=== PATIENT | male | born 1970 | race Caucasian/White ===

== ENCOUNTER 2017-02-07 17:33 | Emergency (ER) | payer SELFPAY ==
[~2017-02-07] VITALS: Ht 170.2 cm; Wt 101.6 kg
[2017-02-07] MEDS ORDERED: IV NORMAL SALINE 1000ML BAG 1,000 ML IV ONE ×2 (18:30→22:00)
[2017-02-07] MEDS ORDERED: METOCLOPRAMIDE HCL 10 MG/2 ML VIAL. IV ONE (18:45)
[2017-02-07] MEDS ORDERED: diphenhydrAMINE 50 MG/ML VIAL IVP ONE (18:45)
[2017-02-07 18:56] LABS: BASO % 0 % (0-3); EOS % 0 % (0-3); HEMATOCRIT 45.6 % (39.0-53.0); HEMOGLOBIN 15.4 g/dL (13.0-17.5); LYMPH # 1.7 x10^3/uL (1.0-4.8); LYMPH % 17 % (24-48); MEAN CORPUSCULAR HEMOGLOBIN 29 pg (25-35); MEAN CORPUSCULAR HGB CONC 34 g/dL (31-37); MEAN CORPUSCULAR VOLUME 85 fL (79-100); MONO % 4 % (0-9); NEUT % 79 % (31-73); PLATELET COUNT 249 x10^3/uL (140-400); RED BLOOD COUNT 5.37 x10^6/uL (4.30-5.70); RED CELL DISTRIBUTION WIDTH 14.1 % (11.5-14.5); WHITE BLOOD COUNT 10.1 x10^3/uL (4.0-11.0)
[2017-02-07 19:06] LABS: CALCIUM 9.7 mg/dL (8.5-10.1); GFR 80.4; POTASSIUM 4.4 mmol/L (3.5-5.1)
[2017-02-07 19:13] LABS: ALBUMIN/GLOBULIN RATIO 0.9 (1.0-1.7); TOTAL BILIRUBIN 0.9 mg/dL (0.2-1.0); TOTAL PROTEIN 8.7 g/dL (6.4-8.2)
--- NOTE | 2017-02-07 19:24 | RAD ---
EXAM: Head CT without contrast. HISTORY: Vomiting. TECHNIQUE: Computed tomographic images of the head were obtained without contrast. *One or more of the following individualized dose reduction techniques were utilized for this examination: 1. Automated exposure control. 2. Adjustment of the mA and/or kV according to patient size. 3. Use of iterative reconstruction technique. COMPARISON: None. FINDINGS: There is no acute or subacute extra-axial or intraparenchymal hemorrhage. There is no mass effect or midline shift. There is no hydrocephalus. The pérez-white matter differentiation pattern is intact. The visualized portions of the orbits, paranasal sinuses and mastoid air cells are unremarkable. No suspicious calvarial lesion is seen. IMPRESSION: No acute intracranial findings. Electronically signed by: Ericka Rodriguez MD (02/07/2017 7:21 PM) [facility]
[2017-02-07] MEDS ORDERED: KETOROLAC 15 MG/ML VIAL. IV ONE (19:45)
[2017-02-07] MEDS ORDERED: LIDOCAINE 1% PF 2 ML VIAL. NEB ONE (20:00)
[2017-02-07] MEDS ORDERED: METOPROLOL TART IMMED RELEASE 25 MG TABLET. PO ONE (20:45)
[2017-02-07 20:47] LABS: BILIRUBIN,URINE NEGATIVE (NEG); GLUCOSE,URINE >=1000 mg/dL (NEG); NITRITE,URINE NEGATIVE (NEG); PH,URINE 5.5; PROTEIN,URINE 100 mg/dL (NEG-TRACE); UROBILINOGEN,URINE 0.2 mg/dL (0.2 mg/dL)
[2017-02-07 20:57] LABS: BARBITURATES NEG (NEG); BENZODIAZEPINES NEG (NEG); CANNABINOIDS NEG (NEG); COCAINE NEG (NEG); METHADONE NEG (NEG); OPIATES NEG (NEG); PHENCYCLIDINE NEG (NEG)
[2017-02-07 21:02] LABS: BACTERIA,URINE 0 /HPF (0-FEW); RBC,URINE OCC /HPF (0-2); SQUAMOUS EPITHELIAL CELL,UR FEW /LPF
[2017-02-07 21:50] VITALS: BP 152/96
[2017-02-07] MEDS ORDERED: ONDA4TAB7 PO (22:11)
--- NOTE | 2017-02-07 23:45 | ED.ADGEN ---
Past Medical History Past Medical History: Diabetes-Type II, High Cholesterol, Hypertension, Migraines Additional Past Medical Histor: PERIPHERAL NEUROPATHY, RETINOPATHY, renal insufficiency Past Surgical History: No Surgical History Alcohol Use: Occasionally Drug Use: None Adult General Chief Complaint Chief Complaint: HEADACHE HPI HPI Patient is a 46 year old man, history of migraines, cluster headaches, hypertension, type 2 diabetes mellitus, hyperlipidemia, obesity, who presents to the emergency department with a complaint of headache, nausea and vomiting, and generalized malaise. Patient states the headache began several weeks ago, states he was seen at the [facility] by his primary care provider, who would like him to receive a sleep study, he states he was instructed use Tylenol for his headaches, and to return for additional evaluation. He states that the headaches became worse today, located in the front of his head, and wrapping around to the back of his head as well, associated with nausea and vomiting. States he has had some rhinorrhea but no ear pain, no vision changes, no weakness, numbness or tingling. He states that he's had dry heaves, and nausea, some mild photophobia, denies any injuries, any fevers or chills, any urinary complaints. He states that he has had headaches similar to this previously, but it is been worse today. He states that he was diagnosed with cluster headaches when he was a teenager, has not had evaluation for headache since that time, that time he had an MRI performed that was unremarkable. No swelling extremities, no chest pain or shortness breath, recent travel or surgery, no injuries. Review of Systems Review of Systems Constitutional: Denies fever or chills. [] Eyes: Denies change in visual acuity. [] HENT: Denies nasal congestion or sore throat. [] Respiratory: Denies cough or shortness of breath. [] Cardiovascular: Denies chest pain or edema. [] GI: Denies abdominal pain, nausea, vomiting, bloody stools or diarrhea. : Denies dysuria. [] Musculoskeletal: Denies back pain or joint pain. [] Integument: Denies rash. [] Neurologic: Denies focal weakness or sensory changes. [] Headache, frontal region, wrapping around to the back of his head. Endocrine: Denies polyuria or polydipsia. [] Lymphatic: Denies swollen glands. [] Psychiatric: Denies depression or anxiety. [] Current Medications Current Medications Current Medications Medications (Trade) Dose Ordered Sig/Felisha Start Time Stop Time Status Last Admin Dose Admin Diphenhydramine HCl (Benadryl) 25 mg 1X ONCE 02/07/17 18:45 02/07/17 18:46 DC 02/07/17 18:45 25 MG Ketorolac Tromethamine (Toradol) 10 mg 1X ONCE 02/07/17 19:45 02/07/17 19:46 DC 02/07/17 19:35 10 MG Lidocaine HCl (Xylocaine-Mpf 1% Vial) 5 ml 1X ONCE 02/07/17 20:00 02/07/17 20:01 DC Metoclopramide HCl (Reglan Vial) 10 mg 1X ONCE 02/07/17 18:45 02/07/17 18:46 DC 02/07/17 18:45 10 MG Metoprolol Tartrate (Lopressor) 25 mg 1X ONCE 02/07/17 20:45 02/07/17 20:46 DC 02/07/17 21:03 25 MG Sodium Chloride 1,000 ml @ 1,000 mls/hr 1X ONCE 02/07/17 22:00 02/07/17 22:48 DC Allergies Allergies Allergies Coded Allergies Type Severity Reaction Last Updated Verified acetaminophen Allergy Intermediate 02/07/17 Yes amlodipine Allergy Intermediate 02/07/17 Yes lisinopril Allergy Intermediate 02/07/17 Yes Physical Exam Physical Exam Constitutional: Well developed, well nourished, no acute distress, non-toxic appearance. [] HENT: Normocephalic, atraumatic, bilateral external ears normal, oropharynx moist, no oral exudates, nose normal. [] Eyes: PERRLA, EOMI, conjunctiva normal, no discharge. [] Neck: Normal range of motion, no tenderness, supple, no stridor. [] Negative jolt accentuation test. Cardiovascular:Heart rate regular rhythm, no murmur, S1, S2, tachycardic, no rubs or gallops. [] Lungs & Thorax: Bilateral breath sounds clear to auscultation, no wheezing, rhonchi, rales. No chest wall crepitus or tenderness. [] Abdomen: Bowel sounds normal, soft, no tenderness, no rebound, rigidity, no guarding, no masses, no pulsatile masses. [] Skin: Warm, dry, no erythema, no rash. [] Back: No tenderness, no CVA tenderness. [] Extremities: No tenderness, no cyanosis, no clubbing, ROM intact, no edema. Negative Homans sign.[] Neurologic: Alert and oriented X 3, normal motor function, normal sensory function, no focal deficits noted. [] Psychologic: Affect normal, judgement normal, mood normal. [] Current Patient Data Vital Signs Vital Signs Date Time Temp Pulse Resp B/P (MAP) Pulse Ox O2 Delivery O2 Flow Rate FiO2 02/07/17 21:50 108 100 02/07/17 21:03 155/84 02/07/17 20:04 Nasal Cannula 3.0 02/07/17 17:55 97.9 20 97.9 Lab Values Laboratory Tests Test 02/07/17 17:53 02/07/17 20:39 02/07/17 21:10 White Blood Count 10.1 x10^3/uL (4.0-11.0) Red Blood Count 5.37 x10^6/uL (4.30-5.70) Hemoglobin 15.4 g/dL (13.0-17.5) Hematocrit 45.6 % (39.0-53.0) Mean Corpuscular Volume 85 fL (79-100) Mean Corpuscular Hemoglobin 29 pg (25-35) Mean Corpuscular Hemoglobin Concent 34 g/dL (31-37) Red Cell Distribution Width 14.1 % (11.5-14.5) Platelet Count 249 x10^3/uL (140-400) Neutrophils (%) (Auto) 79 % (31-73) H Lymphocytes (%) (Auto) 17 % (24-48) L Monocytes (%) (Auto) 4 % (0-9) Eosinophils (%) (Auto) 0 % (0-3) Basophils (%) (Auto) 0 % (0-3) Neutrophils # (Auto) 8.0 x10^3uL (1.8-7.7) H Lymphocytes # (Auto) 1.7 x10^3/uL (1.0-4.8) Monocytes # (Auto) 0.4 x10^3/uL (0.0-1.1) Eosinophils # (Auto) 0.0 x10^3/uL (0.0-0.7) Basophils # (Auto) 0.0 x10^3/uL (0.0-0.2) Sodium Level 135 mmol/L (136-145) L Potassium Level 4.4 mmol/L (3.5-5.1) Chloride Level 97 mmol/L (98-107) L Carbon Dioxide Level 31 mmol/L (21-32) Anion Gap 7 (6-14) Blood Urea Nitrogen 20 mg/dL (8-26) Creatinine 1.0 mg/dL (0.7-1.3) Estimated GFR (Cockcroft-Gault) 80.4 BUN/Creatinine Ratio 20 (6-20) Glucose Level 297 mg/dL (70-99) H Calcium Level 9.7 mg/dL (8.5-10.1) Total Bilirubin 0.9 mg/dL (0.2-1.0) Aspartate Amino Transferase (AST) 45 U/L (15-37) H Alanine Aminotransferase (ALT) 73 U/L (16-63) H Alkaline Phosphatase 71 U/L (46-116) Troponin I Quantitative < 0.017 ng/mL (0.000-0.055) Total Protein 8.7 g/dL (6.4-8.2) H Albumin 4.0 g/dL (3.4-5.0) Albumin/Globulin Ratio 0.9 (1.0-1.7) L Urine Collection Type Unknown Urine Color Yellow Urine Clarity Clear Urine pH 5.5 Urine Specific [place] >=1.030 Urine Protein 100 mg/dL (NEG-TRACE) Urine Glucose (UA) >=1000 mg/dL (NEG) Urine Ketones (Stick) 40 mg/dL (NEG) Urine Blood Trace (NEG) Urine Nitrite Negative (NEG) Urine Bilirubin Negative (NEG) Urine Urobilinogen Dipstick 0.2 mg/dL (0.2 mg/dL) Urine Leukocyte Esterase Negative (NEG) Urine RBC Occ /HPF (0-2) Urine WBC 5-10 /HPF (0-4) Urine Squamous Epithelial Cells Few /LPF Urine Bacteria 0 /HPF (0-FEW) Urine Opiates Screen Neg (NEG) Urine Methadone Screen Neg (NEG) Urine Barbiturates Neg (NEG) Urine Phencyclidine Screen Neg (NEG) Urine Amphetamine/Methamphetamine Neg (NEG) Urine Benzodiazepines Screen Neg (NEG) Urine Cocaine Screen Neg (NEG) Urine Cannabinoids Screen Neg (NEG) Urine Ethyl Alcohol Neg (NEG) Lactic Acid Level 1.4 mmol/L (0.4-2.0) Laboratory Tests 02/07/17 17:53 Laboratory Tests 02/07/17 17:53 EKG EKG EC: Sinus tachycardia, heart rate 108 bpm, QTC of 435, CT 168, QRS of 90 , patient with left axis deviation, no ST elevations or depressions, abnormal ECG, does not meet STEMI criteria. As interpreted by me.[] Radiology/Procedures Radiology/Procedures [][facility] [address] [place] [address] IMAGING REPORT Signed PATIENT: LETHA ARZATE ACCOUNT: [id number] : 1970 LOCATION: ER AGE: 46 SEX: M EXAM STATUS: REG ER ORD. PHYSICIAN: MICHAEL MAYER DO REASON: MALIK/HTN PROCEDURE: CT HEAD WO CONTRAST EXAM: Head CT without contrast. HISTORY: Vomiting. TECHNIQUE: Computed tomographic images of the head were obtained without contrast. *One or more of the following individualized dose reduction techniques were utilized for this examination: 1. Automated exposure control. 2. Adjustment of the mA and/or kV according to patient size. 3. Use of iterative reconstruction technique. COMPARISON: None. FINDINGS: There is no acute or subacute extra-axial or intraparenchymal hemorrhage. There is no mass effect or midline shift. There is no hydrocephalus. The pérez-white matter differentiation pattern is intact. The visualized portions of the orbits, paranasal sinuses and mastoid air cells are unremarkable. No suspicious calvarial lesion is seen. IMPRESSION: No acute intracranial findings. Electronically signed by: Ericka Suresh MD (02/07/2017 7:21 PM) [facility] DICTATED and SIGNED BY: ERICKA SURESH MD DATE: 02/07/171920 CC: MICHAEL MAYER DO; UNKNOWN PCP NAME ~ Chest x-ray: One view: Normal cardiopulmonary silhouette, no infiltrates, no effusions, no pneumothorax, no soft tissue or bony abnormalities identified. As interpreted by me. Course & Med Decision Making Course & Med Decision Making Pertinent Labs and Imaging studies reviewed. (See chart for details) Patient tachycardic, complaints multiple episodes of nausea and vomiting, states symptoms have been persistent over the past several weeks, worse today. Due to patient's complaints, CT of the head obtained as patient has not received any imaging for many years, does not reveal any evidence acutely concerning findings. Tachycardic as stated, initially in the 1 teens to 120s, and received IV fluids, with concern for dehydration, due to multiple doses of vomiting, noted be hyperglycemic with a glucose of 297, noted, patient was noted however to have 40 ketones in the urine, with glucose. Patient received a liter of fluid, the second liter infusing in the ED, I did discuss the results with patient. He is also received a lidocaine neb, along with Reglan and Benadryl. He states that his headache is slightly improved at this time, I did discuss admission to the hospital for treatment of dehydration with hyperglycemia, and further evaluation of his persistent symptoms. Patient however states that he "cannot be admitted to the hospital as he can't afford it , and has things to do". He states that he is feeling better at this time, we does remain mild tachycardia with heart rate in the low 100s, states that his nausea is improved he has not had any further vomiting in the ED, he has tolerated some oral fluids, and states that he will go home, take his insulin other medications, and will advance clear liquids. He states he'll return to the emergency department if that is not working or he feels worse. I discussed with patient my concerns for worsening morbidity or mortality, based on his laboratory studies and persistent symptoms, with persistent tachycardia with heart rate remaining in the 1 teens, evidence of dehydration,patient voiced understanding, was calm and cooperative, and appropriate in his responses. After discussion patient did opt to sign out AGAINST MEDICAL ADVICE, paperwork completed with nurse Savana, patient did ambulate without difficulty upon exiting the emergency department with family. Nithin Disclaimer Nithin Disclaimer This electronic medical record was generated, in whole or in part, using a voice recognition dictation system. Departure Impression: Primary Impression: Hyperglycemia Additional Impressions: Dehydration Headache Ketonuria Left against medical advice Disposition: 07 AGAINST MEDICAL ADVICE Condition: STABLE Scripts Ondansetron Hcl (ZOFRAN) 4 Mg Tablet 1 TAB PO PRN Q8HRS Y for NAUSEA, #12 TAB Prov: MORENO,MICHAEL M DO 02/07/17 Problem Qualifiers MICHAEL MAYER DO Feb 07, 2017 23:45
--- NOTE | 2017-02-08 08:54 | RAD ---
Single view chest History:Tachycardia, nausea and vomiting v An AP view of the chest is submitted. Comparison: 08/10/2015. Findings: There is no significant infiltrate, pleural effusion, or pneumothorax. The pericardial cardiac silhouette is within normal limits in size. Impression: There is no evidence of acute cardiopulmonary disease.
--- NOTE | 2017-02-08 11:18 | EKG ---
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
== END 2017-02-07 22:15 | disposition left against medical advice (07) ==
LOC: ER 17:33
DX: R51 Headache (principal); E86.0 Dehydration; E11.65 Type 2 diabetes mellitus with hyperglycemia; R82.4 Acetonuria; N18.9 Chronic kidney disease, unspecified; E11.22 Type 2 diabetes mellitus with diabetic chronic kidney disease; I12.9 Hypertensive chronic kidney disease with stage 1 through stage 4 chronic kidney disease, or unspecified chronic kidney disease; E11.40 Type 2 diabetes mellitus with diabetic neuropathy, unspecified; E78.00 Pure hypercholesterolemia, unspecified; G43.909 Migraine, unspecified, not intractable, without status migrainosus; Z88.6 Allergy status to analgesic agent; Z88.8 Allergy status to other drugs, medicaments and biological substances
CPT/HCPCS: 36415; 70450; 71010; 80053; 80307; 81001; 83605; 84484; 85025; 87086; 93005; 94640; 96361; 96374; 96375; 99285; J1200; J1885; J2765; J7030; G0479

== ENCOUNTER 2017-12-29 18:28 | Inpatient (IN) | payer SELFPAY ==
[~2017-12-29] VITALS: Ht 167.6 cm; Wt 97.1 kg
[~2017-12-29 18:28] MED LIST: ONDA4TAB7 PO
[2017-12-29 18:54] LABS: BILIRUBIN,URINE NEGATIVE (NEG); CLARITY,URINE CLEAR; COLOR,URINE YELLOW; NITRITE,URINE NEGATIVE (NEG); PROTEIN,URINE NEGATIVE (NEG-TRACE); UROBILINOGEN,URINE 0.2 mg/dL (0.2 mg/dL)
[2017-12-29 19:04] LABS: BACTERIA,URINE FEW /HPF (0-FEW); SQUAMOUS EPITHELIAL CELL,UR FEW /LPF
[2017-12-29] MEDS ORDERED: ONDANSETRON PF 4 MG/2 ML VIAL. IV ONE (19:15)
[2017-12-29] MEDS ORDERED: fentaNYL PF VIAL 100 MCG/2 ML VIAL IV ONE (19:15)
[2017-12-29] MEDS ORDERED: FAMOTIDINE 20 MG/2 ML VIAL IVP ONE (19:15)
[2017-12-29] MEDS ORDERED: IV NORMAL SALINE 1000ML BAG 1,000 ML IV ONE ×2 (19:15)
--- NOTE | 2017-12-29 19:48 | PHYS DOC ---
Past Medical History Past Medical History: Diabetes-Type II, High Cholesterol, Hypertension, Migraines Additional Past Medical Histor: PERIPHERAL NEUROPATHY, RETINOPATHY, renal insufficiency Past Surgical History: No Surgical History Alcohol Use: Occasionally Drug Use: None Adult General Chief Complaint Chief Complaint: FLANK PAIN HPI HPI Patient is a 47 year old male with history of insulin-dependent diabetes noncompliance who presents with bilateral flank pain,, multiple episodes of emesis after being off insulin for the past 2 days. Patient also reports epigastric pain, burning worse with vomiting. Patient states his symptoms began over the weekend and he been treating them with left over nausea medication from prior hospital admission. He has not checked his blood sugars in the past 2 days. Does report dizziness lightheadedness and dry mouth. No fever chills, emesis, coffee-ground emesis. No constipation or diarrhea. No chest pain or shortness of breath. No other acute symptoms or complaints.[] Review of Systems Review of Systems ROS as per HPI All other systems were reviewed and found to be within normal limits, except as documented in this note. Current Medications Current Medications Current Medications Medications (Trade) Dose Ordered Sig/Felisha Start Time Stop Time Status Last Admin Dose Admin Ceftriaxone Sodium 50 ml @ 100 mls/hr 1X ONCE 12/29/17 19:15 12/29/17 19:44 Famotidine (Pepcid Vial) 20 mg 1X ONCE 12/29/17 19:15 12/29/17 19:17 DC Fentanyl Citrate (Fentanyl 2ml Vial) 50 mcg 1X ONCE 12/29/17 19:15 12/29/17 19:17 DC Ondansetron HCl (Zofran) 4 mg 1X ONCE 12/29/17 19:15 12/29/17 19:17 DC Sodium Chloride 1,000 ml @ 1,000 mls/hr 1X ONCE 12/29/17 19:15 12/29/17 20:14 Allergies Allergies Allergies Coded Allergies Type Severity Reaction Last Updated Verified acetaminophen Allergy Intermediate 02/07/17 Yes amlodipine Allergy Intermediate 02/07/17 Yes lisinopril Allergy Intermediate 02/07/17 Yes Physical Exam Physical Exam Constitutional: Well developed, well nourished, no acute distress, non-toxic appearance. [] HENT: Normocephalic, atraumatic, bilateral external ears normal, oropharynx moist, no oral exudates, nose normal. [] Eyes: PERRLA, EOMI, conjunctiva normal, no discharge. [] Neck: Normal range of motion, no tenderness, supple, no stridor. [] Cardiovascular:Heart rate regular rhythm, no murmur [] Lungs & Thorax: Bilateral breath sounds clear to auscultation [] Abdomen: Bowel sounds normal, soft, mild epigastric pain, tenderness. [] Skin: Warm, dry, no erythema. [] Back: No tenderness. [] Extremities: No tenderness. [] Neurologic: Alert and oriented X 3, normal motor function, normal sensory function, no focal deficits noted. [] Psychologic: Affect normal, judgement normal, mood normal. [] Current Patient Data Vital Signs Vital Signs Date Time Temp Pulse Resp B/P (MAP) Pulse Ox O2 Delivery O2 Flow Rate FiO2 12/29/17 18:57 98.5 127 18 134/79 (97) 96 Room Air 98.5 Lab Values Laboratory Tests Test 12/29/17 18:42 Urine Collection Type Unknown Urine Color Yellow Urine Clarity Clear Urine pH 5.0 Urine Specific [place] 1.025 Urine Protein Negative mg/dL (NEG-TRACE) Urine Glucose (UA) >=1000 mg/dL (NEG) Urine Ketones (Stick) 15 mg/dL (NEG) Urine Blood Moderate (NEG) Urine Nitrite Negative (NEG) Urine Bilirubin Negative (NEG) Urine Urobilinogen Dipstick 0.2 mg/dL (0.2 mg/dL) Urine Leukocyte Esterase Trace (NEG) Urine RBC 1-2 /HPF (0-2) Urine WBC 11-20 /HPF (0-4) Urine Squamous Epithelial Cells Few /LPF Urine Bacteria Few /HPF (0-FEW) Urine Mucus Slight /LPF EKG EKG [EKG: Reviewed] Radiology/Procedures Radiology/Procedures [CT abdomen pelvis without contrast:] Course & Med Decision Making Course & Med Decision Making Pertinent Labs and Imaging studies reviewed. (See chart for details) [Bilateral hematuria with complications related to diabetes and hyperglycemia, IV fluids, antiemetics and pain medications given. Will obtain CT abdomen pelvis to rule out acute pathology presence of kidney stone with anticipated hospital admission] Dragon Disclaimer Dragon Disclaimer This electronic medical record was generated, in whole or in part, using a voice recognition dictation system. Departure Departure Referrals: KASSY HUNT DO (PCP) XU BRIGHT DO Dec 29, 2017 19:48
[2017-12-29 19:51] LABS: BASO # 0.1 x10^3/uL (0.0-0.2); BASO % 0 % (0-3); EOS % 0 % (0-3); HEMATOCRIT 35.9 % (39.0-53.0); HEMOGLOBIN 11.9 g/dL (13.0-17.5); LYMPH # 0.9 x10^3/uL (1.0-4.8); LYMPH % 3 % (24-48); MEAN CORPUSCULAR HEMOGLOBIN 29 pg (25-35); MEAN CORPUSCULAR HGB CONC 33 g/dL (31-37); MEAN CORPUSCULAR VOLUME 87 fL (79-100); MONO # 1.8 x10^3/uL (0.0-1.1); MONO % 6 % (0-9); NEUT # 25.7 x10^3uL (1.8-7.7); NEUT % 90 % (31-73); PLATELET COUNT 277 x10^3/uL (140-400); RED BLOOD COUNT 4.12 x10^6/uL (4.30-5.70); RED CELL DISTRIBUTION WIDTH 14.1 % (11.5-14.5); WHITE BLOOD COUNT 28.5 x10^3/uL (4.0-11.0)
--- NOTE | 2017-12-29 19:52 | RAD ---
CT abdomen pelvis without intravenous contrast History: Right flank pain. Comparison: None. Technique: CT of the abdomen and pelvis was performed without intravenous or oral contrast. Exposure: One or more of the following individualized dose reduction techniques were utilized for this examination: 1. Automated exposure control 2. Adjustment of the mA and/or kV according to patient size 3. Use of iterative reconstruction technique Findings: Evaluation of solid organs is limited by lack of intravenous contrast. Evaluation of enteric structures may be limited by lack of oral contrast. Fatty liver disease is seen. Mild splenomegaly is present with spleen measuring 13.5 cm in maximum dimension. Pancreas, gallbladder, and bilateral adrenal glands unremarkable. Bilateral kidneys and ureters are free stone or obstruction. Urinary bladder is unremarkable. No bowel obstruction or inflammation is identified. Appendix is without inflammation. No free air or free fluid is seen in the abdomen or pelvis. In the left upper hemipelvis, there is a heterogeneously attenuating lesion (probably partially calcified) measuring 1.5 x 1.0 cm. This is nonspecific, could represent small lymph node or possibly partially calcified cyst. Impression: 1. No acute abnormality identified in the abdomen or pelvis. 2. Mild splenomegaly. 3. Small partially calcified left mesenteric lesion left hemipelvis. Electronically signed by: Wallace Smith MD (12/29/2017 7:49 PM) [facility]
[2017-12-29 20:01] LABS: ACETONE MOD POS (NEG)
[2017-12-29 20:07] LABS: ANION GAP 29 (6-14); BLOOD UREA NITROGEN 57 mg/dL (8-26); BUN/CREATININE RATIO 24 (6-20); CALCIUM 9.9 mg/dL (8.5-10.1); CARBON DIOXIDE 13 mmol/L (21-32); CHLORIDE 82 mmol/L (98-107); CREATININE 2.4 mg/dL (0.7-1.3); GFR 29.2; POTASSIUM 5.6 mmol/L (3.5-5.1); SODIUM 124 mmol/L (136-145)
[2017-12-29 20:09] LABS: ALBUMIN 2.9 g/dL (3.4-5.0); ALBUMIN/GLOBULIN RATIO 0.6 (1.0-1.7); ALK PHOS 108 U/L (46-116); ALT (SGPT) 21 U/L (16-63); AST (SGOT) 14 U/L (15-37); TOTAL BILIRUBIN 1.1 mg/dL (0.2-1.0); TOTAL PROTEIN 7.5 g/dL (6.4-8.2)
[2017-12-29 20:27] LABS: GLUCOSE 809 mg/dL (70-99)
[2017-12-29 20:40] LABS: % BANDS 11 % (0-9); % LYMPHS 1 % (24-48); % MONOS 6 % (0-10); % SEGS 82 % (35-66); PLT ESTIMATE ADEQUATE (ADEQUATE)
[2017-12-29 20:43] LABS: POIKILOCYTOSIS SLIGHT
[2017-12-29] MEDS ORDERED: INSULIN REGULAR 100 UNIT/ML 3ML VIAL. SQ ONE (20:45)
[2017-12-29] MEDS ORDERED: ONDANSETRON PF 4 MG/2 ML VIAL. IV PRN (20:45)
[2017-12-29] MEDS ORDERED: INSULIN REGULAR VIAL 150 UNIT in 0.9 % SODIUM CHLORIDE 150ML 150 ML IV PRN (20:45)
[2017-12-29] MEDS: IV NORMAL SALINE 1000ML BAG 1,000 ML IV SCH (21:00)
[2017-12-29 21:54] LABS: BASE EXCESS ABG -12 mmol/L (-3-3); HCO3 ABG 13 mmol/L (21-28); PCO2 ABG 26 mmHg (35-46); PO2 ABG 90 mmHg (75-108); SAT O2 ABG 96 % (92-99)
[2017-12-29 22:00] VITALS: BP 135/64
[2017-12-29 22:15] VITALS: BP 103/59
[2017-12-29 22:30] VITALS: BP 124/63
[2017-12-29 22:39] LABS: FIO2 ABG 21
[2017-12-29 22:45] VITALS: BP 146/74
[2017-12-29 22:57] LABS: CALCIUM 9.5 mg/dL (8.5-10.1); CREATININE 2.3 mg/dL (0.7-1.3); GFR 30.6; PHOSPHORUS 4.4 mg/dL (2.6-4.7); POTASSIUM 4.8 mmol/L (3.5-5.1)
[2017-12-29 23:00] VITALS: BP 133/76
[2017-12-29 23:30] VITALS: BP 132/58
[2017-12-30] VITALS (15 sets, daily range): BP systolic 92–178; BP diastolic 53–91
[2017-12-30] MEDS: IV NORMAL SALINE 1000ML BAG 1,000 ML IV SCH (01:00)
--- NOTE | 2017-12-30 01:21 | EKG ---
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
[2017-12-30] MEDS ORDERED: AMLO10TA6 PO (02:01)
[2017-12-30] MEDS ORDERED: PREG75CA PO (02:01)
[2017-12-30] MEDS ORDERED: ATOR20TA58 PO (02:01)
[2017-12-30] MEDS ORDERED: INSU100V13 SQ (02:01)
[2017-12-30] MEDS ORDERED: METF10007 PO (02:01)
[2017-12-30] MEDS ORDERED: DULA1.5P SQ (02:01)
[2017-12-30 03:02] LABS: CREATININE 2.3 mg/dL (0.7-1.3); GFR 30.6; MAGNESIUM 1.8 mg/dL (1.8-2.4); PHOSPHORUS 2.3 mg/dL (2.6-4.7); POTASSIUM 4.3 mmol/L (3.5-5.1)
[2017-12-30] MEDS ORDERED: SODIUM PHOSPHATE 20 MMOL in IV DEXTROSE 5% 250 ML IV PRN (03:15)
[2017-12-30] MEDS ORDERED: IV NORMAL SALINE 1000ML BAG 1,000 ML IV SCH (03:30)
[2017-12-30 03:39] LABS: BASO % 0 % (0-3); EOS % 0 % (0-3); HEMOGLOBIN 10.4 g/dL (13.0-17.5); LYMPH # 1.1 x10^3/uL (1.0-4.8); LYMPH % 5 % (24-48); MEAN CORPUSCULAR HEMOGLOBIN 28 pg (25-35); MEAN CORPUSCULAR HGB CONC 34 g/dL (31-37); MEAN CORPUSCULAR VOLUME 84 fL (79-100); MONO # 1.3 x10^3/uL (0.0-1.1); MONO % 7 % (0-9); NEUT # 17.2 x10^3uL (1.8-7.7); NEUT % 88 % (31-73); PLATELET COUNT 225 x10^3/uL (140-400); RED BLOOD COUNT 3.67 x10^6/uL (4.30-5.70); RED CELL DISTRIBUTION WIDTH 14.1 % (11.5-14.5); WHITE BLOOD COUNT 19.7 x10^3/uL (4.0-11.0)
[2017-12-30] MEDS ORDERED: INSULIN GLARGINE 300 UNITS/3 ML INSULN.PEN. SQ SCH (07:00)
[2017-12-30 07:28] LABS: CALCIUM 8.5 mg/dL (8.5-10.1); MAGNESIUM 1.7 mg/dL (1.8-2.4); PHOSPHORUS 2.3 mg/dL (2.6-4.7)
[2017-12-30] MEDS ORDERED: INSULIN LISPRO 300 UNITS/3 ML INSULN.PEN. SQ SCH ×3 (08:00→12:00)
--- NOTE | 2017-12-30 08:06 | PDOC1 ---
History and Physical Date of Admission Date of Admission DATE: 12/30/17 TIME: 08:04 Identification/Chief Complaint Chief Complaint DKA YOEL Source Source: Chart review, Patient History of Present Illness History of Present Illness Patient is a 47 year old male with history of insulin-dependent diabetes noncompliance who presents with bilateral flank pain, multiple episodes of emesis after being off insulin for the past 3 days. Patient also reports epigastric pain, burning worse with vomiting. Patient states his symptoms began over the weekend and he been treating them with left over nausea medication from prior hospital admission. He has not checked his blood sugars in the past 2 days. Does report dizziness lightheadedness and dry mouth. No fever chills, emesis, coffee-ground emesis. No constipation or diarrhea. No chest pain or shortness of breath. No other acute symptoms or complaints. Admitted with DKA on insulin GTT with electrolyte imbalance. He was noted with macerated feet bilaterally, seen by nephrology and infectious disease consults. He was noted with Cr of 2, low phos and mag and WBC of 28.5 increased respiratory rated, treated for sepsis aggressively, zosyn for likely cellulitic foot as source. His gap closed overnight, was able to eat this morning, restarted lantus. Past Medical History Cardiovascular: HTN Pulmonary: No pertinent hx GI: No pertinent hx Heme/Onc: No pertinent hx Hepatobiliary: No pertinent hx Psych: No pertinent hx Musculoskeletal: low back pain Infectious disease: No pertinent hx Renal/: No pertinent hx Endocrine: Diabetes Dermatology: No pertinent hx Past Surgical History Past Surgical History: No pertinent history Family History Family History: Diabetes Family History: Parent Social History Smoke: <1 pack per day ALCOHOL: none Drugs: None Current Medications Current Medications Current Medications Famotidine (Pepcid Vial) 20 mg 1X ONCE IVP Last administered on 12/29/17at 20: 02; Start 12/29/17 at 19:15; Stop 12/29/17 at 19:17; Status DC Sodium Chloride 1,000 ml @ 1,000 mls/hr 1X ONCE IV Last administered on 12/29at 19:58; Start 12/29/17 at 19:15; Stop 12/29/17 at 20:14; Status DC Ceftriaxone Sodium 50 ml @ 100 mls/hr 1X ONCE IV Last administered on at 20:05; Start 12/29/17 at 19:15; Stop 12/29/17 at 19:44; Status DC Fentanyl Citrate (Fentanyl 2ml Vial) 50 mcg 1X ONCE IV Last administered on at 20:04; Start 12/29/17 at 19:15; Stop 12/29/17 at 19:17; Status DC Ondansetron HCl (Zofran) 4 mg 1X ONCE IV Last administered on 12/29/17at 20:00 ; Start 12/29/17 at 19:15; Stop 12/29/17 at 19:17; Status DC Sodium Chloride 1,000 ml @ 1,000 mls/hr 1X ONCE IV Last administered on 12/29at 21:03; Start 12/29/17 at 19:15; Stop 12/29/17 at 20:14; Status DC Insulin Human Regular (HumuLIN R VIAL) 14 unit 1X ONCE SQ Last administered on 12/29/17at 21:06; Start 12/29/17 at 20:45; Stop 12/29/17 at 20:46; Status DC Ondansetron HCl (Zofran) 4 mg PRN Q8HRS PRN IV NAUSEA/VOMITING 1ST CHOICE Last administered on 12/30/17at 00:21; Start 12/29/17 at 20:45; Stop 12/30/17 at 20 :44 Sodium Chloride 1,000 ml @ 250 mls/hr Q4H IV ; Start 12/29/17 at 21:00; Stop 12/30/17 at 03:31; Status DC Insulin Human Regular 150 unit/ Sodium Chloride 151.5 ml @ 0 mls/hr CONT PRN PRN IV PER PROTOCOL Last administered on 12/29/17at 23:10; Start 12/29/17 at 20 :45 Magnesium Sulfate/ Dextrose 100 ml @ 25 mls/hr DAILY IV ; Start 12/30/17 at 09 :00; Stop 01/02/18 at 08:59 Ceftriaxone Sodium 50 ml @ 100 mls/hr 1X ONCE IV ; Start 12/29/17 at 20:45; Stop 12/29/17 at 21:14; Status UNV Sodium Chloride 1,000 ml @ 250 mls/hr Q4H IV ; Start 12/30/17 at 03:30; Stop 12/30/17 at 03:30; Status DC Potassium Chloride/Sodium Chloride 1,000 ml @ 250 mls/hr Q4H IV Last administered on 12/29/17at 23:27; Start 12/29/17 at 23:30; Stop 12/30/17 at 03 :29; Status DC Ceftriaxone Sodium 50 ml @ 100 mls/hr DAILY IV ; Start 12/30/17 at 09:00; Status UNV Ceftriaxone Sodium (Rocephin) 1 gm Q24H IVP ; Start 12/30/17 at 20:00 Potassium Chloride/Sodium Chloride 1,000 ml @ 250 mls/hr 1X ONCE IV Last administered on 12/30/17at 03:43; Start 12/30/17 at 04:00; Stop 12/30/17 at 07 :59; Status DC Sodium Phosphate 20 mmol/Dextrose 256.6667 ml @ 62.5 mls/hr 1X PRN PRN IV SEE COMMENTS Last administered on 12/30/17at 04:38; Start 12/30/17 at 03:15 Insulin Glargine (Lantus) 40 units BID SQ Last administered on 12/30/17at 06:13 ; Start 12/30/17 at 07:00 Insulin Human Lispro (HumaLOG) 20 units TIDWMEALS SQ ; Start 12/30/17 at 08:00 Insulin Human Lispro (HumaLOG) 0-9 UNITS TIDWMEALS SQ ; Start 12/30/17 at 08:00 Lactobacillus Rhamnosus (Culturelle) 1 cap BID PO ; Start 12/30/17 at 09:00 Active Scripts Active Zofran (Ondansetron Hcl) 4 Mg Tablet 1 Tab PO PRN Q8HRS PRN Reported Levemir (Insulin Detemir) 100 Unit/1 Ml Vial 34 Unit SQ BID Lyrica (Pregabalin) 75 Mg Capsule 75 Mg PO TID Atorvastatin Calcium 20 Mg Tablet 20 Mg PO HS Amlodipine Besylate 10 Mg Tablet 20 Mg PO BID Trulicity (Dulaglutide) 1.5 Mg/0.5 Ml Pen.injctr 1.5 Mg SQ WEEKLY Metformin Hcl 1,000 Mg Tablet 1,000 Mg PO BIDWMEALS Allergies Allergies: Coded Allergies: acetaminophen (Verified Adverse Reaction, Intermediate, UPSET STOMACH, DOESN'T WANT TO TAKE, 12/30/17) lisinopril (Verified Adverse Reaction, Intermediate, CHEST PAIN, ACID REFLUX, 12/30/17) ROS General: YES: Chills, Fatigue, Malaise PSYCHOLOGICAL ROS: No: Anxiety, Behavioral Disorder, Concentration difficultie , Decreased libido, Depression, Disorientation, Hallucinations, Hostility, Irritablity, Memory difficulties, Mood Swings, Obsessive thoughts, Physical abuse, Sexual abuse, Sleep disturbances, Suicidal ideation, Other Eyes: No Blurry vision, No Decreased vision, No Double vision, No Dry eyes, No Excessive tearing, No Eye Pain, No Itchy Eyes, No Loss of vision, No Photophobia , No Scotomata, No Uses contacts, No Uses glasses, No Other HEENT: No: Heacaches, Visual Changes, Hearing change, Nasal congestion, Nasal discharge, Oral lesions, Sinus pain, Sore Throat, Epistaxis, Sneezing, Snoring, Tinnitus, Vertigo, Vocal changes, Other ALLERGY AND IMMUNOLOGY: No: Hives, Insect Bite Sensitivity, Itchy/Watery Eyes, Nasal Congestion, Post Nasal Drip, Seasonal Allergies, Other Hematological and Lymphatic: No: Bleeding Problems, Blood Clots, Blood Transfusions, Brusing, Night Sweats, Pallor, Swollen Lymph Nodes, Other ENDOCRINE: YES: Polydipsia/polyuria; No: Breast Changes, Galactorrhea, Hair Pattern Changes, Hot Flashes, Malaise/ lethargy, Mood Swings, Palpitations, Skin Changes, Temperature Intolerance, Unexpected Weight Changes, Other Respiratory: No: Cough, Hemoptysis, Orthopnea, Pleuritic Pain, Shortness of breath, SOB with excertion, Sputum Changes, Stridor, Tachypnea, Wheezing, Other Cardiovascular: No Chest Pain, No Palpitations, No Orthopnea, No Paroxysmal Noc. Dyspnea, No Edema, No Lt Headedness, No Other Gastrointestinal: Yes Nausea, Yes Vomiting, Yes Abdominal Pain Genitourinary: YES Dysuria, YES Frequency Musculoskeletal: Yes Gait Disturbance, Yes Muscular Weakness Neurological: No Behavorial Changes, No Bowel/Bladder ControlChng, No Confusion , No Dizziness, No Gait Disturbance, No Headaches, No Impaired Coord/balance, No Memory Loss, No Numbness/Tingling, No Seizures, No Speech Problems, No Tremors, No Visual Changes, No Weakness, No Other Skin: Yes Other (Feet) Physical Exam General: Alert, Oriented X3, Cooperative, No acute distress HEENT: Atraumatic, PERRLA, EOMI, Mucous membr. moist/pink Lungs: Clear to auscultation, Normal air movement Heart: S1S2, RRR, no murmurs Abdomen: Normal bowel sounds, Soft, No hepatosplenomegaly, No masses, Other ( Epigastric tenderness) Rectal Exam: not examined Extremities: No clubbing, No cyanosis, No edema, Normal pulses, No tenderness/ swelling Skin: No rashes, Other (Bilaterally macerated feet, red) Neuro: Normal gait, Normal speech, Strength at 5/5 X4 ext, Normal tone, Sensation intact, Cranial nerves 3-12 NL, Reflexes 2+ Psych/Mental Status: Mental status NL, Mood NL Vitals Vitals Vital Signs Date Time Temp Pulse Resp B/P (MAP) Pulse Ox O2 Delivery O2 Flow Rate FiO2 12/30/17 06:00 133 21 150/74 (99) 92 Room Air 12/30/17 04:00 98.8 98.8 Labs Labs Laboratory Tests Test 12/29/17 18:42 12/29/17 19:14 12/29/17 19:15 12/29/17 22:30 Urine Collection Type Unknown Urine Color Yellow Urine Clarity Clear Urine pH 5.0 Urine Specific [place] 1.025 Urine Protein Negative mg/dL (NEG-TRACE) Urine Glucose (UA) >=1000 mg/dL (NEG) Urine Ketones (Stick) 15 mg/dL (NEG) Urine Blood Moderate (NEG) Urine Nitrite Negative (NEG) Urine Bilirubin Negative (NEG) Urine Urobilinogen Dipstick 0.2 mg/dL (0.2 mg/dL) Urine Leukocyte Esterase Trace (NEG) Urine RBC 1-2 /HPF (0-2) Urine WBC 11-20 /HPF (0-4) Urine Squamous Epithelial Cells Few /LPF Urine Bacteria Few /HPF (0-FEW) Urine Mucus Slight /LPF O2 Saturation 96 % (92-99) Arterial Blood pH 7.31 (7.35-7.45) Arterial Blood pCO2 at Patient Temp 26 mmHg (35-46) Arterial Blood pO2 at Patient Temp 90 mmHg (75-108) Arterial Blood HCO3 13 mmol/L (21-28) Arterial Blood Base Excess -12 mmol/L (-3-3) FiO2 21 White Blood Count 28.5 x10^3/uL (4.0-11.0) Red Blood Count 4.12 x10^6/uL (4.30-5.70) Hemoglobin 11.9 g/dL (13.0-17.5) Hematocrit 35.9 % (39.0-53.0) Mean Corpuscular Volume 87 fL (79-100) Mean Corpuscular Hemoglobin 29 pg (25-35) Mean Corpuscular Hemoglobin Concent 33 g/dL (31-37) Red Cell Distribution Width 14.1 % (11.5-14.5) Platelet Count 277 x10^3/uL (140-400) Neutrophils (%) (Auto) 90 % (31-73) Lymphocytes (%) (Auto) 3 % (24-48) Monocytes (%) (Auto) 6 % (0-9) Eosinophils (%) (Auto) 0 % (0-3) Basophils (%) (Auto) 0 % (0-3) Neutrophils # (Auto) 25.7 x10^3uL (1.8-7.7) Lymphocytes # (Auto) 0.9 x10^3/uL (1.0-4.8) Monocytes # (Auto) 1.8 x10^3/uL (0.0-1.1) Eosinophils # (Auto) 0.0 x10^3/uL (0.0-0.7) Basophils # (Auto) 0.1 x10^3/uL (0.0-0.2) Segmented Neutrophils % 82 % (35-66) Band Neutrophils % 11 % (0-9) Lymphocytes % 1 % (24-48) Monocytes % 6 % (0-10) Platelet Estimate Adequate (ADEQUATE) Poikilocytosis Slight [place] Cells Sodium Level 124 mmol/L (136-145) 127 mmol/L (136-145) Potassium Level 5.6 mmol/L (3.5-5.1) 4.8 mmol/L (3.5-5.1) Chloride Level 82 mmol/L (98-107) 88 mmol/L (98-107) Carbon Dioxide Level 13 mmol/L (21-32) 19 mmol/L (21-32) Anion Gap 29 (6-14) 20 (6-14) Blood Urea Nitrogen 57 mg/dL (8-26) 59 mg/dL (8-26) Creatinine 2.4 mg/dL (0.7-1.3) 2.3 mg/dL (0.7-1.3) Estimated GFR (Cockcroft-Gault) 29.2 30.6 BUN/Creatinine Ratio 24 (6-20) Glucose Level 809 mg/dL (70-99) 745 mg/dL (70-99) Calcium Level 9.9 mg/dL (8.5-10.1) 9.5 mg/dL (8.5-10.1) Magnesium Level 2.0 mg/dL (1.8-2.4) 2.0 mg/dL (1.8-2.4) Total Bilirubin 1.1 mg/dL (0.2-1.0) Aspartate Amino Transf (AST/SGOT) 14 U/L (15-37) Alanine Aminotransferase (ALT/SGPT) 21 U/L (16-63) Alkaline Phosphatase 108 U/L (46-116) Troponin I Quantitative < 0.017 ng/mL (0.000-0.055) Total Protein 7.5 g/dL (6.4-8.2) Albumin 2.9 g/dL (3.4-5.0) Albumin/Globulin Ratio 0.6 (1.0-1.7) Acetone Level Mod pos (NEG) Lactic Acid Level 2.6 mmol/L (0.4-2.0) Phosphorus Level 4.4 mg/dL (2.6-4.7) Test 12/30/17 00:20 12/30/17 01:40 12/30/17 02:40 12/30/17 03:16 Glucose Level 629 mg/dL (70-99) 520 mg/dL (70-99) 477 mg/dL (70-99) White Blood Count 19.7 x10^3/uL (4.0-11.0) Red Blood Count 3.67 x10^6/uL (4.30-5.70) Hemoglobin 10.4 g/dL (13.0-17.5) Hematocrit 31.0 % (39.0-53.0) Mean Corpuscular Volume 84 fL (79-100) Mean Corpuscular Hemoglobin 28 pg (25-35) Mean Corpuscular Hemoglobin Concent 34 g/dL (31-37) Red Cell Distribution Width 14.1 % (11.5-14.5) Platelet Count 225 x10^3/uL (140-400) Neutrophils (%) (Auto) 88 % (31-73) Lymphocytes (%) (Auto) 5 % (24-48) Monocytes (%) (Auto) 7 % (0-9) Eosinophils (%) (Auto) 0 % (0-3) Basophils (%) (Auto) 0 % (0-3) Neutrophils # (Auto) 17.2 x10^3uL (1.8-7.7) Lymphocytes # (Auto) 1.1 x10^3/uL (1.0-4.8) Monocytes # (Auto) 1.3 x10^3/uL (0.0-1.1) Eosinophils # (Auto) 0.0 x10^3/uL (0.0-0.7) Basophils # (Auto) 0.0 x10^3/uL (0.0-0.2) Sodium Level 128 mmol/L (136-145) Potassium Level 4.3 mmol/L (3.5-5.1) Chloride Level 93 mmol/L (98-107) Carbon Dioxide Level 24 mmol/L (21-32) Anion Gap 11 (6-14) Blood Urea Nitrogen 60 mg/dL (8-26) Creatinine 2.3 mg/dL (0.7-1.3) Estimated GFR (Cockcroft-Gault) 30.6 Lactic Acid Level 1.8 mmol/L (0.4-2.0) Calcium Level 9.0 mg/dL (8.5-10.1) Phosphorus Level 2.3 mg/dL (2.6-4.7) Magnesium Level 1.8 mg/dL (1.8-2.4) Glucose (Fingerstick) 475 mg/dL (70-99) Test 12/30/17 04:18 12/30/17 05:20 12/30/17 06:50 Glucose (Fingerstick) 408 mg/dL (70-99) 372 mg/dL (70-99) Sodium Level 133 mmol/L (136-145) Potassium Level 4.0 mmol/L (3.5-5.1) Chloride Level 97 mmol/L (98-107) Carbon Dioxide Level 24 mmol/L (21-32) Anion Gap 12 (6-14) Blood Urea Nitrogen 55 mg/dL (8-26) Creatinine 2.0 mg/dL (0.7-1.3) Estimated GFR (Cockcroft-Gault) 36.0 Glucose Level 293 mg/dL (70-99) Calcium Level 8.5 mg/dL (8.5-10.1) Phosphorus Level 2.3 mg/dL (2.6-4.7) Magnesium Level 1.7 mg/dL (1.8-2.4) Laboratory Tests Test 12/29/17 18:42 12/29/17 19:14 12/29/17 19:15 12/29/17 22:30 Urine Collection Type Unknown Urine Color Yellow Urine Clarity Clear Urine pH 5.0 Urine Specific [place] 1.025 Urine Protein Negative mg/dL (NEG-TRACE) Urine Glucose (UA) >=1000 mg/dL (NEG) Urine Ketones (Stick) 15 mg/dL (NEG) Urine Blood Moderate (NEG) Urine Nitrite Negative (NEG) Urine Bilirubin Negative (NEG) Urine Urobilinogen Dipstick 0.2 mg/dL (0.2 mg/dL) Urine Leukocyte Esterase Trace (NEG) Urine RBC 1-2 /HPF (0-2) Urine WBC 11-20 /HPF (0-4) Urine Squamous Epithelial Cells Few /LPF Urine Bacteria Few /HPF (0-FEW) Urine Mucus Slight /LPF O2 Saturation 96 % (92-99) Arterial Blood pH 7.31 (7.35-7.45) Arterial Blood pCO2 at Patient Temp 26 mmHg (35-46) Arterial Blood pO2 at Patient Temp 90 mmHg (75-108) Arterial Blood HCO3 13 mmol/L (21-28) Arterial Blood Base Excess -12 mmol/L (-3-3) FiO2 21 White Blood Count 28.5 x10^3/uL (4.0-11.0) Red Blood Count 4.12 x10^6/uL (4.30-5.70) Hemoglobin 11.9 g/dL (13.0-17.5) Hematocrit 35.9 % (39.0-53.0) Mean Corpuscular Volume 87 fL (79-100) Mean Corpuscular Hemoglobin 29 pg (25-35) Mean Corpuscular Hemoglobin Concent 33 g/dL (31-37) Red Cell Distribution Width 14.1 % (11.5-14.5) Platelet Count 277 x10^3/uL (140-400) Neutrophils (%) (Auto) 90 % (31-73) Lymphocytes (%) (Auto) 3 % (24-48) Monocytes (%) (Auto) 6 % (0-9) Eosinophils (%) (Auto) 0 % (0-3) Basophils (%) (Auto) 0 % (0-3) Neutrophils # (Auto) 25.7 x10^3uL (1.8-7.7) Lymphocytes # (Auto) 0.9 x10^3/uL (1.0-4.8) Monocytes # (Auto) 1.8 x10^3/uL (0.0-1.1) Eosinophils # (Auto) 0.0 x10^3/uL (0.0-0.7) Basophils # (Auto) 0.1 x10^3/uL (0.0-0.2) Segmented Neutrophils % 82 % (35-66) Band Neutrophils % 11 % (0-9) Lymphocytes % 1 % (24-48) Monocytes % 6 % (0-10) Platelet Estimate Adequate (ADEQUATE) Poikilocytosis Slight [place] Cells Sodium Level 124 mmol/L (136-145) 127 mmol/L (136-145) Potassium Level 5.6 mmol/L (3.5-5.1) 4.8 mmol/L (3.5-5.1) Chloride Level 82 mmol/L (98-107) 88 mmol/L (98-107) Carbon Dioxide Level 13 mmol/L (21-32) 19 mmol/L (21-32) Anion Gap 29 (6-14) 20 (6-14) Blood Urea Nitrogen 57 mg/dL (8-26) 59 mg/dL (8-26) Creatinine 2.4 mg/dL (0.7-1.3) 2.3 mg/dL (0.7-1.3) Estimated GFR (Cockcroft-Gault) 29.2 30.6 BUN/Creatinine Ratio 24 (6-20) Glucose Level 809 mg/dL (70-99) 745 mg/dL (70-99) Calcium Level 9.9 mg/dL (8.5-10.1) 9.5 mg/dL (8.5-10.1) Magnesium Level 2.0 mg/dL (1.8-2.4) 2.0 mg/dL (1.8-2.4) Total Bilirubin 1.1 mg/dL (0.2-1.0) Aspartate Amino Transf (AST/SGOT) 14 U/L (15-37) Alanine Aminotransferase (ALT/SGPT) 21 U/L (16-63) Alkaline Phosphatase 108 U/L (46-116) Troponin I Quantitative < 0.017 ng/mL (0.000-0.055) Total Protein 7.5 g/dL (6.4-8.2) Albumin 2.9 g/dL (3.4-5.0) Albumin/Globulin Ratio 0.6 (1.0-1.7) Acetone Level Mod pos (NEG) Lactic Acid Level 2.6 mmol/L (0.4-2.0) Phosphorus Level 4.4 mg/dL (2.6-4.7) Test 12/30/17 00:20 12/30/17 01:40 12/30/17 02:40 12/30/17 03:16 Glucose Level 629 mg/dL (70-99) 520 mg/dL (70-99) 477 mg/dL (70-99) White Blood Count 19.7 x10^3/uL (4.0-11.0) Red Blood Count 3.67 x10^6/uL (4.30-5.70) Hemoglobin 10.4 g/dL (13.0-17.5) Hematocrit 31.0 % (39.0-53.0) Mean Corpuscular Volume 84 fL (79-100) Mean Corpuscular Hemoglobin 28 pg (25-35) Mean Corpuscular Hemoglobin Concent 34 g/dL (31-37) Red Cell Distribution Width 14.1 % (11.5-14.5) Platelet Count 225 x10^3/uL (140-400) Neutrophils (%) (Auto) 88 % (31-73) Lymphocytes (%) (Auto) 5 % (24-48) Monocytes (%) (Auto) 7 % (0-9) Eosinophils (%) (Auto) 0 % (0-3) Basophils (%) (Auto) 0 % (0-3) Neutrophils # (Auto) 17.2 x10^3uL (1.8-7.7) Lymphocytes # (Auto) 1.1 x10^3/uL (1.0-4.8) Monocytes # (Auto) 1.3 x10^3/uL (0.0-1.1) Eosinophils # (Auto) 0.0 x10^3/uL (0.0-0.7) Basophils # (Auto) 0.0 x10^3/uL (0.0-0.2) Sodium Level 128 mmol/L (136-145) Potassium Level 4.3 mmol/L (3.5-5.1) Chloride Level 93 mmol/L (98-107) Carbon Dioxide Level 24 mmol/L (21-32) Anion Gap 11 (6-14) Blood Urea Nitrogen 60 mg/dL (8-26) Creatinine 2.3 mg/dL (0.7-1.3) Estimated GFR (Cockcroft-Gault) 30.6 Lactic Acid Level 1.8 mmol/L (0.4-2.0) Calcium Level 9.0 mg/dL (8.5-10.1) Phosphorus Level 2.3 mg/dL (2.6-4.7) Magnesium Level 1.8 mg/dL (1.8-2.4) Glucose (Fingerstick) 475 mg/dL (70-99) Test 12/30/17 04:18 12/30/17 05:20 12/30/17 06:50 Glucose (Fingerstick) 408 mg/dL (70-99) 372 mg/dL (70-99) Sodium Level 133 mmol/L (136-145) Potassium Level 4.0 mmol/L (3.5-5.1) Chloride Level 97 mmol/L (98-107) Carbon Dioxide Level 24 mmol/L (21-32) Anion Gap 12 (6-14) Blood Urea Nitrogen 55 mg/dL (8-26) Creatinine 2.0 mg/dL (0.7-1.3) Estimated GFR (Cockcroft-Gault) 36.0 Glucose Level 293 mg/dL (70-99) Calcium Level 8.5 mg/dL (8.5-10.1) Phosphorus Level 2.3 mg/dL (2.6-4.7) Magnesium Level 1.7 mg/dL (1.8-2.4) VTE Prophylaxis Ordered VTE Prophylaxis Devices: Yes VTE Pharmacological Prophylaxi: Yes Assessment/Plan Assessment/Plan A/P: DKA - with type 2 diabetes, has acetone positive, gap closed overnight, ready to eat, needs phos and mag replaced. Lantus will increase to 50 units BID and 25 units lispro with meals. Ok for transfer to floor Sepsis - likely from bilateral foot infections, ID consulted. Received fluids and empiric antibiotics, will change to zosyn per ID recs. Monitor Acute renal failure - likely 2/2 DKA, sepsis, dehydration. Nephro consulted, aggressive fluids and electrolyte replacement Foot wound - ID consulted, wound care consulted, continue antibiotics. Blood culture taken Electrolyte derangement - 2/2 DKA, sodium likely 2/2 elevated glucose, replace K , mag, phos Carb diet PPX - heparin, SCDs Full code ICU --> floor today KENJI NOWAK MD Dec 30, 2017 08:06
[2017-12-30] MEDS ORDERED: LACTULOSE 20 GM/30 ML SOLUTION. PO PRN (08:15)
[2017-12-30] MEDS ORDERED: 0.9 % SODIUM CHLORIDE 10 ML DISP.SYRIN. IV PRN (08:15)
[2017-12-30] MEDS ORDERED: HYDROcodone/APAP 5/325MG 1 TAB TABLET PO PRN (08:15)
[2017-12-30] MEDS ORDERED: MAGNESIUM SULFATE 4GM 100 ML IV SCH (09:00)
[2017-12-30] MEDS: ONDANSETRON PF 4 MG/2 ML VIAL. IV PRN ×2 (09:09→19:00)
[2017-12-30] MEDS: LACTOBACILLUS RHAMNOSUS GG 1 CAPSULE. PO SCH ×2 (09:13→21:34)
[2017-12-30] MEDS: SENNOSIDES/DOCUSATE 8.6/50MG TABLET. PO SCH ×2 (09:13→21:34)
--- NOTE | 2017-12-30 09:40 | PDOC2 ---
CONSULT Date of Consult Date of Consult DATE: 12/30/17 TIME: 09:17 Reason for Consult Reason for Consult: Elevated Creatinine Source Source: Chart review, Patient History of Present Illness Reason for Visit: Patient is a 47 year old CM with history of DM Type 2 as per Pt, Insulin dependent , noncompliance who presents with c/o N/V and bilateral flank pain,, He reports multiple episodes of emesis after being off insulin for the past 3 days- started on Friday , worse since friday- constant along with acid and dry heaves Patient also reports epigastric pain, burning worse with vomiting.He been treating them with left over nausea medication from prior hospital admission.Denies Diarrhea. He takes Ibuprofen prn but since friday has been taking 4 tabs/day Denies dizziness lightheadedness . No fever chills, No chest pain or shortness of breath. No Urinary complaints. Denies any Kidney problems in past Admitted with DKA Current Medications Current Medications Current Medications Famotidine (Pepcid Vial) 20 mg 1X ONCE IVP Last administered on 12/29/17at 20: 02; Start 12/29/17 at 19:15; Stop 12/29/17 at 19:17; Status DC Sodium Chloride 1,000 ml @ 1,000 mls/hr 1X ONCE IV Last administered on 12/29at 19:58; Start 12/29/17 at 19:15; Stop 12/29/17 at 20:14; Status DC Ceftriaxone Sodium 50 ml @ 100 mls/hr 1X ONCE IV Last administered on at 20:05; Start 12/29/17 at 19:15; Stop 12/29/17 at 19:44; Status DC Fentanyl Citrate (Fentanyl 2ml Vial) 50 mcg 1X ONCE IV Last administered on at 20:04; Start 12/29/17 at 19:15; Stop 12/29/17 at 19:17; Status DC Ondansetron HCl (Zofran) 4 mg 1X ONCE IV Last administered on 12/29/17at 20:00 ; Start 12/29/17 at 19:15; Stop 12/29/17 at 19:17; Status DC Sodium Chloride 1,000 ml @ 1,000 mls/hr 1X ONCE IV Last administered on 12/29at 21:03; Start 12/29/17 at 19:15; Stop 12/29/17 at 20:14; Status DC Insulin Human Regular (HumuLIN R VIAL) 14 unit 1X ONCE SQ Last administered on 12/29/17at 21:06; Start 12/29/17 at 20:45; Stop 12/29/17 at 20:46; Status DC Ondansetron HCl (Zofran) 4 mg PRN Q8HRS PRN IV NAUSEA/VOMITING 1ST CHOICE Last administered on 12/30/17at 00:21; Start 12/29/17 at 20:45; Stop 12/30/17 at 08 :31; Status DC Sodium Chloride 1,000 ml @ 250 mls/hr Q4H IV ; Start 12/29/17 at 21:00; Stop 12/30/17 at 03:31; Status DC Insulin Human Regular 150 unit/ Sodium Chloride 151.5 ml @ 0 mls/hr CONT PRN PRN IV PER PROTOCOL Last administered on 12/29/17at 23:10; Start 12/29/17 at 20 :45 Magnesium Sulfate/ Dextrose 100 ml @ 25 mls/hr DAILY IV ; Start 12/30/17 at 09 :00; Stop 01/02/18 at 08:59 Ceftriaxone Sodium 50 ml @ 100 mls/hr 1X ONCE IV ; Start 12/29/17 at 20:45; Stop 12/29/17 at 21:14; Status UNV Sodium Chloride 1,000 ml @ 250 mls/hr Q4H IV ; Start 12/30/17 at 03:30; Stop 12/30/17 at 03:30; Status DC Potassium Chloride/Sodium Chloride 1,000 ml @ 250 mls/hr Q4H IV Last administered on 12/29/17at 23:27; Start 12/29/17 at 23:30; Stop 12/30/17 at 03 :29; Status DC Ceftriaxone Sodium 50 ml @ 100 mls/hr DAILY IV ; Start 12/30/17 at 09:00; Status UNV Ceftriaxone Sodium (Rocephin) 1 gm Q24H IVP ; Start 12/30/17 at 20:00 Potassium Chloride/Sodium Chloride 1,000 ml @ 250 mls/hr 1X ONCE IV Last administered on 12/30/17at 03:43; Start 12/30/17 at 04:00; Stop 12/30/17 at 07 :59; Status DC Sodium Phosphate 20 mmol/Dextrose 256.6667 ml @ 62.5 mls/hr 1X PRN PRN IV SEE COMMENTS Last administered on 12/30/17at 04:38; Start 12/30/17 at 03:15 Insulin Glargine (Lantus) 40 units BID SQ Last administered on 12/30/17at 06:13 ; Start 12/30/17 at 07:00 Insulin Human Lispro (HumaLOG) 20 units TIDWMEALS SQ Last administered on 12/30at 09:12; Start 12/30/17 at 08:00 Insulin Human Lispro (HumaLOG) 0-9 UNITS TIDWMEALS SQ Last administered on at 09:12; Start 12/30/17 at 08:00 Lactobacillus Rhamnosus (Culturelle) 1 cap BID PO Last administered on at 09:13; Start 12/30/17 at 09:00 Ondansetron HCl (Zofran) 4 mg PRN Q6HRS PRN IV NAUSEA/VOMITING Last administered on 12/30/17at 09:09; Start 12/30/17 at 08:15 Heparin Sodium (Porcine) (Heparin Sodium) 5,000 unit Q8HRS SQ ; Start 12/30/17 at 14:00 Sodium Chloride (Normal Saline Flush) 3 ml QSHIFT PRN IV AFTER MEDS AND BLOOD DRAWS; Start 12/30/17 at 08:15 Acetaminophen/ Hydrocodone Bitart (Lortab 5/325) 1 tab PRN Q4HRS PRN PO MILD PAIN Last administered on 12/30/17at 09:12; Start 12/30/17 at 08:15 Senna/Docusate Sodium (Senna Plus) 1 tab BID PO Last administered on at 09:13; Start 12/30/17 at 09:00 Lactulose (Lactulose) 20 gm PRN Q12HR PRN PO CONSTIPATION; Start 12/30/17 at 08:15 Active Scripts Active Zofran (Ondansetron Hcl) 4 Mg Tablet 1 Tab PO PRN Q8HRS PRN Reported Levemir (Insulin Detemir) 100 Unit/1 Ml Vial 34 Unit SQ BID Lyrica (Pregabalin) 75 Mg Capsule 75 Mg PO TID Atorvastatin Calcium 20 Mg Tablet 20 Mg PO HS Amlodipine Besylate 10 Mg Tablet 20 Mg PO BID Trulicity (Dulaglutide) 1.5 Mg/0.5 Ml Pen.injctr 1.5 Mg SQ WEEKLY Metformin Hcl 1,000 Mg Tablet 1,000 Mg PO BIDWMEALS Allergies Allergies: Coded Allergies: acetaminophen (Verified Adverse Reaction, Intermediate, UPSET STOMACH, DOESN'T WANT TO TAKE, 12/30/17) lisinopril (Verified Adverse Reaction, Intermediate, CHEST PAIN, ACID REFLUX, 12/30/17) ROS Review of System As per HPI Physical Exam Physical Exam GEN: NAD , sitting in chair HEEN: OM dryish NECK: No JVD CVS: S1S2, N RESP: CTA, No accessory Muscle use GI: BS + ve, NO Bruit, Non Tender, Non Distended : [NoCVA tenderness, No Suprapubic Tenderness, No Amaro Neuro- Grossly Normal Ext No LE edema Skin No Rash Vital Signs Vital Signs Date Time Temp Pulse Resp B/P (MAP) Pulse Ox O2 Delivery O2 Flow Rate FiO2 12/30/17 06:00 133 21 150/74 (99) 92 Room Air 12/30/17 04:00 98.8 98.8 Assessment & Plan YOEL- Pre-renal , sec to DKA , NSAID use , Vomiting Renal function improving E-Lytes and acid base stable , good UOP, Monitor CT Reviewed- Unremarkable Kidneys and Bladder UA- No protein, No RBC's, WBC+, No Nitrites Hyponatremia- Corrected for Glucose Normal DM/DKA - As per Primary HTN - On Amlodipine at Home Discussed A/P with Pt and RN Labs Labs Laboratory Tests Test 12/29/17 18:42 12/29/17 19:14 12/29/17 19:15 12/29/17 22:30 Urine Collection Type Unknown Urine Color Yellow Urine Clarity Clear Urine pH 5.0 Urine Specific [place] 1.025 Urine Protein Negative mg/dL (NEG-TRACE) Urine Glucose (UA) >=1000 mg/dL (NEG) Urine Ketones (Stick) 15 mg/dL (NEG) Urine Blood Moderate (NEG) Urine Nitrite Negative (NEG) Urine Bilirubin Negative (NEG) Urine Urobilinogen Dipstick 0.2 mg/dL (0.2 mg/dL) Urine Leukocyte Esterase Trace (NEG) Urine RBC 1-2 /HPF (0-2) Urine WBC 11-20 /HPF (0-4) Urine Squamous Epithelial Cells Few /LPF Urine Bacteria Few /HPF (0-FEW) Urine Mucus Slight /LPF O2 Saturation 96 % (92-99) Arterial Blood pH 7.31 (7.35-7.45) Arterial Blood pCO2 at Patient Temp 26 mmHg (35-46) Arterial Blood pO2 at Patient Temp 90 mmHg (75-108) Arterial Blood HCO3 13 mmol/L (21-28) Arterial Blood Base Excess -12 mmol/L (-3-3) FiO2 21 White Blood Count 28.5 x10^3/uL (4.0-11.0) Red Blood Count 4.12 x10^6/uL (4.30-5.70) Hemoglobin 11.9 g/dL (13.0-17.5) Hematocrit 35.9 % (39.0-53.0) Mean Corpuscular Volume 87 fL (79-100) Mean Corpuscular Hemoglobin 29 pg (25-35) Mean Corpuscular Hemoglobin Concent 33 g/dL (31-37) Red Cell Distribution Width 14.1 % (11.5-14.5) Platelet Count 277 x10^3/uL (140-400) Neutrophils (%) (Auto) 90 % (31-73) Lymphocytes (%) (Auto) 3 % (24-48) Monocytes (%) (Auto) 6 % (0-9) Eosinophils (%) (Auto) 0 % (0-3) Basophils (%) (Auto) 0 % (0-3) Neutrophils # (Auto) 25.7 x10^3uL (1.8-7.7) Lymphocytes # (Auto) 0.9 x10^3/uL (1.0-4.8) Monocytes # (Auto) 1.8 x10^3/uL (0.0-1.1) Eosinophils # (Auto) 0.0 x10^3/uL (0.0-0.7) Basophils # (Auto) 0.1 x10^3/uL (0.0-0.2) Segmented Neutrophils % 82 % (35-66) Band Neutrophils % 11 % (0-9) Lymphocytes % 1 % (24-48) Monocytes % 6 % (0-10) Platelet Estimate Adequate (ADEQUATE) Poikilocytosis Slight [place] Cells Sodium Level 124 mmol/L (136-145) 127 mmol/L (136-145) Potassium Level 5.6 mmol/L (3.5-5.1) 4.8 mmol/L (3.5-5.1) Chloride Level 82 mmol/L (98-107) 88 mmol/L (98-107) Carbon Dioxide Level 13 mmol/L (21-32) 19 mmol/L (21-32) Anion Gap 29 (6-14) 20 (6-14) Blood Urea Nitrogen 57 mg/dL (8-26) 59 mg/dL (8-26) Creatinine 2.4 mg/dL (0.7-1.3) 2.3 mg/dL (0.7-1.3) Estimated GFR (Cockcroft-Gault) 29.2 30.6 BUN/Creatinine Ratio 24 (6-20) Glucose Level 809 mg/dL (70-99) 745 mg/dL (70-99) Calcium Level 9.9 mg/dL (8.5-10.1) 9.5 mg/dL (8.5-10.1) Magnesium Level 2.0 mg/dL (1.8-2.4) 2.0 mg/dL (1.8-2.4) Total Bilirubin 1.1 mg/dL (0.2-1.0) Aspartate Amino Transf (AST/SGOT) 14 U/L (15-37) Alanine Aminotransferase (ALT/SGPT) 21 U/L (16-63) Alkaline Phosphatase 108 U/L (46-116) Troponin I Quantitative < 0.017 ng/mL (0.000-0.055) Total Protein 7.5 g/dL (6.4-8.2) Albumin 2.9 g/dL (3.4-5.0) Albumin/Globulin Ratio 0.6 (1.0-1.7) Acetone Level Mod pos (NEG) Lactic Acid Level 2.6 mmol/L (0.4-2.0) Phosphorus Level 4.4 mg/dL (2.6-4.7) Test 12/30/17 00:20 12/30/17 01:40 12/30/17 02:40 12/30/17 03:16 Glucose Level 629 mg/dL (70-99) 520 mg/dL (70-99) 477 mg/dL (70-99) White Blood Count 19.7 x10^3/uL (4.0-11.0) Red Blood Count 3.67 x10^6/uL (4.30-5.70) Hemoglobin 10.4 g/dL (13.0-17.5) Hematocrit 31.0 % (39.0-53.0) Mean Corpuscular Volume 84 fL (79-100) Mean Corpuscular Hemoglobin 28 pg (25-35) Mean Corpuscular Hemoglobin Concent 34 g/dL (31-37) Red Cell Distribution Width 14.1 % (11.5-14.5) Platelet Count 225 x10^3/uL (140-400) Neutrophils (%) (Auto) 88 % (31-73) Lymphocytes (%) (Auto) 5 % (24-48) Monocytes (%) (Auto) 7 % (0-9) Eosinophils (%) (Auto) 0 % (0-3) Basophils (%) (Auto) 0 % (0-3) Neutrophils # (Auto) 17.2 x10^3uL (1.8-7.7) Lymphocytes # (Auto) 1.1 x10^3/uL (1.0-4.8) Monocytes # (Auto) 1.3 x10^3/uL (0.0-1.1) Eosinophils # (Auto) 0.0 x10^3/uL (0.0-0.7) Basophils # (Auto) 0.0 x10^3/uL (0.0-0.2) Sodium Level 128 mmol/L (136-145) Potassium Level 4.3 mmol/L (3.5-5.1) Chloride Level 93 mmol/L (98-107) Carbon Dioxide Level 24 mmol/L (21-32) Anion Gap 11 (6-14) Blood Urea Nitrogen 60 mg/dL (8-26) Creatinine 2.3 mg/dL (0.7-1.3) Estimated GFR (Cockcroft-Gault) 30.6 Lactic Acid Level 1.8 mmol/L (0.4-2.0) Calcium Level 9.0 mg/dL (8.5-10.1) Phosphorus Level 2.3 mg/dL (2.6-4.7) Magnesium Level 1.8 mg/dL (1.8-2.4) Glucose (Fingerstick) 475 mg/dL (70-99) Test 12/30/17 04:18 12/30/17 05:20 12/30/17 06:28 12/30/17 06:50 Glucose (Fingerstick) 408 mg/dL (70-99) 372 mg/dL (70-99) 278 mg/dL (70-99) Sodium Level 133 mmol/L (136-145) Potassium Level 4.0 mmol/L (3.5-5.1) Chloride Level 97 mmol/L (98-107) Carbon Dioxide Level 24 mmol/L (21-32) Anion Gap 12 (6-14) Blood Urea Nitrogen 55 mg/dL (8-26) Creatinine 2.0 mg/dL (0.7-1.3) Estimated GFR (Cockcroft-Gault) 36.0 Glucose Level 293 mg/dL (70-99) Calcium Level 8.5 mg/dL (8.5-10.1) Phosphorus Level 2.3 mg/dL (2.6-4.7) Magnesium Level 1.7 mg/dL (1.8-2.4) Test 12/30/17 08:52 Glucose (Fingerstick) 321 mg/dL (70-99) Laboratory Tests Test 12/29/17 18:42 12/29/17 19:14 12/29/17 19:15 12/29/17 22:30 Urine Collection Type Unknown Urine Color Yellow Urine Clarity Clear Urine pH 5.0 Urine Specific [place] 1.025 Urine Protein Negative mg/dL (NEG-TRACE) Urine Glucose (UA) >=1000 mg/dL (NEG) Urine Ketones (Stick) 15 mg/dL (NEG) Urine Blood Moderate (NEG) Urine Nitrite Negative (NEG) Urine Bilirubin Negative (NEG) Urine Urobilinogen Dipstick 0.2 mg/dL (0.2 mg/dL) Urine Leukocyte Esterase Trace (NEG) Urine RBC 1-2 /HPF (0-2) Urine WBC 11-20 /HPF (0-4) Urine Squamous Epithelial Cells Few /LPF Urine Bacteria Few /HPF (0-FEW) Urine Mucus Slight /LPF O2 Saturation 96 % (92-99) Arterial Blood pH 7.31 (7.35-7.45) Arterial Blood pCO2 at Patient Temp 26 mmHg (35-46) Arterial Blood pO2 at Patient Temp 90 mmHg (75-108) Arterial Blood HCO3 13 mmol/L (21-28) Arterial Blood Base Excess -12 mmol/L (-3-3) FiO2 21 White Blood Count 28.5 x10^3/uL (4.0-11.0) Red Blood Count 4.12 x10^6/uL (4.30-5.70) Hemoglobin 11.9 g/dL (13.0-17.5) Hematocrit 35.9 % (39.0-53.0) Mean Corpuscular Volume 87 fL (79-100) Mean Corpuscular Hemoglobin 29 pg (25-35) Mean Corpuscular Hemoglobin Concent 33 g/dL (31-37) Red Cell Distribution Width 14.1 % (11.5-14.5) Platelet Count 277 x10^3/uL (140-400) Neutrophils (%) (Auto) 90 % (31-73) Lymphocytes (%) (Auto) 3 % (24-48) Monocytes (%) (Auto) 6 % (0-9) Eosinophils (%) (Auto) 0 % (0-3) Basophils (%) (Auto) 0 % (0-3) Neutrophils # (Auto) 25.7 x10^3uL (1.8-7.7) Lymphocytes # (Auto) 0.9 x10^3/uL (1.0-4.8) Monocytes # (Auto) 1.8 x10^3/uL (0.0-1.1) Eosinophils # (Auto) 0.0 x10^3/uL (0.0-0.7) Basophils # (Auto) 0.1 x10^3/uL (0.0-0.2) Segmented Neutrophils % 82 % (35-66) Band Neutrophils % 11 % (0-9) Lymphocytes % 1 % (24-48) Monocytes % 6 % (0-10) Platelet Estimate Adequate (ADEQUATE) Poikilocytosis Slight [place] Cells Sodium Level 124 mmol/L (136-145) 127 mmol/L (136-145) Potassium Level 5.6 mmol/L (3.5-5.1) 4.8 mmol/L (3.5-5.1) Chloride Level 82 mmol/L (98-107) 88 mmol/L (98-107) Carbon Dioxide Level 13 mmol/L (21-32) 19 mmol/L (21-32) Anion Gap 29 (6-14) 20 (6-14) Blood Urea Nitrogen 57 mg/dL (8-26) 59 mg/dL (8-26) Creatinine 2.4 mg/dL (0.7-1.3) 2.3 mg/dL (0.7-1.3) Estimated GFR (Cockcroft-Gault) 29.2 30.6 BUN/Creatinine Ratio 24 (6-20) Glucose Level 809 mg/dL (70-99) 745 mg/dL (70-99) Calcium Level 9.9 mg/dL (8.5-10.1) 9.5 mg/dL (8.5-10.1) Magnesium Level 2.0 mg/dL (1.8-2.4) 2.0 mg/dL (1.8-2.4) Total Bilirubin 1.1 mg/dL (0.2-1.0) Aspartate Amino Transf (AST/SGOT) 14 U/L (15-37) Alanine Aminotransferase (ALT/SGPT) 21 U/L (16-63) Alkaline Phosphatase 108 U/L (46-116) Troponin I Quantitative < 0.017 ng/mL (0.000-0.055) Total Protein 7.5 g/dL (6.4-8.2) Albumin 2.9 g/dL (3.4-5.0) Albumin/Globulin Ratio 0.6 (1.0-1.7) Acetone Level Mod pos (NEG) Lactic Acid Level 2.6 mmol/L (0.4-2.0) Phosphorus Level 4.4 mg/dL (2.6-4.7) Test 12/30/17 00:20 12/30/17 01:40 12/30/17 02:40 12/30/17 03:16 Glucose Level 629 mg/dL (70-99) 520 mg/dL (70-99) 477 mg/dL (70-99) White Blood Count 19.7 x10^3/uL (4.0-11.0) Red Blood Count 3.67 x10^6/uL (4.30-5.70) Hemoglobin 10.4 g/dL (13.0-17.5) Hematocrit 31.0 % (39.0-53.0) Mean Corpuscular Volume 84 fL (79-100) Mean Corpuscular Hemoglobin 28 pg (25-35) Mean Corpuscular Hemoglobin Concent 34 g/dL (31-37) Red Cell Distribution Width 14.1 % (11.5-14.5) Platelet Count 225 x10^3/uL (140-400) Neutrophils (%) (Auto) 88 % (31-73) Lymphocytes (%) (Auto) 5 % (24-48) Monocytes (%) (Auto) 7 % (0-9) Eosinophils (%) (Auto) 0 % (0-3) Basophils (%) (Auto) 0 % (0-3) Neutrophils # (Auto) 17.2 x10^3uL (1.8-7.7) Lymphocytes # (Auto) 1.1 x10^3/uL (1.0-4.8) Monocytes # (Auto) 1.3 x10^3/uL (0.0-1.1) Eosinophils # (Auto) 0.0 x10^3/uL (0.0-0.7) Basophils # (Auto) 0.0 x10^3/uL (0.0-0.2) Sodium Level 128 mmol/L (136-145) Potassium Level 4.3 mmol/L (3.5-5.1) Chloride Level 93 mmol/L (98-107) Carbon Dioxide Level 24 mmol/L (21-32) Anion Gap 11 (6-14) Blood Urea Nitrogen 60 mg/dL (8-26) Creatinine 2.3 mg/dL (0.7-1.3) Estimated GFR (Cockcroft-Gault) 30.6 Lactic Acid Level 1.8 mmol/L (0.4-2.0) Calcium Level 9.0 mg/dL (8.5-10.1) Phosphorus Level 2.3 mg/dL (2.6-4.7) Magnesium Level 1.8 mg/dL (1.8-2.4) Glucose (Fingerstick) 475 mg/dL (70-99) Test 12/30/17 04:18 12/30/17 05:20 12/30/17 06:28 12/30/17 06:50 Glucose (Fingerstick) 408 mg/dL (70-99) 372 mg/dL (70-99) 278 mg/dL (70-99) Sodium Level 133 mmol/L (136-145) Potassium Level 4.0 mmol/L (3.5-5.1) Chloride Level 97 mmol/L (98-107) Carbon Dioxide Level 24 mmol/L (21-32) Anion Gap 12 (6-14) Blood Urea Nitrogen 55 mg/dL (8-26) Creatinine 2.0 mg/dL (0.7-1.3) Estimated GFR (Cockcroft-Gault) 36.0 Glucose Level 293 mg/dL (70-99) Calcium Level 8.5 mg/dL (8.5-10.1) Phosphorus Level 2.3 mg/dL (2.6-4.7) Magnesium Level 1.7 mg/dL (1.8-2.4) Test 12/30/17 08:52 Glucose (Fingerstick) 321 mg/dL (70-99) Review All relevant outside records, renal labs, imaging studies, telemetry/EKG's were reviewed. Images Images CT scan abdomen-- Evaluation of solid organs is limited by lack of intravenous contrast. Evaluation of enteric structures may be limited by lack of oral contrast. Fatty liver disease is seen. Mild splenomegaly is present with spleen measuring 13.5 cm in maximum dimension. Pancreas, gallbladder, and bilateral adrenal glands unremarkable. Bilateral kidneys and ureters are free stone or obstruction. Urinary bladder is unremarkable. No bowel obstruction or inflammation is identified. Appendix is without inflammation. No free air or free fluid is seen in the abdomen or pelvis. In the left upper hemipelvis, there is a heterogeneously attenuating lesion (probably partially calcified) measuring 1.5 x 1.0 cm. This is nonspecific, could represent small lymph node or possibly partially calcified cyst. Impression: 1. No acute abnormality identified in the abdomen or pelvis. 2. Mild splenomegaly. 3. Small partially calcified left mesenteric lesion left hemipelvis. JERRY WEN MD Dec 30, 2017 09:40
--- NOTE | 2017-12-30 10:22 | PDOC2 ---
CONSULT Date of Consult Date of Consult DATE: 12/30/17 TIME: 10:05 Reason for Consult Reason for Consult: Diabetic ulcers bilateral lower extremities Referring Physician Referring Physician: Dr. Torres Identification/Chief Complaint Chief Complaint This is a 47-year-old patient with poor compliance with diabetic regimen resulting in ketoacidosis and YOEL. In the course of the admission process bilateral plantar forefoot diabetic ulcerations became evident as well. We are asked to evaluate the diabetic ulcers. Source Source: Chart review, Patient History of Present Illness Reason for Visit: Patient reports a long history of bilateral diabetic ulcers perhaps tracing back 2 years. He describes insufficient offloading but eventual healing perhaps 6 months ago. He describes prolong antibiotic therapy. 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 He is not aware of increased redness, drainage, swelling or odor. He is aware of decreased sensation to the plantar surface of the feet. It does not appear he is been evaluated for or bony involvement. Past Medical History Cardiovascular: HTN Renal/: Acute renal failure Endocrine: Diabetes Family History Family History: Diabetes Social History No ALCOHOL: rare Drugs: None Current Problem List Problem List Diabetic ketoacidosis YOEL HTN Diabetic ulcers Current Medications Current Medications Current Medications Famotidine (Pepcid Vial) 20 mg 1X ONCE IVP Last administered on 12/29/17at 20: 02; Start 12/29/17 at 19:15; Stop 12/29/17 at 19:17; Status DC Sodium Chloride 1,000 ml @ 1,000 mls/hr 1X ONCE IV Last administered on 12/29at 19:58; Start 12/29/17 at 19:15; Stop 12/29/17 at 20:14; Status DC Ceftriaxone Sodium 50 ml @ 100 mls/hr 1X ONCE IV Last administered on at 20:05; Start 12/29/17 at 19:15; Stop 12/29/17 at 19:44; Status DC Fentanyl Citrate (Fentanyl 2ml Vial) 50 mcg 1X ONCE IV Last administered on at 20:04; Start 12/29/17 at 19:15; Stop 12/29/17 at 19:17; Status DC Ondansetron HCl (Zofran) 4 mg 1X ONCE IV Last administered on 12/29/17at 20:00 ; Start 10/15/18 at 19:15; Stop 12/29/17 at 19:17; Status DC Sodium Chloride 1,000 ml @ 1,000 mls/hr 1X ONCE IV Last administered on 12/29at 21:03; Start 12/29/17 at 19:15; Stop 12/29/17 at 20:14; Status DC Insulin Human Regular (HumuLIN R VIAL) 14 unit 1X ONCE SQ Last administered on 12/29/17at 21:06; Start 12/29/17 at 20:45; Stop 12/29/17 at 20:46; Status DC Ondansetron HCl (Zofran) 4 mg PRN Q8HRS PRN IV NAUSEA/VOMITING 1ST CHOICE Last administered on 12/30/17at 00:21; Start 12/29/17 at 20:45; Stop 12/30/17 at 08 :31; Status DC Sodium Chloride 1,000 ml @ 250 mls/hr Q4H IV ; Start 12/29/17 at 21:00; Stop 12/30/17 at 03:31; Status DC Insulin Human Regular 150 unit/ Sodium Chloride 151.5 ml @ 0 mls/hr CONT PRN PRN IV PER PROTOCOL Last administered on 12/29/17at 23:10; Start 12/29/17 at 20 :45 Magnesium Sulfate/ Dextrose 100 ml @ 25 mls/hr DAILY IV Last administered on 12/30/17at 09:54; Start 12/30/17 at 09:00; Stop 01/02/18 at 08:59 Ceftriaxone Sodium 50 ml @ 100 mls/hr 1X ONCE IV ; Start 12/29/17 at 20:45; Stop 12/29/17 at 21:14; Status UNV Sodium Chloride 1,000 ml @ 250 mls/hr Q4H IV ; Start 12/30/17 at 03:30; Stop 12/30/17 at 03:30; Status DC Potassium Chloride/Sodium Chloride 1,000 ml @ 250 mls/hr Q4H IV Last administered on 12/29/17at 23:27; Start 12/29/17 at 23:30; Stop 12/30/17 at 03 :29; Status DC Ceftriaxone Sodium 50 ml @ 100 mls/hr DAILY IV ; Start 12/30/17 at 09:00; Status UNV Ceftriaxone Sodium (Rocephin) 1 gm Q24H IVP ; Start 12/30/17 at 20:00 Potassium Chloride/Sodium Chloride 1,000 ml @ 250 mls/hr 1X ONCE IV Last administered on 12/30/17at 03:43; Start 12/30/17 at 04:00; Stop 12/30/17 at 07 :59; Status DC Sodium Phosphate 20 mmol/Dextrose 256.6667 ml @ 62.5 mls/hr 1X PRN PRN IV SEE COMMENTS Last administered on 12/30/17at 04:38; Start 12/30/17 at 03:15 Insulin Glargine (Lantus) 40 units BID SQ Last administered on 12/30/17at 06:13 ; Start 12/30/17 at 07:00 Insulin Human Lispro (HumaLOG) 20 units TIDWMEALS SQ Last administered on 12/30at 09:12; Start 12/30/17 at 08:00 Insulin Human Lispro (HumaLOG) 0-9 UNITS TIDWMEALS SQ Last administered on at 09:12; Start 12/30/17 at 08:00 Lactobacillus Rhamnosus (Culturelle) 1 cap BID PO Last administered on at 09:13; Start 12/30/17 at 09:00 Ondansetron HCl (Zofran) 4 mg PRN Q6HRS PRN IV NAUSEA/VOMITING Last administered on 12/30/17at 09:09; Start 12/30/17 at 08:15 Heparin Sodium (Porcine) (Heparin Sodium) 5,000 unit Q8HRS SQ ; Start 12/30/17 at 14:00 Sodium Chloride (Normal Saline Flush) 3 ml QSHIFT PRN IV AFTER MEDS AND BLOOD DRAWS; Start 12/30/17 at 08:15 Acetaminophen/ Hydrocodone Bitart (Lortab 5/325) 1 tab PRN Q4HRS PRN PO MILD PAIN Last administered on 12/30/17at 09:12; Start 12/30/17 at 08:15 Senna/Docusate Sodium (Senna Plus) 1 tab BID PO Last administered on at 09:13; Start 12/30/17 at 09:00 Lactulose (Lactulose) 20 gm PRN Q12HR PRN PO CONSTIPATION; Start 12/30/17 at 08:15 Active Scripts Active Zofran (Ondansetron Hcl) 4 Mg Tablet 1 Tab PO PRN Q8HRS PRN Reported Levemir (Insulin Detemir) 100 Unit/1 Ml Vial 34 Unit SQ BID Lyrica (Pregabalin) 75 Mg Capsule 75 Mg PO TID Atorvastatin Calcium 20 Mg Tablet 20 Mg PO HS Amlodipine Besylate 10 Mg Tablet 20 Mg PO BID Trulicity (Dulaglutide) 1.5 Mg/0.5 Ml Pen.injctr 1.5 Mg SQ WEEKLY Metformin Hcl 1,000 Mg Tablet 1,000 Mg PO BIDWMEALS Allergies Allergies: Coded Allergies: acetaminophen (Verified Adverse Reaction, Intermediate, UPSET STOMACH, DOESN'T WANT TO TAKE, 12/30/17) lisinopril (Verified Adverse Reaction, Intermediate, CHEST PAIN, ACID REFLUX, 12/30/17) ROS Review of System Negative except as reported below General: YES: Fatigue, Malaise Gastrointestinal: Yes Nausea, Yes Vomiting Musculoskeletal: Yes Pain In: (lower back) Neurological: Yes Numbness/Tingling (bilateral plantar surfaces) Skin: Yes Other (chronic bilateral plantar surface ulcers) Physical Exam Physical Exam Patient is examined at the bedside in the ICU setting. General: Alert, Oriented X3, Cooperative, No acute distress HEENT: Atraumatic, PERRLA, EOMI Lungs: Clear to auscultation, Normal air movement Heart: Other (patient demonstrates mild tachycardia) Abdomen: Soft Extremities: No clubbing, No cyanosis, No edema, Other (Quant of flow is 0.84 on the left and point to 9 on the right) Skin: Other (2 cm diameter ulcerations identified to the plantar forefoot with a depth of 1.5 cm. Evidence of muscle necrosis is noted. This does not probe to bone. On the left is a small area of scab overlying callus less than 1 cm in diameter.) Neuro: Normal speech, Cranial nerves 3-12 NL, Other (blunted plantar surface sensation noted) Psych/Mental Status: Mental status NL MUSCULOSKELETAL: Not examined Vitals VITALS Vital Signs Date Time Temp Pulse Resp B/P (MAP) Pulse Ox O2 Delivery O2 Flow Rate FiO2 12/30/17 06:00 133 21 150/74 (99) 92 Room Air 12/30/17 04:00 98.8 98.8 Labs Labs Laboratory Tests Test 12/29/17 18:42 12/29/17 19:14 12/29/17 19:15 12/29/17 22:30 Urine Collection Type Unknown Urine Color Yellow Urine Clarity Clear Urine pH 5.0 Urine Specific [place] 1.025 Urine Protein Negative mg/dL (NEG-TRACE) Urine Glucose (UA) >=1000 mg/dL (NEG) Urine Ketones (Stick) 15 mg/dL (NEG) Urine Blood Moderate (NEG) Urine Nitrite Negative (NEG) Urine Bilirubin Negative (NEG) Urine Urobilinogen Dipstick 0.2 mg/dL (0.2 mg/dL) Urine Leukocyte Esterase Trace (NEG) Urine RBC 1-2 /HPF (0-2) Urine WBC 11-20 /HPF (0-4) Urine Squamous Epithelial Cells Few /LPF Urine Bacteria Few /HPF (0-FEW) Urine Mucus Slight /LPF O2 Saturation 96 % (92-99) Arterial Blood pH 7.31 (7.35-7.45) Arterial Blood pCO2 at Patient Temp 26 mmHg (35-46) Arterial Blood pO2 at Patient Temp 90 mmHg (75-108) Arterial Blood HCO3 13 mmol/L (21-28) Arterial Blood Base Excess -12 mmol/L (-3-3) FiO2 21 White Blood Count 28.5 x10^3/uL (4.0-11.0) Red Blood Count 4.12 x10^6/uL (4.30-5.70) Hemoglobin 11.9 g/dL (13.0-17.5) Hematocrit 35.9 % (39.0-53.0) Mean Corpuscular Volume 87 fL (79-100) Mean Corpuscular Hemoglobin 29 pg (25-35) Mean Corpuscular Hemoglobin Concent 33 g/dL (31-37) Red Cell Distribution Width 14.1 % (11.5-14.5) Platelet Count 277 x10^3/uL (140-400) Neutrophils (%) (Auto) 90 % (31-73) Lymphocytes (%) (Auto) 3 % (24-48) Monocytes (%) (Auto) 6 % (0-9) Eosinophils (%) (Auto) 0 % (0-3) Basophils (%) (Auto) 0 % (0-3) Neutrophils # (Auto) 25.7 x10^3uL (1.8-7.7) Lymphocytes # (Auto) 0.9 x10^3/uL (1.0-4.8) Monocytes # (Auto) 1.8 x10^3/uL (0.0-1.1) Eosinophils # (Auto) 0.0 x10^3/uL (0.0-0.7) Basophils # (Auto) 0.1 x10^3/uL (0.0-0.2) Segmented Neutrophils % 82 % (35-66) Band Neutrophils % 11 % (0-9) Lymphocytes % 1 % (24-48) Monocytes % 6 % (0-10) Platelet Estimate Adequate (ADEQUATE) Poikilocytosis Slight [place] Cells Sodium Level 124 mmol/L (136-145) 127 mmol/L (136-145) Potassium Level 5.6 mmol/L (3.5-5.1) 4.8 mmol/L (3.5-5.1) Chloride Level 82 mmol/L (98-107) 88 mmol/L (98-107) Carbon Dioxide Level 13 mmol/L (21-32) 19 mmol/L (21-32) Anion Gap 29 (6-14) 20 (6-14) Blood Urea Nitrogen 57 mg/dL (8-26) 59 mg/dL (8-26) Creatinine 2.4 mg/dL (0.7-1.3) 2.3 mg/dL (0.7-1.3) Estimated GFR (Cockcroft-Gault) 29.2 30.6 BUN/Creatinine Ratio 24 (6-20) Glucose Level 809 mg/dL (70-99) 745 mg/dL (70-99) Calcium Level 9.9 mg/dL (8.5-10.1) 9.5 mg/dL (8.5-10.1) Magnesium Level 2.0 mg/dL (1.8-2.4) 2.0 mg/dL (1.8-2.4) Total Bilirubin 1.1 mg/dL (0.2-1.0) Aspartate Amino Transf (AST/SGOT) 14 U/L (15-37) Alanine Aminotransferase (ALT/SGPT) 21 U/L (16-63) Alkaline Phosphatase 108 U/L (46-116) Troponin I Quantitative < 0.017 ng/mL (0.000-0.055) Total Protein 7.5 g/dL (6.4-8.2) Albumin 2.9 g/dL (3.4-5.0) Albumin/Globulin Ratio 0.6 (1.0-1.7) Acetone Level Mod pos (NEG) Lactic Acid Level 2.6 mmol/L (0.4-2.0) Phosphorus Level 4.4 mg/dL (2.6-4.7) Test 12/30/17 00:20 12/30/17 01:40 12/30/17 02:40 12/30/17 03:16 Glucose Level 629 mg/dL (70-99) 520 mg/dL (70-99) 477 mg/dL (70-99) White Blood Count 19.7 x10^3/uL (4.0-11.0) Red Blood Count 3.67 x10^6/uL (4.30-5.70) Hemoglobin 10.4 g/dL (13.0-17.5) Hematocrit 31.0 % (39.0-53.0) Mean Corpuscular Volume 84 fL (79-100) Mean Corpuscular Hemoglobin 28 pg (25-35) Mean Corpuscular Hemoglobin Concent 34 g/dL (31-37) Red Cell Distribution Width 14.1 % (11.5-14.5) Platelet Count 225 x10^3/uL (140-400) Neutrophils (%) (Auto) 88 % (31-73) Lymphocytes (%) (Auto) 5 % (24-48) Monocytes (%) (Auto) 7 % (0-9) Eosinophils (%) (Auto) 0 % (0-3) Basophils (%) (Auto) 0 % (0-3) Neutrophils # (Auto) 17.2 x10^3uL (1.8-7.7) Lymphocytes # (Auto) 1.1 x10^3/uL (1.0-4.8) Monocytes # (Auto) 1.3 x10^3/uL (0.0-1.1) Eosinophils # (Auto) 0.0 x10^3/uL (0.0-0.7) Basophils # (Auto) 0.0 x10^3/uL (0.0-0.2) Sodium Level 128 mmol/L (136-145) Potassium Level 4.3 mmol/L (3.5-5.1) Chloride Level 93 mmol/L (98-107) Carbon Dioxide Level 24 mmol/L (21-32) Anion Gap 11 (6-14) Blood Urea Nitrogen 60 mg/dL (8-26) Creatinine 2.3 mg/dL (0.7-1.3) Estimated GFR (Cockcroft-Gault) 30.6 Lactic Acid Level 1.8 mmol/L (0.4-2.0) Calcium Level 9.0 mg/dL (8.5-10.1) Phosphorus Level 2.3 mg/dL (2.6-4.7) Magnesium Level 1.8 mg/dL (1.8-2.4) Glucose (Fingerstick) 475 mg/dL (70-99) Test 12/30/17 04:18 12/30/17 05:20 12/30/17 06:28 12/30/17 06:50 Glucose (Fingerstick) 408 mg/dL (70-99) 372 mg/dL (70-99) 278 mg/dL (70-99) Sodium Level 133 mmol/L (136-145) Potassium Level 4.0 mmol/L (3.5-5.1) Chloride Level 97 mmol/L (98-107) Carbon Dioxide Level 24 mmol/L (21-32) Anion Gap 12 (6-14) Blood Urea Nitrogen 55 mg/dL (8-26) Creatinine 2.0 mg/dL (0.7-1.3) Estimated GFR (Cockcroft-Gault) 36.0 Glucose Level 293 mg/dL (70-99) Calcium Level 8.5 mg/dL (8.5-10.1) Phosphorus Level 2.3 mg/dL (2.6-4.7) Magnesium Level 1.7 mg/dL (1.8-2.4) Test 12/30/17 08:52 Glucose (Fingerstick) 321 mg/dL (70-99) Laboratory Tests Test 12/29/17 18:42 12/29/17 19:14 12/29/17 19:15 12/29/17 22:30 Urine Collection Type Unknown Urine Color Yellow Urine Clarity Clear Urine pH 5.0 Urine Specific [place] 1.025 Urine Protein Negative mg/dL (NEG-TRACE) Urine Glucose (UA) >=1000 mg/dL (NEG) Urine Ketones (Stick) 15 mg/dL (NEG) Urine Blood Moderate (NEG) Urine Nitrite Negative (NEG) Urine Bilirubin Negative (NEG) Urine Urobilinogen Dipstick 0.2 mg/dL (0.2 mg/dL) Urine Leukocyte Esterase Trace (NEG) Urine RBC 1-2 /HPF (0-2) Urine WBC 11-20 /HPF (0-4) Urine Squamous Epithelial Cells Few /LPF Urine Bacteria Few /HPF (0-FEW) Urine Mucus Slight /LPF O2 Saturation 96 % (92-99) Arterial Blood pH 7.31 (7.35-7.45) Arterial Blood pCO2 at Patient Temp 26 mmHg (35-46) Arterial Blood pO2 at Patient Temp 90 mmHg (75-108) Arterial Blood HCO3 13 mmol/L (21-28) Arterial Blood Base Excess -12 mmol/L (-3-3) FiO2 21 White Blood Count 28.5 x10^3/uL (4.0-11.0) Red Blood Count 4.12 x10^6/uL (4.30-5.70) Hemoglobin 11.9 g/dL (13.0-17.5) Hematocrit 35.9 % (39.0-53.0) Mean Corpuscular Volume 87 fL (79-100) Mean Corpuscular Hemoglobin 29 pg (25-35) Mean Corpuscular Hemoglobin Concent 33 g/dL (31-37) Red Cell Distribution Width 14.1 % (11.5-14.5) Platelet Count 277 x10^3/uL (140-400) Neutrophils (%) (Auto) 90 % (31-73) Lymphocytes (%) (Auto) 3 % (24-48) Monocytes (%) (Auto) 6 % (0-9) Eosinophils (%) (Auto) 0 % (0-3) Basophils (%) (Auto) 0 % (0-3) Neutrophils # (Auto) 25.7 x10^3uL (1.8-7.7) Lymphocytes # (Auto) 0.9 x10^3/uL (1.0-4.8) Monocytes # (Auto) 1.8 x10^3/uL (0.0-1.1) Eosinophils # (Auto) 0.0 x10^3/uL (0.0-0.7) Basophils # (Auto) 0.1 x10^3/uL (0.0-0.2) Segmented Neutrophils % 82 % (35-66) Band Neutrophils % 11 % (0-9) Lymphocytes % 1 % (24-48) Monocytes % 6 % (0-10) Platelet Estimate Adequate (ADEQUATE) Poikilocytosis Slight [place] Cells Sodium Level 124 mmol/L (136-145) 127 mmol/L (136-145) Potassium Level 5.6 mmol/L (3.5-5.1) 4.8 mmol/L (3.5-5.1) Chloride Level 82 mmol/L (98-107) 88 mmol/L (98-107) Carbon Dioxide Level 13 mmol/L (21-32) 19 mmol/L (21-32) Anion Gap 29 (6-14) 20 (6-14) Blood Urea Nitrogen 57 mg/dL (8-26) 59 mg/dL (8-26) Creatinine 2.4 mg/dL (0.7-1.3) 2.3 mg/dL (0.7-1.3) Estimated GFR (Cockcroft-Gault) 29.2 30.6 BUN/Creatinine Ratio 24 (6-20) Glucose Level 809 mg/dL (70-99) 745 mg/dL (70-99) Calcium Level 9.9 mg/dL (8.5-10.1) 9.5 mg/dL (8.5-10.1) Magnesium Level 2.0 mg/dL (1.8-2.4) 2.0 mg/dL (1.8-2.4) Total Bilirubin 1.1 mg/dL (0.2-1.0) Aspartate Amino Transf (AST/SGOT) 14 U/L (15-37) Alanine Aminotransferase (ALT/SGPT) 21 U/L (16-63) Alkaline Phosphatase 108 U/L (46-116) Troponin I Quantitative < 0.017 ng/mL (0.000-0.055) Total Protein 7.5 g/dL (6.4-8.2) Albumin 2.9 g/dL (3.4-5.0) Albumin/Globulin Ratio 0.6 (1.0-1.7) Acetone Level Mod pos (NEG) Lactic Acid Level 2.6 mmol/L (0.4-2.0) Phosphorus Level 4.4 mg/dL (2.6-4.7) Test 12/30/17 00:20 12/30/17 01:40 12/30/17 02:40 12/30/17 03:16 Glucose Level 629 mg/dL (70-99) 520 mg/dL (70-99) 477 mg/dL (70-99) White Blood Count 19.7 x10^3/uL (4.0-11.0) Red Blood Count 3.67 x10^6/uL (4.30-5.70) Hemoglobin 10.4 g/dL (13.0-17.5) Hematocrit 31.0 % (39.0-53.0) Mean Corpuscular Volume 84 fL (79-100) Mean Corpuscular Hemoglobin 28 pg (25-35) Mean Corpuscular Hemoglobin Concent 34 g/dL (31-37) Red Cell Distribution Width 14.1 % (11.5-14.5) Platelet Count 225 x10^3/uL (140-400) Neutrophils (%) (Auto) 88 % (31-73) Lymphocytes (%) (Auto) 5 % (24-48) Monocytes (%) (Auto) 7 % (0-9) Eosinophils (%) (Auto) 0 % (0-3) Basophils (%) (Auto) 0 % (0-3) Neutrophils # (Auto) 17.2 x10^3uL (1.8-7.7) Lymphocytes # (Auto) 1.1 x10^3/uL (1.0-4.8) Monocytes # (Auto) 1.3 x10^3/uL (0.0-1.1) Eosinophils # (Auto) 0.0 x10^3/uL (0.0-0.7) Basophils # (Auto) 0.0 x10^3/uL (0.0-0.2) Sodium Level 128 mmol/L (136-145) Potassium Level 4.3 mmol/L (3.5-5.1) Chloride Level 93 mmol/L (98-107) Carbon Dioxide Level 24 mmol/L (21-32) Anion Gap 11 (6-14) Blood Urea Nitrogen 60 mg/dL (8-26) Creatinine 2.3 mg/dL (0.7-1.3) Estimated GFR (Cockcroft-Gault) 30.6 Lactic Acid Level 1.8 mmol/L (0.4-2.0) Calcium Level 9.0 mg/dL (8.5-10.1) Phosphorus Level 2.3 mg/dL (2.6-4.7) Magnesium Level 1.8 mg/dL (1.8-2.4) Glucose (Fingerstick) 475 mg/dL (70-99) Test 12/30/17 04:18 12/30/17 05:20 12/30/17 06:28 12/30/17 06:50 Glucose (Fingerstick) 408 mg/dL (70-99) 372 mg/dL (70-99) 278 mg/dL (70-99) Sodium Level 133 mmol/L (136-145) Potassium Level 4.0 mmol/L (3.5-5.1) Chloride Level 97 mmol/L (98-107) Carbon Dioxide Level 24 mmol/L (21-32) Anion Gap 12 (6-14) Blood Urea Nitrogen 55 mg/dL (8-26) Creatinine 2.0 mg/dL (0.7-1.3) Estimated GFR (Cockcroft-Gault) 36.0 Glucose Level 293 mg/dL (70-99) Calcium Level 8.5 mg/dL (8.5-10.1) Phosphorus Level 2.3 mg/dL (2.6-4.7) Magnesium Level 1.7 mg/dL (1.8-2.4) Test 12/30/17 08:52 Glucose (Fingerstick) 321 mg/dL (70-99) Assessment/Plan Assessment/Plan Diabetic Husain II ulceration of the right forefoot with evidence of muscle necrosis Diabetic ulcer of the left forefoot of unspecified severity Worrisome initial vascular assessment will require need for arterial Doppler on the right. No evidence of active infection or critical colonization present. We will follow along as offloading will be critical as we near discharge. It does not appear the patient has undergone any imaging at this point. At the very least we will initiate plain film x-ray of the right foot Dressing orders provided Thank you for allowing us participate patient's care. WILBER HERNÁNDEZ DO Dec 30, 2017 10:22
[2017-12-30] MEDS ORDERED: DEXTROSE 50% 25 GM / 50ML DISP.SYRIN. IV PRN (10:30)
[2017-12-30] MEDS: INSULIN LISPRO 300 UNITS/3 ML INSULN.PEN. SQ SCH ×3 (11:01→17:21)
[2017-12-30] MEDS ORDERED: PIPERACILLIN/TAZOBACTAM 2.25 GM in IV NORMAL SALINE 50ML 50 ML IV SCH (13:15)
[2017-12-30] MEDS ORDERED: INSULIN LISPRO 300 UNITS/3 ML INSULN.PEN. SQ ONE ×3 (13:15→16:30)
--- NOTE | 2017-12-30 13:18 | PDOC ---
Infectious Disease Note Vital Sign Vital Signs Vital Signs Date Time Temp Pulse Resp B/P (MAP) Pulse Ox O2 Delivery O2 Flow Rate FiO2 12/30/17 11:00 97.8 112 20 98/69 (79) 92 Room Air 97.8 Labs Lab Laboratory Tests Test 12/29/17 18:42 12/29/17 19:14 12/29/17 19:15 12/29/17 22:30 Urine Collection Type Unknown Urine Color Yellow Urine Clarity Clear Urine pH 5.0 Urine Specific [place] 1.025 Urine Protein Negative mg/dL (NEG-TRACE) Urine Glucose (UA) >=1000 mg/dL (NEG) Urine Ketones (Stick) 15 mg/dL (NEG) Urine Blood Moderate (NEG) Urine Nitrite Negative (NEG) Urine Bilirubin Negative (NEG) Urine Urobilinogen Dipstick 0.2 mg/dL (0.2 mg/dL) Urine Leukocyte Esterase Trace (NEG) Urine RBC 1-2 /HPF (0-2) Urine WBC 11-20 /HPF (0-4) Urine Squamous Epithelial Cells Few /LPF Urine Bacteria Few /HPF (0-FEW) Urine Mucus Slight /LPF O2 Saturation 96 % (92-99) Arterial Blood pH 7.31 (7.35-7.45) Arterial Blood pCO2 at Patient Temp 26 mmHg (35-46) Arterial Blood pO2 at Patient Temp 90 mmHg (75-108) Arterial Blood HCO3 13 mmol/L (21-28) Arterial Blood Base Excess -12 mmol/L (-3-3) FiO2 21 White Blood Count 28.5 x10^3/uL (4.0-11.0) Red Blood Count 4.12 x10^6/uL (4.30-5.70) Hemoglobin 11.9 g/dL (13.0-17.5) Hematocrit 35.9 % (39.0-53.0) Mean Corpuscular Volume 87 fL (79-100) Mean Corpuscular Hemoglobin 29 pg (25-35) Mean Corpuscular Hemoglobin Concent 33 g/dL (31-37) Red Cell Distribution Width 14.1 % (11.5-14.5) Platelet Count 277 x10^3/uL (140-400) Neutrophils (%) (Auto) 90 % (31-73) Lymphocytes (%) (Auto) 3 % (24-48) Monocytes (%) (Auto) 6 % (0-9) Eosinophils (%) (Auto) 0 % (0-3) Basophils (%) (Auto) 0 % (0-3) Neutrophils # (Auto) 25.7 x10^3uL (1.8-7.7) Lymphocytes # (Auto) 0.9 x10^3/uL (1.0-4.8) Monocytes # (Auto) 1.8 x10^3/uL (0.0-1.1) Eosinophils # (Auto) 0.0 x10^3/uL (0.0-0.7) Basophils # (Auto) 0.1 x10^3/uL (0.0-0.2) Segmented Neutrophils % 82 % (35-66) Band Neutrophils % 11 % (0-9) Lymphocytes % 1 % (24-48) Monocytes % 6 % (0-10) Platelet Estimate Adequate (ADEQUATE) Poikilocytosis Slight [place] Cells Sodium Level 124 mmol/L (136-145) 127 mmol/L (136-145) Potassium Level 5.6 mmol/L (3.5-5.1) 4.8 mmol/L (3.5-5.1) Chloride Level 82 mmol/L (98-107) 88 mmol/L (98-107) Carbon Dioxide Level 13 mmol/L (21-32) 19 mmol/L (21-32) Anion Gap 29 (6-14) 20 (6-14) Blood Urea Nitrogen 57 mg/dL (8-26) 59 mg/dL (8-26) Creatinine 2.4 mg/dL (0.7-1.3) 2.3 mg/dL (0.7-1.3) Estimated GFR (Cockcroft-Gault) 29.2 30.6 BUN/Creatinine Ratio 24 (6-20) Glucose Level 809 mg/dL (70-99) 745 mg/dL (70-99) Calcium Level 9.9 mg/dL (8.5-10.1) 9.5 mg/dL (8.5-10.1) Magnesium Level 2.0 mg/dL (1.8-2.4) 2.0 mg/dL (1.8-2.4) Total Bilirubin 1.1 mg/dL (0.2-1.0) Aspartate Amino Transf (AST/SGOT) 14 U/L (15-37) Alanine Aminotransferase (ALT/SGPT) 21 U/L (16-63) Alkaline Phosphatase 108 U/L (46-116) Troponin I Quantitative < 0.017 ng/mL (0.000-0.055) Total Protein 7.5 g/dL (6.4-8.2) Albumin 2.9 g/dL (3.4-5.0) Albumin/Globulin Ratio 0.6 (1.0-1.7) Acetone Level Mod pos (NEG) Lactic Acid Level 2.6 mmol/L (0.4-2.0) Phosphorus Level 4.4 mg/dL (2.6-4.7) Test 12/30/17 00:20 12/30/17 01:40 12/30/17 02:40 12/30/17 03:16 Glucose Level 629 mg/dL (70-99) 520 mg/dL (70-99) 477 mg/dL (70-99) White Blood Count 19.7 x10^3/uL (4.0-11.0) Red Blood Count 3.67 x10^6/uL (4.30-5.70) Hemoglobin 10.4 g/dL (13.0-17.5) Hematocrit 31.0 % (39.0-53.0) Mean Corpuscular Volume 84 fL (79-100) Mean Corpuscular Hemoglobin 28 pg (25-35) Mean Corpuscular Hemoglobin Concent 34 g/dL (31-37) Red Cell Distribution Width 14.1 % (11.5-14.5) Platelet Count 225 x10^3/uL (140-400) Neutrophils (%) (Auto) 88 % (31-73) Lymphocytes (%) (Auto) 5 % (24-48) Monocytes (%) (Auto) 7 % (0-9) Eosinophils (%) (Auto) 0 % (0-3) Basophils (%) (Auto) 0 % (0-3) Neutrophils # (Auto) 17.2 x10^3uL (1.8-7.7) Lymphocytes # (Auto) 1.1 x10^3/uL (1.0-4.8) Monocytes # (Auto) 1.3 x10^3/uL (0.0-1.1) Eosinophils # (Auto) 0.0 x10^3/uL (0.0-0.7) Basophils # (Auto) 0.0 x10^3/uL (0.0-0.2) Sodium Level 128 mmol/L (136-145) Potassium Level 4.3 mmol/L (3.5-5.1) Chloride Level 93 mmol/L (98-107) Carbon Dioxide Level 24 mmol/L (21-32) Anion Gap 11 (6-14) Blood Urea Nitrogen 60 mg/dL (8-26) Creatinine 2.3 mg/dL (0.7-1.3) Estimated GFR (Cockcroft-Gault) 30.6 Lactic Acid Level 1.8 mmol/L (0.4-2.0) Calcium Level 9.0 mg/dL (8.5-10.1) Phosphorus Level 2.3 mg/dL (2.6-4.7) Magnesium Level 1.8 mg/dL (1.8-2.4) Glucose (Fingerstick) 475 mg/dL (70-99) Test 12/30/17 04:18 12/30/17 05:20 12/30/17 06:28 12/30/17 06:50 Glucose (Fingerstick) 408 mg/dL (70-99) 372 mg/dL (70-99) 278 mg/dL (70-99) Sodium Level 133 mmol/L (136-145) Potassium Level 4.0 mmol/L (3.5-5.1) Chloride Level 97 mmol/L (98-107) Carbon Dioxide Level 24 mmol/L (21-32) Anion Gap 12 (6-14) Blood Urea Nitrogen 55 mg/dL (8-26) Creatinine 2.0 mg/dL (0.7-1.3) Estimated GFR (Cockcroft-Gault) 36.0 Glucose Level 293 mg/dL (70-99) Calcium Level 8.5 mg/dL (8.5-10.1) Phosphorus Level 2.3 mg/dL (2.6-4.7) Magnesium Level 1.7 mg/dL (1.8-2.4) Test 12/30/17 08:52 12/30/17 10:54 Glucose (Fingerstick) 321 mg/dL (70-99) 387 mg/dL (70-99) Micro Microbiology 12/29/17 Blood Culture - Final, Complete Objective Assessment GNR sepsis - POA 12/29 - ? Urine vs wound Leukocytosis YOEL ? UTI Right Foot wound DM with DKA Plan Plan of Care Change to Zosyn given DM foot and some water exposure F/u labs and cults Await foot debridement Thank you D/w family # [id number] TIP ZAPATA MD Dec 30, 2017 13:18
[2017-12-30] MEDS: PIPERACILLIN/TAZOBACTAM 3.375 GM in IV NORMAL SALINE 50ML 50 ML IV SCH ×2 (14:39→18:56)
[2017-12-30] MEDS: HEPARIN for SUB-Q USE 5,000 UNIT/ML VIAL. SQ SCH ×2 (14:46→21:45)
--- NOTE | 2017-12-30 16:21 | RAD ---
3 view study of the right foot Clinical indications: Ulcers on the bottom of the right foot. FINDINGS: No acute fracture or dislocation or osteolytic process is seen. 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 Diffuse soft tissue swelling is evident. Small plantar spur of calcaneus is evident. IMPRESSION: No acute osseous abnormality. Electronically signed by: Abdelrahman Wilson MD (12/30/2017 4:18 PM) [facility]
[2017-12-30] MEDS: traMADol 50 MG TABLET PO PRN (16:34)
[2017-12-30 16:46] LABS: CALCIUM 8.7 mg/dL (8.5-10.1); CREATININE 2.1 mg/dL (0.7-1.3); MAGNESIUM 2.8 mg/dL (1.8-2.4); POTASSIUM 3.7 mmol/L (3.5-5.1)
--- NOTE | 2017-12-30 17:05 | RAD ---
DUPLEX SONOGRAPHY OF THE PERIPHERAL ARTERIAL SYSTEM OF THE RIGHT LOWER EXTREMITY Clinical indications: Diabetic foot ulcer of the bottom of the right foot. Findings: Duplex sonography of the peripheral arterial system of the right lower extremity including pérez scale and color flow and spectral waveform analysis was performed.Triphasic waveforms are seen. No occlusive disease is seen. No significant plaque formation or stenosis is identified. The measurements were performed using the NASCET criteria. Peak systolic flow velocities are as follows: Right leg: common femoral artery- 123 cm/sec, profunda femoral artery -100 cm/sec, proximal superficial femoral artery -123 cm/sec, mid superficial femoral artery -106 cm/sec, distal superficial femoral artery- 127 cm/sec, popliteal artery -119 cm/sec, proximal posterior tibial artery- 88 cm/sec, distal posterior tibial artery- 118 cm/sec, peroneal artery- 78 cm/sec, anterior tibial artery- 100 cm/sec, dorsalis pedis artery -93 cm/sec. Impression: No significant peripheral arterial vascular disease is seen by duplex sonographic evaluation. Electronically signed by: Abdelrahman Wilson MD (12/30/2017 5:01 PM) [facility]
[2017-12-30] MEDS ORDERED: cefTRIAXone IV Push 1 GM VIAL. IVP SCH (20:00)
[2017-12-30] MEDS: INSULIN GLARGINE 300 UNITS/3 ML INSULN.PEN. SQ SCH (21:43)
--- NOTE | 2017-12-30 22:08 | CONS ---
DATE OF CONSULTATION: 12/30/2017 ROOM: 574. REQUESTING PHYSICIAN: ____. REASON FOR CONSULTATION: Positive blood cultures. HISTORY OF PRESENT ILLNESS: The patient is a 47-year-old gentleman with longstanding history of diabetes who is followed by his primary care physician. He states he developed a wound on his foot over a year ago and had received some antibiotics, Bactrim, which he last took about 6-8 months ago. He states the wound had healed up, but then kind of reoccurred, but he has not followed up to get any additional treatment. He states last Friday he was at work and began to feel ill and began to have some "kidney pain." Denies any trauma. He states by Friday he felt like he had been beaten up. Her friend suggested he go to the Emergency Room, but he resisted, then developed nausea, vomiting and dehydration. Additionally, he had some fevers as well as chills and sweats. He presented to [facility] on the , had a white count of 28.5, glucose was 809 with a bicarbonate of 13, creatinine was 2.4. Cultures were obtained. Urinalysis was questionable for UTI, he was placed on Rocephin. He underwent a CT scan of abdomen and pelvis, showed no acute abnormality, had mild splenomegaly. He has been evaluated by wound care and had a right foot ulcer that needed some debridement. There was no bony involvement. Currently, the patient is sitting in a chair. He feels somewhat better. Nausea is improved. ____ dry in his mouth. No dysuria, frequency or urgency. No cramps or diarrhea. Blood cultures returned positive for Gram-negative rods, hence I have been consulted. PAST MEDICAL HISTORY: Positive for diabetes, history of lower extremity wounds, history of hypercholesterolemia, hypertension, migraines, peripheral neuropathy, retinopathy, history of renal insufficiency. REVIEW OF SYSTEMS: Otherwise negative except for as mentioned above. ALLERGIES: LISTED LISINOPRIL AND TYLENOL. SOCIAL HISTORY: Negative for tobacco. He quit drinking. 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 He has no pets, but has been exposed to some water recently. FAMILY HISTORY: Positive for diabetes. CURRENT MEDICATIONS: Include Rocephin, potassium, insulin, lactulose. Home meds are available and reviewed in the chart. PHYSICAL EXAMINATION: VITAL SIGNS: T-max 99.4, currently 97.8; pulse 112; respirations 20; blood pressure 98/69; satting 92% on room air. CONSTITUTIONAL: He is sitting in a chair. He is cooperative, in no acute distress. He wears glasses. HEENT: Pupils equal, reactive. He has normal conjunctivae. Oral cavity, pharynx is clear. NECK: Supple. Good range of motion. LUNGS: Clear to auscultation bilaterally. HEART: S1, S2. ABDOMEN: Obese, soft, nontender, nondistended. No guarding or rebound. He has no CVA tenderness. There is no inflammation of his back. EXTREMITIES: Without clubbing, cyanosis or gross edema. SKIN: Warm to touch without signs of rash. On his right plantar foot and the first metatarsal head, he has ulceration with minimal surrounding erythema. There is no bone exposed. NEUROLOGIC: He is nonfocal. Affect is appropriate. LABORATORY DATA: White count 9.7, hemoglobin 10.4, platelets are 225, segs are 88. Creatinine is down to 2. Most recent glucose 401. Urinalysis questionable for UTI. CT scan reviewed in history of present illness. IMPRESSION: 1. Gram-negative sepsis, present on admission on the with questionable urine versus wound possible sources. 2. Leukocytosis. 3. Acute kidney injury. 4. Questionable urinary tract infection. 5. Right foot wound. 6. Diabetes with diabetic ketoacidosis. RECOMMENDATIONS: For now, we will change to Zosyn given the fact that it is a diabetic foot wound; other bacteria could be present, they have not been cultured and additionally also has had some water exposure putting him at risk for Pseudomonas. We will follow up labs and cultures. Await foot debridement. Thank you for allowing me to participate in the patient's care. Should you have any questions, please do not hesitate to contact me. This was discussed with his stepfather. TIP ZAPATA MD DR: JESSICA/allen JOB#: [id number] / [id number]
[2017-12-31] MEDS: PIPERACILLIN/TAZOBACTAM 3.375 GM in IV NORMAL SALINE 50ML 50 ML IV SCH ×5 (00:30→23:56)
[2017-12-31 03:00] VITALS: BP 181/80
[2017-12-31] MEDS: ONDANSETRON PF 4 MG/2 ML VIAL. IV PRN ×2 (06:05→17:25)
[2017-12-31] MEDS: HEPARIN for SUB-Q USE 5,000 UNIT/ML VIAL. SQ SCH ×3 (06:11→21:47)
--- NOTE | 2017-12-31 06:45 | PDOC ---
Infectious Disease Note Subjective Subjective Feels better. No N/V/D/Rash. Wants food. Still has some hiccups Foot ok. No S but some chills. No SOA ROS ROS o/w neg Vital Sign Vital Signs Vital Signs Date Time Temp Pulse Resp B/P (MAP) Pulse Ox O2 Delivery O2 Flow Rate FiO2 12/31/17 03:00 99.5 119 18 181/80 (113) 91 Room Air 99.5 Physical Exam PHYSICAL EXAM CONSTITUTIONAL: He is sitting in a chair. He is cooperative, in no acute distress. He wears glasses. HEENT: Pupils equal, reactive. He has normal conjunctivae. Oral cavity, pharynx is clear. NECK: Supple. Good range of motion. LUNGS: Clear to auscultation bilaterally. HEART: S1, S2. ABDOMEN: Obese, soft, nontender, nondistended. No guarding or rebound. He has no CVA tenderness. There is no inflammation of his back. EXTREMITIES: Without clubbing, cyanosis or gross edema. SKIN: Warm to touch without signs of rash. On his right plantar foot and the first metatarsal head, he has ulceration with minimal surrounding erythema. There is no bone exposed.Hydorphera blue NEUROLOGIC: He is nonfocal. Affect is appropriate. Labs Lab Laboratory Tests Test 12/30/17 06:50 12/30/17 08:52 12/30/17 10:54 12/30/17 13:05 Sodium Level 133 mmol/L (136-145) Potassium Level 4.0 mmol/L (3.5-5.1) Chloride Level 97 mmol/L (98-107) Carbon Dioxide Level 24 mmol/L (21-32) Anion Gap 12 (6-14) Blood Urea Nitrogen 55 mg/dL (8-26) Creatinine 2.0 mg/dL (0.7-1.3) Estimated GFR (Cockcroft-Gault) 36.0 Glucose Level 293 mg/dL (70-99) Calcium Level 8.5 mg/dL (8.5-10.1) Phosphorus Level 2.3 mg/dL (2.6-4.7) Magnesium Level 1.7 mg/dL (1.8-2.4) Glucose (Fingerstick) 321 mg/dL (70-99) 387 mg/dL (70-99) 401 mg/dL (70-99) Test 12/30/17 14:28 12/30/17 16:08 12/30/17 16:15 12/30/17 17:12 Glucose (Fingerstick) 374 mg/dL (70-99) 322 mg/dL (70-99) 301 mg/dL (70-99) Sodium Level 130 mmol/L (136-145) Potassium Level 3.7 mmol/L (3.5-5.1) Chloride Level 94 mmol/L (98-107) Carbon Dioxide Level 25 mmol/L (21-32) Anion Gap 11 (6-14) Blood Urea Nitrogen 52 mg/dL (8-26) Creatinine 2.1 mg/dL (0.7-1.3) Estimated GFR (Cockcroft-Gault) 34.0 Glucose Level 314 mg/dL (70-99) Calcium Level 8.7 mg/dL (8.5-10.1) Magnesium Level 2.8 mg/dL (1.8-2.4) Test 12/30/17 21:23 Glucose (Fingerstick) 258 mg/dL (70-99) Micro Microbiology 12/29/17 Blood Culture - Final, Complete Objective Assessment GNR sepsis - POA 12/29 - ? Urine vs wound Leukocytosis YOEL - renal following ? UTI Right Foot wound - arterial doppler - neg DM with DKA Plan Plan of Care Changed to Zosyn 12/30 given DM foot and some water exposure F/u labs and cults Await foot debridement TIP ZAPATA MD Dec 31, 2017 06:45
[2017-12-31 07:00] VITALS: BP 160/92
[2017-12-31] MEDS: LACTOBACILLUS RHAMNOSUS GG 1 CAPSULE. PO SCH ×2 (08:21→21:39)
[2017-12-31] MEDS: SENNOSIDES/DOCUSATE 8.6/50MG TABLET. PO SCH ×2 (08:21→21:00)
[2017-12-31] MEDS: traMADol 50 MG TABLET PO PRN (08:21)
[2017-12-31] MEDS: INSULIN GLARGINE 300 UNITS/3 ML INSULN.PEN. SQ SCH ×2 (08:30→21:48)
[2017-12-31] MEDS ORDERED: MORPHINE SULFATE 2 MG/ML VIAL. IV PRN ×2 (08:30→10:45)
[2017-12-31] MEDS: INSULIN LISPRO 300 UNITS/3 ML INSULN.PEN. SQ SCH ×6 (08:31→18:04)
[2017-12-31] MEDS ORDERED: IBUPROFEN 400 MG TABLET. PO ONE (08:45)
[2017-12-31] MEDS ORDERED: MAGNESIUM SULFATE 4GM 100 ML IV PRN (09:00)
[2017-12-31] MEDS ORDERED: DOCUSATE SODIUM 100 MG CAPSULE. PO PRN (10:45)
[2017-12-31] MEDS ORDERED: ONDANSETRON PF 4 MG/2 ML VIAL. IV PRN (10:45)
[2017-12-31] MEDS ORDERED: traMADol 50 MG TABLET PO PRN (10:45)
[2017-12-31 11:00] VITALS: BP 143/85
[2017-12-31] MEDS: amLODIPine BESYLATE 10 MG TABLET PO SCH (12:07)
--- NOTE | 2017-12-31 12:28 | PDOC ---
PROGRESS NOTES Chief Complaint Chief Complaint DKA - with type 2 diabetes Sepsis - likely from bilateral foot infections, Acute renal failure - likely 2/2 DKA, sepsis, dehydration. Foot wound , bl , worse Rt side black ulcer Electrolyte derangement HTN neuropathy + bcx plan: fu with id, wound care, may need i and d fu with renal increase insulin to lantus 60u bid, novolog 30u tid, ssi. check hba1c on zosyn, fu bcx ibuprofen x1 for fever, should try tylenol if need often for fever, which makes him stamache dvt ppx resume some home meds , amlodipine 10mg daily labs daily History of Present Illness History of Present Illness ROS: no chills, sob or chest pain still hyperglycemia + bcx cr slightly better fever T 101.7 BL leg US neg for PAD Vitals Vitals Vital Signs Date Time Temp Pulse Resp B/P (MAP) Pulse Ox O2 Delivery O2 Flow Rate FiO2 12/31/17 12:07 99 143/85 12/31/17 11:10 Room Air 12/31/17 11:00 97.9 20 95 97.9 Physical Exam Physical Exam CONSTITUTIONAL: He is sitting in a chair. He is cooperative, in no acute distress. He wears glasses. HEENT: Pupils equal, reactive. He has normal conjunctivae. Oral cavity, pharynx is clear. NECK: Supple. Good range of motion. LUNGS: Clear to auscultation bilaterally. HEART: S1, S2. ABDOMEN: Obese, soft, nontender, nondistended. No guarding or rebound. He has no CVA tenderness. There is no inflammation of his back. EXTREMITIES: Without clubbing, cyanosis or gross edema. SKIN: Warm to touch without signs of rash. On his right plantar foot and the first metatarsal head, he has ulceration with minimal surrounding erythema. There is no bone exposed. NEUROLOGIC: He is nonfocal. Affect is appropriate. General: Alert, Oriented X3, Cooperative, No acute distress Heart: Other (patient demonstrates mild tachycardia) Abdomen: Normal bowel sounds, Soft, No hepatosplenomegaly, No masses, Other ( Epigastric tenderness) Extremities: No clubbing, No cyanosis, No edema, Normal pulses, No tenderness/ swelling Skin: No rashes, Other (Bilaterally macerated feet, red) Labs LABS Laboratory Tests Test 12/30/17 13:05 12/30/17 14:28 12/30/17 16:08 12/30/17 16:15 Glucose (Fingerstick) 401 mg/dL (70-99) 374 mg/dL (70-99) 322 mg/dL (70-99) Sodium Level 130 mmol/L (136-145) Potassium Level 3.7 mmol/L (3.5-5.1) Chloride Level 94 mmol/L (98-107) Carbon Dioxide Level 25 mmol/L (21-32) Anion Gap 11 (6-14) Blood Urea Nitrogen 52 mg/dL (8-26) Creatinine 2.1 mg/dL (0.7-1.3) Estimated GFR (Cockcroft-Gault) 34.0 Glucose Level 314 mg/dL (70-99) Calcium Level 8.7 mg/dL (8.5-10.1) Magnesium Level 2.8 mg/dL (1.8-2.4) Test 12/30/17 17:12 12/30/17 21:23 12/31/17 07:17 12/31/17 10:51 Glucose (Fingerstick) 301 mg/dL (70-99) 258 mg/dL (70-99) 326 mg/dL (70-99) 310 mg/dL (70-99) Comment Review of Relevant I have reviewed the following items odell (where applicable) has been applied. Labs Laboratory Tests Test 12/29/17 18:42 12/29/17 19:14 12/29/17 19:15 12/29/17 22:00 Urine Collection Type Unknown Urine Color Yellow Urine Clarity Clear Urine pH 5.0 Urine Specific [place] 1.025 Urine Protein Negative mg/dL (NEG-TRACE) Urine Glucose (UA) >=1000 mg/dL (NEG) Urine Ketones (Stick) 15 mg/dL (NEG) Urine Blood Moderate (NEG) Urine Nitrite Negative (NEG) Urine Bilirubin Negative (NEG) Urine Urobilinogen Dipstick 0.2 mg/dL (0.2 mg/dL) Urine Leukocyte Esterase Trace (NEG) Urine RBC 1-2 /HPF (0-2) Urine WBC 11-20 /HPF (0-4) Urine Squamous Epithelial Cells Few /LPF Urine Bacteria Few /HPF (0-FEW) Urine Mucus Slight /LPF O2 Saturation 96 % (92-99) Arterial Blood pH 7.31 (7.35-7.45) Arterial Blood pCO2 at Patient Temp 26 mmHg (35-46) Arterial Blood pO2 at Patient Temp 90 mmHg (75-108) Arterial Blood HCO3 13 mmol/L (21-28) Arterial Blood Base Excess -12 mmol/L (-3-3) FiO2 21 White Blood Count 28.5 x10^3/uL (4.0-11.0) Red Blood Count 4.12 x10^6/uL (4.30-5.70) Hemoglobin 11.9 g/dL (13.0-17.5) Hematocrit 35.9 % (39.0-53.0) Mean Corpuscular Volume 87 fL (79-100) Mean Corpuscular Hemoglobin 29 pg (25-35) Mean Corpuscular Hemoglobin Concent 33 g/dL (31-37) Red Cell Distribution Width 14.1 % (11.5-14.5) Platelet Count 277 x10^3/uL (140-400) Neutrophils (%) (Auto) 90 % (31-73) Lymphocytes (%) (Auto) 3 % (24-48) Monocytes (%) (Auto) 6 % (0-9) Eosinophils (%) (Auto) 0 % (0-3) Basophils (%) (Auto) 0 % (0-3) Neutrophils # (Auto) 25.7 x10^3uL (1.8-7.7) Lymphocytes # (Auto) 0.9 x10^3/uL (1.0-4.8) Monocytes # (Auto) 1.8 x10^3/uL (0.0-1.1) Eosinophils # (Auto) 0.0 x10^3/uL (0.0-0.7) Basophils # (Auto) 0.1 x10^3/uL (0.0-0.2) Segmented Neutrophils % 82 % (35-66) Band Neutrophils % 11 % (0-9) Lymphocytes % 1 % (24-48) Monocytes % 6 % (0-10) Platelet Estimate Adequate (ADEQUATE) Poikilocytosis Slight Cara Cells Sodium Level 124 mmol/L (136-145) Potassium Level 5.6 mmol/L (3.5-5.1) Chloride Level 82 mmol/L (98-107) Carbon Dioxide Level 13 mmol/L (21-32) Anion Gap 29 (6-14) Blood Urea Nitrogen 57 mg/dL (8-26) Creatinine 2.4 mg/dL (0.7-1.3) Estimated GFR (Cockcroft-Gault) 29.2 BUN/Creatinine Ratio 24 (6-20) Glucose Level 809 mg/dL (70-99) Calcium Level 9.9 mg/dL (8.5-10.1) Magnesium Level 2.0 mg/dL (1.8-2.4) Total Bilirubin 1.1 mg/dL (0.2-1.0) Aspartate Amino Transf (AST/SGOT) 14 U/L (15-37) Alanine Aminotransferase (ALT/SGPT) 21 U/L (16-63) Alkaline Phosphatase 108 U/L (46-116) Troponin I Quantitative < 0.017 ng/mL (0.000-0.055) Total Protein 7.5 g/dL (6.4-8.2) Albumin 2.9 g/dL (3.4-5.0) Albumin/Globulin Ratio 0.6 (1.0-1.7) Acetone Level Mod pos (NEG) Nasal Screen MRSA (PCR) Negative (Negative) Test 12/29/17 22:30 12/30/17 00:20 12/30/17 01:40 12/30/17 02:40 Sodium Level 127 mmol/L (136-145) 128 mmol/L (136-145) Potassium Level 4.8 mmol/L (3.5-5.1) 4.3 mmol/L (3.5-5.1) Chloride Level 88 mmol/L (98-107) 93 mmol/L (98-107) Carbon Dioxide Level 19 mmol/L (21-32) 24 mmol/L (21-32) Anion Gap 20 (6-14) 11 (6-14) Blood Urea Nitrogen 59 mg/dL (8-26) 60 mg/dL (8-26) Creatinine 2.3 mg/dL (0.7-1.3) 2.3 mg/dL (0.7-1.3) Estimated GFR (Cockcroft-Gault) 30.6 30.6 Glucose Level 745 mg/dL (70-99) 629 mg/dL (70-99) 520 mg/dL (70-99) 477 mg/dL (70-99) Lactic Acid Level 2.6 mmol/L (0.4-2.0) 1.8 mmol/L (0.4-2.0) Calcium Level 9.5 mg/dL (8.5-10.1) 9.0 mg/dL (8.5-10.1) Phosphorus Level 4.4 mg/dL (2.6-4.7) 2.3 mg/dL (2.6-4.7) Magnesium Level 2.0 mg/dL (1.8-2.4) 1.8 mg/dL (1.8-2.4) White Blood Count 19.7 x10^3/uL (4.0-11.0) Red Blood Count 3.67 x10^6/uL (4.30-5.70) Hemoglobin 10.4 g/dL (13.0-17.5) Hematocrit 31.0 % (39.0-53.0) Mean Corpuscular Volume 84 fL (79-100) Mean Corpuscular Hemoglobin 28 pg (25-35) Mean Corpuscular Hemoglobin Concent 34 g/dL (31-37) Red Cell Distribution Width 14.1 % (11.5-14.5) Platelet Count 225 x10^3/uL (140-400) Neutrophils (%) (Auto) 88 % (31-73) Lymphocytes (%) (Auto) 5 % (24-48) Monocytes (%) (Auto) 7 % (0-9) Eosinophils (%) (Auto) 0 % (0-3) Basophils (%) (Auto) 0 % (0-3) Neutrophils # (Auto) 17.2 x10^3uL (1.8-7.7) Lymphocytes # (Auto) 1.1 x10^3/uL (1.0-4.8) Monocytes # (Auto) 1.3 x10^3/uL (0.0-1.1) Eosinophils # (Auto) 0.0 x10^3/uL (0.0-0.7) Basophils # (Auto) 0.0 x10^3/uL (0.0-0.2) Test 12/30/17 03:16 12/30/17 04:18 12/30/17 05:20 12/30/17 06:28 Glucose (Fingerstick) 475 mg/dL (70-99) 408 mg/dL (70-99) 372 mg/dL (70-99) 278 mg/dL (70-99) Test 12/30/17 06:50 12/30/17 08:52 12/30/17 10:54 12/30/17 13:05 Sodium Level 133 mmol/L (136-145) Potassium Level 4.0 mmol/L (3.5-5.1) Chloride Level 97 mmol/L (98-107) Carbon Dioxide Level 24 mmol/L (21-32) Anion Gap 12 (6-14) Blood Urea Nitrogen 55 mg/dL (8-26) Creatinine 2.0 mg/dL (0.7-1.3) Estimated GFR (Cockcroft-Gault) 36.0 Glucose Level 293 mg/dL (70-99) Calcium Level 8.5 mg/dL (8.5-10.1) Phosphorus Level 2.3 mg/dL (2.6-4.7) Magnesium Level 1.7 mg/dL (1.8-2.4) Glucose (Fingerstick) 321 mg/dL (70-99) 387 mg/dL (70-99) 401 mg/dL (70-99) Test 12/30/17 14:28 12/30/17 16:08 12/30/17 16:15 12/30/17 17:12 Glucose (Fingerstick) 374 mg/dL (70-99) 322 mg/dL (70-99) 301 mg/dL (70-99) Sodium Level 130 mmol/L (136-145) Potassium Level 3.7 mmol/L (3.5-5.1) Chloride Level 94 mmol/L (98-107) Carbon Dioxide Level 25 mmol/L (21-32) Anion Gap 11 (6-14) Blood Urea Nitrogen 52 mg/dL (8-26) Creatinine 2.1 mg/dL (0.7-1.3) Estimated GFR (Cockcroft-Gault) 34.0 Glucose Level 314 mg/dL (70-99) Calcium Level 8.7 mg/dL (8.5-10.1) Magnesium Level 2.8 mg/dL (1.8-2.4) Test 12/30/17 21:23 12/31/17 07:17 12/31/17 10:51 Glucose (Fingerstick) 258 mg/dL (70-99) 326 mg/dL (70-99) 310 mg/dL (70-99) Laboratory Tests Test 12/30/17 13:05 12/30/17 14:28 12/30/17 16:08 12/30/17 16:15 Glucose (Fingerstick) 401 mg/dL (70-99) 374 mg/dL (70-99) 322 mg/dL (70-99) Sodium Level 130 mmol/L (136-145) Potassium Level 3.7 mmol/L (3.5-5.1) Chloride Level 94 mmol/L (98-107) Carbon Dioxide Level 25 mmol/L (21-32) Anion Gap 11 (6-14) Blood Urea Nitrogen 52 mg/dL (8-26) Creatinine 2.1 mg/dL (0.7-1.3) Estimated GFR (Cockcroft-Gault) 34.0 Glucose Level 314 mg/dL (70-99) Calcium Level 8.7 mg/dL (8.5-10.1) Magnesium Level 2.8 mg/dL (1.8-2.4) Test 12/30/17 17:12 12/30/17 21:23 12/31/17 07:17 12/31/17 10:51 Glucose (Fingerstick) 301 mg/dL (70-99) 258 mg/dL (70-99) 326 mg/dL (70-99) 310 mg/dL (70-99) Microbiology 12/29/17 Blood Culture - Final, Complete Medications Current Medications Famotidine (Pepcid Vial) 20 mg 1X ONCE IVP Last administered on 12/29/17at 20: 02; Start 12/29/17 at 19:15; Stop 12/29/17 at 19:17; Status DC Sodium Chloride 1,000 ml @ 1,000 mls/hr 1X ONCE IV Last administered on 12/29at 19:58; Start 12/29/17 at 19:15; Stop 12/29/17 at 20:14; Status DC Ceftriaxone Sodium 50 ml @ 100 mls/hr 1X ONCE IV Last administered on at 20:05; Start 12/29/17 at 19:15; Stop 12/29/17 at 19:44; Status DC Fentanyl Citrate (Fentanyl 2ml Vial) 50 mcg 1X ONCE IV Last administered on at 20:04; Start 12/29/17 at 19:15; Stop 12/29/17 at 19:17; Status DC Ondansetron HCl (Zofran) 4 mg 1X ONCE IV Last administered on 12/29/17at 20:00 ; Start 12/29/17 at 19:15; Stop 12/29/17 at 19:17; Status DC Sodium Chloride 1,000 ml @ 1,000 mls/hr 1X ONCE IV Last administered on 12/29at 21:03; Start 12/29/17 at 19:15; Stop 12/29/17 at 20:14; Status DC Insulin Human Regular (HumuLIN R VIAL) 14 unit 1X ONCE SQ Last administered on 12/29/17at 21:06; Start 12/29/17 at 20:45; Stop 12/29/17 at 20:46; Status DC Ondansetron HCl (Zofran) 4 mg PRN Q8HRS PRN IV NAUSEA/VOMITING 1ST CHOICE Last administered on 12/30/17at 00:21; Start 12/29/17 at 20:45; Stop 12/30/17 at 08 :31; Status DC Sodium Chloride 1,000 ml @ 250 mls/hr Q4H IV ; Start 12/29/17 at 21:00; Stop 12/30/17 at 03:31; Status DC Insulin Human Regular 150 unit/ Sodium Chloride 151.5 ml @ 0 mls/hr CONT PRN PRN IV PER PROTOCOL Last administered on 12/29/17at 23:10; Start 12/29/17 at 20 :45; Stop 12/30/17 at 15:26; Status DC Magnesium Sulfate/ Dextrose 100 ml @ 25 mls/hr DAILY IV Last administered on 12/30/17at 09:54; Start 12/30/17 at 09:00; Stop 12/30/17 at 13:22; Status DC Ceftriaxone Sodium 50 ml @ 100 mls/hr 1X ONCE IV ; Start 12/29/17 at 20:45; Stop 12/29/17 at 21:14; Status UNV Sodium Chloride 1,000 ml @ 250 mls/hr Q4H IV ; Start 12/30/17 at 03:30; Stop 12/30/17 at 03:30; Status DC Potassium Chloride/Sodium Chloride 1,000 ml @ 250 mls/hr Q4H IV Last administered on 12/29/17at 23:27; Start 12/29/17 at 23:30; Stop 12/30/17 at 03 :29; Status DC Ceftriaxone Sodium 50 ml @ 100 mls/hr DAILY IV ; Start 12/30/17 at 09:00; Status UNV Ceftriaxone Sodium (Rocephin) 1 gm Q24H IVP ; Start 12/30/17 at 20:00; Stop at 20:00; Status DC Potassium Chloride/Sodium Chloride 1,000 ml @ 250 mls/hr 1X ONCE IV Last administered on 12/30/17at 03:43; Start 12/30/17 at 04:00; Stop 12/30/17 at 07 :59; Status DC Sodium Phosphate 20 mmol/Dextrose 256.6667 ml @ 62.5 mls/hr 1X PRN PRN IV SEE COMMENTS Last administered on 12/30/17at 04:38; Start 12/30/17 at 03:15 Insulin Glargine (Lantus) 40 units BID SQ Last administered on 12/30/17at 06:13 ; Start 12/30/17 at 07:00; Stop 12/30/17 at 15:26; Status DC Insulin Human Lispro (HumaLOG) 20 units TIDWMEALS SQ Last administered on 12/30at 09:12; Start 12/30/17 at 08:00; Stop 12/30/17 at 10:26; Status DC Insulin Human Lispro (HumaLOG) 0-9 UNITS TIDWMEALS SQ Last administered on at 09:12; Start 12/30/17 at 08:00; Stop 12/30/17 at 10:26; Status DC Lactobacillus Rhamnosus (Culturelle) 1 cap BID PO Last administered on at 08:21; Start 12/30/17 at 09:00 Ondansetron HCl (Zofran) 4 mg PRN Q6HRS PRN IV NAUSEA/VOMITING Last administered on 12/31/17at 06:05; Start 12/30/17 at 08:15 Heparin Sodium (Porcine) (Heparin Sodium) 5,000 unit Q8HRS SQ Last administered on 12/31/17at 06:11; Start 12/30/17 at 14:00 Sodium Chloride (Normal Saline Flush) 3 ml QSHIFT PRN IV AFTER MEDS AND BLOOD DRAWS; Start 12/30/17 at 08:15 Acetaminophen/ Hydrocodone Bitart (Lortab 5/325) 1 tab PRN Q4HRS PRN PO MILD PAIN Last administered on 12/30/17at 09:12; Start 12/30/17 at 08:15; Stop at 15:26; Status DC Senna/Docusate Sodium (Senna Plus) 1 tab BID PO Last administered on at 08:21; Start 12/30/17 at 09:00 Lactulose (Lactulose) 20 gm PRN Q12HR PRN PO CONSTIPATION; Start 12/30/17 at 08:15 Insulin Human Lispro (HumaLOG) 18 units TIDWMEALS SQ Last administered on 12/30at 10:59; Start 12/30/17 at 12:00; Stop 12/30/17 at 15:26; Status DC Insulin Human Lispro (HumaLOG) 0-7 UNITS TIDWMEALS SQ Last administered on at 12:17; Start 12/30/17 at 12:00 Dextrose (Dextrose 50%-Water Syringe) 12.5 gm PRN Q15MIN PRN IV SEE COMMENTS; Start 12/30/17 at 10:30 Piperacillin Sod/ Tazobactam Sod 2.25 gm/Sodium Chloride 50 ml @ 100 mls/hr Q6HRS IV ; Start 12/30/17 at 13:15; Status UNV Piperacillin Sod/ Tazobactam Sod 3.375 gm/Sodium Chloride 50 ml @ 100 mls/hr Q6HRS IV Last administered on 12/31/17at 12:07; Start 12/30/17 at 13:30 Insulin Human Lispro (HumaLOG) 18 units 1X ONCE SQ Last administered on at 13:27; Start 12/30/17 at 13:15; Stop 12/30/17 at 13:16; Status DC Magnesium Sulfate/ Dextrose 100 ml @ 25 mls/hr PRN DAILY PRN IV MAG < 1.8 PER DKA PROTOCOL; Start 12/31/17 at 09:00 Insulin Human Lispro (HumaLOG) 15 units 1X ONCE SQ Last administered on at 14:45; Start 12/30/17 at 14:45; Stop 12/30/17 at 14:46; Status DC Insulin Glargine (Lantus) 50 units BID SQ Last administered on 12/31/17at 08:30 ; Start 12/30/17 at 21:00 Insulin Human Lispro (HumaLOG) 25 units TIDWMEALS SQ Last administered on 12/31at 12:17; Start 12/30/17 at 17:00 Tramadol HCl (Ultram) 50 mg PRN Q6HRS PRN PO PAIN Last administered on at 08:21; Start 12/30/17 at 15:30 Insulin Human Lispro (HumaLOG) 12 units 1X ONCE SQ Last administered on at 16:32; Start 12/30/17 at 16:30; Stop 12/30/17 at 16:31; Status DC Ibuprofen (Motrin) 400 mg 1X ONCE PO Last administered on 12/31/17at 08:37; Start 12/31/17 at 08:45; Stop 12/31/17 at 08:46; Status DC Morphine Sulfate (Morphine Sulfate) 2 mg PRN Q2HR PRN IV PAIN; Start 12/31/17 at 08:30 Ondansetron HCl (Zofran) 4 mg PRN Q6HRS PRN IV NAUSEA/VOMITING; Start at 10:45 Morphine Sulfate (Morphine Sulfate) 2 mg PRN Q2HR PRN IV MODERATE TO SEVERE PAIN; Start 12/31/17 at 10:45 Tramadol HCl (Ultram) 50 mg PRN Q6HRS PRN PO MILD TO MODERATE PAIN; Start at 10:45 Docusate Sodium (Colace) 100 mg PRN DAILY PRN PO HARD STOOLS; Start 12/31/17 at 10:45 Atorvastatin Calcium (Lipitor) 20 mg HS PO ; Start 12/31/17 at 21:00 Pregabalin (Lyrica) 75 mg TID PO ; Start 12/31/17 at 14:00 Amlodipine Besylate (Norvasc) 10 mg DAILY PO Last administered on 12/31/17at 12 :07; Start 12/31/17 at 11:00 Active Scripts Active Zofran (Ondansetron Hcl) 4 Mg Tablet 1 Tab PO PRN Q8HRS PRN Reported Levemir (Insulin Detemir) 100 Unit/1 Ml Vial 34 Unit SQ BID Lyrica (Pregabalin) 75 Mg Capsule 75 Mg PO TID Atorvastatin Calcium 20 Mg Tablet 20 Mg PO HS Amlodipine Besylate 10 Mg Tablet 20 Mg PO BID Trulicity (Dulaglutide) 1.5 Mg/0.5 Ml Pen.injctr 1.5 Mg SQ WEEKLY Metformin Hcl 1,000 Mg Tablet 1,000 Mg PO BIDWMEALS Vitals/I & O Vital Sign - Last 24 Hours 12/30/17 12/30/17 12/30/17 12/30/17 15:00 16:34 17:34 19:19 Temp 97.7 98.6 97.7 98.6 Pulse 114 125 Resp 20 18 18 18 B/P (MAP) 102/64 (77) 178/75 (109) Pulse Ox 94 91 O2 Delivery Room Air Room Air Room Air 12/30/17 12/30/17 12/31/17 12/31/17 20:00 23:22 03:00 07:00 Temp 97.9 99.5 101.1 97.9 99.5 101.1 Pulse 113 119 116 Resp 18 18 20 B/P (MAP) 117/75 (89) 181/80 (113) 160/92 (114) Pulse Ox 93 91 90 O2 Delivery Room Air Room Air Room Air Room Air 12/31/17 12/31/17 12/31/17 12/31/17 07:51 08:21 11:00 11:10 Temp 97.9 97.9 Pulse 99 Resp 20 B/P (MAP) 143/85 (104) Pulse Ox 95 O2 Delivery Room Air Room Air Room Air Room Air 12/31/17 12:07 Pulse 99 B/P (MAP) 143/85 Intake and Output 12/30/17 12/30/17 12/31/17 15:00 23:00 07:00 Intake Total 980 ml 1150 ml 250 ml Output Total 175 ml 200 ml Balance 805 ml 950 ml 250 ml DENISA KRUEGER MD Dec 31, 2017 12:27
[2017-12-31] MEDS ORDERED: oxyCODONE IR 5 MG TABLET PO PRN (12:30)
--- NOTE | 2017-12-31 14:22 | PDOC ---
SUBJECTIVE ROS States doing better , No new concerns /complaints OBJECTIVE Vital Signs Vital Signs Date Time Temp Pulse Resp B/P (MAP) Pulse Ox O2 Delivery O2 Flow Rate FiO2 12/31/17 12:07 99 143/85 12/31/17 11:10 Room Air 12/31/17 11:00 97.9 20 95 97.9 I & 0 Intake and Output 12/31/17 07:00 Intake Total 2380 ml Output Total 375 ml Balance 2005 ml Intake Oral 2280 ml IV Total 100 ml Output Urine Total 375 ml # Voids 2 PHYSICAL EXAM Physical Exam GEN: NAD , sitting in chair HEEN: OM dryish NECK: No JVD CVS: S1S2, N RESP: CTA, No accessory Muscle use GI: BS + ve, NO Bruit, Non Tender, Non Distended : [NoCVA tenderness, No Suprapubic Tenderness, No Amaro Neuro- Grossly Normal Ext No LE edema Skin No Rash DIAGNOSIS/ASSESSMENT Assessment & Plan YOEL- Pre-renal , sec to DKA , NSAID use , Vomiting Renal function was improving, No labs today, fu in am good UOP CT Reviewed- Unremarkable Kidneys and Bladder UA- No protein, No RBC's, WBC+, No Nitrites Sepsis - GNR sepsis ? UTI, Right Foot wound - arterial doppler - neg Await foot debridement- ? Urine vs wound DM with DKA - As per Primary HTN - On Amlodipine at Home Discussed A/P with Pt COMMENT/RELEVANT DATA Meds Current Medications Medications (Trade) Dose Ordered Sig/Felisha Start Time Stop Time Status Last Admin Dose Admin Acetaminophen/ Hydrocodone Bitart (Lortab 5/325) 1 tab PRN Q4HRS PRN 12/30/17 08:15 12/30/17 15:26 DC 12/30/17 09:12 1 TAB Amlodipine Besylate (Norvasc) 10 mg DAILY 12/31/17 11:00 12/31/17 12:07 10 MG Atorvastatin Calcium (Lipitor) 20 mg HS 12/31/17 21:00 Ceftriaxone Sodium (Rocephin) 1 gm Q24H 12/30/17 20:00 12/30/17 20:00 DC Dextrose (Dextrose 50%-Water Syringe) 12.5 gm PRN Q15MIN PRN 12/30/17 10:30 Docusate Sodium (Colace) 100 mg PRN DAILY PRN 12/31/17 10:45 Famotidine (Pepcid Vial) 20 mg 1X ONCE 12/29/17 19:15 12/29/17 19:17 DC 12/29/17 20:02 20 MG Fentanyl Citrate (Fentanyl 2ml Vial) 50 mcg 1X ONCE 12/29/17 19:15 12/29/17 19:17 DC 12/29/17 20:04 50 MCG Heparin Sodium (Porcine) (Heparin Sodium) 5,000 unit Q8HRS 12/30/17 14:00 12/31/17 06:11 5,000 UNIT Ibuprofen (Motrin) 400 mg 1X ONCE 12/31/17 08:45 12/31/17 08:46 DC 12/31/17 08:37 400 MG Insulin Glargine (Lantus) 60 units BID 12/31/17 21:00 Insulin Human Lispro (HumaLOG) 30 units TIDWMEALS 12/31/17 17:00 Insulin Human Regular (HumuLIN R VIAL) 14 unit 1X ONCE 12/29/17 20:45 12/29/17 20:46 DC 12/29/17 21:06 14 UNIT Insulin Human Regular 150 unit/ Sodium Chloride 151.5 ml @ 0 mls/hr CONT PRN PRN 12/29/17 20:45 12/30/17 15:26 DC 12/29/17 23:10 13.7 MLS/HR Lactobacillus Rhamnosus (Culturelle) 1 cap BID 12/30/17 09:00 12/31/17 08:21 1 CAP Lactulose (Lactulose) 20 gm PRN Q12HR PRN 12/30/17 08:15 Magnesium Sulfate/ Dextrose 100 ml @ 25 mls/hr PRN DAILY PRN 12/31/17 09:00 Morphine Sulfate (Morphine Sulfate) 2 mg PRN Q2HR PRN 12/31/17 10:45 12/31/17 12:24 DC Ondansetron HCl (Zofran) 4 mg PRN Q6HRS PRN 12/31/17 10:45 Oxycodone HCl (Roxicodone) 5 mg PRN Q6HRS PRN 12/31/17 12:30 Piperacillin Sod/ Tazobactam Sod 2.25 gm/Sodium Chloride 50 ml @ 100 mls/hr Q6HRS 12/30/17 13:15 UNV Piperacillin Sod/ Tazobactam Sod 3.375 gm/Sodium Chloride 50 ml @ 100 mls/hr Q6HRS 12/30/17 13:30 12/31/17 12:07 100 MLS/HR Potassium Chloride/Sodium Chloride 1,000 ml @ 250 mls/hr 1X ONCE 12/30/17 04:00 12/30/17 07:59 DC 12/30/17 03:43 250 MLS/HR Pregabalin (Lyrica) 75 mg TID 12/31/17 14:00 Senna/Docusate Sodium (Senna Plus) 1 tab BID 12/30/17 09:00 12/31/17 08:21 1 TAB Sodium Chloride (Normal Saline Flush) 3 ml QSHIFT PRN 12/30/17 08:15 Sodium Phosphate 20 mmol/Dextrose 256.6667 ml @ 62.5 mls/hr 1X PRN PRN 12/30/17 03:15 12/30/17 04:38 62.5 MLS/HR Tramadol HCl (Ultram) 50 mg PRN Q6HRS PRN 12/31/17 10:45 Lab Laboratory Tests Test 12/30/17 14:28 12/30/17 16:08 12/30/17 16:15 12/30/17 17:12 Glucose (Fingerstick) 374 mg/dL (70-99) 322 mg/dL (70-99) 301 mg/dL (70-99) Sodium Level 130 mmol/L (136-145) Potassium Level 3.7 mmol/L (3.5-5.1) Chloride Level 94 mmol/L (98-107) Carbon Dioxide Level 25 mmol/L (21-32) Anion Gap 11 (6-14) Blood Urea Nitrogen 52 mg/dL (8-26) Creatinine 2.1 mg/dL (0.7-1.3) Estimated GFR (Cockcroft-Gault) 34.0 Glucose Level 314 mg/dL (70-99) Calcium Level 8.7 mg/dL (8.5-10.1) Magnesium Level 2.8 mg/dL (1.8-2.4) Test 12/30/17 21:23 12/31/17 07:17 12/31/17 10:51 Glucose (Fingerstick) 258 mg/dL (70-99) 326 mg/dL (70-99) 310 mg/dL (70-99) Results All relevant outside records, renal labs, imaging studies, telemetry/EKG's were reviewed. JERRY WEN MD Dec 31, 2017 14:22
[2017-12-31] MEDS: PREGABALIN 75 MG CAPSULE PO SCH ×2 (14:48→21:39)
[2017-12-31 15:00] VITALS: BP 137/100
[2017-12-31 19:22] VITALS: BP 144/94
[2017-12-31] MEDS: ATORVASTATIN CALCIUM 20 MG TABLET PO SCH (21:39)
[2017-12-31 22:49] VITALS: BP 111/71
[2018-01-01 03:56] VITALS: BP 152/78
[2018-01-01] MEDS: PIPERACILLIN/TAZOBACTAM 3.375 GM in IV NORMAL SALINE 50ML 50 ML IV SCH ×4 (05:46→23:43)
[2018-01-01 05:47] LABS: BASO % 0 % (0-3); EOS % 0 % (0-3); HEMATOCRIT 30.3 % (39.0-53.0); HEMOGLOBIN 10.4 g/dL (13.0-17.5); LYMPH # 1.4 x10^3/uL (1.0-4.8); LYMPH % 11 % (24-48); MEAN CORPUSCULAR HEMOGLOBIN 29 pg (25-35); MEAN CORPUSCULAR HGB CONC 34 g/dL (31-37); MEAN CORPUSCULAR VOLUME 84 fL (79-100); MONO # 1.3 x10^3/uL (0.0-1.1); MONO % 10 % (0-9); NEUT # 10.6 x10^3uL (1.8-7.7); NEUT % 79 % (31-73); PLATELET COUNT 225 x10^3/uL (140-400); RED BLOOD COUNT 3.62 x10^6/uL (4.30-5.70); RED CELL DISTRIBUTION WIDTH 14.1 % (11.5-14.5); WHITE BLOOD COUNT 13.3 x10^3/uL (4.0-11.0)
[2018-01-01] MEDS: HEPARIN for SUB-Q USE 5,000 UNIT/ML VIAL. SQ SCH ×3 (05:49→21:57)
[2018-01-01 06:01] LABS: CALCIUM 8.6 mg/dL (8.5-10.1); POTASSIUM 3.6 mmol/L (3.5-5.1)
[2018-01-01 07:00] VITALS: BP 157/86
[2018-01-01] MEDS: SENNOSIDES/DOCUSATE 8.6/50MG TABLET. PO SCH ×2 (08:13→21:00)
[2018-01-01] MEDS: amLODIPine BESYLATE 10 MG TABLET PO SCH (08:14)
[2018-01-01] MEDS: PREGABALIN 75 MG CAPSULE PO SCH ×3 (08:15→21:50)
[2018-01-01] MEDS: LACTOBACILLUS RHAMNOSUS GG 1 CAPSULE. PO SCH ×2 (08:15→21:50)
[2018-01-01] MEDS: ONDANSETRON PF 4 MG/2 ML VIAL. IV PRN (08:17)
[2018-01-01] MEDS: INSULIN LISPRO 300 UNITS/3 ML INSULN.PEN. SQ SCH ×6 (08:23→17:00)
[2018-01-01] MEDS: INSULIN GLARGINE 300 UNITS/3 ML INSULN.PEN. SQ SCH ×2 (08:24→21:58)
--- NOTE | 2018-01-01 10:09 | PDOC ---
Infectious Disease Note Subjective Subjective Feels better. Has issues with Oxycodone in the past as it has caused Sweat. No N/V/D/Rash. Tolerating food. Still has some hiccups but better Foot ok. No S but some chills. No SOA ROS ROS o/w neg Vital Sign Vital Signs Vital Signs Date Time Temp Pulse Resp B/P (MAP) Pulse Ox O2 Delivery O2 Flow Rate FiO2 01/01/18 08:14 104 152/78 01/01/18 08:00 Room Air 01/01/18 07:00 97.6 20 96 97.6 Physical Exam PHYSICAL EXAM CONSTITUTIONAL: He is sitting in a chair. He is cooperative, in no acute distress. He wears glasses. Looks well HEENT: Pupils equal, reactive. He has normal conjunctivae. Oral cavity, pharynx is clear. NECK: Supple. Good range of motion. LUNGS: Clear to auscultation bilaterally. HEART: S1, S2. ABDOMEN: Obese, soft, nontender, nondistended. No guarding or rebound. He has no CVA tenderness. There is no inflammation of his back. EXTREMITIES: Without clubbing, cyanosis or gross edema. SKIN: Warm to touch without signs of rash. On his right plantar foot and the first metatarsal head, he has ulceration with minimal surrounding erythema. There is no bone exposed. NEUROLOGIC: He is nonfocal. Affect is appropriate. Labs Lab Laboratory Tests Test 12/31/17 10:51 12/31/17 16:38 12/31/17 21:38 01/01/18 04:50 Glucose (Fingerstick) 310 mg/dL (70-99) 268 mg/dL (70-99) 215 mg/dL (70-99) White Blood Count 13.3 x10^3/uL (4.0-11.0) Red Blood Count 3.62 x10^6/uL (4.30-5.70) Hemoglobin 10.4 g/dL (13.0-17.5) Hematocrit 30.3 % (39.0-53.0) Mean Corpuscular Volume 84 fL (79-100) Mean Corpuscular Hemoglobin 29 pg (25-35) Mean Corpuscular Hemoglobin Concent 34 g/dL (31-37) Red Cell Distribution Width 14.1 % (11.5-14.5) Platelet Count 225 x10^3/uL (140-400) Neutrophils (%) (Auto) 79 % (31-73) Lymphocytes (%) (Auto) 11 % (24-48) Monocytes (%) (Auto) 10 % (0-9) Eosinophils (%) (Auto) 0 % (0-3) Basophils (%) (Auto) 0 % (0-3) Neutrophils # (Auto) 10.6 x10^3uL (1.8-7.7) Lymphocytes # (Auto) 1.4 x10^3/uL (1.0-4.8) Monocytes # (Auto) 1.3 x10^3/uL (0.0-1.1) Eosinophils # (Auto) 0.0 x10^3/uL (0.0-0.7) Basophils # (Auto) 0.0 x10^3/uL (0.0-0.2) Sodium Level 132 mmol/L (136-145) Potassium Level 3.6 mmol/L (3.5-5.1) Chloride Level 95 mmol/L (98-107) Carbon Dioxide Level 26 mmol/L (21-32) Anion Gap 11 (6-14) Blood Urea Nitrogen 46 mg/dL (8-26) Creatinine 2.0 mg/dL (0.7-1.3) Estimated GFR (Cockcroft-Gault) 36.0 Glucose Level 216 mg/dL (70-99) Calcium Level 8.6 mg/dL (8.5-10.1) Test 01/01/18 08:06 Glucose (Fingerstick) 233 mg/dL (70-99) Micro Microbiology 12/29/17 Blood Culture - Final, Complete Objective Assessment Fever - ? med related as clinically he is better. Has had issues with Oxycodone in the past GNR sepsis - POA 12/29 - ? Urine vs wound Leukocytosis YOEL - stable renal following Ecoli UTI - POA Right Foot wound - arterial doppler - neg DM with DKA Plan Plan of Care Changed to Zosyn 12/30 given DM foot and some water exposure F/u labs and cults Await foot debridement F/u TIP Kaye MD Jan 01, 2018 10:09
[2018-01-01 11:00] VITALS: BP 146/83
--- NOTE | 2018-01-01 11:24 | PDOC ---
SUBJECTIVE ROS Stable OBJECTIVE Vital Signs Vital Signs Date Time Temp Pulse Resp B/P (MAP) Pulse Ox O2 Delivery O2 Flow Rate FiO2 01/01/18 08:14 104 152/78 01/01/18 08:00 Room Air 01/01/18 07:00 97.6 20 96 97.6 I & 0 Intake and Output 01/01/18 07:00 Intake Total 1900 ml Balance 1900 ml Intake Oral 1900 ml PHYSICAL EXAM Physical Exam GEN: NAD , sitting in chair HEEN: OM moist NECK: No JVD CVS: S1S2, N RESP: CTA, No accessory Muscle use GI: BS + ve, NO Bruit, Non Tender, Non Distended : [NoCVA tenderness, No Suprapubic Tenderness, No Amaro Neuro- Grossly Normal Ext No LE edema Skin No Rash DIAGNOSIS/ASSESSMENT Assessment & Plan YOEL- Pre-renal , sec to DKA , NSAID use , Vomiting Renal function stable, good UOP CT Reviewed- Unremarkable Kidneys and Bladder UA- No protein, No RBC's, WBC+, No Nitrites Sepsis - GNR sepsis ? UTI, Right Foot wound - arterial doppler - neg Await foot debridement- ? Urine vs wound DM with DKA - As per Primary HTN - On Amlodipine at Home Discussed A/P with Pt COMMENT/RELEVANT DATA Meds Current Medications Medications (Trade) Dose Ordered Sig/Felisha Start Time Stop Time Status Last Admin Dose Admin Acetaminophen/ Hydrocodone Bitart (Lortab 5/325) 1 tab PRN Q4HRS PRN 12/30/17 08:15 12/30/17 15:26 DC 12/30/17 09:12 1 TAB Amlodipine Besylate (Norvasc) 10 mg DAILY 12/31/17 11:00 01/01/18 08:14 10 MG Atorvastatin Calcium (Lipitor) 20 mg HS 12/31/17 21:00 12/31/17 21:39 20 MG Ceftriaxone Sodium (Rocephin) 1 gm Q24H 12/30/17 20:00 12/30/17 20:00 DC Dextrose (Dextrose 50%-Water Syringe) 12.5 gm PRN Q15MIN PRN 12/30/17 10:30 Docusate Sodium (Colace) 100 mg PRN DAILY PRN 12/31/17 10:45 Famotidine (Pepcid Vial) 20 mg 1X ONCE 12/29/17 19:15 12/29/17 19:17 DC 12/29/17 20:02 20 MG Fentanyl Citrate (Fentanyl 2ml Vial) 50 mcg 1X ONCE 12/29/17 19:15 12/29/17 19:17 DC 12/29/17 20:04 50 MCG Heparin Sodium (Porcine) (Heparin Sodium) 5,000 unit Q8HRS 12/30/17 14:00 01/01/18 05:49 5,000 UNIT Ibuprofen (Motrin) 400 mg 1X ONCE 12/31/17 08:45 12/31/17 08:46 DC 12/31/17 08:37 400 MG Insulin Glargine (Lantus) 60 units BID 12/31/17 21:00 01/01/18 08:24 60 UNITS Insulin Human Lispro (HumaLOG) 30 units TIDWMEALS 12/31/17 17:00 01/01/18 08:23 30 UNITS Insulin Human Regular (HumuLIN R VIAL) 14 unit 1X ONCE 12/29/17 20:45 12/29/17 20:46 DC 12/29/17 21:06 14 UNIT Insulin Human Regular 150 unit/ Sodium Chloride 151.5 ml @ 0 mls/hr CONT PRN PRN 12/29/17 20:45 12/30/17 15:26 DC 12/29/17 23:10 13.7 MLS/HR Lactobacillus Rhamnosus (Culturelle) 1 cap BID 12/30/17 09:00 01/01/18 08:15 1 CAP Lactulose (Lactulose) 20 gm PRN Q12HR PRN 12/30/17 08:15 Magnesium Sulfate/ Dextrose 100 ml @ 25 mls/hr PRN DAILY PRN 12/31/17 09:00 Morphine Sulfate (Morphine Sulfate) 2 mg PRN Q2HR PRN 12/31/17 10:45 12/31/17 12:24 DC Ondansetron HCl (Zofran) 4 mg PRN Q6HRS PRN 12/31/17 10:45 Cancel Oxycodone HCl (Roxicodone) 5 mg PRN Q6HRS PRN 12/31/17 12:30 12/31/17 17:26 2.5 MG Piperacillin Sod/ Tazobactam Sod 2.25 gm/Sodium Chloride 50 ml @ 100 mls/hr Q6HRS 12/30/17 13:15 UNV Piperacillin Sod/ Tazobactam Sod 3.375 gm/Sodium Chloride 50 ml @ 100 mls/hr Q6HRS 12/30/17 13:30 01/01/18 05:46 100 MLS/HR Potassium Chloride/Sodium Chloride 1,000 ml @ 250 mls/hr 1X ONCE 12/30/17 04:00 12/30/17 07:59 DC 12/30/17 03:43 250 MLS/HR Pregabalin (Lyrica) 75 mg TID 12/31/17 14:00 01/01/18 08:15 75 MG Senna/Docusate Sodium (Senna Plus) 1 tab BID 12/30/17 09:00 01/01/18 08:13 1 TAB Sodium Chloride (Normal Saline Flush) 3 ml QSHIFT PRN 12/30/17 08:15 Sodium Phosphate 20 mmol/Dextrose 256.6667 ml @ 62.5 mls/hr 1X PRN PRN 12/30/17 03:15 12/30/17 04:38 62.5 MLS/HR Tramadol HCl (Ultram) 50 mg PRN Q6HRS PRN 12/31/17 10:45 Cancel Lab Laboratory Tests Test 12/31/17 16:38 12/31/17 21:38 01/01/18 04:50 01/01/18 08:06 Glucose (Fingerstick) 268 mg/dL (70-99) 215 mg/dL (70-99) 233 mg/dL (70-99) White Blood Count 13.3 x10^3/uL (4.0-11.0) Red Blood Count 3.62 x10^6/uL (4.30-5.70) Hemoglobin 10.4 g/dL (13.0-17.5) Hematocrit 30.3 % (39.0-53.0) Mean Corpuscular Volume 84 fL (79-100) Mean Corpuscular Hemoglobin 29 pg (25-35) Mean Corpuscular Hemoglobin Concent 34 g/dL (31-37) Red Cell Distribution Width 14.1 % (11.5-14.5) Platelet Count 225 x10^3/uL (140-400) Neutrophils (%) (Auto) 79 % (31-73) Lymphocytes (%) (Auto) 11 % (24-48) Monocytes (%) (Auto) 10 % (0-9) Eosinophils (%) (Auto) 0 % (0-3) Basophils (%) (Auto) 0 % (0-3) Neutrophils # (Auto) 10.6 x10^3uL (1.8-7.7) Lymphocytes # (Auto) 1.4 x10^3/uL (1.0-4.8) Monocytes # (Auto) 1.3 x10^3/uL (0.0-1.1) Eosinophils # (Auto) 0.0 x10^3/uL (0.0-0.7) Basophils # (Auto) 0.0 x10^3/uL (0.0-0.2) Sodium Level 132 mmol/L (136-145) Potassium Level 3.6 mmol/L (3.5-5.1) Chloride Level 95 mmol/L (98-107) Carbon Dioxide Level 26 mmol/L (21-32) Anion Gap 11 (6-14) Blood Urea Nitrogen 46 mg/dL (8-26) Creatinine 2.0 mg/dL (0.7-1.3) Estimated GFR (Cockcroft-Gault) 36.0 Glucose Level 216 mg/dL (70-99) Calcium Level 8.6 mg/dL (8.5-10.1) Results All relevant outside records, renal labs, imaging studies, telemetry/EKG's were reviewed. JERRY WEN MD Jan 01, 2018 11:24
--- NOTE | 2018-01-01 14:03 | PDOC ---
PROGRESS NOTES Chief Complaint Chief Complaint DKA - with type 2 diabetes Sepsis - likely from bilateral foot infections, Acute renal failure - likely 2/2 DKA, sepsis, dehydration. Foot wound , bl , worse Rt side black ulcer s/p bedside i and d 01/01 Electrolyte derangement HTN neuropathy + bcx plan: fu with id, wound care, may need i and d fu with renal increase insulin to lantus 65u bid, novolog 35u tid, ssi. check hba1c on zosyn, fu bcx ibuprofen x1 for fever, should try tylenol if need often for fever, which makes him stamache dvt ppx resume some home meds , amlodipine 10mg daily labs daily add NS 75cc/h for now bedside i and d bl feet wound 01/01 ,clean History of Present Illness History of Present Illness ROS: no chills, sob or chest pain still hyperglycemia + bcx cr slightly better to 2 fever T 101.7 better to 100.0 overnight BL leg US neg for PAD bedside i and d , wound care not think rt sole ulcer is infected Vitals Vitals Vital Signs Date Time Temp Pulse Resp B/P (MAP) Pulse Ox O2 Delivery O2 Flow Rate FiO2 01/01/18 08:14 104 152/78 01/01/18 08:00 Room Air 01/01/18 07:00 97.6 20 96 97.6 Physical Exam Physical Exam CONSTITUTIONAL: He is sitting in a chair. He is cooperative, in no acute distress. He wears glasses. Looks well HEENT: Pupils equal, reactive. He has normal conjunctivae. Oral cavity, pharynx is clear. NECK: Supple. Good range of motion. LUNGS: Clear to auscultation bilaterally. HEART: S1, S2. ABDOMEN: Obese, soft, nontender, nondistended. No guarding or rebound. He has no CVA tenderness. There is no inflammation of his back. EXTREMITIES: Without clubbing, cyanosis or gross edema. SKIN: Warm to touch without signs of rash. On his right plantar foot and the first metatarsal head, he has ulceration with minimal surrounding erythema. There is no bone exposed. NEUROLOGIC: He is nonfocal. Affect is appropriate. General: Alert, Oriented X3, Cooperative, No acute distress Heart: Other (patient demonstrates mild tachycardia) Abdomen: Normal bowel sounds, Soft, No hepatosplenomegaly, No masses, Other ( Epigastric tenderness) Extremities: No clubbing, No cyanosis, No edema, Normal pulses, No tenderness/ swelling Skin: No rashes, Other (Bilaterally macerated feet, red) Labs LABS Laboratory Tests Test 12/31/17 16:38 12/31/17 21:38 01/01/18 04:50 01/01/18 08:06 Glucose (Fingerstick) 268 mg/dL (70-99) 215 mg/dL (70-99) 233 mg/dL (70-99) White Blood Count 13.3 x10^3/uL (4.0-11.0) Red Blood Count 3.62 x10^6/uL (4.30-5.70) Hemoglobin 10.4 g/dL (13.0-17.5) Hematocrit 30.3 % (39.0-53.0) Mean Corpuscular Volume 84 fL (79-100) Mean Corpuscular Hemoglobin 29 pg (25-35) Mean Corpuscular Hemoglobin Concent 34 g/dL (31-37) Red Cell Distribution Width 14.1 % (11.5-14.5) Platelet Count 225 x10^3/uL (140-400) Neutrophils (%) (Auto) 79 % (31-73) Lymphocytes (%) (Auto) 11 % (24-48) Monocytes (%) (Auto) 10 % (0-9) Eosinophils (%) (Auto) 0 % (0-3) Basophils (%) (Auto) 0 % (0-3) Neutrophils # (Auto) 10.6 x10^3uL (1.8-7.7) Lymphocytes # (Auto) 1.4 x10^3/uL (1.0-4.8) Monocytes # (Auto) 1.3 x10^3/uL (0.0-1.1) Eosinophils # (Auto) 0.0 x10^3/uL (0.0-0.7) Basophils # (Auto) 0.0 x10^3/uL (0.0-0.2) Sodium Level 132 mmol/L (136-145) Potassium Level 3.6 mmol/L (3.5-5.1) Chloride Level 95 mmol/L (98-107) Carbon Dioxide Level 26 mmol/L (21-32) Anion Gap 11 (6-14) Blood Urea Nitrogen 46 mg/dL (8-26) Creatinine 2.0 mg/dL (0.7-1.3) Estimated GFR (Cockcroft-Gault) 36.0 Glucose Level 216 mg/dL (70-99) Calcium Level 8.6 mg/dL (8.5-10.1) Test 01/01/18 12:29 Glucose (Fingerstick) 213 mg/dL (70-99) Comment Review of Relevant I have reviewed the following items odell (where applicable) has been applied. Labs Laboratory Tests Test 12/30/17 14:28 12/30/17 16:08 12/30/17 16:15 12/30/17 17:12 Glucose (Fingerstick) 374 mg/dL (70-99) 322 mg/dL (70-99) 301 mg/dL (70-99) Sodium Level 130 mmol/L (136-145) Potassium Level 3.7 mmol/L (3.5-5.1) Chloride Level 94 mmol/L (98-107) Carbon Dioxide Level 25 mmol/L (21-32) Anion Gap 11 (6-14) Blood Urea Nitrogen 52 mg/dL (8-26) Creatinine 2.1 mg/dL (0.7-1.3) Estimated GFR (Cockcroft-Gault) 34.0 Glucose Level 314 mg/dL (70-99) Calcium Level 8.7 mg/dL (8.5-10.1) Magnesium Level 2.8 mg/dL (1.8-2.4) Test 12/30/17 21:23 12/31/17 07:17 12/31/17 10:51 12/31/17 16:38 Glucose (Fingerstick) 258 mg/dL (70-99) 326 mg/dL (70-99) 310 mg/dL (70-99) 268 mg/dL (70-99) Test 12/31/17 21:38 01/01/18 04:50 01/01/18 08:06 01/01/18 12:29 Glucose (Fingerstick) 215 mg/dL (70-99) 233 mg/dL (70-99) 213 mg/dL (70-99) White Blood Count 13.3 x10^3/uL (4.0-11.0) Red Blood Count 3.62 x10^6/uL (4.30-5.70) Hemoglobin 10.4 g/dL (13.0-17.5) Hematocrit 30.3 % (39.0-53.0) Mean Corpuscular Volume 84 fL (79-100) Mean Corpuscular Hemoglobin 29 pg (25-35) Mean Corpuscular Hemoglobin Concent 34 g/dL (31-37) Red Cell Distribution Width 14.1 % (11.5-14.5) Platelet Count 225 x10^3/uL (140-400) Neutrophils (%) (Auto) 79 % (31-73) Lymphocytes (%) (Auto) 11 % (24-48) Monocytes (%) (Auto) 10 % (0-9) Eosinophils (%) (Auto) 0 % (0-3) Basophils (%) (Auto) 0 % (0-3) Neutrophils # (Auto) 10.6 x10^3uL (1.8-7.7) Lymphocytes # (Auto) 1.4 x10^3/uL (1.0-4.8) Monocytes # (Auto) 1.3 x10^3/uL (0.0-1.1) Eosinophils # (Auto) 0.0 x10^3/uL (0.0-0.7) Basophils # (Auto) 0.0 x10^3/uL (0.0-0.2) Sodium Level 132 mmol/L (136-145) Potassium Level 3.6 mmol/L (3.5-5.1) Chloride Level 95 mmol/L (98-107) Carbon Dioxide Level 26 mmol/L (21-32) Anion Gap 11 (6-14) Blood Urea Nitrogen 46 mg/dL (8-26) Creatinine 2.0 mg/dL (0.7-1.3) Estimated GFR (Cockcroft-Gault) 36.0 Glucose Level 216 mg/dL (70-99) Calcium Level 8.6 mg/dL (8.5-10.1) Laboratory Tests Test 12/31/17 16:38 12/31/17 21:38 01/01/18 04:50 01/01/18 08:06 Glucose (Fingerstick) 268 mg/dL (70-99) 215 mg/dL (70-99) 233 mg/dL (70-99) White Blood Count 13.3 x10^3/uL (4.0-11.0) Red Blood Count 3.62 x10^6/uL (4.30-5.70) Hemoglobin 10.4 g/dL (13.0-17.5) Hematocrit 30.3 % (39.0-53.0) Mean Corpuscular Volume 84 fL (79-100) Mean Corpuscular Hemoglobin 29 pg (25-35) Mean Corpuscular Hemoglobin Concent 34 g/dL (31-37) Red Cell Distribution Width 14.1 % (11.5-14.5) Platelet Count 225 x10^3/uL (140-400) Neutrophils (%) (Auto) 79 % (31-73) Lymphocytes (%) (Auto) 11 % (24-48) Monocytes (%) (Auto) 10 % (0-9) Eosinophils (%) (Auto) 0 % (0-3) Basophils (%) (Auto) 0 % (0-3) Neutrophils # (Auto) 10.6 x10^3uL (1.8-7.7) Lymphocytes # (Auto) 1.4 x10^3/uL (1.0-4.8) Monocytes # (Auto) 1.3 x10^3/uL (0.0-1.1) Eosinophils # (Auto) 0.0 x10^3/uL (0.0-0.7) Basophils # (Auto) 0.0 x10^3/uL (0.0-0.2) Sodium Level 132 mmol/L (136-145) Potassium Level 3.6 mmol/L (3.5-5.1) Chloride Level 95 mmol/L (98-107) Carbon Dioxide Level 26 mmol/L (21-32) Anion Gap 11 (6-14) Blood Urea Nitrogen 46 mg/dL (8-26) Creatinine 2.0 mg/dL (0.7-1.3) Estimated GFR (Cockcroft-Gault) 36.0 Glucose Level 216 mg/dL (70-99) Calcium Level 8.6 mg/dL (8.5-10.1) Test 01/01/18 12:29 Glucose (Fingerstick) 213 mg/dL (70-99) Microbiology 12/29/17 Blood Culture - Final, Complete 12/29/17 Urine Culture - Preliminary, Resulted 12/29/17 Urine Culture Result 1 (HAZEL) - Preliminary, Resulted Medications Current Medications Famotidine (Pepcid Vial) 20 mg 1X ONCE IVP Last administered on 12/29/17at 20: 02; Start 12/29/17 at 19:15; Stop 12/29/17 at 19:17; Status DC Sodium Chloride 1,000 ml @ 1,000 mls/hr 1X ONCE IV Last administered on 12/29at 19:58; Start 12/29/17 at 19:15; Stop 12/29/17 at 20:14; Status DC Ceftriaxone Sodium 50 ml @ 100 mls/hr 1X ONCE IV Last administered on at 20:05; Start 12/29/17 at 19:15; Stop 12/29/17 at 19:44; Status DC Fentanyl Citrate (Fentanyl 2ml Vial) 50 mcg 1X ONCE IV Last administered on at 20:04; Start 12/29/17 at 19:15; Stop 12/29/17 at 19:17; Status DC Ondansetron HCl (Zofran) 4 mg 1X ONCE IV Last administered on 12/29/17at 20:00 ; Start 12/29/17 at 19:15; Stop 12/29/17 at 19:17; Status DC Sodium Chloride 1,000 ml @ 1,000 mls/hr 1X ONCE IV Last administered on 12/29at 21:03; Start 12/29/17 at 19:15; Stop 12/29/17 at 20:14; Status DC Insulin Human Regular (HumuLIN R VIAL) 14 unit 1X ONCE SQ Last administered on 12/29/17at 21:06; Start 12/29/17 at 20:45; Stop 12/29/17 at 20:46; Status DC Ondansetron HCl (Zofran) 4 mg PRN Q8HRS PRN IV NAUSEA/VOMITING 1ST CHOICE Last administered on 12/30/17at 00:21; Start 12/29/17 at 20:45; Stop 12/30/17 at 08 :31; Status DC Sodium Chloride 1,000 ml @ 250 mls/hr Q4H IV ; Start 12/29/17 at 21:00; Stop 12/30/17 at 03:31; Status DC Insulin Human Regular 150 unit/ Sodium Chloride 151.5 ml @ 0 mls/hr CONT PRN PRN IV PER PROTOCOL Last administered on 12/29/17at 23:10; Start 12/29/17 at 20 :45; Stop 12/30/17 at 15:26; Status DC Magnesium Sulfate/ Dextrose 100 ml @ 25 mls/hr DAILY IV Last administered on 12/30/17at 09:54; Start 12/30/17 at 09:00; Stop 12/30/17 at 13:22; Status DC Ceftriaxone Sodium 50 ml @ 100 mls/hr 1X ONCE IV ; Start 12/29/17 at 20:45; Stop 12/29/17 at 21:14; Status UNV Sodium Chloride 1,000 ml @ 250 mls/hr Q4H IV ; Start 12/30/17 at 03:30; Stop 12/30/17 at 03:30; Status DC Potassium Chloride/Sodium Chloride 1,000 ml @ 250 mls/hr Q4H IV Last administered on 12/29/17at 23:27; Start 12/29/17 at 23:30; Stop 12/30/17 at 03 :29; Status DC Ceftriaxone Sodium 50 ml @ 100 mls/hr DAILY IV ; Start 12/30/17 at 09:00; Status UNV Ceftriaxone Sodium (Rocephin) 1 gm Q24H IVP ; Start 12/30/17 at 20:00; Stop at 20:00; Status DC Potassium Chloride/Sodium Chloride 1,000 ml @ 250 mls/hr 1X ONCE IV Last administered on 12/30/17at 03:43; Start 12/30/17 at 04:00; Stop 12/30/17 at 07 :59; Status DC Sodium Phosphate 20 mmol/Dextrose 256.6667 ml @ 62.5 mls/hr 1X PRN PRN IV SEE COMMENTS Last administered on 12/30/17at 04:38; Start 12/30/17 at 03:15 Insulin Glargine (Lantus) 40 units BID SQ Last administered on 12/30/17at 06:13 ; Start 12/30/17 at 07:00; Stop 12/30/17 at 15:26; Status DC Insulin Human Lispro (HumaLOG) 20 units TIDWMEALS SQ Last administered on 12/30at 09:12; Start 12/30/17 at 08:00; Stop 12/30/17 at 10:26; Status DC Insulin Human Lispro (HumaLOG) 0-9 UNITS TIDWMEALS SQ Last administered on at 09:12; Start 12/30/17 at 08:00; Stop 12/30/17 at 10:26; Status DC Lactobacillus Rhamnosus (Culturelle) 1 cap BID PO Last administered on at 08:15; Start 12/30/17 at 09:00 Ondansetron HCl (Zofran) 4 mg PRN Q6HRS PRN IV NAUSEA/VOMITING Last administered on 01/01/18at 08:17; Start 12/30/17 at 08:15 Heparin Sodium (Porcine) (Heparin Sodium) 5,000 unit Q8HRS SQ Last administered on 01/01/18at 05:49; Start 12/30/17 at 14:00 Sodium Chloride (Normal Saline Flush) 3 ml QSHIFT PRN IV AFTER MEDS AND BLOOD DRAWS; Start 12/30/17 at 08:15 Acetaminophen/ Hydrocodone Bitart (Lortab 5/325) 1 tab PRN Q4HRS PRN PO MILD PAIN Last administered on 12/30/17at 09:12; Start 12/30/17 at 08:15; Stop at 15:26; Status DC Senna/Docusate Sodium (Senna Plus) 1 tab BID PO Last administered on at 08:13; Start 12/30/17 at 09:00 Lactulose (Lactulose) 20 gm PRN Q12HR PRN PO CONSTIPATION; Start 12/30/17 at 08:15 Insulin Human Lispro (HumaLOG) 18 units TIDWMEALS SQ Last administered on 12/30at 10:59; Start 12/30/17 at 12:00; Stop 12/30/17 at 15:26; Status DC Insulin Human Lispro (HumaLOG) 0-7 UNITS TIDWMEALS SQ Last administered on at 12:43; Start 12/30/17 at 12:00 Dextrose (Dextrose 50%-Water Syringe) 12.5 gm PRN Q15MIN PRN IV SEE COMMENTS; Start 12/30/17 at 10:30 Piperacillin Sod/ Tazobactam Sod 2.25 gm/Sodium Chloride 50 ml @ 100 mls/hr Q6HRS IV ; Start 12/30/17 at 13:15; Status UNV Piperacillin Sod/ Tazobactam Sod 3.375 gm/Sodium Chloride 50 ml @ 100 mls/hr Q6HRS IV Last administered on 01/01/18at 12:33; Start 12/30/17 at 13:30 Insulin Human Lispro (HumaLOG) 18 units 1X ONCE SQ Last administered on at 13:27; Start 12/30/17 at 13:15; Stop 12/30/17 at 13:16; Status DC Magnesium Sulfate/ Dextrose 100 ml @ 25 mls/hr PRN DAILY PRN IV MAG < 1.8 PER DKA PROTOCOL; Start 12/31/17 at 09:00 Insulin Human Lispro (HumaLOG) 15 units 1X ONCE SQ Last administered on at 14:45; Start 12/30/17 at 14:45; Stop 12/30/17 at 14:46; Status DC Insulin Glargine (Lantus) 50 units BID SQ Last administered on 12/31/17at 08:30 ; Start 12/30/17 at 21:00; Stop 12/31/17 at 12:24; Status DC Insulin Human Lispro (HumaLOG) 25 units TIDWMEALS SQ Last administered on 12/31at 12:17; Start 12/30/17 at 17:00; Stop 12/31/17 at 12:24; Status DC Tramadol HCl (Ultram) 50 mg PRN Q6HRS PRN PO MILD T MODERATE PAIN Last administered on 12/31/17at 08:21; Start 12/30/17 at 15:30 Insulin Human Lispro (HumaLOG) 12 units 1X ONCE SQ Last administered on at 16:32; Start 12/30/17 at 16:30; Stop 12/30/17 at 16:31; Status DC Ibuprofen (Motrin) 400 mg 1X ONCE PO Last administered on 12/31/17at 08:37; Start 12/31/17 at 08:45; Stop 12/31/17 at 08:46; Status DC Morphine Sulfate (Morphine Sulfate) 2 mg PRN Q2HR PRN IV SEVERE PAIN; Start at 08:30 Ondansetron HCl (Zofran) 4 mg PRN Q6HRS PRN IV NAUSEA/VOMITING; Start at 10:45; Status Cancel Morphine Sulfate (Morphine Sulfate) 2 mg PRN Q2HR PRN IV MODERATE TO SEVERE PAIN; Start 12/31/17 at 10:45; Stop 12/31/17 at 12:24; Status DC Tramadol HCl (Ultram) 50 mg PRN Q6HRS PRN PO MILD TO MODERATE PAIN; Start at 10:45; Status Cancel Docusate Sodium (Colace) 100 mg PRN DAILY PRN PO HARD STOOLS; Start 12/31/17 at 10:45 Atorvastatin Calcium (Lipitor) 20 mg HS PO Last administered on 12/31/17at 21: 39; Start 12/31/17 at 21:00 Pregabalin (Lyrica) 75 mg TID PO Last administered on 01/01/18at 08:15; Start 12/31/17 at 14:00 Amlodipine Besylate (Norvasc) 10 mg DAILY PO Last administered on 01/01/18at 08 :14; Start 12/31/17 at 11:00 Insulin Glargine (Lantus) 60 units BID SQ Last administered on 01/01/18at 08:24 ; Start 12/31/17 at 21:00; Stop 01/01/18 at 11:50; Status DC Insulin Human Lispro (HumaLOG) 30 units TIDWMEALS SQ Last administered on 01/01at 08:23; Start 12/31/17 at 17:00; Stop 01/01/18 at 11:50; Status DC Oxycodone HCl (Roxicodone) 5 mg PRN Q6HRS PRN PO MODERATE PAIN Last administered on 12/31/17at 17:26; Start 12/31/17 at 12:30 Insulin Glargine (Lantus) 65 units BID SQ ; Start 01/01/18 at 21:00 Insulin Human Lispro (HumaLOG) 35 units TIDWMEALS SQ Last administered on 01/01at 12:43; Start 01/01/18 at 12:00 Active Scripts Active Zofran (Ondansetron Hcl) 4 Mg Tablet 1 Tab PO PRN Q8HRS PRN Reported Levemir (Insulin Detemir) 100 Unit/1 Ml Vial 34 Unit SQ BID Lyrica (Pregabalin) 75 Mg Capsule 75 Mg PO TID Atorvastatin Calcium 20 Mg Tablet 20 Mg PO HS Amlodipine Besylate 10 Mg Tablet 20 Mg PO BID Trulicity (Dulaglutide) 1.5 Mg/0.5 Ml Pen.injctr 1.5 Mg SQ WEEKLY Metformin Hcl 1,000 Mg Tablet 1,000 Mg PO BIDWMEALS Vitals/I & O Vital Sign - Last 24 Hours 12/31/17 12/31/17 12/31/17 12/31/17 15:00 17:26 19:22 20:00 Temp 97.7 100.0 97.7 100.0 Pulse 94 124 Resp 20 18 B/P (MAP) 137/100 (112) 144/94 (111) Pulse Ox 97 97 92 O2 Delivery Room Air Room Air Room Air Room Air 12/31/17 01/01/18 01/01/18 01/01/18 22:49 03:56 07:00 08:00 Temp 100.0 99.6 97.6 100.0 99.6 97.6 Pulse 119 104 99 Resp 18 18 20 B/P (MAP) 111/71 (84) 152/78 (102) 157/86 (109) Pulse Ox 91 93 96 O2 Delivery Room Air Room Air Room Air Room Air 01/01/18 08:14 Pulse 104 B/P (MAP) 152/78 Intake and Output 12/31/17 12/31/17 01/01/18 15:00 23:00 07:00 Intake Total 300 ml 1300 ml 300 ml Balance 300 ml 1300 ml 300 ml DENISA KRUEGER MD Jan 01, 2018 14:03
[2018-01-01] MEDS: IV NORMAL SALINE 1000ML BAG 1,000 ML IV SCH (14:21)
--- NOTE | 2018-01-01 14:44 | PDOC ---
Progress Note-Wound Care SUBJECTIVE Pt awake and pleasant in conversation. Denies pain in his bilat feet. Pt states he is feeling better overall and is gradually regaining his strength. Pt denies n/v/d. Denies chills and fevers. Pt states understanding of need for wound debridement. States debridement has helped wound healing in the past. Pt denies questions regarding the procedure, understands the benefits and risks. OBJECTIVE Vital Signs Vital Signs Date Time Temp Pulse Resp B/P (MAP) Pulse Ox O2 Delivery O2 Flow Rate FiO2 12/31/17 07:00 101.1 116 20 160/92 (114) 90 Room Air 101.1 Vital Signs Date Time Temp Pulse Resp B/P (MAP) Pulse Ox O2 Delivery O2 Flow Rate FiO2 01/01/18 08:14 104 152/78 01/01/18 08:00 Room Air 01/01/18 07:00 97.6 20 96 97.6 Physical Exam: Pt awake and pleasant in conversation. Oriented to PPT. VSS. Afebrile. Resp even and unlabored. Pt on RA, not requiring supplemental O2. Pt mobile and transferring self without c/o increased pain. Right plantar foot with 1.9x2.3x0.5cm open ulceration to the ball of his foot. Wound bed pink and moist. Minimal serous drainage. No odor. Surrounding tissue with thick callus. No edema or erythema. Left lateral foot with open ulceration measuring 0.5x0.2x0.1cm. Wound bed pink and moist. Minimal serous drainage. No odor. Surrounding tissue with thick callus. No edema or erythema. Remainder of bilat feet with good color and cap refill. Pedal pulses equal bilat. PLAN 1) Right foot DFU/Husain 1 - Central tunnel with max depth of 0.5cm, unable to palpate bone. - Following written consent, bedside debrided with scalpel and curette. Nonviable tissue, minimal viable tissue at wound base and surrounding callus removed. Pt tolerated without c/o pain. Minimal bleeding controlled with application of pressure. - Discussed need for offloading with pt. Pt unable to wear diabetic shoes while at work. Ordered half shoe to be worn when safe for pt. May consider felting for pt to wear with work shoe wear if wounds remain stagnant or worsen. - Discussed importance of tight diabetic control. - Pt needs f/u with Wound Care following dc. 2) Left foot DFU/Husain 1 - Following written consent, bedside debrided with scalpel and curette. Surrounding callus removed. Pt tolerated without c/o pain. No bleeding present. - Discussed need for offloading with pt. Pt unable to wear diabetic shoes while at work. May consider felting for pt to wear with work shoe wear if wounds remain stagnant or worsen. - Discussed importance of tight diabetic control. - Pt needs f/u with Wound Care following dc. NORBERTO CHATTERJEE ENVIRONMENTAL COMPLIANCE SPECIALIST Jan 01, 2018 14:44
[2018-01-01 15:00] VITALS: BP 135/86
[2018-01-01 19:20] VITALS: BP 158/86
[2018-01-01 20:15] LABS: HEMOGLOBIN A1C 10.6 % (4.8-5.6)
[2018-01-01] MEDS: ATORVASTATIN CALCIUM 20 MG TABLET PO SCH (21:50)
[2018-01-01 23:09] VITALS: BP 146/88
[2018-01-02] VITALS (7 sets, daily range): BP systolic 115–194; BP diastolic 55–111
[2018-01-02] MEDS: IV NORMAL SALINE 1000ML BAG 1,000 ML IV SCH ×2 (03:18→17:10)
[2018-01-02 04:44] LABS: BASO % 0 % (0-3); EOS # 0.1 x10^3/uL (0.0-0.7); EOS % 1 % (0-3); HEMATOCRIT 30.2 % (39.0-53.0); HEMOGLOBIN 10.4 g/dL (13.0-17.5); LYMPH # 1.6 x10^3/uL (1.0-4.8); LYMPH % 15 % (24-48); MEAN CORPUSCULAR HEMOGLOBIN 29 pg (25-35); MEAN CORPUSCULAR HGB CONC 34 g/dL (31-37); MEAN CORPUSCULAR VOLUME 84 fL (79-100); MONO # 1.4 x10^3/uL (0.0-1.1); MONO % 13 % (0-9); NEUT # 7.8 x10^3uL (1.8-7.7); NEUT % 72 % (31-73); PLATELET COUNT 232 x10^3/uL (140-400); RED CELL DISTRIBUTION WIDTH 13.7 % (11.5-14.5)
[2018-01-02 04:48] LABS: CALCIUM 8.4 mg/dL (8.5-10.1); CREATININE 1.8 mg/dL (0.7-1.3); GFR 40.6; POTASSIUM 3.4 mmol/L (3.5-5.1)
[2018-01-02] MEDS: PIPERACILLIN/TAZOBACTAM 3.375 GM in IV NORMAL SALINE 50ML 50 ML IV SCH ×4 (05:39→23:30)
[2018-01-02] MEDS: HEPARIN for SUB-Q USE 5,000 UNIT/ML VIAL. SQ SCH ×3 (05:41→21:02)
[2018-01-02] MEDS: INSULIN LISPRO 300 UNITS/3 ML INSULN.PEN. SQ SCH ×6 (08:00→17:00)
[2018-01-02] MEDS: SENNOSIDES/DOCUSATE 8.6/50MG TABLET. PO SCH ×2 (09:00→20:58)
[2018-01-02] MEDS: LACTOBACILLUS RHAMNOSUS GG 1 CAPSULE. PO SCH ×2 (09:38→20:58)
[2018-01-02] MEDS: PREGABALIN 75 MG CAPSULE PO SCH ×3 (09:39→20:59)
[2018-01-02] MEDS: amLODIPine BESYLATE 10 MG TABLET PO SCH (09:42)
[2018-01-02] MEDS: INSULIN GLARGINE 300 UNITS/3 ML INSULN.PEN. SQ SCH ×2 (09:48→21:02)
[2018-01-02] MEDS ORDERED: POTASSIUM CHLORIDE 20 MEQ TABLET.ER. PO ONE (11:00)
--- NOTE | 2018-01-02 11:37 | PDOC ---
PROGRESS NOTES Chief Complaint Chief Complaint DKA - with type 2 diabetes Sepsis - likely from bilateral foot infections, Acute renal failure - likely 2/2 DKA, sepsis, dehydration. Foot wound , bl , worse Rt side black ulcer s/p bedside i and d 01/01 Electrolyte derangement HTN neuropathy + bcx plan: fu with id, wound care, may need i and d fu with renal increase insulin to lantus 65u bid, novolog 30u tid, ssi. check hba1c 10.6 on zosyn, fu bcx ibuprofen x1 for fever, should try tylenol if need often for fever, which makes him stamache dvt ppx resume some home meds , amlodipine 10mg daily, add coreg 6.25mg bid labs daily add NS 75cc/h for now bedside i and d bl feet wound 01/01 ,clean History of Present Illness History of Present Illness ROS: no chills, sob or chest pain still hyperglycemia + bcx cr slightly better to 1.8 fever T 101.7 better to 100.5 overnight BL leg US neg for PAD bedside i and d , wound care not think rt sole ulcer is infected BP high Vitals Vitals Vital Signs Date Time Temp Pulse Resp B/P (MAP) Pulse Ox O2 Delivery O2 Flow Rate FiO2 01/02/18 09:42 108 138/104 01/02/18 08:33 96 Room Air 01/02/18 07:00 99.8 20 99.8 Physical Exam Physical Exam CONSTITUTIONAL: He is sitting in a chair. He is cooperative, in no acute distress. He wears glasses. Looks well HEENT: Pupils equal, reactive. He has normal conjunctivae. Oral cavity, pharynx is clear. NECK: Supple. Good range of motion. LUNGS: Clear to auscultation bilaterally. HEART: S1, S2. ABDOMEN: Obese, soft, nontender, nondistended. No guarding or rebound. He has no CVA tenderness. There is no inflammation of his back. EXTREMITIES: Without clubbing, cyanosis or gross edema. SKIN: Warm to touch without signs of rash. On his right plantar foot and the first metatarsal head, he has ulceration with minimal surrounding erythema. There is no bone exposed. NEUROLOGIC: He is nonfocal. Affect is appropriate. General: Alert, Oriented X3, Cooperative, No acute distress Heart: Other (patient demonstrates mild tachycardia) Abdomen: Normal bowel sounds, Soft, No hepatosplenomegaly, No masses, Other ( Epigastric tenderness) Extremities: No clubbing, No cyanosis, No edema, Normal pulses, No tenderness/ swelling Skin: No rashes, Other (Bilaterally macerated feet, red) Labs LABS Laboratory Tests Test 01/01/18 12:29 01/01/18 17:09 01/01/18 21:31 01/02/18 04:00 Glucose (Fingerstick) 213 mg/dL (70-99) 76 mg/dL (70-99) 190 mg/dL (70-99) White Blood Count 11.0 x10^3/uL (4.0-11.0) Red Blood Count 3.60 x10^6/uL (4.30-5.70) Hemoglobin 10.4 g/dL (13.0-17.5) Hematocrit 30.2 % (39.0-53.0) Mean Corpuscular Volume 84 fL (79-100) Mean Corpuscular Hemoglobin 29 pg (25-35) Mean Corpuscular Hemoglobin Concent 34 g/dL (31-37) Red Cell Distribution Width 13.7 % (11.5-14.5) Platelet Count 232 x10^3/uL (140-400) Neutrophils (%) (Auto) 72 % (31-73) Lymphocytes (%) (Auto) 15 % (24-48) Monocytes (%) (Auto) 13 % (0-9) Eosinophils (%) (Auto) 1 % (0-3) Basophils (%) (Auto) 0 % (0-3) Neutrophils # (Auto) 7.8 x10^3uL (1.8-7.7) Lymphocytes # (Auto) 1.6 x10^3/uL (1.0-4.8) Monocytes # (Auto) 1.4 x10^3/uL (0.0-1.1) Eosinophils # (Auto) 0.1 x10^3/uL (0.0-0.7) Basophils # (Auto) 0.0 x10^3/uL (0.0-0.2) Sodium Level 134 mmol/L (136-145) Potassium Level 3.4 mmol/L (3.5-5.1) Chloride Level 97 mmol/L (98-107) Carbon Dioxide Level 28 mmol/L (21-32) Anion Gap 9 (6-14) Blood Urea Nitrogen 37 mg/dL (8-26) Creatinine 1.8 mg/dL (0.7-1.3) Estimated GFR (Cockcroft-Gault) 40.6 Glucose Level 161 mg/dL (70-99) Calcium Level 8.4 mg/dL (8.5-10.1) Test 01/02/18 07:31 Glucose (Fingerstick) 139 mg/dL (70-99) Comment Review of Relevant I have reviewed the following items odell (where applicable) has been applied. Labs Laboratory Tests Test 12/31/17 16:38 12/31/17 21:38 01/01/18 04:50 01/01/18 08:06 Glucose (Fingerstick) 268 mg/dL (70-99) 215 mg/dL (70-99) 233 mg/dL (70-99) White Blood Count 13.3 x10^3/uL (4.0-11.0) Red Blood Count 3.62 x10^6/uL (4.30-5.70) Hemoglobin 10.4 g/dL (13.0-17.5) Hematocrit 30.3 % (39.0-53.0) Mean Corpuscular Volume 84 fL (79-100) Mean Corpuscular Hemoglobin 29 pg (25-35) Mean Corpuscular Hemoglobin Concent 34 g/dL (31-37) Red Cell Distribution Width 14.1 % (11.5-14.5) Platelet Count 225 x10^3/uL (140-400) Neutrophils (%) (Auto) 79 % (31-73) Lymphocytes (%) (Auto) 11 % (24-48) Monocytes (%) (Auto) 10 % (0-9) Eosinophils (%) (Auto) 0 % (0-3) Basophils (%) (Auto) 0 % (0-3) Neutrophils # (Auto) 10.6 x10^3uL (1.8-7.7) Lymphocytes # (Auto) 1.4 x10^3/uL (1.0-4.8) Monocytes # (Auto) 1.3 x10^3/uL (0.0-1.1) Eosinophils # (Auto) 0.0 x10^3/uL (0.0-0.7) Basophils # (Auto) 0.0 x10^3/uL (0.0-0.2) Sodium Level 132 mmol/L (136-145) Potassium Level 3.6 mmol/L (3.5-5.1) Chloride Level 95 mmol/L (98-107) Carbon Dioxide Level 26 mmol/L (21-32) Anion Gap 11 (6-14) Blood Urea Nitrogen 46 mg/dL (8-26) Creatinine 2.0 mg/dL (0.7-1.3) Estimated GFR (Cockcroft-Gault) 36.0 Glucose Level 216 mg/dL (70-99) Hemoglobin A1c 10.6 % (4.8-5.6) Calcium Level 8.6 mg/dL (8.5-10.1) Test 01/01/18 12:29 01/01/18 17:09 01/01/18 21:31 01/02/18 04:00 Glucose (Fingerstick) 213 mg/dL (70-99) 76 mg/dL (70-99) 190 mg/dL (70-99) White Blood Count 11.0 x10^3/uL (4.0-11.0) Red Blood Count 3.60 x10^6/uL (4.30-5.70) Hemoglobin 10.4 g/dL (13.0-17.5) Hematocrit 30.2 % (39.0-53.0) Mean Corpuscular Volume 84 fL (79-100) Mean Corpuscular Hemoglobin 29 pg (25-35) Mean Corpuscular Hemoglobin Concent 34 g/dL (31-37) Red Cell Distribution Width 13.7 % (11.5-14.5) Platelet Count 232 x10^3/uL (140-400) Neutrophils (%) (Auto) 72 % (31-73) Lymphocytes (%) (Auto) 15 % (24-48) Monocytes (%) (Auto) 13 % (0-9) Eosinophils (%) (Auto) 1 % (0-3) Basophils (%) (Auto) 0 % (0-3) Neutrophils # (Auto) 7.8 x10^3uL (1.8-7.7) Lymphocytes # (Auto) 1.6 x10^3/uL (1.0-4.8) Monocytes # (Auto) 1.4 x10^3/uL (0.0-1.1) Eosinophils # (Auto) 0.1 x10^3/uL (0.0-0.7) Basophils # (Auto) 0.0 x10^3/uL (0.0-0.2) Sodium Level 134 mmol/L (136-145) Potassium Level 3.4 mmol/L (3.5-5.1) Chloride Level 97 mmol/L (98-107) Carbon Dioxide Level 28 mmol/L (21-32) Anion Gap 9 (6-14) Blood Urea Nitrogen 37 mg/dL (8-26) Creatinine 1.8 mg/dL (0.7-1.3) Estimated GFR (Cockcroft-Gault) 40.6 Glucose Level 161 mg/dL (70-99) Calcium Level 8.4 mg/dL (8.5-10.1) Test 01/02/18 07:31 Glucose (Fingerstick) 139 mg/dL (70-99) Laboratory Tests Test 01/01/18 12:29 01/01/18 17:09 01/01/18 21:31 01/02/18 04:00 Glucose (Fingerstick) 213 mg/dL (70-99) 76 mg/dL (70-99) 190 mg/dL (70-99) White Blood Count 11.0 x10^3/uL (4.0-11.0) Red Blood Count 3.60 x10^6/uL (4.30-5.70) Hemoglobin 10.4 g/dL (13.0-17.5) Hematocrit 30.2 % (39.0-53.0) Mean Corpuscular Volume 84 fL (79-100) Mean Corpuscular Hemoglobin 29 pg (25-35) Mean Corpuscular Hemoglobin Concent 34 g/dL (31-37) Red Cell Distribution Width 13.7 % (11.5-14.5) Platelet Count 232 x10^3/uL (140-400) Neutrophils (%) (Auto) 72 % (31-73) Lymphocytes (%) (Auto) 15 % (24-48) Monocytes (%) (Auto) 13 % (0-9) Eosinophils (%) (Auto) 1 % (0-3) Basophils (%) (Auto) 0 % (0-3) Neutrophils # (Auto) 7.8 x10^3uL (1.8-7.7) Lymphocytes # (Auto) 1.6 x10^3/uL (1.0-4.8) Monocytes # (Auto) 1.4 x10^3/uL (0.0-1.1) Eosinophils # (Auto) 0.1 x10^3/uL (0.0-0.7) Basophils # (Auto) 0.0 x10^3/uL (0.0-0.2) Sodium Level 134 mmol/L (136-145) Potassium Level 3.4 mmol/L (3.5-5.1) Chloride Level 97 mmol/L (98-107) Carbon Dioxide Level 28 mmol/L (21-32) Anion Gap 9 (6-14) Blood Urea Nitrogen 37 mg/dL (8-26) Creatinine 1.8 mg/dL (0.7-1.3) Estimated GFR (Cockcroft-Gault) 40.6 Glucose Level 161 mg/dL (70-99) Calcium Level 8.4 mg/dL (8.5-10.1) Test 01/02/18 07:31 Glucose (Fingerstick) 139 mg/dL (70-99) Microbiology 12/29/17 Blood Culture - Final, Complete 12/29/17 Urine Culture - Preliminary, Resulted 12/29/17 Urine Culture Result 1 (HAZEL) - Preliminary, Resulted Medications Current Medications Famotidine (Pepcid Vial) 20 mg 1X ONCE IVP Last administered on 12/29/17at 20: 02; Start 12/29/17 at 19:15; Stop 12/29/17 at 19:17; Status DC Sodium Chloride 1,000 ml @ 1,000 mls/hr 1X ONCE IV Last administered on 12/29at 19:58; Start 12/29/17 at 19:15; Stop 12/29/17 at 20:14; Status DC Ceftriaxone Sodium 50 ml @ 100 mls/hr 1X ONCE IV Last administered on at 20:05; Start 12/29/17 at 19:15; Stop 12/29/17 at 19:44; Status DC Fentanyl Citrate (Fentanyl 2ml Vial) 50 mcg 1X ONCE IV Last administered on at 20:04; Start 12/29/17 at 19:15; Stop 12/29/17 at 19:17; Status DC Ondansetron HCl (Zofran) 4 mg 1X ONCE IV Last administered on 12/29/17at 20:00 ; Start 12/29/17 at 19:15; Stop 12/29/17 at 19:17; Status DC Sodium Chloride 1,000 ml @ 1,000 mls/hr 1X ONCE IV Last administered on 12/29at 21:03; Start 12/29/17 at 19:15; Stop 12/29/17 at 20:14; Status DC Insulin Human Regular (HumuLIN R VIAL) 14 unit 1X ONCE SQ Last administered on 12/29/17at 21:06; Start 12/29/17 at 20:45; Stop 12/29/17 at 20:46; Status DC Ondansetron HCl (Zofran) 4 mg PRN Q8HRS PRN IV NAUSEA/VOMITING 1ST CHOICE Last administered on 12/30/17at 00:21; Start 12/29/17 at 20:45; Stop 12/30/17 at 08 :31; Status DC Sodium Chloride 1,000 ml @ 250 mls/hr Q4H IV ; Start 12/29/17 at 21:00; Stop 12/30/17 at 03:31; Status DC Insulin Human Regular 150 unit/ Sodium Chloride 151.5 ml @ 0 mls/hr CONT PRN PRN IV PER PROTOCOL Last administered on 12/29/17at 23:10; Start 12/29/17 at 20 :45; Stop 12/30/17 at 15:26; Status DC Magnesium Sulfate/ Dextrose 100 ml @ 25 mls/hr DAILY IV Last administered on 12/30/17at 09:54; Start 12/30/17 at 09:00; Stop 12/30/17 at 13:22; Status DC Ceftriaxone Sodium 50 ml @ 100 mls/hr 1X ONCE IV ; Start 12/29/17 at 20:45; Stop 12/29/17 at 21:14; Status UNV Sodium Chloride 1,000 ml @ 250 mls/hr Q4H IV ; Start 12/30/17 at 03:30; Stop 12/30/17 at 03:30; Status DC Potassium Chloride/Sodium Chloride 1,000 ml @ 250 mls/hr Q4H IV Last administered on 12/29/17at 23:27; Start 12/29/17 at 23:30; Stop 12/30/17 at 03 :29; Status DC Ceftriaxone Sodium 50 ml @ 100 mls/hr DAILY IV ; Start 12/30/17 at 09:00; Status UNV Ceftriaxone Sodium (Rocephin) 1 gm Q24H IVP ; Start 12/30/17 at 20:00; Stop at 20:00; Status DC Potassium Chloride/Sodium Chloride 1,000 ml @ 250 mls/hr 1X ONCE IV Last administered on 12/30/17at 03:43; Start 12/30/17 at 04:00; Stop 12/30/17 at 07 :59; Status DC Sodium Phosphate 20 mmol/Dextrose 256.6667 ml @ 62.5 mls/hr 1X PRN PRN IV SEE COMMENTS Last administered on 12/30/17at 04:38; Start 12/30/17 at 03:15 Insulin Glargine (Lantus) 40 units BID SQ Last administered on 12/30/17at 06:13 ; Start 12/30/17 at 07:00; Stop 12/30/17 at 15:26; Status DC Insulin Human Lispro (HumaLOG) 20 units TIDWMEALS SQ Last administered on 12/30at 09:12; Start 12/30/17 at 08:00; Stop 12/30/17 at 10:26; Status DC Insulin Human Lispro (HumaLOG) 0-9 UNITS TIDWMEALS SQ Last administered on at 09:12; Start 12/30/17 at 08:00; Stop 12/30/17 at 10:26; Status DC Lactobacillus Rhamnosus (Culturelle) 1 cap BID PO Last administered on at 09:38; Start 12/30/17 at 09:00 Ondansetron HCl (Zofran) 4 mg PRN Q6HRS PRN IV NAUSEA/VOMITING Last administered on 01/01/18at 08:17; Start 12/30/17 at 08:15 Heparin Sodium (Porcine) (Heparin Sodium) 5,000 unit Q8HRS SQ Last administered on 01/02/18at 05:41; Start 12/30/17 at 14:00 Sodium Chloride (Normal Saline Flush) 3 ml QSHIFT PRN IV AFTER MEDS AND BLOOD DRAWS; Start 12/30/17 at 08:15 Acetaminophen/ Hydrocodone Bitart (Lortab 5/325) 1 tab PRN Q4HRS PRN PO MILD PAIN Last administered on 12/30/17at 09:12; Start 12/30/17 at 08:15; Stop at 15:26; Status DC Senna/Docusate Sodium (Senna Plus) 1 tab BID PO Last administered on at 08:13; Start 12/30/17 at 09:00 Lactulose (Lactulose) 20 gm PRN Q12HR PRN PO CONSTIPATION; Start 12/30/17 at 08:15 Insulin Human Lispro (HumaLOG) 18 units TIDWMEALS SQ Last administered on 12/30at 10:59; Start 12/30/17 at 12:00; Stop 12/30/17 at 15:26; Status DC Insulin Human Lispro (HumaLOG) 0-7 UNITS TIDWMEALS SQ Last administered on at 12:43; Start 12/30/17 at 12:00 Dextrose (Dextrose 50%-Water Syringe) 12.5 gm PRN Q15MIN PRN IV SEE COMMENTS; Start 12/30/17 at 10:30 Piperacillin Sod/ Tazobactam Sod 2.25 gm/Sodium Chloride 50 ml @ 100 mls/hr Q6HRS IV ; Start 12/30/17 at 13:15; Status UNV Piperacillin Sod/ Tazobactam Sod 3.375 gm/Sodium Chloride 50 ml @ 100 mls/hr Q6HRS IV Last administered on 01/02/18at 05:39; Start 12/30/17 at 13:30 Insulin Human Lispro (HumaLOG) 18 units 1X ONCE SQ Last administered on at 13:27; Start 12/30/17 at 13:15; Stop 12/30/17 at 13:16; Status DC Magnesium Sulfate/ Dextrose 100 ml @ 25 mls/hr PRN DAILY PRN IV MAG < 1.8 PER DKA PROTOCOL; Start 12/31/17 at 09:00 Insulin Human Lispro (HumaLOG) 15 units 1X ONCE SQ Last administered on at 14:45; Start 12/30/17 at 14:45; Stop 12/30/17 at 14:46; Status DC Insulin Glargine (Lantus) 50 units BID SQ Last administered on 12/31/17at 08:30 ; Start 12/30/17 at 21:00; Stop 12/31/17 at 12:24; Status DC Insulin Human Lispro (HumaLOG) 25 units TIDWMEALS SQ Last administered on 12/31at 12:17; Start 12/30/17 at 17:00; Stop 12/31/17 at 12:24; Status DC Tramadol HCl (Ultram) 50 mg PRN Q6HRS PRN PO MILD TO MODERATE PAIN Last administered on 12/31/17at 08:21; Start 12/30/17 at 15:30 Insulin Human Lispro (HumaLOG) 12 units 1X ONCE SQ Last administered on at 16:32; Start 12/30/17 at 16:30; Stop 12/30/17 at 16:31; Status DC Ibuprofen (Motrin) 400 mg 1X ONCE PO Last administered on 12/31/17at 08:37; Start 12/31/17 at 08:45; Stop 12/31/17 at 08:46; Status DC Morphine Sulfate (Morphine Sulfate) 2 mg PRN Q2HR PRN IV SEVERE PAIN; Start at 08:30 Ondansetron HCl (Zofran) 4 mg PRN Q6HRS PRN IV NAUSEA/VOMITING; Start at 10:45; Status Cancel Morphine Sulfate (Morphine Sulfate) 2 mg PRN Q2HR PRN IV MODERATE TO SEVERE PAIN; Start 12/31/17 at 10:45; Stop 12/31/17 at 12:24; Status DC Tramadol HCl (Ultram) 50 mg PRN Q6HRS PRN PO MILD TO MODERATE PAIN; Start at 10:45; Status Cancel Docusate Sodium (Colace) 100 mg PRN DAILY PRN PO HARD STOOLS; Start 12/31/17 at 10:45 Atorvastatin Calcium (Lipitor) 20 mg HS PO Last administered on 01/01/18at 21: 50; Start 12/31/17 at 21:00 Pregabalin (Lyrica) 75 mg TID PO Last administered on 01/02/18at 09:39; Start 12/31/17 at 14:00 Amlodipine Besylate (Norvasc) 10 mg DAILY PO Last administered on 01/02/18at 09 :42; Start 12/31/17 at 11:00 Insulin Glargine (Lantus) 60 units BID SQ Last administered on 01/01/18at 08:24 ; Start 12/31/17 at 21:00; Stop 01/01/18 at 11:50; Status DC Insulin Human Lispro (HumaLOG) 30 units TIDWMEALS SQ Last administered on 01/01at 08:23; Start 12/31/17 at 17:00; Stop 01/01/18 at 11:50; Status DC Oxycodone HCl (Roxicodone) 5 mg PRN Q6HRS PRN PO MODERATE PAIN Last administered on 12/31/17at 17:26; Start 12/31/17 at 12:30 Insulin Glargine (Lantus) 65 units BID SQ Last administered on 01/02/18at 09:48 ; Start 01/01/18 at 21:00 Insulin Human Lispro (HumaLOG) 35 units TIDWMEALS SQ Last administered on 01/01at 12:43; Start 01/01/18 at 12:00 Sodium Chloride 1,000 ml @ 75 mls/hr [id number] IV Last administered on at 14:21; Start 01/01/18 at 14:30 Potassium Chloride (Klor-Con) 40 meq 1X ONCE PO ; Start 01/02/18 at 11:00; Stop 01/02/18 at 11:01; Status DC Carvedilol (Coreg) 6.25 mg BIDWMEALS PO ; Start 01/02/18 at 11:00 Active Scripts Active Zofran (Ondansetron Hcl) 4 Mg Tablet 1 Tab PO PRN Q8HRS PRN Reported Levemir (Insulin Detemir) 100 Unit/1 Ml Vial 34 Unit SQ BID Lyrica (Pregabalin) 75 Mg Capsule 75 Mg PO TID Atorvastatin Calcium 20 Mg Tablet 20 Mg PO HS Amlodipine Besylate 10 Mg Tablet 20 Mg PO BID Trulicity (Dulaglutide) 1.5 Mg/0.5 Ml Pen.injctr 1.5 Mg SQ WEEKLY Metformin Hcl 1,000 Mg Tablet 1,000 Mg PO BIDWMEALS Vitals/I & O Vital Sign - Last 24 Hours 01/01/18 01/01/18 01/01/18 01/01/18 15:00 19:20 20:00 23:09 Temp 99.2 99.4 100.5 99.2 99.4 100.5 Pulse 102 107 103 Resp 20 18 16 B/P (MAP) 135/86 (102) 158/86 (110) 146/88 (107) Pulse Ox 93 95 94 O2 Delivery Room Air Room Air Room Air Room Air 01/02/18 01/02/18 01/02/18 01/02/18 03:50 07:00 08:33 09:42 Temp 99.5 99.8 99.5 99.8 Pulse 98 98 108 108 Resp 16 20 B/P (MAP) 115/55 (75) 194/111 (138) 138/104 (115) 138/104 Pulse Ox 94 94 96 O2 Delivery Room Air Room Air Room Air Intake and Output 01/01/18 01/01/18 01/02/18 15:00 23:00 07:00 Intake Total 300 ml 450 ml Balance 300 ml 450 ml DENISA KRUEGER MD Jan 02, 2018 11:37
[2018-01-02] MEDS: CARVEDILOL 6.25 MG TABLET. PO SCH ×2 (12:36→17:31)
--- NOTE | 2018-01-02 14:36 | PDOC ---
Infectious Disease Note Subjective Subjective feeling much better ROS ROS no n/v/d/sob Vital Sign Vital Signs Vital Signs Date Time Temp Pulse Resp B/P (MAP) Pulse Ox O2 Delivery O2 Flow Rate FiO2 01/02/18 12:36 100 160/68 01/02/18 11:00 99.6 16 92 Room Air 99.6 Physical Exam PHYSICAL EXAM CONSTITUTIONAL: He is sitting in a chair. He is cooperative, in no acute distress. He wears glasses. Looks well HEENT: Pupils equal, reactive. He has normal conjunctivae. Oral cavity, pharynx is clear. NECK: Supple. Good range of motion. LUNGS: Clear to auscultation bilaterally. HEART: S1, S2. ABDOMEN: Obese, soft, nontender, nondistended. No guarding or rebound. He has no CVA tenderness. There is no inflammation of his back. EXTREMITIES: Without clubbing, cyanosis or gross edema. SKIN: Warm to touch without signs of rash. On his right plantar foot and the first metatarsal head, he has ulceration with minimal surrounding erythema. There is no bone exposed. NEUROLOGIC: He is nonfocal. Affect is appropriate. Labs Lab Laboratory Tests Test 01/01/18 17:09 01/01/18 21:31 01/02/18 04:00 01/02/18 07:31 Glucose (Fingerstick) 76 mg/dL (70-99) 190 mg/dL (70-99) 139 mg/dL (70-99) White Blood Count 11.0 x10^3/uL (4.0-11.0) Red Blood Count 3.60 x10^6/uL (4.30-5.70) Hemoglobin 10.4 g/dL (13.0-17.5) Hematocrit 30.2 % (39.0-53.0) Mean Corpuscular Volume 84 fL (79-100) Mean Corpuscular Hemoglobin 29 pg (25-35) Mean Corpuscular Hemoglobin Concent 34 g/dL (31-37) Red Cell Distribution Width 13.7 % (11.5-14.5) Platelet Count 232 x10^3/uL (140-400) Neutrophils (%) (Auto) 72 % (31-73) Lymphocytes (%) (Auto) 15 % (24-48) Monocytes (%) (Auto) 13 % (0-9) Eosinophils (%) (Auto) 1 % (0-3) Basophils (%) (Auto) 0 % (0-3) Neutrophils # (Auto) 7.8 x10^3uL (1.8-7.7) Lymphocytes # (Auto) 1.6 x10^3/uL (1.0-4.8) Monocytes # (Auto) 1.4 x10^3/uL (0.0-1.1) Eosinophils # (Auto) 0.1 x10^3/uL (0.0-0.7) Basophils # (Auto) 0.0 x10^3/uL (0.0-0.2) Sodium Level 134 mmol/L (136-145) Potassium Level 3.4 mmol/L (3.5-5.1) Chloride Level 97 mmol/L (98-107) Carbon Dioxide Level 28 mmol/L (21-32) Anion Gap 9 (6-14) Blood Urea Nitrogen 37 mg/dL (8-26) Creatinine 1.8 mg/dL (0.7-1.3) Estimated GFR (Cockcroft-Gault) 40.6 Glucose Level 161 mg/dL (70-99) Calcium Level 8.4 mg/dL (8.5-10.1) Test 01/02/18 11:12 Glucose (Fingerstick) 237 mg/dL (70-99) Micro BC g neg rudi id pending urine e coli Objective Assessment Fever - ? med related as clinically he is better. Has had issues with Oxycodone in the past GNR sepsis - POA 12/29 - ? Urine vs wound Leukocytosis YOEL - stable renal following Ecoli UTI - POA Right Foot wound - arterial doppler - neg DM with DKA foot debridement done Plan Plan of Care Zosyn 12/30 given DM foot and some water exposure F/u labs and cults F/u AYSE Boyer MD Jan 02, 2018 14:36
--- NOTE | 2018-01-02 16:11 | PDOC ---
SUBJECTIVE ROS Stable OBJECTIVE Vital Signs Vital Signs Date Time Temp Pulse Resp B/P (MAP) Pulse Ox O2 Delivery O2 Flow Rate FiO2 01/02/18 12:36 100 160/68 01/02/18 11:00 99.6 16 92 Room Air 99.6 I & 0 Intake and Output 01/02/18 07:00 Intake Total 750 ml Balance 750 ml Intake Oral 750 ml # Voids 4 # Bowel Movements 3 PHYSICAL EXAM Physical Exam GEN: NAD , sitting in chair HEEN: OM moist NECK: No JVD CVS: S1S2, N RESP: CTA, No accessory Muscle use GI: BS + ve, NO Bruit, Non Tender, Non Distended : [NoCVA tenderness, No Suprapubic Tenderness, No Amaro Neuro- Grossly Normal Ext No LE edema Skin No Rash DIAGNOSIS/ASSESSMENT Assessment & Plan YOEL- Pre-renal , sec to DKA , NSAID use , Vomiting Renal function improving, good UOP CT - Unremarkable Kidneys and Bladder UA- No protein, No RBC's, WBC+, No Nitrites Sepsis - GNR sepsis UTI, Right Foot wound - arterial doppler - neg Await foot debridement- ? Urine vs wound DM with DKA - As per Primary HTN - On Amlodipine at Home Discussed A/P with Pt COMMENT/RELEVANT DATA Meds Current Medications Medications (Trade) Dose Ordered Sig/Felisha Start Time Stop Time Status Last Admin Dose Admin Acetaminophen/ Hydrocodone Bitart (Lortab 5/325) 1 tab PRN Q4HRS PRN 12/30/17 08:15 12/30/17 15:26 DC 12/30/17 09:12 1 TAB Amlodipine Besylate (Norvasc) 10 mg DAILY 12/31/17 11:00 01/02/18 09:42 10 MG Atorvastatin Calcium (Lipitor) 20 mg HS 12/31/17 21:00 01/01/18 21:50 20 MG Carvedilol (Coreg) 6.25 mg BIDWMEALS 01/02/18 11:00 01/02/18 12:36 6.25 MG Ceftriaxone Sodium (Rocephin) 1 gm Q24H 12/30/17 20:00 12/30/17 20:00 DC Dextrose (Dextrose 50%-Water Syringe) 12.5 gm PRN Q15MIN PRN 12/30/17 10:30 Docusate Sodium (Colace) 100 mg PRN DAILY PRN 12/31/17 10:45 Famotidine (Pepcid Vial) 20 mg 1X ONCE 12/29/17 19:15 12/29/17 19:17 DC 12/29/17 20:02 20 MG Fentanyl Citrate (Fentanyl 2ml Vial) 50 mcg 1X ONCE 12/29/17 19:15 12/29/17 19:17 DC 12/29/17 20:04 50 MCG Heparin Sodium (Porcine) (Heparin Sodium) 5,000 unit Q8HRS 12/30/17 14:00 01/02/18 15:01 5,000 UNIT Ibuprofen (Motrin) 400 mg 1X ONCE 12/31/17 08:45 12/31/17 08:46 DC 12/31/17 08:37 400 MG Insulin Glargine (Lantus) 65 units BID 01/01/18 21:00 01/02/18 09:48 65 UNITS Insulin Human Lispro (HumaLOG) 30 units TIDWMEALS 01/02/18 12:00 01/02/18 12:47 30 UNITS Insulin Human Regular (HumuLIN R VIAL) 14 unit 1X ONCE 12/29/17 20:45 12/29/17 20:46 DC 12/29/17 21:06 14 UNIT Insulin Human Regular 150 unit/ Sodium Chloride 151.5 ml @ 0 mls/hr CONT PRN PRN 12/29/17 20:45 12/30/17 15:26 DC 12/29/17 23:10 13.7 MLS/HR Lactobacillus Rhamnosus (Culturelle) 1 cap BID 12/30/17 09:00 01/02/18 09:38 1 CAP Lactulose (Lactulose) 20 gm PRN Q12HR PRN 12/30/17 08:15 Magnesium Sulfate/ Dextrose 100 ml @ 25 mls/hr PRN DAILY PRN 12/31/17 09:00 Morphine Sulfate (Morphine Sulfate) 2 mg PRN Q2HR PRN 12/31/17 10:45 12/31/17 12:24 DC Ondansetron HCl (Zofran) 4 mg PRN Q6HRS PRN 12/31/17 10:45 Cancel Oxycodone HCl (Roxicodone) 5 mg PRN Q6HRS PRN 12/31/17 12:30 12/31/17 17:26 2.5 MG Piperacillin Sod/ Tazobactam Sod 2.25 gm/Sodium Chloride 50 ml @ 100 mls/hr Q6HRS 12/30/17 13:15 UNV Piperacillin Sod/ Tazobactam Sod 3.375 gm/Sodium Chloride 50 ml @ 100 mls/hr Q6HRS 12/30/17 13:30 01/02/18 12:39 100 MLS/HR Potassium Chloride/Sodium Chloride 1,000 ml @ 250 mls/hr 1X ONCE 12/30/17 04:00 12/30/17 07:59 DC 12/30/17 03:43 250 MLS/HR Potassium Chloride (Klor-Con) 40 meq 1X ONCE 01/02/18 11:00 01/02/18 11:01 DC 01/02/18 12:35 40 MEQ Pregabalin (Lyrica) 75 mg TID 12/31/17 14:00 01/02/18 14:00 75 MG Senna/Docusate Sodium (Senna Plus) 1 tab BID 12/30/17 09:00 01/01/18 08:13 1 TAB Sodium Chloride 1,000 ml @ 75 mls/hr [id number] 01/01/18 14:30 01/01/18 14:21 75 MLS/HR Sodium Chloride (Normal Saline Flush) 3 ml QSHIFT PRN 12/30/17 08:15 Sodium Phosphate 20 mmol/Dextrose 256.6667 ml @ 62.5 mls/hr 1X PRN PRN 12/30/17 03:15 12/30/17 04:38 62.5 MLS/HR Tramadol HCl (Ultram) 50 mg PRN Q6HRS PRN 12/31/17 10:45 Cancel Lab Laboratory Tests Test 01/01/18 17:09 01/01/18 21:31 01/02/18 04:00 01/02/18 07:31 Glucose (Fingerstick) 76 mg/dL (70-99) 190 mg/dL (70-99) 139 mg/dL (70-99) White Blood Count 11.0 x10^3/uL (4.0-11.0) Red Blood Count 3.60 x10^6/uL (4.30-5.70) Hemoglobin 10.4 g/dL (13.0-17.5) Hematocrit 30.2 % (39.0-53.0) Mean Corpuscular Volume 84 fL (79-100) Mean Corpuscular Hemoglobin 29 pg (25-35) Mean Corpuscular Hemoglobin Concent 34 g/dL (31-37) Red Cell Distribution Width 13.7 % (11.5-14.5) Platelet Count 232 x10^3/uL (140-400) Neutrophils (%) (Auto) 72 % (31-73) Lymphocytes (%) (Auto) 15 % (24-48) Monocytes (%) (Auto) 13 % (0-9) Eosinophils (%) (Auto) 1 % (0-3) Basophils (%) (Auto) 0 % (0-3) Neutrophils # (Auto) 7.8 x10^3uL (1.8-7.7) Lymphocytes # (Auto) 1.6 x10^3/uL (1.0-4.8) Monocytes # (Auto) 1.4 x10^3/uL (0.0-1.1) Eosinophils # (Auto) 0.1 x10^3/uL (0.0-0.7) Basophils # (Auto) 0.0 x10^3/uL (0.0-0.2) Sodium Level 134 mmol/L (136-145) Potassium Level 3.4 mmol/L (3.5-5.1) Chloride Level 97 mmol/L (98-107) Carbon Dioxide Level 28 mmol/L (21-32) Anion Gap 9 (6-14) Blood Urea Nitrogen 37 mg/dL (8-26) Creatinine 1.8 mg/dL (0.7-1.3) Estimated GFR (Cockcroft-Gault) 40.6 Glucose Level 161 mg/dL (70-99) Calcium Level 8.4 mg/dL (8.5-10.1) Test 01/02/18 11:12 Glucose (Fingerstick) 237 mg/dL (70-99) Results All relevant outside records, renal labs, imaging studies, telemetry/EKG's were reviewed. JERRY WEN MD Jan 02, 2018 16:11
[2018-01-02] MEDS: ATORVASTATIN CALCIUM 20 MG TABLET PO SCH (20:58)
[2018-01-03 03:15] VITALS: BP 196/93
[2018-01-03 04:52] LABS: BASO % 0 % (0-3); EOS % 0 % (0-3); HEMATOCRIT 29.3 % (39.0-53.0); HEMOGLOBIN 9.9 g/dL (13.0-17.5); LYMPH # 1.1 x10^3/uL (1.0-4.8); LYMPH % 11 % (24-48); MEAN CORPUSCULAR HEMOGLOBIN 28 pg (25-35); MEAN CORPUSCULAR HGB CONC 34 g/dL (31-37); MEAN CORPUSCULAR VOLUME 83 fL (79-100); MONO # 1.2 x10^3/uL (0.0-1.1); MONO % 11 % (0-9); NEUT # 8.5 x10^3uL (1.8-7.7); NEUT % 78 % (31-73); PLATELET COUNT 237 x10^3/uL (140-400); RED BLOOD COUNT 3.52 x10^6/uL (4.30-5.70); RED CELL DISTRIBUTION WIDTH 13.7 % (11.5-14.5); WHITE BLOOD COUNT 10.9 x10^3/uL (4.0-11.0)
[2018-01-03 05:11] LABS: CALCIUM 8.6 mg/dL (8.5-10.1); CREATININE 1.6 mg/dL (0.7-1.3); GFR 46.6; POTASSIUM 3.5 mmol/L (3.5-5.1)
[2018-01-03] MEDS: PIPERACILLIN/TAZOBACTAM 3.375 GM in IV NORMAL SALINE 50ML 50 ML IV SCH ×3 (06:11→18:00)
[2018-01-03] MEDS: HEPARIN for SUB-Q USE 5,000 UNIT/ML VIAL. SQ SCH ×3 (06:17→21:18)
[2018-01-03] MEDS: IV NORMAL SALINE 1000ML BAG 1,000 ML IV SCH ×2 (06:30→21:00)
[2018-01-03 07:00] VITALS: BP 146/79
[2018-01-03] MEDS: INSULIN LISPRO 300 UNITS/3 ML INSULN.PEN. SQ SCH ×5 (08:00→16:57)
[2018-01-03] MEDS: SENNOSIDES/DOCUSATE 8.6/50MG TABLET. PO SCH ×2 (09:00→21:05)
[2018-01-03] MEDS: INSULIN GLARGINE 300 UNITS/3 ML INSULN.PEN. SQ SCH (09:00)
[2018-01-03] MEDS: LACTOBACILLUS RHAMNOSUS GG 1 CAPSULE. PO SCH ×2 (09:19→21:04)
[2018-01-03] MEDS: amLODIPine BESYLATE 10 MG TABLET PO SCH (09:19)
[2018-01-03] MEDS: PREGABALIN 75 MG CAPSULE PO SCH ×3 (09:20→21:05)
[2018-01-03] MEDS: CARVEDILOL 6.25 MG TABLET. PO SCH ×2 (09:20→16:47)
[2018-01-03 11:00] VITALS: BP 136/85
--- NOTE | 2018-01-03 11:57 | PDOC ---
Infectious Disease Note Subjective Subjective + fevers Developed abd bloating, cramps and diarrhea this morning ROS ROS per HPI Vital Sign Vital Signs Vital Signs Date Time Temp Pulse Resp B/P (MAP) Pulse Ox O2 Delivery O2 Flow Rate FiO2 01/03/18 11:00 98.1 86 20 136/85 (102) 95 Room Air 98.1 Physical Exam PHYSICAL EXAM GENERAL: Sitting in the chair, alert, NAD HEENT: Oral cavity, pharynx is clear. LUNGS: Clear to auscultation bilaterally. HEART: S1, S2. ABDOMEN: Obese, soft, nontender, nondistended. No guarding or rebound. He has no CVA tenderness. EXTREMITIES: + 2+ edema BLE. No cyanosis SKIN: Warm to touch without signs of rash. bilat foot wounds NEUROLOGIC: He is nonfocal. Affect is appropriate. Labs Lab Laboratory Tests Test 01/02/18 16:49 01/02/18 20:49 01/02/18 23:15 01/03/18 00:21 Glucose (Fingerstick) 96 mg/dL (70-99) 71 mg/dL (70-99) 65 mg/dL (70-99) 81 mg/dL (70-99) Test 01/03/18 04:15 01/03/18 08:04 White Blood Count 10.9 x10^3/uL (4.0-11.0) Red Blood Count 3.52 x10^6/uL (4.30-5.70) Hemoglobin 9.9 g/dL (13.0-17.5) Hematocrit 29.3 % (39.0-53.0) Mean Corpuscular Volume 83 fL (79-100) Mean Corpuscular Hemoglobin 28 pg (25-35) Mean Corpuscular Hemoglobin Concent 34 g/dL (31-37) Red Cell Distribution Width 13.7 % (11.5-14.5) Platelet Count 237 x10^3/uL (140-400) Neutrophils (%) (Auto) 78 % (31-73) Lymphocytes (%) (Auto) 11 % (24-48) Monocytes (%) (Auto) 11 % (0-9) Eosinophils (%) (Auto) 0 % (0-3) Basophils (%) (Auto) 0 % (0-3) Neutrophils # (Auto) 8.5 x10^3uL (1.8-7.7) Lymphocytes # (Auto) 1.1 x10^3/uL (1.0-4.8) Monocytes # (Auto) 1.2 x10^3/uL (0.0-1.1) Eosinophils # (Auto) 0.0 x10^3/uL (0.0-0.7) Basophils # (Auto) 0.0 x10^3/uL (0.0-0.2) Sodium Level 134 mmol/L (136-145) Potassium Level 3.5 mmol/L (3.5-5.1) Chloride Level 99 mmol/L (98-107) Carbon Dioxide Level 27 mmol/L (21-32) Anion Gap 8 (6-14) Blood Urea Nitrogen 25 mg/dL (8-26) Creatinine 1.6 mg/dL (0.7-1.3) Estimated GFR (Cockcroft-Gault) 46.6 Glucose Level 67 mg/dL (70-99) Calcium Level 8.6 mg/dL (8.5-10.1) Glucose (Fingerstick) 86 mg/dL (70-99) Micro BLD CULT RESULT 1 Preliminary Gram negative rods URINE CULTURE RES 1 Final Escherichia coli Greater than 100,000 colony forming units per mL Multi-Drug Resistant Organism CEFEPIME 8.0 SENSITIVE PIPERACILLIN/TAZOBACTAM <=4.0 SENSITIVE NITROFURANTOIN <=16 SENSITIVE ANTIMICROBIAL SUSCEPTIBILITY Final Comment S = Susceptible; I = Intermediate; R = Resistant P = Positive; N = Negative MICS are expressed in micrograms per mL Antibiotic RSLT#1 RSLT#2 RSLT#3 RSLT#4 Amikacin S =4 Ampicillin/Sulbactam R>=32 Cefotaxime R>=64 Ceftazidime R =16 Meropenem S<=0.25 Tigecycline S<=0.5 Objective Assessment Fever GNR sepsis - POA 12/29 - ? Urine vs wound Ecoli UTI - POA Bilat DM foot ulcers s/p bedside debridement on 01/01. - Right Foot wound - arterial doppler - neg Leukocytosis - improved YOEL - stable renal following DM with DKA Plan Plan of Care Zosyn 12/30 given DM foot and some water exposure Awaiting GNR ID in blood F/u temps f/u c. diff Supportive care Patient seen, examined, I agree with above. Assessment and plan was formulated with ASSISTANT FACILITY MANAGER. JELLY MCDONALD APRN Jan 03, 2018 11:57 JERAMIE MCGINNIS MD Jan 03, 2018 15:49
[2018-01-03] MEDS ORDERED: INSULIN LISPRO 300 UNITS/3 ML INSULN.PEN. SQ SCH ×2 (12:00)
--- NOTE | 2018-01-03 14:13 | PDOC ---
PROGRESS NOTES Chief Complaint Chief Complaint DKA - with type 2 diabetes Sepsis - likely from bilateral foot infections, Acute renal failure - likely 2/2 DKA, sepsis, dehydration. Foot wound , bl , worse Rt side black ulcer s/p bedside i and d 01/01 Electrolyte derangement HTN neuropathy + bcx plan: fu with id, wound care, may need i and d fu with renal decrease lantus to 15u qhs, aspart 5u tid, ssi. check hba1c 10.6 on zosyn, fu bcx ibuprofen x1 for fever, should try tylenol if need often for fever, which makes him stamache dvt ppx resume some home meds , amlodipine 10mg daily, add coreg 6.25mg bid labs daily add NS 75cc/h for now, dc tmr bedside i and d bl feet wound 01/01 ,clean waiting for bcx result and dc History of Present Illness History of Present Illness ROS: no chills, sob or chest pain hypoglycemia + bcx cr slightly better to 1.8 fever fluctuate, 101.6 overnight BL leg US neg for PAD bedside i and d , wound care not think rt sole ulcer is infected BP high better with meds Vitals Vitals Vital Signs Date Time Temp Pulse Resp B/P (MAP) Pulse Ox O2 Delivery O2 Flow Rate FiO2 01/03/18 11:00 98.1 86 20 136/85 (102) 95 Room Air 98.1 Physical Exam Physical Exam GENERAL: Sitting in the chair, alert, NAD HEENT: Oral cavity, pharynx is clear. LUNGS: Clear to auscultation bilaterally. HEART: S1, S2. ABDOMEN: Obese, soft, nontender, nondistended. No guarding or rebound. He has no CVA tenderness. EXTREMITIES: + 2+ edema BLE. No cyanosis SKIN: Warm to touch without signs of rash. bilat foot wounds NEUROLOGIC: He is nonfocal. Affect is appropriate. General: Alert, Oriented X3, Cooperative, No acute distress Heart: Other (patient demonstrates mild tachycardia) Abdomen: Normal bowel sounds, Soft, No hepatosplenomegaly, No masses, Other ( Epigastric tenderness) Extremities: No clubbing, No cyanosis, No edema, Normal pulses, No tenderness/ swelling Skin: No rashes, Other (Bilaterally macerated feet, red) Labs LABS Laboratory Tests Test 01/02/18 16:49 01/02/18 20:49 01/02/18 23:15 01/03/18 00:21 Glucose (Fingerstick) 96 mg/dL (70-99) 71 mg/dL (70-99) 65 mg/dL (70-99) 81 mg/dL (70-99) Test 01/03/18 04:15 01/03/18 08:04 01/03/18 11:22 White Blood Count 10.9 x10^3/uL (4.0-11.0) Red Blood Count 3.52 x10^6/uL (4.30-5.70) Hemoglobin 9.9 g/dL (13.0-17.5) Hematocrit 29.3 % (39.0-53.0) Mean Corpuscular Volume 83 fL (79-100) Mean Corpuscular Hemoglobin 28 pg (25-35) Mean Corpuscular Hemoglobin Concent 34 g/dL (31-37) Red Cell Distribution Width 13.7 % (11.5-14.5) Platelet Count 237 x10^3/uL (140-400) Neutrophils (%) (Auto) 78 % (31-73) Lymphocytes (%) (Auto) 11 % (24-48) Monocytes (%) (Auto) 11 % (0-9) Eosinophils (%) (Auto) 0 % (0-3) Basophils (%) (Auto) 0 % (0-3) Neutrophils # (Auto) 8.5 x10^3uL (1.8-7.7) Lymphocytes # (Auto) 1.1 x10^3/uL (1.0-4.8) Monocytes # (Auto) 1.2 x10^3/uL (0.0-1.1) Eosinophils # (Auto) 0.0 x10^3/uL (0.0-0.7) Basophils # (Auto) 0.0 x10^3/uL (0.0-0.2) Sodium Level 134 mmol/L (136-145) Potassium Level 3.5 mmol/L (3.5-5.1) Chloride Level 99 mmol/L (98-107) Carbon Dioxide Level 27 mmol/L (21-32) Anion Gap 8 (6-14) Blood Urea Nitrogen 25 mg/dL (8-26) Creatinine 1.6 mg/dL (0.7-1.3) Estimated GFR (Cockcroft-Gault) 46.6 Glucose Level 67 mg/dL (70-99) Calcium Level 8.6 mg/dL (8.5-10.1) Glucose (Fingerstick) 86 mg/dL (70-99) 132 mg/dL (70-99) Comment Review of Relevant I have reviewed the following items odell (where applicable) has been applied. Labs Laboratory Tests Test 01/01/18 17:09 01/01/18 21:31 01/02/18 04:00 01/02/18 07:31 Glucose (Fingerstick) 76 mg/dL (70-99) 190 mg/dL (70-99) 139 mg/dL (70-99) White Blood Count 11.0 x10^3/uL (4.0-11.0) Red Blood Count 3.60 x10^6/uL (4.30-5.70) Hemoglobin 10.4 g/dL (13.0-17.5) Hematocrit 30.2 % (39.0-53.0) Mean Corpuscular Volume 84 fL (79-100) Mean Corpuscular Hemoglobin 29 pg (25-35) Mean Corpuscular Hemoglobin Concent 34 g/dL (31-37) Red Cell Distribution Width 13.7 % (11.5-14.5) Platelet Count 232 x10^3/uL (140-400) Neutrophils (%) (Auto) 72 % (31-73) Lymphocytes (%) (Auto) 15 % (24-48) Monocytes (%) (Auto) 13 % (0-9) Eosinophils (%) (Auto) 1 % (0-3) Basophils (%) (Auto) 0 % (0-3) Neutrophils # (Auto) 7.8 x10^3uL (1.8-7.7) Lymphocytes # (Auto) 1.6 x10^3/uL (1.0-4.8) Monocytes # (Auto) 1.4 x10^3/uL (0.0-1.1) Eosinophils # (Auto) 0.1 x10^3/uL (0.0-0.7) Basophils # (Auto) 0.0 x10^3/uL (0.0-0.2) Sodium Level 134 mmol/L (136-145) Potassium Level 3.4 mmol/L (3.5-5.1) Chloride Level 97 mmol/L (98-107) Carbon Dioxide Level 28 mmol/L (21-32) Anion Gap 9 (6-14) Blood Urea Nitrogen 37 mg/dL (8-26) Creatinine 1.8 mg/dL (0.7-1.3) Estimated GFR (Cockcroft-Gault) 40.6 Glucose Level 161 mg/dL (70-99) Calcium Level 8.4 mg/dL (8.5-10.1) Test 01/02/18 11:12 01/02/18 16:49 01/02/18 20:49 01/02/18 23:15 Glucose (Fingerstick) 237 mg/dL (70-99) 96 mg/dL (70-99) 71 mg/dL (70-99) 65 mg/dL (70-99) Test 01/03/18 00:21 01/03/18 04:15 01/03/18 08:04 01/03/18 11:22 Glucose (Fingerstick) 81 mg/dL (70-99) 86 mg/dL (70-99) 132 mg/dL (70-99) White Blood Count 10.9 x10^3/uL (4.0-11.0) Red Blood Count 3.52 x10^6/uL (4.30-5.70) Hemoglobin 9.9 g/dL (13.0-17.5) Hematocrit 29.3 % (39.0-53.0) Mean Corpuscular Volume 83 fL (79-100) Mean Corpuscular Hemoglobin 28 pg (25-35) Mean Corpuscular Hemoglobin Concent 34 g/dL (31-37) Red Cell Distribution Width 13.7 % (11.5-14.5) Platelet Count 237 x10^3/uL (140-400) Neutrophils (%) (Auto) 78 % (31-73) Lymphocytes (%) (Auto) 11 % (24-48) Monocytes (%) (Auto) 11 % (0-9) Eosinophils (%) (Auto) 0 % (0-3) Basophils (%) (Auto) 0 % (0-3) Neutrophils # (Auto) 8.5 x10^3uL (1.8-7.7) Lymphocytes # (Auto) 1.1 x10^3/uL (1.0-4.8) Monocytes # (Auto) 1.2 x10^3/uL (0.0-1.1) Eosinophils # (Auto) 0.0 x10^3/uL (0.0-0.7) Basophils # (Auto) 0.0 x10^3/uL (0.0-0.2) Sodium Level 134 mmol/L (136-145) Potassium Level 3.5 mmol/L (3.5-5.1) Chloride Level 99 mmol/L (98-107) Carbon Dioxide Level 27 mmol/L (21-32) Anion Gap 8 (6-14) Blood Urea Nitrogen 25 mg/dL (8-26) Creatinine 1.6 mg/dL (0.7-1.3) Estimated GFR (Cockcroft-Gault) 46.6 Glucose Level 67 mg/dL (70-99) Calcium Level 8.6 mg/dL (8.5-10.1) Laboratory Tests Test 01/02/18 16:49 01/02/18 20:49 01/02/18 23:15 01/03/18 00:21 Glucose (Fingerstick) 96 mg/dL (70-99) 71 mg/dL (70-99) 65 mg/dL (70-99) 81 mg/dL (70-99) Test 01/03/18 04:15 01/03/18 08:04 01/03/18 11:22 White Blood Count 10.9 x10^3/uL (4.0-11.0) Red Blood Count 3.52 x10^6/uL (4.30-5.70) Hemoglobin 9.9 g/dL (13.0-17.5) Hematocrit 29.3 % (39.0-53.0) Mean Corpuscular Volume 83 fL (79-100) Mean Corpuscular Hemoglobin 28 pg (25-35) Mean Corpuscular Hemoglobin Concent 34 g/dL (31-37) Red Cell Distribution Width 13.7 % (11.5-14.5) Platelet Count 237 x10^3/uL (140-400) Neutrophils (%) (Auto) 78 % (31-73) Lymphocytes (%) (Auto) 11 % (24-48) Monocytes (%) (Auto) 11 % (0-9) Eosinophils (%) (Auto) 0 % (0-3) Basophils (%) (Auto) 0 % (0-3) Neutrophils # (Auto) 8.5 x10^3uL (1.8-7.7) Lymphocytes # (Auto) 1.1 x10^3/uL (1.0-4.8) Monocytes # (Auto) 1.2 x10^3/uL (0.0-1.1) Eosinophils # (Auto) 0.0 x10^3/uL (0.0-0.7) Basophils # (Auto) 0.0 x10^3/uL (0.0-0.2) Sodium Level 134 mmol/L (136-145) Potassium Level 3.5 mmol/L (3.5-5.1) Chloride Level 99 mmol/L (98-107) Carbon Dioxide Level 27 mmol/L (21-32) Anion Gap 8 (6-14) Blood Urea Nitrogen 25 mg/dL (8-26) Creatinine 1.6 mg/dL (0.7-1.3) Estimated GFR (Cockcroft-Gault) 46.6 Glucose Level 67 mg/dL (70-99) Calcium Level 8.6 mg/dL (8.5-10.1) Glucose (Fingerstick) 86 mg/dL (70-99) 132 mg/dL (70-99) Microbiology 12/29/17 Blood Culture - Preliminary, Resulted 12/29/17 Blood Culture Result 1 (HAZEL) - Preliminary, Resulted 12/29/17 Urine Culture - Final, Complete 12/29/17 Urine Culture Result 1 (HAZEL) - Final, Complete 12/29/17 Antimicrobic Susceptibility - Final, Complete Medications Current Medications Famotidine (Pepcid Vial) 20 mg 1X ONCE IVP Last administered on 12/29/17at 20: 02; Start 12/29/17 at 19:15; Stop 12/29/17 at 19:17; Status DC Sodium Chloride 1,000 ml @ 1,000 mls/hr 1X ONCE IV Last administered on 12/29at 19:58; Start 12/29/17 at 19:15; Stop 12/29/17 at 20:14; Status DC Ceftriaxone Sodium 50 ml @ 100 mls/hr 1X ONCE IV Last administered on at 20:05; Start 12/29/17 at 19:15; Stop 12/29/17 at 19:44; Status DC Fentanyl Citrate (Fentanyl 2ml Vial) 50 mcg 1X ONCE IV Last administered on at 20:04; Start 12/29/17 at 19:15; Stop 12/29/17 at 19:17; Status DC Ondansetron HCl (Zofran) 4 mg 1X ONCE IV Last administered on 12/29/17at 20:00 ; Start 12/29/17 at 19:15; Stop 12/29/17 at 19:17; Status DC Sodium Chloride 1,000 ml @ 1,000 mls/hr 1X ONCE IV Last administered on 12/29at 21:03; Start 12/29/17 at 19:15; Stop 12/29/17 at 20:14; Status DC Insulin Human Regular (HumuLIN R VIAL) 14 unit 1X ONCE SQ Last administered on 12/29/17at 21:06; Start 12/29/17 at 20:45; Stop 12/29/17 at 20:46; Status DC Ondansetron HCl (Zofran) 4 mg PRN Q8HRS PRN IV NAUSEA/VOMITING 1ST CHOICE Last administered on 12/30/17at 00:21; Start 12/29/17 at 20:45; Stop 12/30/17 at 08 :31; Status DC Sodium Chloride 1,000 ml @ 250 mls/hr Q4H IV ; Start 12/29/17 at 21:00; Stop 12/30/17 at 03:31; Status DC Insulin Human Regular 150 unit/ Sodium Chloride 151.5 ml @ 0 mls/hr CONT PRN PRN IV PER PROTOCOL Last administered on 12/29/17at 23:10; Start 12/29/17 at 20 :45; Stop 12/30/17 at 15:26; Status DC Magnesium Sulfate/ Dextrose 100 ml @ 25 mls/hr DAILY IV Last administered on 12/30/17at 09:54; Start 12/30/17 at 09:00; Stop 12/30/17 at 13:22; Status DC Ceftriaxone Sodium 50 ml @ 100 mls/hr 1X ONCE IV ; Start 12/29/17 at 20:45; Stop 12/29/17 at 21:14; Status UNV Sodium Chloride 1,000 ml @ 250 mls/hr Q4H IV ; Start 12/30/17 at 03:30; Stop 12/30/17 at 03:30; Status DC Potassium Chloride/Sodium Chloride 1,000 ml @ 250 mls/hr Q4H IV Last administered on 12/29/17at 23:27; Start 12/29/17 at 23:30; Stop 12/30/17 at 03 :29; Status DC Ceftriaxone Sodium 50 ml @ 100 mls/hr DAILY IV ; Start 12/30/17 at 09:00; Status UNV Ceftriaxone Sodium (Rocephin) 1 gm Q24H IVP ; Start 12/30/17 at 20:00; Stop at 20:00; Status DC Potassium Chloride/Sodium Chloride 1,000 ml @ 250 mls/hr 1X ONCE IV Last administered on 12/30/17at 03:43; Start 12/30/17 at 04:00; Stop 12/30/17 at 07 :59; Status DC Sodium Phosphate 20 mmol/Dextrose 256.6667 ml @ 62.5 mls/hr 1X PRN PRN IV SEE COMMENTS Last administered on 12/30/17at 04:38; Start 12/30/17 at 03:15 Insulin Glargine (Lantus) 40 units BID SQ Last administered on 12/30/17at 06:13 ; Start 12/30/17 at 07:00; Stop 12/30/17 at 15:26; Status DC Insulin Human Lispro (HumaLOG) 20 units TIDWMEALS SQ Last administered on 12/30at 09:12; Start 12/30/17 at 08:00; Stop 12/30/17 at 10:26; Status DC Insulin Human Lispro (HumaLOG) 0-9 UNITS TIDWMEALS SQ Last administered on at 09:12; Start 12/30/17 at 08:00; Stop 12/30/17 at 10:26; Status DC Lactobacillus Rhamnosus (Culturelle) 1 cap BID PO Last administered on at 09:19; Start 12/30/17 at 09:00 Ondansetron HCl (Zofran) 4 mg PRN Q6HRS PRN IV NAUSEA/VOMITING Last administered on 01/01/18at 08:17; Start 12/30/17 at 08:15 Heparin Sodium (Porcine) (Heparin Sodium) 5,000 unit Q8HRS SQ Last administered on 01/03/18at 06:17; Start 12/30/17 at 14:00 Sodium Chloride (Normal Saline Flush) 3 ml QSHIFT PRN IV AFTER MEDS AND BLOOD DRAWS; Start 12/30/17 at 08:15 Acetaminophen/ Hydrocodone Bitart (Lortab 5/325) 1 tab PRN Q4HRS PRN PO MILD PAIN Last administered on 12/30/17at 09:12; Start 12/30/17 at 08:15; Stop at 15:26; Status DC Senna/Docusate Sodium (Senna Plus) 1 tab BID PO Last administered on at 20:58; Start 12/30/17 at 09:00 Lactulose (Lactulose) 20 gm PRN Q12HR PRN PO CONSTIPATION; Start 12/30/17 at 08:15 Insulin Human Lispro (HumaLOG) 18 units TIDWMEALS SQ Last administered on 12/30at 10:59; Start 12/30/17 at 12:00; Stop 12/30/17 at 15:26; Status DC Insulin Human Lispro (HumaLOG) 0-7 UNITS TIDWMEALS SQ Last administered on at 12:46; Start 12/30/17 at 12:00 Dextrose (Dextrose 50%-Water Syringe) 12.5 gm PRN Q15MIN PRN IV SEE COMMENTS; Start 12/30/17 at 10:30 Piperacillin Sod/ Tazobactam Sod 2.25 gm/Sodium Chloride 50 ml @ 100 mls/hr Q6HRS IV ; Start 12/30/17 at 13:15; Status UNV Piperacillin Sod/ Tazobactam Sod 3.375 gm/Sodium Chloride 50 ml @ 100 mls/hr Q6HRS IV Last administered on 01/03/18at 12:34; Start 12/30/17 at 13:30 Insulin Human Lispro (HumaLOG) 18 units 1X ONCE SQ Last administered on at 13:27; Start 12/30/17 at 13:15; Stop 12/30/17 at 13:16; Status DC Magnesium Sulfate/ Dextrose 100 ml @ 25 mls/hr PRN DAILY PRN IV MAG < 1.8 PER DKA PROTOCOL; Start 12/31/17 at 09:00 Insulin Human Lispro (HumaLOG) 15 units 1X ONCE SQ Last administered on at 14:45; Start 12/30/17 at 14:45; Stop 12/30/17 at 14:46; Status DC Insulin Glargine (Lantus) 50 units BID SQ Last administered on 12/31/17at 08:30 ; Start 12/30/17 at 21:00; Stop 12/31/17 at 12:24; Status DC Insulin Human Lispro (HumaLOG) 25 units TIDWMEALS SQ Last administered on 12/31at 12:17; Start 12/30/17 at 17:00; Stop 12/31/17 at 12:24; Status DC Tramadol HCl (Ultram) 50 mg PRN Q6HRS PRN PO MILD TO MODERATE PAIN Last administered on 12/31/17at 08:21; Start 12/30/17 at 15:30 Insulin Human Lispro (HumaLOG) 12 units 1X ONCE SQ Last administered on at 16:32; Start 12/30/17 at 16:30; Stop 12/30/17 at 16:31; Status DC Ibuprofen (Motrin) 400 mg 1X ONCE PO Last administered on 12/31/17at 08:37; Start 12/31/17 at 08:45; Stop 12/31/17 at 08:46; Status DC Morphine Sulfate (Morphine Sulfate) 2 mg PRN Q2HR PRN IV SEVERE PAIN; Start at 08:30 Ondansetron HCl (Zofran) 4 mg PRN Q6HRS PRN IV NAUSEA/VOMITING; Start at 10:45; Status Cancel Morphine Sulfate (Morphine Sulfate) 2 mg PRN Q2HR PRN IV MODERATE TO SEVERE PAIN; Start 12/31/17 at 10:45; Stop 12/31/17 at 12:24; Status DC Tramadol HCl (Ultram) 50 mg PRN Q6HRS PRN PO MILD TO MODERATE PAIN; Start at 10:45; Status Cancel Docusate Sodium (Colace) 100 mg PRN DAILY PRN PO HARD STOOLS; Start 12/31/17 at 10:45 Atorvastatin Calcium (Lipitor) 20 mg HS PO Last administered on 01/02/18at 20: 58; Start 12/31/17 at 21:00 Pregabalin (Lyrica) 75 mg TID PO Last administered on 01/03/18at 09:20; Start 12/31/17 at 14:00 Amlodipine Besylate (Norvasc) 10 mg DAILY PO Last administered on 01/03/18at 09 :19; Start 12/31/17 at 11:00 Insulin Glargine (Lantus) 60 units BID SQ Last administered on 01/01/18at 08:24 ; Start 12/31/17 at 21:00; Stop 01/01/18 at 11:50; Status DC Insulin Human Lispro (HumaLOG) 30 units TIDWMEALS SQ Last administered on 01/01at 08:23; Start 12/31/17 at 17:00; Stop 01/01/18 at 11:50; Status DC Oxycodone HCl (Roxicodone) 5 mg PRN Q6HRS PRN PO MODERATE PAIN Last administered on 12/31/17at 17:26; Start 12/31/17 at 12:30 Insulin Glargine (Lantus) 65 units BID SQ Last administered on 01/02/18at 09:48 ; Start 01/01/18 at 21:00; Stop 01/03/18 at 09:37; Status DC Insulin Human Lispro (HumaLOG) 35 units TIDWMEALS SQ Last administered on 01/01at 12:43; Start 01/01/18 at 12:00; Stop 01/02/18 at 11:37; Status DC Sodium Chloride 1,000 ml @ 75 mls/hr [id number] IV Last administered on at 06:30; Start 01/01/18 at 14:30 Potassium Chloride (Klor-Con) 40 meq 1X ONCE PO Last administered on at 12:35; Start 01/02/18 at 11:00; Stop 01/02/18 at 11:01; Status DC Carvedilol (Coreg) 6.25 mg BIDWMEALS PO Last administered on 01/03/18at 09:20; Start 01/02/18 at 11:00 Insulin Human Lispro (HumaLOG) 30 units TIDWMEALS SQ Last administered on 01/02at 12:47; Start 01/02/18 at 12:00; Stop 01/03/18 at 09:37; Status DC Insulin Glargine (Lantus) 50 units BID SQ ; Start 01/03/18 at 21:00; Stop at 21:00; Status DC Insulin Human Lispro (HumaLOG) 20 units TIDWMEALS SQ ; Start 01/03/18 at 12:00 ; Stop 01/03/18 at 12:00; Status DC Insulin Glargine (Lantus) 40 units BID SQ ; Start 01/03/18 at 21:00 Insulin Human Lispro (HumaLOG) 15 units TIDWMEALS SQ Last administered on 01/03at 12:00; Start 01/03/18 at 12:00 Active Scripts Active Zofran (Ondansetron Hcl) 4 Mg Tablet 1 Tab PO PRN Q8HRS PRN Reported Levemir (Insulin Detemir) 100 Unit/1 Ml Vial 34 Unit SQ BID Lyrica (Pregabalin) 75 Mg Capsule 75 Mg PO TID Atorvastatin Calcium 20 Mg Tablet 20 Mg PO HS Amlodipine Besylate 10 Mg Tablet 20 Mg PO BID Trulicity (Dulaglutide) 1.5 Mg/0.5 Ml Pen.injctr 1.5 Mg SQ WEEKLY Metformin Hcl 1,000 Mg Tablet 1,000 Mg PO BIDWMEALS Vitals/I & O Vital Sign - Last 24 Hours 01/02/18 01/02/18 01/02/18 01/02/18 15:00 17:31 19:15 20:00 Temp 99.2 98.6 99.2 98.6 Pulse 105 105 88 Resp 16 18 B/P (MAP) 143/89 (107) 143/89 137/86 (103) Pulse Ox 92 95 O2 Delivery Room Air Room Air Room Air 01/02/18 01/03/18 01/03/18 01/03/18 23:15 03:15 07:00 09:19 Temp 99.6 101.6 100.7 99.6 101.6 100.7 Pulse 93 99 98 98 Resp 18 20 20 B/P (MAP) 128/67 (87) 196/93 (127) 146/79 (101) 146/79 Pulse Ox 93 92 98 O2 Delivery Room Air Room Air Room Air 01/03/18 01/03/18 09:20 11:00 Temp 98.1 98.1 Pulse 98 86 Resp 20 B/P (MAP) 146/79 136/85 (102) Pulse Ox 95 O2 Delivery Room Air Intake and Output 01/02/18 01/02/18 01/03/18 15:00 23:00 07:00 Intake Total 1300 ml 500 ml Balance 1300 ml 500 ml DENISA KRUEGER MD Jan 03, 2018 14:13
[2018-01-03 15:00] VITALS: BP 131/79
[2018-01-03 19:00] VITALS: BP 156/89
[2018-01-03] MEDS ORDERED: INSULIN GLARGINE 300 UNITS/3 ML INSULN.PEN. SQ SCH ×3 (21:00)
[2018-01-03] MEDS: ATORVASTATIN CALCIUM 20 MG TABLET PO SCH (21:05)
[2018-01-03] MEDS ORDERED: LOSA1TAB19 PO (21:35)
[2018-01-03 22:48] VITALS: BP 148/78
[2018-01-04] MEDS: PIPERACILLIN/TAZOBACTAM 3.375 GM in IV NORMAL SALINE 50ML 50 ML IV SCH ×4 (00:18→18:35)
[2018-01-04 03:00] VITALS: BP 165/87
[2018-01-04 05:03] LABS: BASO # 0.1 x10^3/uL (0.0-0.2); BASO % 1 % (0-3); EOS # 0.1 x10^3/uL (0.0-0.7); EOS % 1 % (0-3); HEMATOCRIT 31.1 % (39.0-53.0); HEMOGLOBIN 10.4 g/dL (13.0-17.5); LYMPH # 1.5 x10^3/uL (1.0-4.8); LYMPH % 13 % (24-48); MEAN CORPUSCULAR HEMOGLOBIN 28 pg (25-35); MEAN CORPUSCULAR HGB CONC 33 g/dL (31-37); MEAN CORPUSCULAR VOLUME 83 fL (79-100); MONO # 1.2 x10^3/uL (0.0-1.1); MONO % 10 % (0-9); NEUT # 8.5 x10^3uL (1.8-7.7); NEUT % 75 % (31-73); PLATELET COUNT 293 x10^3/uL (140-400); RED BLOOD COUNT 3.74 x10^6/uL (4.30-5.70); RED CELL DISTRIBUTION WIDTH 13.9 % (11.5-14.5); WHITE BLOOD COUNT 11.3 x10^3/uL (4.0-11.0)
[2018-01-04 05:24] LABS: CALCIUM 8.8 mg/dL (8.5-10.1); CREATININE 1.6 mg/dL (0.7-1.3); GFR 46.6; POTASSIUM 4.2 mmol/L (3.5-5.1)
[2018-01-04] MEDS: HEPARIN for SUB-Q USE 5,000 UNIT/ML VIAL. SQ SCH ×3 (05:52→21:25)
[2018-01-04 07:00] VITALS: BP 143/78
[2018-01-04] MEDS: CARVEDILOL 6.25 MG TABLET. PO SCH (08:52)
[2018-01-04] MEDS: PREGABALIN 75 MG CAPSULE PO SCH ×3 (08:52→21:21)
[2018-01-04] MEDS: amLODIPine BESYLATE 10 MG TABLET PO SCH (08:52)
[2018-01-04] MEDS: LACTOBACILLUS RHAMNOSUS GG 1 CAPSULE. PO SCH ×2 (08:53→21:21)
[2018-01-04] MEDS: SIMETHICONE 80 MG TAB.CHEW PO PRN ×2 (08:53→18:35)
[2018-01-04] MEDS: INSULIN LISPRO 300 UNITS/3 ML INSULN.PEN. SQ SCH ×6 (08:57→18:12)
[2018-01-04] MEDS: SENNOSIDES/DOCUSATE 8.6/50MG TABLET. PO SCH ×2 (09:00→21:00)
[2018-01-04] MEDS: IV NORMAL SALINE 1000ML BAG 1,000 ML IV SCH ×2 (09:10→22:30)
[2018-01-04 10:44] VITALS: BP 123/77
--- NOTE | 2018-01-04 11:58 | PDOC ---
Infectious Disease Note Subjective Subjective Slept in the traffic control flagger for comfort + fevers Tmax 100.4 Less diarrhea but still feels bloated with cramps Denies chills/sweats/aches ROS ROS per HPI otherwise neg Vital Sign Vital Signs Vital Signs Date Time Temp Pulse Resp B/P (MAP) Pulse Ox O2 Delivery O2 Flow Rate FiO2 01/04/18 10:44 97.7 89 20 123/77 (92) 93 Room Air 97.7 Physical Exam PHYSICAL EXAM GENERAL: Sitting in the chair, alert, NAD HEENT: Oral cavity, pharynx is clear. LUNGS: Clear to auscultation bilaterally. HEART: S1, S2. ABDOMEN: Obese, soft, nontender EXTREMITIES: 2+ edema BLE. No cyanosis SKIN: Warm to touch without signs of rash. bilat foot wounds NEUROLOGIC: Alert and oriented Labs Lab Laboratory Tests Test 01/03/18 13:15 01/03/18 16:49 01/03/18 21:06 01/04/18 04:45 Clostridium difficile Toxin (PCR) Negative (Negative) Glucose (Fingerstick) 168 mg/dL (70-99) 185 mg/dL (70-99) White Blood Count 11.3 x10^3/uL (4.0-11.0) Red Blood Count 3.74 x10^6/uL (4.30-5.70) Hemoglobin 10.4 g/dL (13.0-17.5) Hematocrit 31.1 % (39.0-53.0) Mean Corpuscular Volume 83 fL (79-100) Mean Corpuscular Hemoglobin 28 pg (25-35) Mean Corpuscular Hemoglobin Concent 33 g/dL (31-37) Red Cell Distribution Width 13.9 % (11.5-14.5) Platelet Count 293 x10^3/uL (140-400) Neutrophils (%) (Auto) 75 % (31-73) Lymphocytes (%) (Auto) 13 % (24-48) Monocytes (%) (Auto) 10 % (0-9) Eosinophils (%) (Auto) 1 % (0-3) Basophils (%) (Auto) 1 % (0-3) Neutrophils # (Auto) 8.5 x10^3uL (1.8-7.7) Lymphocytes # (Auto) 1.5 x10^3/uL (1.0-4.8) Monocytes # (Auto) 1.2 x10^3/uL (0.0-1.1) Eosinophils # (Auto) 0.1 x10^3/uL (0.0-0.7) Basophils # (Auto) 0.1 x10^3/uL (0.0-0.2) Sodium Level 136 mmol/L (136-145) Potassium Level 4.2 mmol/L (3.5-5.1) Chloride Level 99 mmol/L (98-107) Carbon Dioxide Level 27 mmol/L (21-32) Anion Gap 10 (6-14) Blood Urea Nitrogen 23 mg/dL (8-26) Creatinine 1.6 mg/dL (0.7-1.3) Estimated GFR (Cockcroft-Gault) 46.6 Glucose Level 179 mg/dL (70-99) Calcium Level 8.8 mg/dL (8.5-10.1) Test 01/04/18 07:33 Glucose (Fingerstick) 216 mg/dL (70-99) Micro BLD CULT RESULT 1 Preliminary Escherichia coli URINE CULTURE RES 1 Final Escherichia coli Greater than 100,000 colony forming units per mL Multi-Drug Resistant Organism CEFEPIME 8.0 SENSITIVE PIPERACILLIN/TAZOBACTAM <=4.0 SENSITIVE NITROFURANTOIN <=16 SENSITIVE ANTIMICROBIAL SUSCEPTIBILITY Final Comment S = Susceptible; I = Intermediate; R = Resistant P = Positive; N = Negative MICS are expressed in micrograms per mL Antibiotic RSLT#1 RSLT#2 RSLT#3 RSLT#4 Amikacin S =4 Ampicillin/Sulbactam R>=32 Cefotaxime R>=64 Ceftazidime R =16 Meropenem S<=0.25 Tigecycline S<=0.5 Objective Assessment Fever E. coli sepsis - POA 12/29 Ecoli UTI - POA Bilat DM foot ulcers s/p bedside debridement on 01/01. - Right Foot wound - arterial Doppler - neg Leukocytosis YOEL - stable renal following DM with DKA Diarrhea. C. diff neg 01/03 Plan Plan of Care Zosyn 12/30 given DM foot and some water exposure f/u sensitivities Monitor labs/temp Supportive care Patient seen, examined, I agree with above a/p laid out by JELLY CENTENO [employer] Jan 04, 2018 11:58 JERAMIE MCGINNIS MD Jan 04, 2018 14:04
--- NOTE | 2018-01-04 13:11 | PDOC ---
PROGRESS NOTES Chief Complaint Chief Complaint DKA - with type 2 diabetes Sepsis - likely from bilateral foot infections, Acute renal failure - likely 2/2 DKA, sepsis, dehydration. Foot wound , bl , worse Rt side black ulcer s/p bedside i and d 01/01 Electrolyte derangement HTN neuropathy + bcx plan: fu with id, wound care fu with renal increase lantus to 25u qhs, aspart 8 u tid, ssi. check hba1c 10.6 on zosyn, fu bcx still pending. UCX + Ecoli. ibuprofen x1 for fever, should try tylenol if need often for fever, which makes him stamache dvt ppx resume some home meds , amlodipine 10mg daily, increase coreg to 12.5 mg bid add NS 75cc/h for now, dc tmr. consider resume losartan if Cr better to normal. bedside i and d bl feet wound 01/01 ,clean wound diarrhea, check cdiff neg. c/p abd bloating, gas-x prn. waiting for bcx result and dc History of Present Illness History of Present Illness ROS: no chills, sob or chest pain hypoglycemia + bcx cr slightly better to 1.6 fever fluctuate, 100.4 overnight BL leg US neg for PAD bedside i and d , wound care not think rt sole ulcer is infected BP still high Vitals Vitals Vital Signs Date Time Temp Pulse Resp B/P (MAP) Pulse Ox O2 Delivery O2 Flow Rate FiO2 01/04/18 10:44 97.7 89 20 123/77 (92) 93 Room Air 97.7 Physical Exam Physical Exam GENERAL: Sitting in the chair, alert, NAD HEENT: Oral cavity, pharynx is clear. LUNGS: Clear to auscultation bilaterally. HEART: S1, S2. ABDOMEN: Obese, soft, nontender EXTREMITIES: 2+ edema BLE. No cyanosis SKIN: Warm to touch without signs of rash. bilat foot wounds NEUROLOGIC: Alert and oriented General: Alert, Oriented X3, Cooperative, No acute distress Heart: Other (patient demonstrates mild tachycardia) Abdomen: Normal bowel sounds, Soft, No hepatosplenomegaly, No masses, Other ( Epigastric tenderness) Extremities: No clubbing, No cyanosis, No edema, Normal pulses, No tenderness/ swelling Skin: No rashes, Other (Bilaterally macerated feet, red) Labs LABS Laboratory Tests Test 01/03/18 13:15 01/03/18 16:49 01/03/18 21:06 01/04/18 04:45 Clostridium difficile Toxin (PCR) Negative (Negative) Glucose (Fingerstick) 168 mg/dL (70-99) 185 mg/dL (70-99) White Blood Count 11.3 x10^3/uL (4.0-11.0) Red Blood Count 3.74 x10^6/uL (4.30-5.70) Hemoglobin 10.4 g/dL (13.0-17.5) Hematocrit 31.1 % (39.0-53.0) Mean Corpuscular Volume 83 fL (79-100) Mean Corpuscular Hemoglobin 28 pg (25-35) Mean Corpuscular Hemoglobin Concent 33 g/dL (31-37) Red Cell Distribution Width 13.9 % (11.5-14.5) Platelet Count 293 x10^3/uL (140-400) Neutrophils (%) (Auto) 75 % (31-73) Lymphocytes (%) (Auto) 13 % (24-48) Monocytes (%) (Auto) 10 % (0-9) Eosinophils (%) (Auto) 1 % (0-3) Basophils (%) (Auto) 1 % (0-3) Neutrophils # (Auto) 8.5 x10^3uL (1.8-7.7) Lymphocytes # (Auto) 1.5 x10^3/uL (1.0-4.8) Monocytes # (Auto) 1.2 x10^3/uL (0.0-1.1) Eosinophils # (Auto) 0.1 x10^3/uL (0.0-0.7) Basophils # (Auto) 0.1 x10^3/uL (0.0-0.2) Sodium Level 136 mmol/L (136-145) Potassium Level 4.2 mmol/L (3.5-5.1) Chloride Level 99 mmol/L (98-107) Carbon Dioxide Level 27 mmol/L (21-32) Anion Gap 10 (6-14) Blood Urea Nitrogen 23 mg/dL (8-26) Creatinine 1.6 mg/dL (0.7-1.3) Estimated GFR (Cockcroft-Gault) 46.6 Glucose Level 179 mg/dL (70-99) Calcium Level 8.8 mg/dL (8.5-10.1) Test 01/04/18 07:33 01/04/18 11:05 Glucose (Fingerstick) 216 mg/dL (70-99) 252 mg/dL (70-99) Comment Review of Relevant I have reviewed the following items odell (where applicable) has been applied. Labs Laboratory Tests Test 01/02/18 16:49 01/02/18 20:49 01/02/18 23:15 01/03/18 00:21 Glucose (Fingerstick) 96 mg/dL (70-99) 71 mg/dL (70-99) 65 mg/dL (70-99) 81 mg/dL (70-99) Test 01/03/18 04:15 01/03/18 08:04 01/03/18 11:22 01/03/18 13:15 White Blood Count 10.9 x10^3/uL (4.0-11.0) Red Blood Count 3.52 x10^6/uL (4.30-5.70) Hemoglobin 9.9 g/dL (13.0-17.5) Hematocrit 29.3 % (39.0-53.0) Mean Corpuscular Volume 83 fL (79-100) Mean Corpuscular Hemoglobin 28 pg (25-35) Mean Corpuscular Hemoglobin Concent 34 g/dL (31-37) Red Cell Distribution Width 13.7 % (11.5-14.5) Platelet Count 237 x10^3/uL (140-400) Neutrophils (%) (Auto) 78 % (31-73) Lymphocytes (%) (Auto) 11 % (24-48) Monocytes (%) (Auto) 11 % (0-9) Eosinophils (%) (Auto) 0 % (0-3) Basophils (%) (Auto) 0 % (0-3) Neutrophils # (Auto) 8.5 x10^3uL (1.8-7.7) Lymphocytes # (Auto) 1.1 x10^3/uL (1.0-4.8) Monocytes # (Auto) 1.2 x10^3/uL (0.0-1.1) Eosinophils # (Auto) 0.0 x10^3/uL (0.0-0.7) Basophils # (Auto) 0.0 x10^3/uL (0.0-0.2) Sodium Level 134 mmol/L (136-145) Potassium Level 3.5 mmol/L (3.5-5.1) Chloride Level 99 mmol/L (98-107) Carbon Dioxide Level 27 mmol/L (21-32) Anion Gap 8 (6-14) Blood Urea Nitrogen 25 mg/dL (8-26) Creatinine 1.6 mg/dL (0.7-1.3) Estimated GFR (Cockcroft-Gault) 46.6 Glucose Level 67 mg/dL (70-99) Calcium Level 8.6 mg/dL (8.5-10.1) Glucose (Fingerstick) 86 mg/dL (70-99) 132 mg/dL (70-99) Clostridium difficile Toxin (PCR) Negative (Negative) Test 01/03/18 16:49 01/03/18 21:06 01/04/18 04:45 01/04/18 07:33 Glucose (Fingerstick) 168 mg/dL (70-99) 185 mg/dL (70-99) 216 mg/dL (70-99) White Blood Count 11.3 x10^3/uL (4.0-11.0) Red Blood Count 3.74 x10^6/uL (4.30-5.70) Hemoglobin 10.4 g/dL (13.0-17.5) Hematocrit 31.1 % (39.0-53.0) Mean Corpuscular Volume 83 fL (79-100) Mean Corpuscular Hemoglobin 28 pg (25-35) Mean Corpuscular Hemoglobin Concent 33 g/dL (31-37) Red Cell Distribution Width 13.9 % (11.5-14.5) Platelet Count 293 x10^3/uL (140-400) Neutrophils (%) (Auto) 75 % (31-73) Lymphocytes (%) (Auto) 13 % (24-48) Monocytes (%) (Auto) 10 % (0-9) Eosinophils (%) (Auto) 1 % (0-3) Basophils (%) (Auto) 1 % (0-3) Neutrophils # (Auto) 8.5 x10^3uL (1.8-7.7) Lymphocytes # (Auto) 1.5 x10^3/uL (1.0-4.8) Monocytes # (Auto) 1.2 x10^3/uL (0.0-1.1) Eosinophils # (Auto) 0.1 x10^3/uL (0.0-0.7) Basophils # (Auto) 0.1 x10^3/uL (0.0-0.2) Sodium Level 136 mmol/L (136-145) Potassium Level 4.2 mmol/L (3.5-5.1) Chloride Level 99 mmol/L (98-107) Carbon Dioxide Level 27 mmol/L (21-32) Anion Gap 10 (6-14) Blood Urea Nitrogen 23 mg/dL (8-26) Creatinine 1.6 mg/dL (0.7-1.3) Estimated GFR (Cockcroft-Gault) 46.6 Glucose Level 179 mg/dL (70-99) Calcium Level 8.8 mg/dL (8.5-10.1) Test 01/04/18 11:05 Glucose (Fingerstick) 252 mg/dL (70-99) Laboratory Tests Test 01/03/18 13:15 01/03/18 16:49 01/03/18 21:06 01/04/18 04:45 Clostridium difficile Toxin (PCR) Negative (Negative) Glucose (Fingerstick) 168 mg/dL (70-99) 185 mg/dL (70-99) White Blood Count 11.3 x10^3/uL (4.0-11.0) Red Blood Count 3.74 x10^6/uL (4.30-5.70) Hemoglobin 10.4 g/dL (13.0-17.5) Hematocrit 31.1 % (39.0-53.0) Mean Corpuscular Volume 83 fL (79-100) Mean Corpuscular Hemoglobin 28 pg (25-35) Mean Corpuscular Hemoglobin Concent 33 g/dL (31-37) Red Cell Distribution Width 13.9 % (11.5-14.5) Platelet Count 293 x10^3/uL (140-400) Neutrophils (%) (Auto) 75 % (31-73) Lymphocytes (%) (Auto) 13 % (24-48) Monocytes (%) (Auto) 10 % (0-9) Eosinophils (%) (Auto) 1 % (0-3) Basophils (%) (Auto) 1 % (0-3) Neutrophils # (Auto) 8.5 x10^3uL (1.8-7.7) Lymphocytes # (Auto) 1.5 x10^3/uL (1.0-4.8) Monocytes # (Auto) 1.2 x10^3/uL (0.0-1.1) Eosinophils # (Auto) 0.1 x10^3/uL (0.0-0.7) Basophils # (Auto) 0.1 x10^3/uL (0.0-0.2) Sodium Level 136 mmol/L (136-145) Potassium Level 4.2 mmol/L (3.5-5.1) Chloride Level 99 mmol/L (98-107) Carbon Dioxide Level 27 mmol/L (21-32) Anion Gap 10 (6-14) Blood Urea Nitrogen 23 mg/dL (8-26) Creatinine 1.6 mg/dL (0.7-1.3) Estimated GFR (Cockcroft-Gault) 46.6 Glucose Level 179 mg/dL (70-99) Calcium Level 8.8 mg/dL (8.5-10.1) Test 01/04/18 07:33 01/04/18 11:05 Glucose (Fingerstick) 216 mg/dL (70-99) 252 mg/dL (70-99) Microbiology 12/29/17 Blood Culture - Preliminary, Resulted 12/29/17 Blood Culture Result 1 (HAZEL) - Preliminary, Resulted 12/29/17 Urine Culture - Final, Complete 12/29/17 Urine Culture Result 1 (HAZEL) - Final, Complete 12/29/17 Antimicrobic Susceptibility - Final, Complete Medications Current Medications Famotidine (Pepcid Vial) 20 mg 1X ONCE IVP Last administered on 12/29/17at 20: 02; Start 12/29/17 at 19:15; Stop 12/29/17 at 19:17; Status DC Sodium Chloride 1,000 ml @ 1,000 mls/hr 1X ONCE IV Last administered on 12/29at 19:58; Start 12/29/17 at 19:15; Stop 12/29/17 at 20:14; Status DC Ceftriaxone Sodium 50 ml @ 100 mls/hr 1X ONCE IV Last administered on at 20:05; Start 12/29/17 at 19:15; Stop 12/29/17 at 19:44; Status DC Fentanyl Citrate (Fentanyl 2ml Vial) 50 mcg 1X ONCE IV Last administered on at 20:04; Start 12/29/17 at 19:15; Stop 12/29/17 at 19:17; Status DC Ondansetron HCl (Zofran) 4 mg 1X ONCE IV Last administered on 12/29/17at 20:00 ; Start 12/29/17 at 19:15; Stop 12/29/17 at 19:17; Status DC Sodium Chloride 1,000 ml @ 1,000 mls/hr 1X ONCE IV Last administered on 12/29at 21:03; Start 12/29/17 at 19:15; Stop 12/29/17 at 20:14; Status DC Insulin Human Regular (HumuLIN R VIAL) 14 unit 1X ONCE SQ Last administered on 12/29/17at 21:06; Start 12/29/17 at 20:45; Stop 12/29/17 at 20:46; Status DC Ondansetron HCl (Zofran) 4 mg PRN Q8HRS PRN IV NAUSEA/VOMITING 1ST CHOICE Last administered on 12/30/17at 00:21; Start 12/29/17 at 20:45; Stop 12/30/17 at 08 :31; Status DC Sodium Chloride 1,000 ml @ 250 mls/hr Q4H IV ; Start 12/29/17 at 21:00; Stop 12/30/17 at 03:31; Status DC Insulin Human Regular 150 unit/ Sodium Chloride 151.5 ml @ 0 mls/hr CONT PRN PRN IV PER PROTOCOL Last administered on 12/29/17at 23:10; Start 12/29/17 at 20 :45; Stop 12/30/17 at 15:26; Status DC Magnesium Sulfate/ Dextrose 100 ml @ 25 mls/hr DAILY IV Last administered on 12/30/17at 09:54; Start 12/30/17 at 09:00; Stop 12/30/17 at 13:22; Status DC Ceftriaxone Sodium 50 ml @ 100 mls/hr 1X ONCE IV ; Start 12/29/17 at 20:45; Stop 12/29/17 at 21:14; Status UNV Sodium Chloride 1,000 ml @ 250 mls/hr Q4H IV ; Start 12/30/17 at 03:30; Stop 12/30/17 at 03:30; Status DC Potassium Chloride/Sodium Chloride 1,000 ml @ 250 mls/hr Q4H IV Last administered on 12/29/17at 23:27; Start 12/29/17 at 23:30; Stop 12/30/17 at 03 :29; Status DC Ceftriaxone Sodium 50 ml @ 100 mls/hr DAILY IV ; Start 12/30/17 at 09:00; Status UNV Ceftriaxone Sodium (Rocephin) 1 gm Q24H IVP ; Start 12/30/17 at 20:00; Stop at 20:00; Status DC Potassium Chloride/Sodium Chloride 1,000 ml @ 250 mls/hr 1X ONCE IV Last administered on 12/30/17at 03:43; Start 12/30/17 at 04:00; Stop 12/30/17 at 07 :59; Status DC Sodium Phosphate 20 mmol/Dextrose 256.6667 ml @ 62.5 mls/hr 1X PRN PRN IV SEE COMMENTS Last administered on 12/30/17at 04:38; Start 12/30/17 at 03:15 Insulin Glargine (Lantus) 40 units BID SQ Last administered on 12/30/17at 06:13 ; Start 12/30/17 at 07:00; Stop 12/30/17 at 15:26; Status DC Insulin Human Lispro (HumaLOG) 20 units TIDWMEALS SQ Last administered on 12/30at 09:12; Start 12/30/17 at 08:00; Stop 12/30/17 at 10:26; Status DC Insulin Human Lispro (HumaLOG) 0-9 UNITS TIDWMEALS SQ Last administered on at 09:12; Start 12/30/17 at 08:00; Stop 12/30/17 at 10:26; Status DC Lactobacillus Rhamnosus (Culturelle) 1 cap BID PO Last administered on at 08:53; Start 12/30/17 at 09:00 Ondansetron HCl (Zofran) 4 mg PRN Q6HRS PRN IV NAUSEA/VOMITING Last administered on 01/01/18at 08:17; Start 12/30/17 at 08:15 Heparin Sodium (Porcine) (Heparin Sodium) 5,000 unit Q8HRS SQ Last administered on 01/04/18at 05:52; Start 12/30/17 at 14:00 Sodium Chloride (Normal Saline Flush) 3 ml QSHIFT PRN IV AFTER MEDS AND BLOOD DRAWS; Start 12/30/17 at 08:15 Acetaminophen/ Hydrocodone Bitart (Lortab 5/325) 1 tab PRN Q4HRS PRN PO MILD PAIN Last administered on 12/30/17at 09:12; Start 12/30/17 at 08:15; Stop at 15:26; Status DC Senna/Docusate Sodium (Senna Plus) 1 tab BID PO Last administered on at 20:58; Start 12/30/17 at 09:00 Lactulose (Lactulose) 20 gm PRN Q12HR PRN PO CONSTIPATION; Start 12/30/17 at 08:15 Insulin Human Lispro (HumaLOG) 18 units TIDWMEALS SQ Last administered on 12/30at 10:59; Start 12/30/17 at 12:00; Stop 12/30/17 at 15:26; Status DC Insulin Human Lispro (HumaLOG) 0-7 UNITS TIDWMEALS SQ Last administered on at 12:50; Start 12/30/17 at 12:00 Dextrose (Dextrose 50%-Water Syringe) 12.5 gm PRN Q15MIN PRN IV SEE COMMENTS; Start 12/30/17 at 10:30 Piperacillin Sod/ Tazobactam Sod 2.25 gm/Sodium Chloride 50 ml @ 100 mls/hr Q6HRS IV ; Start 12/30/17 at 13:15; Status UNV Piperacillin Sod/ Tazobactam Sod 3.375 gm/Sodium Chloride 50 ml @ 100 mls/hr Q6HRS IV Last administered on 01/04/18at 12:35; Start 12/30/17 at 13:30 Insulin Human Lispro (HumaLOG) 18 units 1X ONCE SQ Last administered on at 13:27; Start 12/30/17 at 13:15; Stop 12/30/17 at 13:16; Status DC Magnesium Sulfate/ Dextrose 100 ml @ 25 mls/hr PRN DAILY PRN IV MAG < 1.8 PER DKA PROTOCOL; Start 12/31/17 at 09:00 Insulin Human Lispro (HumaLOG) 15 units 1X ONCE SQ Last administered on at 14:45; Start 12/30/17 at 14:45; Stop 12/30/17 at 14:46; Status DC Insulin Glargine (Lantus) 50 units BID SQ Last administered on 12/31/17at 08:30 ; Start 12/30/17 at 21:00; Stop 12/31/17 at 12:24; Status DC Insulin Human Lispro (HumaLOG) 25 units TIDWMEALS SQ Last administered on 12/31at 12:17; Start 12/30/17 at 17:00; Stop 12/31/17 at 12:24; Status DC Tramadol HCl (Ultram) 50 mg PRN Q6HRS PRN PO MILD TO MODERATE PAIN Last administered on 12/31/17at 08:21; Start 12/30/17 at 15:30 Insulin Human Lispro (HumaLOG) 12 units 1X ONCE SQ Last administered on at 16:32; Start 12/30/17 at 16:30; Stop 12/30/17 at 16:31; Status DC Ibuprofen (Motrin) 400 mg 1X ONCE PO Last administered on 12/31/17at 08:37; Start 12/31/17 at 08:45; Stop 12/31/17 at 08:46; Status DC Morphine Sulfate (Morphine Sulfate) 2 mg PRN Q2HR PRN IV SEVERE PAIN; Start at 08:30 Ondansetron HCl (Zofran) 4 mg PRN Q6HRS PRN IV NAUSEA/VOMITING; Start at 10:45; Status Cancel Morphine Sulfate (Morphine Sulfate) 2 mg PRN Q2HR PRN IV MODERATE TO SEVERE PAIN; Start 12/31/17 at 10:45; Stop 12/31/17 at 12:24; Status DC Tramadol HCl (Ultram) 50 mg PRN Q6HRS PRN PO MILD TO MODERATE PAIN; Start at 10:45; Status Cancel Docusate Sodium (Colace) 100 mg PRN DAILY PRN PO HARD STOOLS; Start 12/31/17 at 10:45 Atorvastatin Calcium (Lipitor) 20 mg HS PO Last administered on 01/03/18at 21: 05; Start 12/31/17 at 21:00 Pregabalin (Lyrica) 75 mg TID PO Last administered on 01/04/18at 08:52; Start 12/31/17 at 14:00 Amlodipine Besylate (Norvasc) 10 mg DAILY PO Last administered on 01/04/18at 08 :52; Start 12/31/17 at 11:00 Insulin Glargine (Lantus) 60 units BID SQ Last administered on 01/01/18at 08:24 ; Start 12/31/17 at 21:00; Stop 01/01/18 at 11:50; Status DC Insulin Human Lispro (HumaLOG) 30 units TIDWMEALS SQ Last administered on 01/01at 08:23; Start 12/31/17 at 17:00; Stop 01/01/18 at 11:50; Status DC Oxycodone HCl (Roxicodone) 5 mg PRN Q6HRS PRN PO MODERATE PAIN Last administered on 12/31/17at 17:26; Start 12/31/17 at 12:30 Insulin Glargine (Lantus) 65 units BID SQ Last administered on 01/02/18at 09:48 ; Start 01/01/18 at 21:00; Stop 01/03/18 at 09:37; Status DC Insulin Human Lispro (HumaLOG) 35 units TIDWMEALS SQ Last administered on 01/01at 12:43; Start 01/01/18 at 12:00; Stop 01/02/18 at 11:37; Status DC Sodium Chloride 1,000 ml @ 75 mls/hr [id number] IV Last administered on at 09:10; Start 01/01/18 at 14:30 Potassium Chloride (Klor-Con) 40 meq 1X ONCE PO Last administered on at 12:35; Start 01/02/18 at 11:00; Stop 01/02/18 at 11:01; Status DC Carvedilol (Coreg) 6.25 mg BIDWMEALS PO Last administered on 01/04/18at 08:52; Start 01/02/18 at 11:00; Stop 01/04/18 at 11:14; Status DC Insulin Human Lispro (HumaLOG) 30 units TIDWMEALS SQ Last administered on 01/02at 12:47; Start 01/02/18 at 12:00; Stop 01/03/18 at 09:37; Status DC Insulin Glargine (Lantus) 50 units BID SQ ; Start 01/03/18 at 21:00; Stop at 21:00; Status DC Insulin Human Lispro (HumaLOG) 20 units TIDWMEALS SQ ; Start 01/03/18 at 12:00 ; Stop 01/03/18 at 12:00; Status DC Insulin Glargine (Lantus) 40 units BID SQ ; Start 01/03/18 at 21:00; Stop at 21:00; Status DC Insulin Human Lispro (HumaLOG) 15 units TIDWMEALS SQ Last administered on 01/03at 12:00; Start 01/03/18 at 12:00; Stop 01/03/18 at 14:12; Status DC Insulin Human Lispro (HumaLOG) 5 units TIDWMEALS SQ Last administered on at 08:57; Start 01/03/18 at 17:00; Stop 01/04/18 at 11:14; Status DC Insulin Glargine (Lantus) 15 units QHS SQ Last administered on 01/03/18at 21:41 ; Start 01/03/18 at 21:00; Stop 01/04/18 at 11:14; Status DC Simethicone (Gas-X) 80 mg PRN Q2HR PRN PO GAS / BLOATING Last administered on 01/04/18at 08:53; Start 01/04/18 at 06:15 Carvedilol (Coreg) 12.5 mg BIDWMEALS PO ; Start 01/04/18 at 17:00 Insulin Glargine (Lantus) 25 units QHS SQ ; Start 01/04/18 at 21:00 Insulin Human Lispro (HumaLOG) 8 units TIDWMEALS SQ Last administered on at 12:49; Start 01/04/18 at 12:00 Active Scripts Active Zofran (Ondansetron Hcl) 4 Mg Tablet 1 Tab PO PRN Q8HRS PRN Reported Losartan-Hctz 50-12.5 Mg Tab (Losartan/Hydrochlorothiazide) 1 Each Tablet 1 Each PO DAILY Levemir (Insulin Detemir) 100 Unit/1 Ml Vial 34 Unit SQ BID Lyrica (Pregabalin) 75 Mg Capsule 75 Mg PO TID Atorvastatin Calcium 20 Mg Tablet 20 Mg PO HS Amlodipine Besylate 10 Mg Tablet 20 Mg PO BID Trulicity (Dulaglutide) 1.5 Mg/0.5 Ml Pen.injctr 1.5 Mg SQ WEEKLY Metformin Hcl 1,000 Mg Tablet 1,000 Mg PO BIDWMEALS Vitals/I & O Vital Sign - Last 24 Hours 01/03/18 01/03/18 01/03/18 01/03/18 15:00 16:47 17:00 17:22 Temp 98.7 98.7 Pulse 54 54 Resp 18 B/P (MAP) 131/79 (96) 131/79 Pulse Ox 93 O2 Delivery Room Air Room Air Room Air 01/03/18 01/03/18 01/03/18 01/04/18 19:00 20:10 22:48 03:00 Temp 98.9 98.5 100.4 98.9 98.5 100.4 Pulse 90 93 99 Resp 18 18 18 B/P (MAP) 156/89 (111) 148/78 (101) 165/87 (113) Pulse Ox 98 96 92 O2 Delivery Room Air Room Air Room Air Room Air 01/04/18 01/04/18 01/04/18 01/04/18 07:00 08:52 08:52 10:44 Temp 97.8 97.7 97.8 97.7 Pulse 93 93 93 89 Resp 20 20 B/P (MAP) 143/78 (99) 143/78 143/78 123/77 (92) Pulse Ox 94 93 O2 Delivery Room Air Room Air Intake and Output 01/03/18 01/03/18 01/04/18 15:00 23:00 07:00 Intake Total 1300 ml Balance 1300 ml DENISA KRUEGER MD Jan 04, 2018 13:11
[2018-01-04 15:00] VITALS: BP 132/74
[2018-01-04] MEDS: CARVEDILOL 12.5 MG TABLET. PO SCH (17:00)
[2018-01-04 19:00] VITALS: BP 159/94
[2018-01-04] MEDS ORDERED: INSULIN GLARGINE 300 UNITS/3 ML INSULN.PEN. SQ SCH (21:00)
[2018-01-04] MEDS: ATORVASTATIN CALCIUM 20 MG TABLET PO SCH (21:21)
[2018-01-04 23:00] VITALS: BP 137/79
[2018-01-05] MEDS: PIPERACILLIN/TAZOBACTAM 3.375 GM in IV NORMAL SALINE 50ML 50 ML IV SCH ×3 (00:23→11:38)
[2018-01-05 03:00] VITALS: BP 118/78
[2018-01-05 04:01] LABS: BASO % 0 % (0-3); EOS # 0.1 x10^3/uL (0.0-0.7); EOS % 1 % (0-3); HEMATOCRIT 31.9 % (39.0-53.0); LYMPH # 1.8 x10^3/uL (1.0-4.8); LYMPH % 17 % (24-48); MEAN CORPUSCULAR HEMOGLOBIN 29 pg (25-35); MEAN CORPUSCULAR HGB CONC 34 g/dL (31-37); MEAN CORPUSCULAR VOLUME 84 fL (79-100); MONO % 10 % (0-9); NEUT # 7.9 x10^3uL (1.8-7.7); NEUT % 72 % (31-73); PLATELET COUNT 340 x10^3/uL (140-400); RED BLOOD COUNT 3.79 x10^6/uL (4.30-5.70)
[2018-01-05 04:28] LABS: CALCIUM 8.8 mg/dL (8.5-10.1); CREATININE 1.5 mg/dL (0.7-1.3); GFR 50.2
[2018-01-05] MEDS: HEPARIN for SUB-Q USE 5,000 UNIT/ML VIAL. SQ SCH ×2 (05:38→12:55)
[2018-01-05 07:00] VITALS: BP 128/74
[2018-01-05] MEDS: LACTOBACILLUS RHAMNOSUS GG 1 CAPSULE. PO SCH (07:49)
[2018-01-05] MEDS: amLODIPine BESYLATE 10 MG TABLET PO SCH (07:49)
[2018-01-05] MEDS: CARVEDILOL 12.5 MG TABLET. PO SCH (07:50)
[2018-01-05] MEDS: PREGABALIN 75 MG CAPSULE PO SCH ×2 (07:50→11:38)
[2018-01-05] MEDS: SENNOSIDES/DOCUSATE 8.6/50MG TABLET. PO SCH (07:50)
[2018-01-05] MEDS: SIMETHICONE 80 MG TAB.CHEW PO PRN (07:57)
[2018-01-05] MEDS: INSULIN LISPRO 300 UNITS/3 ML INSULN.PEN. SQ SCH ×4 (08:04→11:45)
[2018-01-05] MEDS: IV NORMAL SALINE 1000ML BAG 1,000 ML IV SCH (09:59)
--- NOTE | 2018-01-05 10:44 | PDOC ---
Infectious Disease Note Subjective Subjective feeling good ROS ROS no n/v/d/sob/fever/urinary sy Vital Sign Vital Signs Vital Signs Date Time Temp Pulse Resp B/P (MAP) Pulse Ox O2 Delivery O2 Flow Rate FiO2 01/05/18 08:00 Room Air 01/05/18 07:50 88 128/74 01/05/18 07:00 97.8 20 96 97.8 Physical Exam PHYSICAL EXAM GENERAL: Sitting in the chair, alert, NAD HEENT: Oral cavity, pharynx is clear. LUNGS: Clear to auscultation bilaterally. HEART: S1, S2. ABDOMEN: Obese, soft, nontender EXTREMITIES: 2+ edema BLE. No cyanosis SKIN: Warm to touch without signs of rash. bilat foot wounds NEUROLOGIC: Alert and oriented Labs Lab Laboratory Tests Test 01/04/18 11:05 01/04/18 16:23 01/04/18 20:24 01/05/18 03:35 Glucose (Fingerstick) 252 mg/dL (70-99) 195 mg/dL (70-99) 222 mg/dL (70-99) White Blood Count 11.0 x10^3/uL (4.0-11.0) Red Blood Count 3.79 x10^6/uL (4.30-5.70) Hemoglobin 11.0 g/dL (13.0-17.5) Hematocrit 31.9 % (39.0-53.0) Mean Corpuscular Volume 84 fL (79-100) Mean Corpuscular Hemoglobin 29 pg (25-35) Mean Corpuscular Hemoglobin Concent 34 g/dL (31-37) Red Cell Distribution Width 14.0 % (11.5-14.5) Platelet Count 340 x10^3/uL (140-400) Neutrophils (%) (Auto) 72 % (31-73) Lymphocytes (%) (Auto) 17 % (24-48) Monocytes (%) (Auto) 10 % (0-9) Eosinophils (%) (Auto) 1 % (0-3) Basophils (%) (Auto) 0 % (0-3) Neutrophils # (Auto) 7.9 x10^3uL (1.8-7.7) Lymphocytes # (Auto) 1.8 x10^3/uL (1.0-4.8) Monocytes # (Auto) 1.0 x10^3/uL (0.0-1.1) Eosinophils # (Auto) 0.1 x10^3/uL (0.0-0.7) Basophils # (Auto) 0.0 x10^3/uL (0.0-0.2) Sodium Level 137 mmol/L (136-145) Potassium Level 4.0 mmol/L (3.5-5.1) Chloride Level 99 mmol/L (98-107) Carbon Dioxide Level 28 mmol/L (21-32) Anion Gap 10 (6-14) Blood Urea Nitrogen 17 mg/dL (8-26) Creatinine 1.5 mg/dL (0.7-1.3) Estimated GFR (Cockcroft-Gault) 50.2 Glucose Level 203 mg/dL (70-99) Calcium Level 8.8 mg/dL (8.5-10.1) Test 01/05/18 07:10 Glucose (Fingerstick) 196 mg/dL (70-99) Micro BLOOD CULTURE LC Final Final report BLD CULT RESULT 1 Final Escherichia coli Multi-Drug Resistant Organism IMIPENEM S <=1 ERTAPENEM S <=0.12 ANTIMICROBIAL SUSCEPTIBILITY Final Comment S = Susceptible; I = Intermediate; R = Resistant P = Positive; N = Negative MICS are expressed in micrograms per mL Antibiotic RSLT#1 RSLT#2 RSLT#3 RSLT#4 Amikacin S =4 Ampicillin/Sulbactam R>=32 Cefotaxime R>=64 Ceftazidime R =16 Meropenem S<=0.25 Tigecycline S<=0.5 Performed at: - [facility] [address], [place], [place] [id number] Recovery Assistant: AL Hilton MD, Phone: [phone] Objective Assessment Fever E. coli sepsis - POA 12/29 Ecoli UTI - POA Bilat DM foot ulcers s/p bedside debridement on 01/01. - Right Foot wound - arterial Doppler - neg Leukocytosis YOEL - stable renal following DM with DKA Diarrhea. C. diff neg 01/03 Plan Plan of Care d/c today ok, on iv invanz, for 7 more days AYSE MCGINNIS MD Jan 05, 2018 10:44
--- NOTE | 2018-01-05 10:47 | PDOC ---
PROGRESS NOTES Chief Complaint Chief Complaint DKA - with type 2 diabetes, resolved Sepsis - likely from bilateral foot infections, Acute renal failure - likely 2/2 DKA, sepsis, dehydration. Foot wound , bl , worse Rt side black ulcer s/p bedside i and d 01/01 Electrolyte derangement HTN neuropathy + bcx History of Present Illness History of Present Illness He has no complaints ID on board, IV Zosyn-has gotten 23 bags Still waiting on biopsy of the foot cultures done on 01/01/18 ROS: no chills, sob or chest pain Plan: IV Zosyn Follow biopsy from the foot 01/01/18 Current insulin regimen seems to be working Blood pressure better-not anymore the high side Vitals Vitals Vital Signs Date Time Temp Pulse Resp B/P (MAP) Pulse Ox O2 Delivery O2 Flow Rate FiO2 01/05/18 08:00 Room Air 01/05/18 07:50 88 128/74 01/05/18 07:00 97.8 20 96 97.8 Physical Exam Physical Exam GENERAL: Sitting in the chair, alert, NAD HEENT: Oral cavity, pharynx is clear. LUNGS: Clear to auscultation bilaterally. HEART: S1, S2. ABDOMEN: Obese, soft, nontender EXTREMITIES: 2+ edema BLE. No cyanosis SKIN: Warm to touch without signs of rash. bilat foot wounds NEUROLOGIC: Alert and oriented General: Alert, Oriented X3, Cooperative, No acute distress Heart: Other (patient demonstrates mild tachycardia) Abdomen: Normal bowel sounds, Soft, No hepatosplenomegaly, No masses, Other ( Epigastric tenderness) Extremities: No clubbing, No cyanosis, No edema, Normal pulses, No tenderness/ swelling Skin: No rashes, Other (Bilaterally macerated feet, red) Labs LABS Laboratory Tests Test 01/04/18 11:05 01/04/18 16:23 01/04/18 20:24 01/05/18 03:35 Glucose (Fingerstick) 252 mg/dL (70-99) 195 mg/dL (70-99) 222 mg/dL (70-99) White Blood Count 11.0 x10^3/uL (4.0-11.0) Red Blood Count 3.79 x10^6/uL (4.30-5.70) Hemoglobin 11.0 g/dL (13.0-17.5) Hematocrit 31.9 % (39.0-53.0) Mean Corpuscular Volume 84 fL (79-100) Mean Corpuscular Hemoglobin 29 pg (25-35) Mean Corpuscular Hemoglobin Concent 34 g/dL (31-37) Red Cell Distribution Width 14.0 % (11.5-14.5) Platelet Count 340 x10^3/uL (140-400) Neutrophils (%) (Auto) 72 % (31-73) Lymphocytes (%) (Auto) 17 % (24-48) Monocytes (%) (Auto) 10 % (0-9) Eosinophils (%) (Auto) 1 % (0-3) Basophils (%) (Auto) 0 % (0-3) Neutrophils # (Auto) 7.9 x10^3uL (1.8-7.7) Lymphocytes # (Auto) 1.8 x10^3/uL (1.0-4.8) Monocytes # (Auto) 1.0 x10^3/uL (0.0-1.1) Eosinophils # (Auto) 0.1 x10^3/uL (0.0-0.7) Basophils # (Auto) 0.0 x10^3/uL (0.0-0.2) Sodium Level 137 mmol/L (136-145) Potassium Level 4.0 mmol/L (3.5-5.1) Chloride Level 99 mmol/L (98-107) Carbon Dioxide Level 28 mmol/L (21-32) Anion Gap 10 (6-14) Blood Urea Nitrogen 17 mg/dL (8-26) Creatinine 1.5 mg/dL (0.7-1.3) Estimated GFR (Cockcroft-Gault) 50.2 Glucose Level 203 mg/dL (70-99) Calcium Level 8.8 mg/dL (8.5-10.1) Test 01/05/18 07:10 Glucose (Fingerstick) 196 mg/dL (70-99) Review of Systems Review of Systems A 14 point ROS was completed with the following noted as positive: Other systems reviewed and negative. \CONSTITUTIONAL: No fever or chills EYES: No recent changes SKIN: No rash or itching CARDIOVASCULAR: No chest pain, syncope, palpitations, or edema RESPIRATORY: No SOB or cough GASTROINTESTINAL: No nausea, vomiting or abdominal pain NEUROLOGICAL: No headaches or weakness ENDOCRINE: No cold or heat intolerance GENITOURINARY: No urgency or frequency of urination MUSCULOSKELETAL: No back pain or joint pain LYMPHATICS: No enlarged lymph nodes PSYCHIATRIC: No anxiety or depression Comment Review of Relevant I have reviewed the following items odell (where applicable) has been applied. Labs Laboratory Tests Test 01/03/18 11:22 01/03/18 13:15 01/03/18 16:49 01/03/18 21:06 Glucose (Fingerstick) 132 mg/dL (70-99) 168 mg/dL (70-99) 185 mg/dL (70-99) Clostridium difficile Toxin (PCR) Negative (Negative) Test 01/04/18 04:45 01/04/18 07:33 01/04/18 11:05 01/04/18 16:23 White Blood Count 11.3 x10^3/uL (4.0-11.0) Red Blood Count 3.74 x10^6/uL (4.30-5.70) Hemoglobin 10.4 g/dL (13.0-17.5) Hematocrit 31.1 % (39.0-53.0) Mean Corpuscular Volume 83 fL (79-100) Mean Corpuscular Hemoglobin 28 pg (25-35) Mean Corpuscular Hemoglobin Concent 33 g/dL (31-37) Red Cell Distribution Width 13.9 % (11.5-14.5) Platelet Count 293 x10^3/uL (140-400) Neutrophils (%) (Auto) 75 % (31-73) Lymphocytes (%) (Auto) 13 % (24-48) Monocytes (%) (Auto) 10 % (0-9) Eosinophils (%) (Auto) 1 % (0-3) Basophils (%) (Auto) 1 % (0-3) Neutrophils # (Auto) 8.5 x10^3uL (1.8-7.7) Lymphocytes # (Auto) 1.5 x10^3/uL (1.0-4.8) Monocytes # (Auto) 1.2 x10^3/uL (0.0-1.1) Eosinophils # (Auto) 0.1 x10^3/uL (0.0-0.7) Basophils # (Auto) 0.1 x10^3/uL (0.0-0.2) Sodium Level 136 mmol/L (136-145) Potassium Level 4.2 mmol/L (3.5-5.1) Chloride Level 99 mmol/L (98-107) Carbon Dioxide Level 27 mmol/L (21-32) Anion Gap 10 (6-14) Blood Urea Nitrogen 23 mg/dL (8-26) Creatinine 1.6 mg/dL (0.7-1.3) Estimated GFR (Cockcroft-Gault) 46.6 Glucose Level 179 mg/dL (70-99) Calcium Level 8.8 mg/dL (8.5-10.1) Glucose (Fingerstick) 216 mg/dL (70-99) 252 mg/dL (70-99) 195 mg/dL (70-99) Test 01/04/18 20:24 01/05/18 03:35 01/05/18 07:10 Glucose (Fingerstick) 222 mg/dL (70-99) 196 mg/dL (70-99) White Blood Count 11.0 x10^3/uL (4.0-11.0) Red Blood Count 3.79 x10^6/uL (4.30-5.70) Hemoglobin 11.0 g/dL (13.0-17.5) Hematocrit 31.9 % (39.0-53.0) Mean Corpuscular Volume 84 fL (79-100) Mean Corpuscular Hemoglobin 29 pg (25-35) Mean Corpuscular Hemoglobin Concent 34 g/dL (31-37) Red Cell Distribution Width 14.0 % (11.5-14.5) Platelet Count 340 x10^3/uL (140-400) Neutrophils (%) (Auto) 72 % (31-73) Lymphocytes (%) (Auto) 17 % (24-48) Monocytes (%) (Auto) 10 % (0-9) Eosinophils (%) (Auto) 1 % (0-3) Basophils (%) (Auto) 0 % (0-3) Neutrophils # (Auto) 7.9 x10^3uL (1.8-7.7) Lymphocytes # (Auto) 1.8 x10^3/uL (1.0-4.8) Monocytes # (Auto) 1.0 x10^3/uL (0.0-1.1) Eosinophils # (Auto) 0.1 x10^3/uL (0.0-0.7) Basophils # (Auto) 0.0 x10^3/uL (0.0-0.2) Sodium Level 137 mmol/L (136-145) Potassium Level 4.0 mmol/L (3.5-5.1) Chloride Level 99 mmol/L (98-107) Carbon Dioxide Level 28 mmol/L (21-32) Anion Gap 10 (6-14) Blood Urea Nitrogen 17 mg/dL (8-26) Creatinine 1.5 mg/dL (0.7-1.3) Estimated GFR (Cockcroft-Gault) 50.2 Glucose Level 203 mg/dL (70-99) Calcium Level 8.8 mg/dL (8.5-10.1) Laboratory Tests Test 01/04/18 11:05 01/04/18 16:23 01/04/18 20:24 01/05/18 03:35 Glucose (Fingerstick) 252 mg/dL (70-99) 195 mg/dL (70-99) 222 mg/dL (70-99) White Blood Count 11.0 x10^3/uL (4.0-11.0) Red Blood Count 3.79 x10^6/uL (4.30-5.70) Hemoglobin 11.0 g/dL (13.0-17.5) Hematocrit 31.9 % (39.0-53.0) Mean Corpuscular Volume 84 fL (79-100) Mean Corpuscular Hemoglobin 29 pg (25-35) Mean Corpuscular Hemoglobin Concent 34 g/dL (31-37) Red Cell Distribution Width 14.0 % (11.5-14.5) Platelet Count 340 x10^3/uL (140-400) Neutrophils (%) (Auto) 72 % (31-73) Lymphocytes (%) (Auto) 17 % (24-48) Monocytes (%) (Auto) 10 % (0-9) Eosinophils (%) (Auto) 1 % (0-3) Basophils (%) (Auto) 0 % (0-3) Neutrophils # (Auto) 7.9 x10^3uL (1.8-7.7) Lymphocytes # (Auto) 1.8 x10^3/uL (1.0-4.8) Monocytes # (Auto) 1.0 x10^3/uL (0.0-1.1) Eosinophils # (Auto) 0.1 x10^3/uL (0.0-0.7) Basophils # (Auto) 0.0 x10^3/uL (0.0-0.2) Sodium Level 137 mmol/L (136-145) Potassium Level 4.0 mmol/L (3.5-5.1) Chloride Level 99 mmol/L (98-107) Carbon Dioxide Level 28 mmol/L (21-32) Anion Gap 10 (6-14) Blood Urea Nitrogen 17 mg/dL (8-26) Creatinine 1.5 mg/dL (0.7-1.3) Estimated GFR (Cockcroft-Gault) 50.2 Glucose Level 203 mg/dL (70-99) Calcium Level 8.8 mg/dL (8.5-10.1) Test 01/05/18 07:10 Glucose (Fingerstick) 196 mg/dL (70-99) Microbiology 12/29/17 Blood Culture - Final, Complete 12/29/17 Blood Culture Result 1 (HAZEL) - Final, Complete 12/29/17 Antimicrobic Susceptibility - Final, Complete 12/29/17 Urine Culture - Final, Complete 12/29/17 Urine Culture Result 1 (HAZEL) - Final, Complete 12/29/17 Antimicrobic Susceptibility - Final, Complete Medications Current Medications Famotidine (Pepcid Vial) 20 mg 1X ONCE IVP Last administered on 12/29/17at 20: 02; Start 12/29/17 at 19:15; Stop 12/29/17 at 19:17; Status DC Sodium Chloride 1,000 ml @ 1,000 mls/hr 1X ONCE IV Last administered on 12/29at 19:58; Start 12/29/17 at 19:15; Stop 12/29/17 at 20:14; Status DC Ceftriaxone Sodium 50 ml @ 100 mls/hr 1X ONCE IV Last administered on at 20:05; Start 12/29/17 at 19:15; Stop 12/29/17 at 19:44; Status DC Fentanyl Citrate (Fentanyl 2ml Vial) 50 mcg 1X ONCE IV Last administered on at 20:04; Start 12/29/17 at 19:15; Stop 12/29/17 at 19:17; Status DC Ondansetron HCl (Zofran) 4 mg 1X ONCE IV Last administered on 12/29/17at 20:00 ; Start 12/29/17 at 19:15; Stop 12/29/17 at 19:17; Status DC Sodium Chloride 1,000 ml @ 1,000 mls/hr 1X ONCE IV Last administered on 12/29at 21:03; Start 12/29/17 at 19:15; Stop 12/29/17 at 20:14; Status DC Insulin Human Regular (HumuLIN R VIAL) 14 unit 1X ONCE SQ Last administered on 12/29/17at 21:06; Start 12/29/17 at 20:45; Stop 12/29/17 at 20:46; Status DC Ondansetron HCl (Zofran) 4 mg PRN Q8HRS PRN IV NAUSEA/VOMITING 1ST CHOICE Last administered on 12/30/17at 00:21; Start 12/29/17 at 20:45; Stop 12/30/17 at 08 :31; Status DC Sodium Chloride 1,000 ml @ 250 mls/hr Q4H IV ; Start 12/29/17 at 21:00; Stop 12/30/17 at 03:31; Status DC Insulin Human Regular 150 unit/ Sodium Chloride 151.5 ml @ 0 mls/hr CONT PRN PRN IV PER PROTOCOL Last administered on 12/29/17at 23:10; Start 12/29/17 at 20 :45; Stop 12/30/17 at 15:26; Status DC Magnesium Sulfate/ Dextrose 100 ml @ 25 mls/hr DAILY IV Last administered on 12/30/17at 09:54; Start 12/30/17 at 09:00; Stop 12/30/17 at 13:22; Status DC Ceftriaxone Sodium 50 ml @ 100 mls/hr 1X ONCE IV ; Start 12/29/17 at 20:45; Stop 12/29/17 at 21:14; Status UNV Sodium Chloride 1,000 ml @ 250 mls/hr Q4H IV ; Start 12/30/17 at 03:30; Stop 12/30/17 at 03:30; Status DC Potassium Chloride/Sodium Chloride 1,000 ml @ 250 mls/hr Q4H IV Last administered on 12/29/17at 23:27; Start 12/29/17 at 23:30; Stop 12/30/17 at 03 :29; Status DC Ceftriaxone Sodium 50 ml @ 100 mls/hr DAILY IV ; Start 12/30/17 at 09:00; Status UNV Ceftriaxone Sodium (Rocephin) 1 gm Q24H IVP ; Start 12/30/17 at 20:00; Stop at 20:00; Status DC Potassium Chloride/Sodium Chloride 1,000 ml @ 250 mls/hr 1X ONCE IV Last administered on 12/30/17at 03:43; Start 12/30/17 at 04:00; Stop 12/30/17 at 07 :59; Status DC Sodium Phosphate 20 mmol/Dextrose 256.6667 ml @ 62.5 mls/hr 1X PRN PRN IV SEE COMMENTS Last administered on 12/30/17at 04:38; Start 12/30/17 at 03:15 Insulin Glargine (Lantus) 40 units BID SQ Last administered on 12/30/17at 06:13 ; Start 12/30/17 at 07:00; Stop 12/30/17 at 15:26; Status DC Insulin Human Lispro (HumaLOG) 20 units TIDWMEALS SQ Last administered on 12/30at 09:12; Start 12/30/17 at 08:00; Stop 12/30/17 at 10:26; Status DC Insulin Human Lispro (HumaLOG) 0-9 UNITS TIDWMEALS SQ Last administered on at 09:12; Start 12/30/17 at 08:00; Stop 12/30/17 at 10:26; Status DC Lactobacillus Rhamnosus (Culturelle) 1 cap BID PO Last administered on at 07:49; Start 12/30/17 at 09:00 Ondansetron HCl (Zofran) 4 mg PRN Q6HRS PRN IV NAUSEA/VOMITING Last administered on 01/01/18at 08:17; Start 12/30/17 at 08:15 Heparin Sodium (Porcine) (Heparin Sodium) 5,000 unit Q8HRS SQ Last administered on 01/05/18at 05:38; Start 12/30/17 at 14:00 Sodium Chloride (Normal Saline Flush) 3 ml QSHIFT PRN IV AFTER MEDS AND BLOOD DRAWS; Start 12/30/17 at 08:15 Acetaminophen/ Hydrocodone Bitart (Lortab 5/325) 1 tab PRN Q4HRS PRN PO MILD PAIN Last administered on 12/30/17at 09:12; Start 12/30/17 at 08:15; Stop at 15:26; Status DC Senna/Docusate Sodium (Senna Plus) 1 tab BID PO Last administered on at 20:58; Start 12/30/17 at 09:00 Lactulose (Lactulose) 20 gm PRN Q12HR PRN PO CONSTIPATION; Start 12/30/17 at 08:15 Insulin Human Lispro (HumaLOG) 18 units TIDWMEALS SQ Last administered on 12/30at 10:59; Start 12/30/17 at 12:00; Stop 12/30/17 at 15:26; Status DC Insulin Human Lispro (HumaLOG) 0-7 UNITS TIDWMEALS SQ Last administered on at 08:04; Start 12/30/17 at 12:00 Dextrose (Dextrose 50%-Water Syringe) 12.5 gm PRN Q15MIN PRN IV SEE COMMENTS; Start 12/30/17 at 10:30 Piperacillin Sod/ Tazobactam Sod 2.25 gm/Sodium Chloride 50 ml @ 100 mls/hr Q6HRS IV ; Start 12/30/17 at 13:15; Status UNV Piperacillin Sod/ Tazobactam Sod 3.375 gm/Sodium Chloride 50 ml @ 100 mls/hr Q6HRS IV Last administered on 01/05/18at 05:32; Start 12/30/17 at 13:30 Insulin Human Lispro (HumaLOG) 18 units 1X ONCE SQ Last administered on at 13:27; Start 12/30/17 at 13:15; Stop 12/30/17 at 13:16; Status DC Magnesium Sulfate/ Dextrose 100 ml @ 25 mls/hr PRN DAILY PRN IV MAG < 1.8 PER DKA PROTOCOL; Start 12/31/17 at 09:00 Insulin Human Lispro (HumaLOG) 15 units 1X ONCE SQ Last administered on at 14:45; Start 12/30/17 at 14:45; Stop 12/30/17 at 14:46; Status DC Insulin Glargine (Lantus) 50 units BID SQ Last administered on 12/31/17at 08:30 ; Start 12/30/17 at 21:00; Stop 12/31/17 at 12:24; Status DC Insulin Human Lispro (HumaLOG) 25 units TIDWMEALS SQ Last administered on 12/31at 12:17; Start 12/30/17 at 17:00; Stop 12/31/17 at 12:24; Status DC Tramadol HCl (Ultram) 50 mg PRN Q6HRS PRN PO MILD TO MODERATE PAIN Last administered on 12/31/17at 08:21; Start 12/30/17 at 15:30 Insulin Human Lispro (HumaLOG) 12 units 1X ONCE SQ Last administered on at 16:32; Start 12/30/17 at 16:30; Stop 12/30/17 at 16:31; Status DC Ibuprofen (Motrin) 400 mg 1X ONCE PO Last administered on 12/31/17at 08:37; Start 12/31/17 at 08:45; Stop 12/31/17 at 08:46; Status DC Morphine Sulfate (Morphine Sulfate) 2 mg PRN Q2HR PRN IV SEVERE PAIN; Start at 08:30 Ondansetron HCl (Zofran) 4 mg PRN Q6HRS PRN IV NAUSEA/VOMITING; Start at 10:45; Status Cancel Morphine Sulfate (Morphine Sulfate) 2 mg PRN Q2HR PRN IV MODERATE TO SEVERE PAIN; Start 12/31/17 at 10:45; Stop 12/31/17 at 12:24; Status DC Tramadol HCl (Ultram) 50 mg PRN Q6HRS PRN PO MILD TO MODERATE PAIN; Start at 10:45; Status Cancel Docusate Sodium (Colace) 100 mg PRN DAILY PRN PO HARD STOOLS; Start 12/31/17 at 10:45 Atorvastatin Calcium (Lipitor) 20 mg HS PO Last administered on 01/04/18at 21: 21; Start 12/31/17 at 21:00 Pregabalin (Lyrica) 75 mg TID PO Last administered on 01/05/18at 07:50; Start 12/31/17 at 14:00 Amlodipine Besylate (Norvasc) 10 mg DAILY PO Last administered on 01/05/18at 07 :49; Start 12/31/17 at 11:00 Insulin Glargine (Lantus) 60 units BID SQ Last administered on 01/01/18at 08:24 ; Start 12/31/17 at 21:00; Stop 01/01/18 at 11:50; Status DC Insulin Human Lispro (HumaLOG) 30 units TIDWMEALS SQ Last administered on 01/01at 08:23; Start 12/31/17 at 17:00; Stop 01/01/18 at 11:50; Status DC Oxycodone HCl (Roxicodone) 5 mg PRN Q6HRS PRN PO MODERATE PAIN Last administered on 12/31/17at 17:26; Start 12/31/17 at 12:30 Insulin Glargine (Lantus) 65 units BID SQ Last administered on 01/02/18at 09:48 ; Start 01/01/18 at 21:00; Stop 01/03/18 at 09:37; Status DC Insulin Human Lispro (HumaLOG) 35 units TIDWMEALS SQ Last administered on 01/01at 12:43; Start 01/01/18 at 12:00; Stop 01/02/18 at 11:37; Status DC Sodium Chloride 1,000 ml @ 75 mls/hr [id number] IV Last administered on at 09:10; Start 01/01/18 at 14:30 Potassium Chloride (Klor-Con) 40 meq 1X ONCE PO Last administered on at 12:35; Start 01/02/18 at 11:00; Stop 01/02/18 at 11:01; Status DC Carvedilol (Coreg) 6.25 mg BIDWMEALS PO Last administered on 01/04/18at 08:52; Start 01/02/18 at 11:00; Stop 01/04/18 at 11:14; Status DC Insulin Human Lispro (HumaLOG) 30 units TIDWMEALS SQ Last administered on 01/02at 12:47; Start 01/02/18 at 12:00; Stop 01/03/18 at 09:37; Status DC Insulin Glargine (Lantus) 50 units BID SQ ; Start 01/03/18 at 21:00; Stop at 21:00; Status DC Insulin Human Lispro (HumaLOG) 20 units TIDWMEALS SQ ; Start 01/03/18 at 12:00 ; Stop 01/03/18 at 12:00; Status DC Insulin Glargine (Lantus) 40 units BID SQ ; Start 01/03/18 at 21:00; Stop at 21:00; Status DC Insulin Human Lispro (HumaLOG) 15 units TIDWMEALS SQ Last administered on 01/03at 12:00; Start 01/03/18 at 12:00; Stop 01/03/18 at 14:12; Status DC Insulin Human Lispro (HumaLOG) 5 units TIDWMEALS SQ Last administered on at 08:57; Start 01/03/18 at 17:00; Stop 01/04/18 at 11:14; Status DC Insulin Glargine (Lantus) 15 units QHS SQ Last administered on 01/03/18at 21:41 ; Start 01/03/18 at 21:00; Stop 01/04/18 at 11:14; Status DC Simethicone (Gas-X) 80 mg PRN Q2HR PRN PO GAS / BLOATING Last administered on 01/05/18at 07:57; Start 01/04/18 at 06:15 Carvedilol (Coreg) 12.5 mg BIDWMEALS PO Last administered on 01/05/18at 07:50; Start 01/04/18 at 17:00 Insulin Glargine (Lantus) 25 units QHS SQ Last administered on 01/04/18at 21:25 ; Start 01/04/18 at 21:00 Insulin Human Lispro (HumaLOG) 8 units TIDWMEALS SQ Last administered on at 08:04; Start 01/04/18 at 12:00 Active Scripts Active Zofran (Ondansetron Hcl) 4 Mg Tablet 1 Tab PO PRN Q8HRS PRN Reported Losartan-Hctz 50-12.5 Mg Tab (Losartan/Hydrochlorothiazide) 1 Each Tablet 1 Each PO DAILY Levemir (Insulin Detemir) 100 Unit/1 Ml Vial 34 Unit SQ BID Lyrica (Pregabalin) 75 Mg Capsule 75 Mg PO TID Atorvastatin Calcium 20 Mg Tablet 20 Mg PO HS Amlodipine Besylate 10 Mg Tablet 20 Mg PO BID Trulicity (Dulaglutide) 1.5 Mg/0.5 Ml Pen.injctr 1.5 Mg SQ WEEKLY Metformin Hcl 1,000 Mg Tablet 1,000 Mg PO BIDWMEALS Vitals/I & O Vital Sign - Last 24 Hours 01/04/18 01/04/18 01/04/18 01/04/18 15:00 17:00 19:00 20:00 Temp 97.8 100.9 97.8 100.9 Pulse 90 90 102 Resp 20 18 B/P (MAP) 132/74 (93) 132/74 159/94 (115) Pulse Ox 94 91 O2 Delivery Room Air Room Air Room Air 01/04/18 01/05/18 01/05/18 01/05/18 23:00 03:00 07:00 07:49 Temp 99.8 98.6 97.8 99.8 98.6 97.8 Pulse 97 87 88 88 Resp 16 18 20 B/P (MAP) 137/79 (98) 118/78 (91) 128/74 (92) 128/74 Pulse Ox 91 95 96 O2 Delivery Room Air Room Air Room Air 01/05/18 01/05/18 07:50 08:00 Pulse 88 B/P (MAP) 128/74 O2 Delivery Room Air Intake and Output 01/04/18 01/04/18 01/05/18 15:00 23:00 07:00 Intake Total 620 ml 1600 ml 900 ml Output Total 650 ml Balance 620 ml 950 ml 900 ml CARTER HOLLIS MD Jan 05, 2018 10:47
[2018-01-05] MEDS ORDERED: INSU100I13 SQ (10:49)
[2018-01-05] MEDS ORDERED: CARV12.52 PO (10:49)
[2018-01-05] MEDS ORDERED: TRAM50TA PO (10:49)
[2018-01-05] MEDS ORDERED: INSU100I11 SQ (10:49)
[2018-01-05] MEDS ORDERED: AMLO10TA6 PO (10:49)
--- NOTE | 2018-01-05 10:53 | PDOC3 ---
Discharge Summary Visit Information Date of Admission: Dec 29, 2017 Date of Discharge: Jan 05, 2018 Admitting Diagnosis Comment: DKA - with type 2 diabetes Sepsis - likely from bilateral foot infections, Acute renal failure - likely 2/2 DKA, sepsis, dehydration. Foot wound , bl , worse Rt side black ulcer s/p bedside i and d 01/01 Electrolyte derangement HTN neuropathy + bcx Brief Hospital Course Allergies Allergies Coded Allergies Type Severity Reaction Last Updated Verified I S O L A T I O N *CONTACT* Allergy Unknown 01/05/18 Yes acetaminophen Adverse Reaction Intermediate UPSET STOMACH, DOESN'T WANT TO TAKE 12/30/17 Yes lisinopril Adverse Reaction Intermediate CHEST PAIN, ACID REFLUX 12/30/17 Yes Vital Signs Vital Signs Date Time Temp Pulse Resp B/P (MAP) Pulse Ox O2 Delivery O2 Flow Rate FiO2 01/05/18 08:00 Room Air 01/05/18 07:50 88 128/74 01/05/18 07:00 97.8 20 96 97.8 Lab Results Laboratory Tests Test 01/03/18 11:22 01/03/18 13:15 01/03/18 16:49 01/03/18 21:06 Glucose (Fingerstick) 132 mg/dL (70-99) 168 mg/dL (70-99) 185 mg/dL (70-99) Clostridium difficile Toxin (PCR) Negative (Negative) Test 01/04/18 04:45 01/04/18 07:33 01/04/18 11:05 01/04/18 16:23 White Blood Count 11.3 x10^3/uL (4.0-11.0) Red Blood Count 3.74 x10^6/uL (4.30-5.70) Hemoglobin 10.4 g/dL (13.0-17.5) Hematocrit 31.1 % (39.0-53.0) Mean Corpuscular Volume 83 fL (79-100) Mean Corpuscular Hemoglobin 28 pg (25-35) Mean Corpuscular Hemoglobin Concent 33 g/dL (31-37) Red Cell Distribution Width 13.9 % (11.5-14.5) Platelet Count 293 x10^3/uL (140-400) Neutrophils (%) (Auto) 75 % (31-73) Lymphocytes (%) (Auto) 13 % (24-48) Monocytes (%) (Auto) 10 % (0-9) Eosinophils (%) (Auto) 1 % (0-3) Basophils (%) (Auto) 1 % (0-3) Neutrophils # (Auto) 8.5 x10^3uL (1.8-7.7) Lymphocytes # (Auto) 1.5 x10^3/uL (1.0-4.8) Monocytes # (Auto) 1.2 x10^3/uL (0.0-1.1) Eosinophils # (Auto) 0.1 x10^3/uL (0.0-0.7) Basophils # (Auto) 0.1 x10^3/uL (0.0-0.2) Sodium Level 136 mmol/L (136-145) Potassium Level 4.2 mmol/L (3.5-5.1) Chloride Level 99 mmol/L (98-107) Carbon Dioxide Level 27 mmol/L (21-32) Anion Gap 10 (6-14) Blood Urea Nitrogen 23 mg/dL (8-26) Creatinine 1.6 mg/dL (0.7-1.3) Estimated GFR (Cockcroft-Gault) 46.6 Glucose Level 179 mg/dL (70-99) Calcium Level 8.8 mg/dL (8.5-10.1) Glucose (Fingerstick) 216 mg/dL (70-99) 252 mg/dL (70-99) 195 mg/dL (70-99) Test 01/04/18 20:24 01/05/18 03:35 01/05/18 07:10 Glucose (Fingerstick) 222 mg/dL (70-99) 196 mg/dL (70-99) White Blood Count 11.0 x10^3/uL (4.0-11.0) Red Blood Count 3.79 x10^6/uL (4.30-5.70) Hemoglobin 11.0 g/dL (13.0-17.5) Hematocrit 31.9 % (39.0-53.0) Mean Corpuscular Volume 84 fL (79-100) Mean Corpuscular Hemoglobin 29 pg (25-35) Mean Corpuscular Hemoglobin Concent 34 g/dL (31-37) Red Cell Distribution Width 14.0 % (11.5-14.5) Platelet Count 340 x10^3/uL (140-400) Neutrophils (%) (Auto) 72 % (31-73) Lymphocytes (%) (Auto) 17 % (24-48) Monocytes (%) (Auto) 10 % (0-9) Eosinophils (%) (Auto) 1 % (0-3) Basophils (%) (Auto) 0 % (0-3) Neutrophils # (Auto) 7.9 x10^3uL (1.8-7.7) Lymphocytes # (Auto) 1.8 x10^3/uL (1.0-4.8) Monocytes # (Auto) 1.0 x10^3/uL (0.0-1.1) Eosinophils # (Auto) 0.1 x10^3/uL (0.0-0.7) Basophils # (Auto) 0.0 x10^3/uL (0.0-0.2) Sodium Level 137 mmol/L (136-145) Potassium Level 4.0 mmol/L (3.5-5.1) Chloride Level 99 mmol/L (98-107) Carbon Dioxide Level 28 mmol/L (21-32) Anion Gap 10 (6-14) Blood Urea Nitrogen 17 mg/dL (8-26) Creatinine 1.5 mg/dL (0.7-1.3) Estimated GFR (Cockcroft-Gault) 50.2 Glucose Level 203 mg/dL (70-99) Calcium Level 8.8 mg/dL (8.5-10.1) Laboratory Tests Test 01/04/18 11:05 01/04/18 16:23 01/04/18 20:24 01/05/18 03:35 Glucose (Fingerstick) 252 mg/dL (70-99) 195 mg/dL (70-99) 222 mg/dL (70-99) White Blood Count 11.0 x10^3/uL (4.0-11.0) Red Blood Count 3.79 x10^6/uL (4.30-5.70) Hemoglobin 11.0 g/dL (13.0-17.5) Hematocrit 31.9 % (39.0-53.0) Mean Corpuscular Volume 84 fL (79-100) Mean Corpuscular Hemoglobin 29 pg (25-35) Mean Corpuscular Hemoglobin Concent 34 g/dL (31-37) Red Cell Distribution Width 14.0 % (11.5-14.5) Platelet Count 340 x10^3/uL (140-400) Neutrophils (%) (Auto) 72 % (31-73) Lymphocytes (%) (Auto) 17 % (24-48) Monocytes (%) (Auto) 10 % (0-9) Eosinophils (%) (Auto) 1 % (0-3) Basophils (%) (Auto) 0 % (0-3) Neutrophils # (Auto) 7.9 x10^3uL (1.8-7.7) Lymphocytes # (Auto) 1.8 x10^3/uL (1.0-4.8) Monocytes # (Auto) 1.0 x10^3/uL (0.0-1.1) Eosinophils # (Auto) 0.1 x10^3/uL (0.0-0.7) Basophils # (Auto) 0.0 x10^3/uL (0.0-0.2) Sodium Level 137 mmol/L (136-145) Potassium Level 4.0 mmol/L (3.5-5.1) Chloride Level 99 mmol/L (98-107) Carbon Dioxide Level 28 mmol/L (21-32) Anion Gap 10 (6-14) Blood Urea Nitrogen 17 mg/dL (8-26) Creatinine 1.5 mg/dL (0.7-1.3) Estimated GFR (Cockcroft-Gault) 50.2 Glucose Level 203 mg/dL (70-99) Calcium Level 8.8 mg/dL (8.5-10.1) Test 01/05/18 07:10 Glucose (Fingerstick) 196 mg/dL (70-99) Brief Hospital Course Mr. Rodarte is a 47 old white male with diabetes, unknown hemoglobin A1c, admitted for bilateral foot infections and wounds, I and D done on 01/01/18. Comanage with infectious disease. Needs IV Invanz for 7 days. I have Rx'd some other medications that wee started here including amlodipine 10 by mouth daily for high blood pressure and all others. Tramadol also for pain. Also needed some adjustments in terms of insulin. RX on chart, I'm seeing the patient firstd ay today on day of discharge. Possibly home with home health for IV Invanz for 7 days. Discussed with RN and social work and patient Patient seen and examined, two Notes today Discharge Information Condition at Discharge: Improved, Stable Disposition/Orders: D/C to Home w/ HH Scheduled Amlodipine Besylate (Amlodipine Besylate) 10 Mg Tablet, 20 MG PO BID, (Reported) Entered as Reported by: KATHERINE GUALLPA on 12/30/17200 Last Action: HELD on 12/31/171033 by DENISA KRUEGER MD Amlodipine Besylate (Amlodipine Besylate) 10 Mg Tablet, 10 MG PO DAILY for 30 Days, #30 Prescribed by: CARTER HOLLIS on 01/05/18 1049 Atorvastatin Calcium (Atorvastatin Calcium) 20 Mg Tablet, 20 MG PO HS for FOR CHOLESTEROL, #30 Ref 0 (Reported) Entered as Reported by: KATHERINE GUALLPA on 12/30/17200 Last Action: Continued on 12/31/171033 by DENISA KRUEGER MD Carvedilol (Carvedilol) 12.5 Mg Tablet, 12.5 MG PO BIDWMEALS for 30 Days, #60 Prescribed by: CARTER HOLLIS on 01/05/18 1049 Dulaglutide (Trulicity) 1.5 Mg/0.5 Ml Pen.injctr, 1.5 MG SQ WEEKLY, (Reported) Entered as Reported by: KATHERINE GUALLPA on 12/30/17200 Last Action: HELD on 12/31/171033 by DENISA KRUEGER MD Insulin Detemir (Levemir) 100 Unit/1 Ml Vial, 34 UNIT SQ BID, (Reported) Entered as Reported by: KATHERINE GUALLPA on 12/30/17200 Last Action: HELD on 12/31/171033 by DENISA KRUEGER MD Insulin Glargine,Hum.rec.anlog (Lantus Solostar) 100 Unit/1 Ml Insuln.pen, 25 UNITS SQ QHS for 14 Days Prescribed by: CARTER HOLLIS on 01/05/18 1049 Insulin Lispro (Humalog) 100 Unit/1 Ml Insuln.pen, 8 UNITS SQ TIDWMEALS for 14 Days Prescribed by: CARTER HOLLIS on 01/05/18 1049 Losartan/Hydrochlorothiazide (Losartan-Hctz 50-12.5 Mg Tab) 1 Each Tablet, 1 EACH PO DAILY, (Reported) Entered as Reported by: CHLOE MUSTAFA on 01/03/182134 Last Action: New Order on 01/03/182134 by CHLOE MUSTAFA Metformin Hcl (Metformin Hcl) 1,000 Mg Tablet, 1,000 MG PO BIDWMEALS, (Reported) Entered as Reported by: KATHERINE GUALLPA on 12/30/17200 Last Action: HELD on 12/31/171033 by DENISA KRUEGER MD Pregabalin (Lyrica) 75 Mg Capsule, 75 MG PO TID, (Reported) Entered as Reported by: KATHERINE GUALLPA on 12/30/17200 Last Action: Continued on 12/31/171033 by DENISA KRUEGER MD Scheduled PRN Ondansetron Hcl (Zofran) 4 Mg Tablet, 1 TAB PO PRN Q8HRS PRN for NAUSEA, #12 Prescribed by: MICHAEL MAYER D.O. on 02/07/172210 Last Action: HELD on 12/31/171033 by DENISA KRUEGER MD Tramadol Hcl (Tramadol Hcl) 50 Mg Tablet, 50 MG PO PRN Q6HRS PRN for MILD TO MODERATE PAIN, #30 Prescribed by: CARTER HOLLIS on 01/05/18 1049 CARTER HOLLIS MD Jan 05, 2018 10:53
--- NOTE | 2018-01-05 10:56 | DISCH ---
DISCHARGE WITH HOME HEALTH DISCHARGE INFORMATION: Discharge Date: Jan 05, 2018 Condition on Discharge: Stable CODE STATUS: Code Status: Full HOME HEALTH: Face to Face: I certify this patient is under my care and that I, or a nurse practitioner or physician's field technical assistant working with me, had a face to face encounter that meets the physician face to face encounter requirements with this patient on []. Physical Therapy For: Evalulation/Treatment Occupational Therapy For: Evaluation/Treatment Home Health Aide For: Other (IV abx) POST DISCHARGE ORDERS: Activity Instructions for Disc: Activity as tolerated Weight Bearing Status after Di: As tolerated DIET AFTER DISCHARGE: ADA CHECKS AFTER DISCHARGE: Checks after discharge: Check blood press - daily, Check blood sugar, ac/hs TREATMENT/EQUIPMENT ORDERS: Adaptive Equipment Issued: None Infusion Equipment, home use: PICC Line CERTIFICATION STATEMENT: Certification Statement: Certification Statement: Based on the above finding, I certify that this patient is confined to the home and needs intermittent jail care, physical therapy and/or speech therapy, or continues to need occupational therapy.~ This patient is under my care, and I have initiated the establishment of the plan of care.~ This patient will be followed by myself or a community physician who will periodically review the plan of care. Home Meds Active Scripts Insulin Lispro (HUMALOG) 100 Unit/1 Ml Insuln.pen, 8 UNITS SQ TIDWMEALS for 14 Days, EACH Prov:CARTER HOLLIS MD 01/05/18 Insulin Glargine,Hum.rec.anlog (LANTUS SOLOSTAR) 100 Unit/1 Ml Insuln.pen, 25 UNITS SQ QHS for 14 Days, EACH Prov:CARTER HOLLIS MD 01/05/18 Tramadol Hcl (TRAMADOL HCL) 50 Mg Tablet, 50 MG PO PRN Q6HRS PRN for MILD TO MODERATE PAIN, #30 TAB Prov:CARTER HOLLIS MD 01/05/18 Amlodipine Besylate (AMLODIPINE BESYLATE) 10 Mg Tablet, 10 MG PO DAILY for 30 Days, #30 TAB Prov:CARTER HOLLIS MD 01/05/18 Carvedilol (CARVEDILOL) 12.5 Mg Tablet, 12.5 MG PO BIDWMEALS for 30 Days, #60 TAB Prov:CARTER HOLLIS MD 01/05/18 Ondansetron Hcl (ZOFRAN) 4 Mg Tablet, 1 TAB PO PRN Q8HRS PRN for NAUSEA, #12 TAB Prov:MICHAEL MAYER DO 02/07/17 Reported Medications Losartan/Hydrochlorothiazide (LOSARTAN-HCTZ 50-12.5 MG TAB) 1 Each Tablet, 1 EACH PO DAILY, TAB 01/03/18 Insulin Detemir (LEVEMIR) 100 Unit/1 Ml Vial, 34 UNIT SQ BID, VIAL 12/30/17 Pregabalin (LYRICA) 75 Mg Capsule, 75 MG PO TID, CAP 12/30/17 Atorvastatin Calcium (ATORVASTATIN CALCIUM) 20 Mg Tablet, 20 MG PO HS for FOR CHOLESTEROL, #30 TAB 0 Refills 12/30/17 Amlodipine Besylate (AMLODIPINE BESYLATE) 10 Mg Tablet, 20 MG PO BID, TAB 12/30/17 Dulaglutide (Trulicity) 1.5 Mg/0.5 Ml Pen.injctr, 1.5 MG SQ WEEKLY, EACH 12/30/17 Metformin Hcl (METFORMIN HCL) 1,000 Mg Tablet, 1000 MG PO BIDWMEALS, TAB 12/30/17 CARTER HOLLIS MD Jan 05, 2018 10:56
[2018-01-05 11:14] VITALS: BP 125/70
[2018-01-05] MEDS ORDERED: ERTAPENEM 1GM IVPB (GENERIC) 50 ML IV ONE (12:00)
--- NOTE | 2018-01-05 12:21 | PDOC ---
Renal-Progress Notes Subjective Notes Notes NO NEW COMPLAINTS History of Present Illness Hx of present illness STABLE Vitals Vitals Vital Signs Date Time Temp Pulse Resp B/P (MAP) Pulse Ox O2 Delivery O2 Flow Rate FiO2 01/05/18 11:14 97.8 89 20 125/70 (88) 95 Room Air 97.8 Weight Weight [ ] I.O. Intake and Output Intake and Output 01/05/18 07:00 Intake Total 3120 ml Output Total 650 ml Balance 2470 ml Intake Oral 3020 ml IV Total 100 ml Output Urine Total 650 ml # Voids 2 Labs Labs Laboratory Tests Test 01/04/18 16:23 01/04/18 20:24 01/05/18 03:35 01/05/18 07:10 Glucose (Fingerstick) 195 mg/dL (70-99) 222 mg/dL (70-99) 196 mg/dL (70-99) White Blood Count 11.0 x10^3/uL (4.0-11.0) Red Blood Count 3.79 x10^6/uL (4.30-5.70) Hemoglobin 11.0 g/dL (13.0-17.5) Hematocrit 31.9 % (39.0-53.0) Mean Corpuscular Volume 84 fL (79-100) Mean Corpuscular Hemoglobin 29 pg (25-35) Mean Corpuscular Hemoglobin Concent 34 g/dL (31-37) Red Cell Distribution Width 14.0 % (11.5-14.5) Platelet Count 340 x10^3/uL (140-400) Neutrophils (%) (Auto) 72 % (31-73) Lymphocytes (%) (Auto) 17 % (24-48) Monocytes (%) (Auto) 10 % (0-9) Eosinophils (%) (Auto) 1 % (0-3) Basophils (%) (Auto) 0 % (0-3) Neutrophils # (Auto) 7.9 x10^3uL (1.8-7.7) Lymphocytes # (Auto) 1.8 x10^3/uL (1.0-4.8) Monocytes # (Auto) 1.0 x10^3/uL (0.0-1.1) Eosinophils # (Auto) 0.1 x10^3/uL (0.0-0.7) Basophils # (Auto) 0.0 x10^3/uL (0.0-0.2) Sodium Level 137 mmol/L (136-145) Potassium Level 4.0 mmol/L (3.5-5.1) Chloride Level 99 mmol/L (98-107) Carbon Dioxide Level 28 mmol/L (21-32) Anion Gap 10 (6-14) Blood Urea Nitrogen 17 mg/dL (8-26) Creatinine 1.5 mg/dL (0.7-1.3) Estimated GFR (Cockcroft-Gault) 50.2 Glucose Level 203 mg/dL (70-99) Calcium Level 8.8 mg/dL (8.5-10.1) Test 01/05/18 11:26 Glucose (Fingerstick) 256 mg/dL (70-99) Micro Micro Microbiology 12/29/17 Blood Culture - Final, Complete 12/29/17 Blood Culture Result 1 (HAZEL) - Final, Complete 12/29/17 Antimicrobic Susceptibility - Final, Complete 12/29/17 Urine Culture - Final, Complete 12/29/17 Urine Culture Result 1 (HAZEL) - Final, Complete 12/29/17 Antimicrobic Susceptibility - Final, Complete Review of Systems Constitutional: yes: weakness, alert, oriented Ears/Nose/Throat: Yes: no symptom reported Eyes: Yes: no symptom reported Pulmonary: Yes no symptom reported Cardiovascular: Yes no symptom reported Gastrointestional: Yes: no symptom reported Genitourinary: Yes: no symptom reported Musculoskeletal: Yes: no symptom reported Skin: Yes no symptom reported Psychiatric/Neurological: Yes: no symptom reported Endocrine: Yes: no symptom reported Physical Exam General Appearance: no apparent distress Skin: warm Respiratory: bilateral CTA Heart: S1S2, RRR Abdomen: soft, bowel sounds present Genitourinary: bladder flat Extremities: pulses present Neurology: alert, oriented Assessment Assessment IMP YOEL-ESSENTIALLY RESOLVED WITH CR DOWN TO 1.5 AND STABLE LYTES AND ACID BASE BALANCE PLAN WILL SIGN OFF ENC PO FLUID INTAKE AND CONTROL OF BG LEONA BENSON MD Jan 05, 2018 12:21
== END 2018-01-05 13:57 | disposition home or self-care (01) | DRG 853 ==
LOC: ER 18:28 → 1 WEST ICU 21:06 → 5 SOUTH 12-30 11:29
PROVIDERS: ADMIT Internal Medicine; ATTEND Internal Medicine
PROC: 0JBR0ZZ Excision of Left Foot Subcutaneous Tissue and Fascia, Open Approach (ICD-10-PCS; principal; 2018-01-01)
PROC: 0JBQ0ZZ Excision of Right Foot Subcutaneous Tissue and Fascia, Open Approach (ICD-10-PCS; 2018-01-01)
DX: A41.51 Sepsis due to Escherichia coli [E. coli] (principal); E11.10 Type 2 diabetes mellitus with ketoacidosis without coma; N17.9 Acute kidney failure, unspecified; N39.0 Urinary tract infection, site not specified; E11.319 Type 2 diabetes mellitus with unspecified diabetic retinopathy without macular edema; E11.42 Type 2 diabetes mellitus with diabetic polyneuropathy; E11.621 Type 2 diabetes mellitus with foot ulcer; E11.622 Type 2 diabetes mellitus with other skin ulcer; E11.649 Type 2 diabetes mellitus with hypoglycemia without coma; E78.00 Pure hypercholesterolemia, unspecified; E86.0 Dehydration; G43.909 Migraine, unspecified, not intractable, without status migrainosus; F17.210 Nicotine dependence, cigarettes, uncomplicated; R31.9 Hematuria, unspecified; M54.5 Low back pain; I10 Essential (primary) hypertension; L97.519 Non-pressure chronic ulcer of other part of right foot with unspecified severity; Z79.4 Long term (current) use of insulin; Z83.3 Family history of diabetes mellitus; Z91.19 Patient's noncompliance with other medical treatment and regimen; Z79.899 Other long term (current) drug therapy; Z88.8 Allergy status to other drugs, medicaments and biological substances
CPT/HCPCS: 36415; 36600; 73630; 74176; 80048; 80053; 81001; 82010; 82805; 82947; 82962; 83036; 83605; 83735; 84100; 84484; 85007; 85025; 87040; 87086; 87186; 87205; 87324; 87641; 93005; 93926; 96361; 96365; 96372; 96375; J0690; J1335; J1644; J1815; J2405; J2543; J3010; J3475; J7030; S0028; 99285-25

== ENCOUNTER → 2018-02-04 | Outpatient (CLI) | payer SELFPAY ==
[2018-01-12 11:18] VITALS: BP 133/82
[~2018-02-04] MED LIST changes: +AMLO10TA6 PO; +ATOR20TA58 PO; +CARV12.52 PO; +DULA1.5P SQ; +INSU100I11 SQ; +INSU100I13 SQ; +INSU100V13 SQ; +LOSA1TAB19 PO; +METF10007 PO; +PREG75CA PO; +TRAM50TA PO
== END | disposition home or self-care (01) ==
LOC: PMGWOUND 08:08
PROVIDERS: ATTEND Preventive Medicine Undersea and Hyperbaric Medicine
DX: E11.621 Type 2 diabetes mellitus with foot ulcer (principal); L97.511 Non-pressure chronic ulcer of other part of right foot limited to breakdown of skin; E11.42 Type 2 diabetes mellitus with diabetic polyneuropathy; E11.649 Type 2 diabetes mellitus with hypoglycemia without coma; E11.10 Type 2 diabetes mellitus with ketoacidosis without coma; E11.319 Type 2 diabetes mellitus with unspecified diabetic retinopathy without macular edema; L84 Corns and callosities; I10 Essential (primary) hypertension; F41.9 Anxiety disorder, unspecified; E78.00 Pure hypercholesterolemia, unspecified; G44.001 Cluster headache syndrome, unspecified, intractable; Z87.891 Personal history of nicotine dependence; Z79.4 Long term (current) use of insulin
CPT/HCPCS: 99213

== ENCOUNTER 2018-04-30 09:02 | Inpatient (IN) | payer SELFPAY ==
[2018-04-30] VITALS (11 sets, daily range): BP systolic 108–169; BP diastolic 62–95
[~2018-04-30] VITALS: Ht 167.6 cm; Wt 92.2 kg
[~2018-04-30 09:02] MED LIST changes: -AMLO10TA6 PO; +AMLO10TA8 PO; +CARV12.511 PO; -CARV12.52 PO
[2018-04-30] MEDS ORDERED: ERTAPENEM 1GM IVPB (GENERIC) 50 ML IV STA (09:34)
[2018-04-30] MEDS ORDERED: IV NORMAL SALINE 1000ML BAG 1,000 ML IV ONE ×3 (09:45→10:45)
[2018-04-30 09:52] LABS: BASO % 0 % (0-3); EOS % 0 % (0-3); HEMATOCRIT 40.3 % (39.0-53.0); HEMOGLOBIN 13.4 g/dL (13.0-17.5); LYMPH # 0.5 x10^3/uL (1.0-4.8); LYMPH % 5 % (24-48); MEAN CORPUSCULAR HEMOGLOBIN 28 pg (25-35); MEAN CORPUSCULAR HGB CONC 33 g/dL (31-37); MEAN CORPUSCULAR VOLUME 83 fL (79-100); MONO # 0.4 x10^3/uL (0.0-1.1); MONO % 3 % (0-9); NEUT # 9.9 x10^3uL (1.8-7.7); NEUT % 92 % (31-73); PLATELET COUNT 124 x10^3/uL (140-400); RED BLOOD COUNT 4.84 x10^6/uL (4.30-5.70); RED CELL DISTRIBUTION WIDTH 15.2 % (11.5-14.5); WHITE BLOOD COUNT 10.7 x10^3/uL (4.0-11.0)
--- NOTE | 2018-04-30 09:58 | RAD ---
EXAM: Chest, single view. HISTORY: Fever. COMPARISON: 02/07/2017 FINDINGS: A frontal view of the chest is obtained. There is linear right mid thorax atelectasis or interstitial infiltrate. There is no consolidation, pleural effusion or pneumothorax. The heart is normal in size. IMPRESSION: Linear right mid thorax atelectasis or interstitial infiltrate. Electronically signed by: Ericka Rodriguez MD (04/30/2018 9:56 AM) [id number]
[2018-04-30 10:11] LABS: ALBUMIN 2.9 g/dL (3.4-5.0); ALBUMIN/GLOBULIN RATIO 0.5 (1.0-1.7); CALCIUM 9.4 mg/dL (8.5-10.1); CREATININE 3.2 mg/dL (0.7-1.3); GFR 20.9; POTASSIUM 4.5 mmol/L (3.5-5.1); TOTAL BILIRUBIN 1.2 mg/dL (0.2-1.0); TOTAL PROTEIN 8.2 g/dL (6.4-8.2)
[2018-04-30] MEDS ORDERED: INSULIN REGULAR 100 UNIT/ML 3ML VIAL. IV ONE (10:30)
[2018-04-30] MEDS ORDERED: ONDANSETRON PF 4 MG/2 ML VIAL. IV ONE (10:30)
[2018-04-30] MEDS ORDERED: fentaNYL PF VIAL 100 MCG/2 ML VIAL IV ONE ×3 (10:30→21:00)
--- NOTE | 2018-04-30 10:34 | RAD ---
Examination: Ultrasound abdomen limited HISTORY: History of right upper quadrant abdominal pain COMPARISON: None available. FINDINGS: The visualized pancreas grossly appears unremarkable. There is increased echogenicity identified throughout the liver likely hepatic steatosis. The liver measures 18.4 cm. The common bile duct measures 3 mm in transverse dimension. The IVC within normal limits of dimension. The gallbladder wall thickness measures 1.7 mm. No evidence of gallstones identified. The gallbladder appears contracted. The right kidney measures 12.3 cm in length. Impression: 1. Hepatomegaly with hepatic steatosis. 2. Contracted appearance of the gallbladder. Electronically signed by: Lan Van MD (04/30/2018 10:30 AM) [place] [id number]
--- NOTE | 2018-04-30 10:34 | PHYS DOC ---
Past Medical History Past Medical History: Diabetes-Type II, High Cholesterol, Hypertension, Migraines Additional Past Medical Histor: PERIPHERAL NEUROPATHY, RETINOPATHY, renal insufficiency Past Surgical History: No Surgical History Alcohol Use: Occasionally Drug Use: None Adult General Chief Complaint Chief Complaint: NAUSEA/VOMITING/DIARRHA HPI HPI Patient is a 47 year old M P/W CC OF kidney pain back pain abdominal pain nausea vomiting. He's had these symptoms for 2 days he feels weak no fever that he knows of he's been nauseous he has been vomiting he feels similar to when he had Escherichia coli few months back it hurts to P he is going more often he feels urgency Review of Systems Review of Systems Constitutional: Generalized malaise Eyes: Denies change in visual acuity, redness, or eye pain [] HENT: Denies nasal congestion or sore throat [] Respiratory: shortness of breath as well] Integument: Denies rash or skin lesions [] Neurologic: Denies headache, focal weakness or sensory changes [] Endocrine: Denies polyuria or polydipsia [] All other systems were reviewed and found to be within normal limits, except as documented in this note. Current Medications Current Medications Current Medications Medications (Trade) Dose Ordered Sig/Felisha Start Time Stop Time Status Last Admin Dose Admin Ertapenem 50 ml @ 100 mls/hr 1X STAT 04/30/18 09:34 04/30/18 10:03 DC 04/30/18 10:00 100 MLS/HR Insulin Human Regular (HumuLIN R VIAL) 10 unit 1X ONCE 04/30/18 10:30 04/30/18 10:31 Sodium Chloride 1,000 ml @ 1,000 mls/hr 1X ONCE 04/30/18 09:45 04/30/18 10:44 Allergies Allergies Allergies Coded Allergies Type Severity Reaction Last Updated Verified I S O L A T I O N *CONTACT* Allergy Unknown 04/30/18 Yes acetaminophen Adverse Reaction Intermediate UPSET STOMACH, DOESN'T WANT TO TAKE 04/30/18 Yes lisinopril Adverse Reaction Intermediate CHEST PAIN, ACID REFLUX 04/30/18 Yes Physical Exam Physical Exam Constitutional: Well developed, well nourished, no acute distress, non-toxic appearance. [] HENT: Normocephalic, atraumatic, bilateral external ears normal, oropharynx moist, no oral exudates, nose normal. [] Eyes: PERRLA, EOMI, conjunctiva normal, no discharge. [] Neck: Normal range of motion, no tenderness, supple, no stridor. [] Cardiovascular:Heart rate regular rhythm, no murmur [] Lungs & Thorax: Bilateral breath sounds clear to auscultation []mild tachypnea Abdomen: Bowel sounds normal, soft, right upper quadrant tenderness, no masses, no pulsatile masses. [] Skin: Warm, dry, no erythema, no rash. [] Extremities: No tenderness, no cyanosis, no clubbing, ROM intact, no edema. [] Neurologic: Alert and oriented X 3, normal motor function, normal sensory function, no focal deficits noted. [] Psychologic: Affect normal, judgement normal, mood normal. [] Current Patient Data Vital Signs Vital Signs Date Time Temp Pulse Resp B/P (MAP) Pulse Ox O2 Delivery O2 Flow Rate FiO2 04/30/18 09:09 98.1 130 18 132/77 (95) 95 Room Air 98.1 Lab Values Laboratory Tests Test 04/30/18 09:17 04/30/18 09:30 Glucose (Fingerstick) 523 mg/dL (70-99) *H White Blood Count 10.7 x10^3/uL (4.0-11.0) Red Blood Count 4.84 x10^6/uL (4.30-5.70) Hemoglobin 13.4 g/dL (13.0-17.5) Hematocrit 40.3 % (39.0-53.0) Mean Corpuscular Volume 83 fL (79-100) Mean Corpuscular Hemoglobin 28 pg (25-35) Mean Corpuscular Hemoglobin Concent 33 g/dL (31-37) Red Cell Distribution Width 15.2 % (11.5-14.5) H Platelet Count 124 x10^3/uL (140-400) L Neutrophils (%) (Auto) 92 % (31-73) H Lymphocytes (%) (Auto) 5 % (24-48) L Monocytes (%) (Auto) 3 % (0-9) Eosinophils (%) (Auto) 0 % (0-3) Basophils (%) (Auto) 0 % (0-3) Neutrophils # (Auto) 9.9 x10^3uL (1.8-7.7) H Lymphocytes # (Auto) 0.5 x10^3/uL (1.0-4.8) L Monocytes # (Auto) 0.4 x10^3/uL (0.0-1.1) Eosinophils # (Auto) 0.0 x10^3/uL (0.0-0.7) Basophils # (Auto) 0.0 x10^3/uL (0.0-0.2) Platelet Estimate Pending Prothrombin Time 17.0 SEC (11.7-14.0) H Prothrombin Time INR 1.4 (0.8-1.1) H Sodium Level 128 mmol/L (136-145) L Potassium Level 4.5 mmol/L (3.5-5.1) Chloride Level 89 mmol/L (98-107) L Carbon Dioxide Level 25 mmol/L (21-32) Anion Gap 14 (6-14) Blood Urea Nitrogen 56 mg/dL (8-26) H Creatinine 3.2 mg/dL (0.7-1.3) H Estimated GFR (Cockcroft-Gault) 20.9 BUN/Creatinine Ratio 18 (6-20) Glucose Level 538 mg/dL (70-99) *H Lactic Acid Level 3.8 mmol/L (0.4-2.0) H Calcium Level 9.4 mg/dL (8.5-10.1) Total Bilirubin 1.2 mg/dL (0.2-1.0) H Aspartate Amino Transferase (AST) 16 U/L (15-37) Alanine Aminotransferase (ALT) 21 U/L (16-63) Alkaline Phosphatase 76 U/L (46-116) Troponin I Quantitative < 0.017 ng/mL (0.000-0.055) Total Protein 8.2 g/dL (6.4-8.2) Albumin 2.9 g/dL (3.4-5.0) L Albumin/Globulin Ratio 0.5 (1.0-1.7) L Lipase 77 U/L (73-393) Ethyl Alcohol Level < 10 mg/dL (0-10) Laboratory Tests 04/30/18 09:30 Laboratory Tests 04/30/18 09:30 EKG EKG Sinus tach rate 133 no obvious acute ischemic changes noted QTC is 4:30 interpreted by me the time of encounter[] Radiology/Procedures Radiology/Procedures [] Impressions: IMPRESSION: Linear right mid thorax atelectasis or interstitial infiltrate. Electronically signed by: Shahida Suresh MD (04/30/2018 9:56 AM) [id number] DICTATED and SIGNED BY: SHAHIDA SURESH MD DATE: 04/30/18 0955 Course & Med Decision Making Course & Med Decision Making Pertinent Labs and Imaging studies reviewed. (See chart for details) []47-year-old male insulin-dependent diabetic history of resistant Escherichia coli back in December presenting with abdominal pain back pain vomiting and generalized malaise for the last 2 days found to be tachycardic to 130 blood pressure is stable white count is normal blood sugars 530 but there is no evidence of DKA on chemistry panel patient was given fluid resuscitation pain control anti-medic IV Invanz presumptively given prior history right upper quadrant ultrasound is pending also we will do a CT abdomen and pelvis to check for obstructing kidney stone that is pending as well. I spoke with Dr. SCHUSTER IN THE ER AT 1020 AM. PT TO [facility] FOR FURTHER OBSERVATION AND MONITORING. LACTIC ACID 3.8 WILL HYDRATE AND REPEAT LATER. Dragon Disclaimer Dragon Disclaimer This electronic medical record was generated, in whole or in part, using a voice recognition dictation system. Departure Departure Impression: Primary Impression: Dehydration Additional Impressions: Acute kidney injury Hyperglycemia Disposition: ADMITTED INPATIENT Admitting Physician: Joseph Ospina Condition: STABLE Referrals: KASSY HUNT DO (PCP) Problem Qualifiers BERTA DURÁN MD Apr 30, 2018 10:34
--- NOTE | 2018-04-30 10:41 | PDOC1 ---
History and Physical Date of Admission Date of Admission DATE: 04/30/18 TIME: 10:40 Identification/Chief Complaint Chief Complaint 47 year old M P/W CC OF kidney pain back pain abdominal pain nausea vomiting., symptoms for 2 days he feels weak no fever that he knows of he's been nauseous he has been vomiting he feels similar to when he had Escherichia coli SEPTICEMIA IN 2018, IS TACHY, LOOKS ILL Past Medical History Past Medical History Past Medical History Past Medical History: Diabetes-Type II, High Cholesterol, Hypertension, Migraines Additional Past Medical Histor: PERIPHERAL NEUROPATHY, RETINOPATHY, renal insufficiency Past Surgical History: No Surgical History Alcohol Use: Occasionally Drug Use: None FAMILY HX DIABETES Cardiovascular: HTN Pulmonary: No pertinent hx GI: No pertinent hx Heme/Onc: No pertinent hx Hepatobiliary: No pertinent hx Psych: No pertinent hx Infectious disease: No pertinent hx, Other (BACTEREMIA 2018) Renal/: No pertinent hx Endocrine: Diabetes Past Surgical History Past Surgical History: No pertinent history Family History Family History: Diabetes Family History: Parent Social History Smoke: No ALCOHOL: none Drugs: None, Other (DISABLED) Current Problem List Problem List Problems Medical Problems: (1) Dehydration Status: Acute (2) Hyperglycemia Status: Acute Current Medications Current Medications Current Medications Ertapenem 50 ml @ 100 mls/hr 1X STAT IV Last administered on 04/30/18at 10:00 ; Start 04/30/18 at 09:34; Stop 04/30/18 at 10:03; Status DC Sodium Chloride 1,000 ml @ 1,000 mls/hr 1X ONCE IV Last administered on at 09:50; Start 04/30/18 at 09:45; Stop 04/30/18 at 10:44 Sodium Chloride 1,000 ml @ 1,000 mls/hr 1X ONCE IV Last administered on at 10:28; Start 04/30/18 at 09:45; Stop 04/30/18 at 10:44 Insulin Human Regular (HumuLIN R VIAL) 10 unit 1X ONCE IV Last administered on 04/30/18at 10:33; Start 04/30/18 at 10:30; Stop 04/30/18 at 10:31; Status DC Ondansetron HCl (Zofran) 4 mg 1X ONCE IV Last administered on 04/30/18at 10:31 ; Start 04/30/18 at 10:30; Stop 04/30/18 at 10:32; Status DC Fentanyl Citrate (Fentanyl 2ml Vial) 50 mcg 1X ONCE IV ; Start 04/30/18 at 10: 30; Stop 04/30/18 at 10:32; Status DC Sodium Chloride 1,000 ml @ 1,000 mls/hr 1X ONCE IV ; Start 04/30/18 at 10:45; Stop 04/30/18 at 11:44 Active Scripts Active Humalog (Insulin Lispro) 100 Unit/1 Ml Insuln.pen 8 Units SQ TIDWMEALS 14 Days Lantus Solostar (Insulin Glargine,Hum.rec.anlog) 100 Unit/1 Ml Insuln.pen 25 Units SQ QHS 14 Days Tramadol Hcl 50 Mg Tablet 50 Mg PO PRN Q6HRS PRN Amlodipine Besylate 10 Mg Tablet 10 Mg PO DAILY 30 Days Carvedilol 12.5 Mg Tablet 12.5 Mg PO BIDWMEALS 30 Days Zofran (Ondansetron Hcl) 4 Mg Tablet 1 Tab PO PRN Q8HRS PRN Reported Losartan-Hctz 50-12.5 Mg Tab (Losartan/Hydrochlorothiazide) 1 Each Tablet 1 Each PO DAILY Lyrica (Pregabalin) 75 Mg Capsule 75 Mg PO TID Atorvastatin Calcium 20 Mg Tablet 20 Mg PO HS Amlodipine Besylate 10 Mg Tablet 20 Mg PO BID Trulicity (Dulaglutide) 1.5 Mg/0.5 Ml Pen.injctr 1.5 Mg SQ WEEKLY Metformin Hcl 1,000 Mg Tablet 1,000 Mg PO BIDWMEALS Allergies Allergies: Coded Allergies: I S O L A T I O N *CONTACT* (Verified Allergy, Unknown, 04/30/18) MDR-E.coli acetaminophen (Verified Adverse Reaction, Intermediate, UPSET STOMACH, DOESN'T WANT TO TAKE, 04/30/18) lisinopril (Verified Adverse Reaction, Intermediate, CHEST PAIN, ACID REFLUX, 04/30/18) ROS Review of System Review of Systems Review of Systems Constitutional: Generalized malaise Eyes: Denies change in visual acuity, redness, or eye pain [] HENT: Denies nasal congestion or sore throat [] Respiratory: shortness of breath as well] Integument: Denies rash or skin lesions [] Neurologic: Denies headache, focal weakness or sensory changes [] Endocrine: Denies polyuria or polydipsia [] 14 PT systems were reviewed and found to be within normal limits, except as documented . General: YES: Chills, Fatigue, Malaise PSYCHOLOGICAL ROS: YES: Anxiety Eyes: No Blurry vision, No Decreased vision, No Double vision, No Dry eyes, No Excessive tearing, No Eye Pain, No Itchy Eyes, No Loss of vision, No Photophobia , No Scotomata, No Uses contacts, No Uses glasses, No Other ALLERGY AND IMMUNOLOGY: No: Hives, Insect Bite Sensitivity, Itchy/Watery Eyes, Nasal Congestion, Post Nasal Drip, Seasonal Allergies, Other Cardiovascular: yes Palpitations Gastrointestinal: Yes Nausea, Yes Vomiting Genitourinary: YES Dysuria Musculoskeletal: Yes Joint Stiffness Physical Exam Physical Exam Physical Exam Physical Exam Constitutional: Well developed, well nourished, MOD acute distress, non-toxic appearance. [] HENT: Normocephalic, atraumatic, bilateral external ears normal, oropharynx moist, no oral exudates, nose normal. [] Eyes: PERRLA, EOMI, conjunctiva normal, no discharge. [] Neck: Normal range of motion, no tenderness, supple, no stridor. [] Cardiovascular:Heart rate regular rhythm, no murmur [] Lungs & Thorax: Bilateral breath sounds clear to auscultation []mild tachypnea Abdomen: Bowel sounds normal, soft, right upper quadrant tenderness, no masses, no pulsatile masses. [] Skin: Warm, dry, no erythema, no rash. [] Extremities: No tenderness, no cyanosis, no clubbing, ROM intact, no edema. [] Neurologic: Alert and oriented X 3, normal motor function, normal sensory function, no focal deficits noted. [] Psychologic: Affect normal, judgement normal, mood normal. [] General: Alert, Oriented X3, Cooperative, moderate distress HEENT: Atraumatic, PERRLA, EOMI Lungs: Clear to auscultation, Normal air movement Heart: other (TACHY) Breasts: Not examined Abdomen: Normal bowel sounds, Soft Rectal Exam: not examined Skin: No breakdown Neuro: Normal speech, Cranial nerves 3-12 NL Psych/Mental Status: Mood NL Vitals Vitals Vital Signs Date Time Temp Pulse Resp B/P (MAP) Pulse Ox O2 Delivery O2 Flow Rate FiO2 04/30/18 09:09 98.1 130 18 132/77 (95) 95 Room Air 98.1 Labs Labs Laboratory Tests Test 04/30/18 09:17 04/30/18 09:30 Glucose (Fingerstick) 523 mg/dL (70-99) White Blood Count 10.7 x10^3/uL (4.0-11.0) Red Blood Count 4.84 x10^6/uL (4.30-5.70) Hemoglobin 13.4 g/dL (13.0-17.5) Hematocrit 40.3 % (39.0-53.0) Mean Corpuscular Volume 83 fL (79-100) Mean Corpuscular Hemoglobin 28 pg (25-35) Mean Corpuscular Hemoglobin Concent 33 g/dL (31-37) Red Cell Distribution Width 15.2 % (11.5-14.5) Platelet Count 124 x10^3/uL (140-400) Neutrophils (%) (Auto) 92 % (31-73) Lymphocytes (%) (Auto) 5 % (24-48) Monocytes (%) (Auto) 3 % (0-9) Eosinophils (%) (Auto) 0 % (0-3) Basophils (%) (Auto) 0 % (0-3) Neutrophils # (Auto) 9.9 x10^3uL (1.8-7.7) Lymphocytes # (Auto) 0.5 x10^3/uL (1.0-4.8) Monocytes # (Auto) 0.4 x10^3/uL (0.0-1.1) Eosinophils # (Auto) 0.0 x10^3/uL (0.0-0.7) Basophils # (Auto) 0.0 x10^3/uL (0.0-0.2) Prothrombin Time 17.0 SEC (11.7-14.0) Prothromb Time International Ratio 1.4 (0.8-1.1) Sodium Level 128 mmol/L (136-145) Potassium Level 4.5 mmol/L (3.5-5.1) Chloride Level 89 mmol/L (98-107) Carbon Dioxide Level 25 mmol/L (21-32) Anion Gap 14 (6-14) Blood Urea Nitrogen 56 mg/dL (8-26) Creatinine 3.2 mg/dL (0.7-1.3) Estimated GFR (Cockcroft-Gault) 20.9 BUN/Creatinine Ratio 18 (6-20) Glucose Level 538 mg/dL (70-99) Lactic Acid Level 3.8 mmol/L (0.4-2.0) Calcium Level 9.4 mg/dL (8.5-10.1) Total Bilirubin 1.2 mg/dL (0.2-1.0) Aspartate Amino Transf (AST/SGOT) 16 U/L (15-37) Alanine Aminotransferase (ALT/SGPT) 21 U/L (16-63) Alkaline Phosphatase 76 U/L (46-116) Troponin I Quantitative < 0.017 ng/mL (0.000-0.055) Total Protein 8.2 g/dL (6.4-8.2) Albumin 2.9 g/dL (3.4-5.0) Albumin/Globulin Ratio 0.5 (1.0-1.7) Lipase 77 U/L (73-393) Ethyl Alcohol Level < 10 mg/dL (0-10) Laboratory Tests Test 04/30/18 09:17 04/30/18 09:30 Glucose (Fingerstick) 523 mg/dL (70-99) White Blood Count 10.7 x10^3/uL (4.0-11.0) Red Blood Count 4.84 x10^6/uL (4.30-5.70) Hemoglobin 13.4 g/dL (13.0-17.5) Hematocrit 40.3 % (39.0-53.0) Mean Corpuscular Volume 83 fL (79-100) Mean Corpuscular Hemoglobin 28 pg (25-35) Mean Corpuscular Hemoglobin Concent 33 g/dL (31-37) Red Cell Distribution Width 15.2 % (11.5-14.5) Platelet Count 124 x10^3/uL (140-400) Neutrophils (%) (Auto) 92 % (31-73) Lymphocytes (%) (Auto) 5 % (24-48) Monocytes (%) (Auto) 3 % (0-9) Eosinophils (%) (Auto) 0 % (0-3) Basophils (%) (Auto) 0 % (0-3) Neutrophils # (Auto) 9.9 x10^3uL (1.8-7.7) Lymphocytes # (Auto) 0.5 x10^3/uL (1.0-4.8) Monocytes # (Auto) 0.4 x10^3/uL (0.0-1.1) Eosinophils # (Auto) 0.0 x10^3/uL (0.0-0.7) Basophils # (Auto) 0.0 x10^3/uL (0.0-0.2) Prothrombin Time 17.0 SEC (11.7-14.0) Prothromb Time International Ratio 1.4 (0.8-1.1) Sodium Level 128 mmol/L (136-145) Potassium Level 4.5 mmol/L (3.5-5.1) Chloride Level 89 mmol/L (98-107) Carbon Dioxide Level 25 mmol/L (21-32) Anion Gap 14 (6-14) Blood Urea Nitrogen 56 mg/dL (8-26) Creatinine 3.2 mg/dL (0.7-1.3) Estimated GFR (Cockcroft-Gault) 20.9 BUN/Creatinine Ratio 18 (6-20) Glucose Level 538 mg/dL (70-99) Lactic Acid Level 3.8 mmol/L (0.4-2.0) Calcium Level 9.4 mg/dL (8.5-10.1) Total Bilirubin 1.2 mg/dL (0.2-1.0) Aspartate Amino Transf (AST/SGOT) 16 U/L (15-37) Alanine Aminotransferase (ALT/SGPT) 21 U/L (16-63) Alkaline Phosphatase 76 U/L (46-116) Troponin I Quantitative < 0.017 ng/mL (0.000-0.055) Total Protein 8.2 g/dL (6.4-8.2) Albumin 2.9 g/dL (3.4-5.0) Albumin/Globulin Ratio 0.5 (1.0-1.7) Lipase 77 U/L (73-393) Ethyl Alcohol Level < 10 mg/dL (0-10) Images Images Exposure: One or more of the following individualized dose reduction techniques were utilized for this examination: 1. Automated exposure control 2. Adjustment of the mA and/or kV according to patient size 3. Use of iterative reconstruction technique. Comparison: December 29, 2017. TECHNIQUE: No intravenous or oral contrast. FINDINGS: Evaluation of solid viscera, bowel and vasculature is compromised by the noncontrast technique. There is linear markings in both lung bases compatible with atelectasis. Liver unremarkable. Spleen mildly enlarged 14.5 cm, unchanged. Pancreas unremarkable. No adrenal mass. There is stranding within the perinephric fat bilaterally, but on the right side this has increased since previous exam. There is also stranding around the right renal pelvis and along the right ureter. No evidence of focal renal lesion. No hydronephrosis. No evidence of ureteric dilatation or urolithiasis. No calcified gallstone. The aorta is nonaneurysmal. No significant lymph node enlargement. No evidence of bowel obstruction. No definite colonic wall thickening. Appendix is normal. There is thickening of the pararenal fascia as well as thickening of the fascia along the right paracolic gutter extending into the pelvis, with adjacent inflammatory fatty stranding. No evidence of ascites. No evidence of pneumoperitoneum. Urinary bladder is without definite abnormality. No evidence of pelvic mass. Degenerative changes of the spine. IMPRESSION: 1. Fatty stranding in the right perinephric region and right paracolic gutter with fascial thickening. Findings suggest nonspecific acute inflammatory or infectious etiology, such as pyelonephritis. The right descending colon is adjacent to these inflammatory changes but demonstrates no definite intrinsic wall thickening. 2. No evidence of obstructive uropathy or calculus. 3. Stable mild splenomegaly. Electronically signed by: Wallace Parish MD (04/30/2018 1:52 PM) [id number] DICTATED and SIGNED BY: WALLACE PARISH MD DATE: 04/30/18 1341 SEX: M EXAM STATUS: REG ER ORD. PHYSICIAN: BERTA DURÁN MD REASON: ruq pain PROCEDURE: ABDOMEN LTD Examination: Ultrasound abdomen limited HISTORY: History of right upper quadrant abdominal pain COMPARISON: None available. FINDINGS: The visualized pancreas grossly appears unremarkable. There is increased echogenicity identified throughout the liver likely hepatic steatosis. The liver measures 18.4 cm. The common bile duct measures 3 mm in transverse dimension. The IVC within normal limits of dimension. The gallbladder wall thickness measures 1.7 mm. No evidence of gallstones identified. The gallbladder appears contracted. The right kidney measures 12.3 cm in length. Impression: 1. Hepatomegaly with hepatic steatosis. 2. Contracted appearance of the gallbladder. Electronically signed by: Lan Van MD (04/30/2018 10:30 AM) [facility] V[facility] Prophylaxis Ordered VTE Prophylaxis Devices: Yes VTE Pharmacological Prophylaxi: Yes Assessment/Plan Assessment/Plan IMPRESSION: 1. Fatty stranding in the right perinephric region and right paracolic gutter with fascial thickening. Findings suggest nonspecific acute inflammatory or infectious etiology, such as pyelonephritis. 2. No evidence of obstructive uropathy or calculus. 3. Stable mild splenomegaly. 4. SEPSIS 5. ARF/ ATN 6. UNCONTROLLED DIABETES PLAN ICU BED ID CONSULT EMPERIC IV ANTIBIOTICS DVT PROPHYLAXIS BLOOD CULT FOLLOW LACTIC ACID URINE CULTURE NEPHROLOGY CONSULT 108 MIN CC TIME NAZIA SCHUSTER MD Apr 30, 2018 10:40
[2018-04-30 10:51] LABS: % BANDS 31 % (0-9); % LYMPHS 4 % (24-48); % MONOS 3 % (0-10); % MYELOS 1 % (0-0); % SEGS 61 % (35-66); PLT ESTIMATE DECREASED (ADEQUATE)
[2018-04-30 10:52] LABS: TOXIC VACUOLATION SLIGHT
[2018-04-30] MEDS ORDERED: ACETAMINOPHEN 500 MG TABLET PO ONE (11:45)
[2018-04-30] MEDS ORDERED: INSULIN,REGULAR 150 UNIT DRIP 150 ML IV ONE (12:00)
[2018-04-30] MEDS ORDERED: METOCLOPRAMIDE HCL 10 MG/2 ML VIAL. IV ONE (12:00)
[2018-04-30 12:30] LABS: BILIRUBIN,URINE NEGATIVE (NEG); CLARITY,URINE CLEAR; COLOR,URINE YELLOW; NITRITE,URINE POSITIVE (NEG); PH,URINE 5.5; PROTEIN,URINE 30 mg/dL (NEG-TRACE); UROBILINOGEN,URINE 0.2 mg/dL (0.2 mg/dL)
[2018-04-30 12:39] LABS: HYALINE CASTS, URINE MODERATE /HPF
[2018-04-30 12:40] LABS: BACTERIA,URINE 0 /HPF (0-FEW); WBC,URINE 20-40 /HPF (0-4)
--- NOTE | 2018-04-30 13:55 | RAD ---
CT ABDOMEN PELVIS WO CONTRAST Indication: BACK PAIN, N/V, Exposure: One or more of the following individualized dose reduction techniques were utilized for this examination: 1. Automated exposure control 2. Adjustment of the mA and/or kV according to patient size 3. Use of iterative reconstruction technique. Comparison: December 29, 2017. TECHNIQUE: No intravenous or oral contrast. FINDINGS: Evaluation of solid viscera, bowel and vasculature is compromised by the noncontrast technique. There is linear markings in both lung bases compatible with atelectasis. Liver unremarkable. Spleen mildly enlarged 14.5 cm, unchanged. Pancreas unremarkable. No adrenal mass. There is stranding within the perinephric fat bilaterally, but on the right side this has increased since previous exam. There is also stranding around the right renal pelvis and along the right ureter. No evidence of focal renal lesion. No hydronephrosis. No evidence of ureteric dilatation or urolithiasis. No calcified gallstone. The aorta is nonaneurysmal. No significant lymph node enlargement. No evidence of bowel obstruction. No definite colonic wall thickening. Appendix is normal. There is thickening of the pararenal fascia as well as thickening of the fascia along the right paracolic gutter extending into the pelvis, with adjacent inflammatory fatty stranding. No evidence of ascites. No evidence of pneumoperitoneum. Urinary bladder is without definite abnormality. No evidence of pelvic mass. Degenerative changes of the spine. IMPRESSION: 1. Fatty stranding in the right perinephric region and right paracolic gutter with fascial thickening. Findings suggest nonspecific acute inflammatory or infectious etiology, such as pyelonephritis. The right descending colon is adjacent to these inflammatory changes but demonstrates no definite intrinsic wall thickening. 2. No evidence of obstructive uropathy or calculus. 3. Stable mild splenomegaly. Electronically signed by: Wallace Parish MD (04/30/2018 1:52 PM) [id number]
[2018-04-30] MEDS: IV NORMAL SALINE 1000ML BAG 1,000 ML IV SCH ×4 (15:06→21:16)
[2018-04-30] MEDS ORDERED: DEXTROSE 50% 25 GM / 50ML DISP.SYRIN. IV PRN (15:15)
[2018-04-30] MEDS ORDERED: NOREPINEPHRIN 8MG/250ML PREMIX 250 ML IV PRN (15:15)
[2018-04-30] MEDS ORDERED: IV NORMAL SALINE 500ML BAG 500 ML IV PRN (15:15)
--- NOTE | 2018-04-30 15:28 | EKG ---
[facility] [address] [place] [address] Test Date: 2018-04-30 Test Time: 12:15:42 Pat Name: LETHA ARZATE Department: Room: 116 1 Gender: Director Speech Language: : 1970 Requested By: BERTA DURÁN Order Number: [id number] Reading MD: Bubba Alonzo MD Measurements Intervals [place] Rate: P: ND: QRS: QRSD: T: QT: QTc: Interpretive Statements SINUS TACHYCARDIA CANNOT RULE OUT INFERIOR INFARCT Electronically Signed On 05-02-2018 10:35:18 TRANSPORTATION OFFICER by Bubba Alonzo MD
[2018-04-30] MEDS: fentaNYL PF VIAL 100 MCG/2 ML VIAL IV PRN (16:55)
[2018-04-30 18:31] LABS: PARTIAL THROMBOPLASTIN TIME 33 SEC (24-38)
[2018-04-30 18:37] LABS: FIBRINOGEN 971 mg/dL (200-440)
[2018-04-30] MEDS: ONDANSETRON PF 4 MG/2 ML VIAL. IV PRN (20:11)
[2018-04-30] MEDS: MEROPENEM 500 MG in IV NORMAL SALINE 50ML 50 ML IV SCH (20:11)
[2018-04-30] MEDS: INSULIN LISPRO 300 UNITS/3 ML INSULN.PEN. SQ SCH (20:13)
[2018-04-30] MEDS ORDERED: IBUPROFEN 200 MG TABLET. PO PRN (20:45)
[2018-04-30] MEDS: HEPARIN for SUB-Q USE 5,000 UNIT/ML VIAL. SQ SCH (21:16)
[2018-05-01] VITALS (15 sets, daily range): BP systolic 130–188; BP diastolic 72–113
[2018-05-01] MEDS: IV NORMAL SALINE 1000ML BAG 1,000 ML IV SCH ×3 (04:30→16:53)
[2018-05-01 05:02] LABS: BASO % 0 % (0-3); EOS # 0.1 x10^3/uL (0.0-0.7); EOS % 1 % (0-3); HEMATOCRIT 33.9 % (39.0-53.0); HEMOGLOBIN 11.3 g/dL (13.0-17.5); LYMPH # 0.7 x10^3/uL (1.0-4.8); LYMPH % 7 % (24-48); MEAN CORPUSCULAR HEMOGLOBIN 28 pg (25-35); MEAN CORPUSCULAR HGB CONC 33 g/dL (31-37); MEAN CORPUSCULAR VOLUME 84 fL (79-100); MONO # 0.8 x10^3/uL (0.0-1.1); MONO % 8 % (0-9); NEUT # 7.7 x10^3uL (1.8-7.7); NEUT % 84 % (31-73); PLATELET COUNT 100 x10^3/uL (140-400); RED BLOOD COUNT 4.06 x10^6/uL (4.30-5.70); RED CELL DISTRIBUTION WIDTH 15.4 % (11.5-14.5); WHITE BLOOD COUNT 9.2 x10^3/uL (4.0-11.0)
[2018-05-01 05:18] LABS: ALBUMIN 2.2 g/dL (3.4-5.0); ALBUMIN/GLOBULIN RATIO 0.5 (1.0-1.7); CALCIUM 8.3 mg/dL (8.5-10.1); CREATININE 2.5 mg/dL (0.7-1.3); GFR 27.8; TOTAL BILIRUBIN 0.7 mg/dL (0.2-1.0); TOTAL PROTEIN 6.9 g/dL (6.4-8.2)
[2018-05-01] MEDS: HEPARIN for SUB-Q USE 5,000 UNIT/ML VIAL. SQ SCH ×3 (06:22→21:18)
[2018-05-01] MEDS: ONDANSETRON PF 4 MG/2 ML VIAL. IV PRN ×3 (07:48→21:08)
[2018-05-01] MEDS: INSULIN LISPRO 300 UNITS/3 ML INSULN.PEN. SQ SCH (08:00)
--- NOTE | 2018-05-01 08:23 | PDOC ---
Infectious Disease Note Subjective: Subjective pt seen and examined Vital Signs: Vital Signs Vital Signs Date Time Temp Pulse Resp B/P (MAP) Pulse Ox O2 Delivery O2 Flow Rate FiO2 05/01/18 07:00 98.1 102 26 153/83 (106) 98 Nasal Cannula 2.0 98.1 Medications: Inpatient Meds: Current Medications Medications (Trade) Dose Ordered Sig/Felisha Start Time Stop Time Status Last Admin Dose Admin Acetaminophen (Tylenol) 1,000 mg 1X ONCE 04/30/18 11:45 04/30/18 11:47 DC Dextrose (Dextrose 50%-Water Syringe) 12.5 gm PRN Q15MIN PRN 04/30/18 15:15 Dobutamine HCl/ Dextrose 250 ml @ 0 mls/hr CONT PRN 04/30/18 15:15 Ertapenem 50 ml @ 100 mls/hr 1X STAT 04/30/18 09:34 04/30/18 10:03 DC 04/30/18 10:00 100 MLS/HR Fentanyl Citrate (Fentanyl 2ml Vial) 50 mcg PRN Q3HRS PRN 04/30/18 17:00 04/30/18 16:55 50 MCG Heparin Sodium (Porcine) (Heparin Sodium) 5,000 unit Q8HRS 04/30/18 22:00 05/01/18 06:22 5,000 UNIT Ibuprofen (Motrin) 200 mg PRN Q6HRS PRN 04/30/18 20:45 04/30/18 21:14 200 MG Insulin Glargine (Lantus) 35 units [id number] 05/02/18 08:00 UNV Insulin Human Lispro (HumaLOG) 0-7 UNITS TIDWMEALS 05/01/18 12:00 UNV Insulin Human Regular 150 ml @ 0 mls/hr 1X ONCE 04/30/18 12:00 04/30/18 12:01 DC 04/30/18 12:48 9.3 MLS/HR Insulin Human Regular (HumuLIN R VIAL) 10 unit 1X ONCE 04/30/18 10:30 04/30/18 10:31 DC 04/30/18 10:33 10 UNIT Meropenem 500 mg/ Sodium Chloride 50 ml @ 100 mls/hr Q12HR 04/30/18 21:00 04/30/18 20:11 100 MLS/HR Metoclopramide HCl (Reglan Vial) 10 mg 1X ONCE 04/30/18 12:00 04/30/18 12:01 DC 04/30/18 12:08 10 MG Norepinephrine Bitartrate 250 ml @ 0 mls/hr CONT PRN 04/30/18 15:15 Ondansetron HCl (Zofran) 4 mg PRN Q6HRS PRN 04/30/18 19:30 05/01/18 07:48 4 MG Sodium Chloride 1,000 ml @ 150 mls/hr Q6H40M 04/30/18 15:10 04/30/18 21:16 150 MLS/HR Labs: Lab Laboratory Tests Test 04/30/18 09:17 04/30/18 09:30 04/30/18 11:51 04/30/18 12:06 Glucose (Fingerstick) 523 mg/dL (70-99) 472 mg/dL (70-99) White Blood Count 10.7 x10^3/uL (4.0-11.0) Red Blood Count 4.84 x10^6/uL (4.30-5.70) Hemoglobin 13.4 g/dL (13.0-17.5) Hematocrit 40.3 % (39.0-53.0) Mean Corpuscular Volume 83 fL (79-100) Mean Corpuscular Hemoglobin 28 pg (25-35) Mean Corpuscular Hemoglobin Concent 33 g/dL (31-37) Red Cell Distribution Width 15.2 % (11.5-14.5) Platelet Count 124 x10^3/uL (140-400) Neutrophils (%) (Auto) 92 % (31-73) Lymphocytes (%) (Auto) 5 % (24-48) Monocytes (%) (Auto) 3 % (0-9) Eosinophils (%) (Auto) 0 % (0-3) Basophils (%) (Auto) 0 % (0-3) Neutrophils # (Auto) 9.9 x10^3uL (1.8-7.7) Lymphocytes # (Auto) 0.5 x10^3/uL (1.0-4.8) Monocytes # (Auto) 0.4 x10^3/uL (0.0-1.1) Eosinophils # (Auto) 0.0 x10^3/uL (0.0-0.7) Basophils # (Auto) 0.0 x10^3/uL (0.0-0.2) Segmented Neutrophils % 61 % (35-66) Band Neutrophils % 31 % (0-9) Lymphocytes % 4 % (24-48) Monocytes % 3 % (0-10) Myelocytes % 1 % (0-0) Toxic Vacuolation Slight Dohle Bodies Few Platelet Estimate Decreased (ADEQUATE) Large Platelets Few Prothrombin Time 17.0 SEC (11.7-14.0) Prothromb Time International Ratio 1.4 (0.8-1.1) Sodium Level 128 mmol/L (136-145) Potassium Level 4.5 mmol/L (3.5-5.1) Chloride Level 89 mmol/L (98-107) Carbon Dioxide Level 25 mmol/L (21-32) Anion Gap 14 (6-14) Blood Urea Nitrogen 56 mg/dL (8-26) Creatinine 3.2 mg/dL (0.7-1.3) Estimated GFR (Cockcroft-Gault) 20.9 BUN/Creatinine Ratio 18 (6-20) Glucose Level 538 mg/dL (70-99) Lactic Acid Level 3.8 mmol/L (0.4-2.0) Calcium Level 9.4 mg/dL (8.5-10.1) Total Bilirubin 1.2 mg/dL (0.2-1.0) Aspartate Amino Transf (AST/SGOT) 16 U/L (15-37) Alanine Aminotransferase (ALT/SGPT) 21 U/L (16-63) Alkaline Phosphatase 76 U/L (46-116) Troponin I Quantitative < 0.017 ng/mL (0.000-0.055) Total Protein 8.2 g/dL (6.4-8.2) Albumin 2.9 g/dL (3.4-5.0) Albumin/Globulin Ratio 0.5 (1.0-1.7) Lipase 77 U/L (73-393) Procalcitonin 56.44 ng/mL (0.00-0.10) Ethyl Alcohol Level < 10 mg/dL (0-10) Urine Collection Type Unknown Urine Color Yellow Urine Clarity Clear Urine pH 5.5 Urine Specific [place] 1.025 Urine Protein 30 mg/dL (NEG-TRACE) Urine Glucose (UA) >=1000 mg/dL (NEG) Urine Ketones (Stick) 15 mg/dL (NEG) Urine Blood Large (NEG) Urine Nitrite Positive (NEG) Urine Bilirubin Negative (NEG) Urine Urobilinogen Dipstick 0.2 mg/dL (0.2 mg/dL) Urine Leukocyte Esterase Negative (NEG) Urine RBC 3-5 /HPF (0-2) Urine WBC 20-40 /HPF (0-4) Urine Transitional Epithelial Cells Occ /LPF Urine Bacteria 0 /HPF (0-FEW) Urine Hyaline Casts Moderate /HPF Urine Mucus Slight /LPF Clostridium difficile Toxin B Gene Negative (Negative) Test 04/30/18 12:36 04/30/18 13:50 04/30/18 14:16 04/30/18 15:41 Glucose (Fingerstick) 527 mg/dL (70-99) 407 mg/dL (70-99) 401 mg/dL (70-99) Lactic Acid Level 3.5 mmol/L (0.4-2.0) Procalcitonin 48.12 ng/mL (0.00-0.10) Test 04/30/18 17:02 04/30/18 18:15 04/30/18 18:16 04/30/18 19:35 Glucose (Fingerstick) 370 mg/dL (70-99) 270 mg/dL (70-99) 247 mg/dL (70-99) Activated Partial Thromboplast Time 33 SEC (24-38) Fibrinogen 971 mg/dL (200-440) Test 04/30/18 20:42 05/01/18 04:30 05/01/18 07:53 Glucose (Fingerstick) 216 mg/dL (70-99) 320 mg/dL (70-99) White Blood Count 9.2 x10^3/uL (4.0-11.0) Red Blood Count 4.06 x10^6/uL (4.30-5.70) Hemoglobin 11.3 g/dL (13.0-17.5) Hematocrit 33.9 % (39.0-53.0) Mean Corpuscular Volume 84 fL (79-100) Mean Corpuscular Hemoglobin 28 pg (25-35) Mean Corpuscular Hemoglobin Concent 33 g/dL (31-37) Red Cell Distribution Width 15.4 % (11.5-14.5) Platelet Count 100 x10^3/uL (140-400) Neutrophils (%) (Auto) 84 % (31-73) Lymphocytes (%) (Auto) 7 % (24-48) Monocytes (%) (Auto) 8 % (0-9) Eosinophils (%) (Auto) 1 % (0-3) Basophils (%) (Auto) 0 % (0-3) Neutrophils # (Auto) 7.7 x10^3uL (1.8-7.7) Lymphocytes # (Auto) 0.7 x10^3/uL (1.0-4.8) Monocytes # (Auto) 0.8 x10^3/uL (0.0-1.1) Eosinophils # (Auto) 0.1 x10^3/uL (0.0-0.7) Basophils # (Auto) 0.0 x10^3/uL (0.0-0.2) Sodium Level 133 mmol/L (136-145) Potassium Level 4.0 mmol/L (3.5-5.1) Chloride Level 97 mmol/L (98-107) Carbon Dioxide Level 22 mmol/L (21-32) Anion Gap 14 (6-14) Blood Urea Nitrogen 56 mg/dL (8-26) Creatinine 2.5 mg/dL (0.7-1.3) Estimated GFR (Cockcroft-Gault) 27.8 BUN/Creatinine Ratio 22 (6-20) Glucose Level 356 mg/dL (70-99) Calcium Level 8.3 mg/dL (8.5-10.1) Total Bilirubin 0.7 mg/dL (0.2-1.0) Aspartate Amino Transf (AST/SGOT) 13 U/L (15-37) Alanine Aminotransferase (ALT/SGPT) 14 U/L (16-63) Alkaline Phosphatase 55 U/L (46-116) Total Protein 6.9 g/dL (6.4-8.2) Albumin 2.2 g/dL (3.4-5.0) Albumin/Globulin Ratio 0.5 (1.0-1.7) Objective: Assessment: Sepsis source Fever GNR bacteremia UTI/ Pyelonephritis Hyperglycemia hyperosmolar YOEL H/O E Coli MDR Sepsis ,UTI Thank you [id number] Plan: Plan of Care Cont merrem f/u C/S and labs in am cont supportive care D/W JERAMIE MICHAEL MD May 01, 2018 08:23
[2018-05-01] MEDS: INSULIN GLARGINE 300 UNITS/3 ML INSULN.PEN. SQ SCH (08:57)
[2018-05-01] MEDS: MEROPENEM 500 MG in IV NORMAL SALINE 50ML 50 ML IV SCH (08:58)
--- NOTE | 2018-05-01 11:38 | PDOC ---
PROGRESS NOTES Chief Complaint Chief Complaint DKA Sepsis UTI/pyelonephritis GNR bacteremia Hyperglycemia YOEL History of E. Coli septicemia Tachycardia HTN Peripheral neuropathy History of Present Illness History of Present Illness Patient was seen and examined in the ICU this morning. He continues to have some weakness and abdominal pain. States his symptoms are similar to when he had E. coli septicemia in 11/2017. He is currently on empiric IV meropenem. He is no longer on DKA protocol. Anion gap closed. ID and nephrology following. Vitals Vitals Vital Signs Date Time Temp Pulse Resp B/P (MAP) Pulse Ox O2 Delivery O2 Flow Rate FiO2 05/01/18 11:05 97.5 97 22 161/89 (113) 99 Room Air 97.5 05/01/18 10:21 2.0 Physical Exam General: Alert, Oriented X3, Cooperative, mild distress Heart: Normal S1, Normal S2, Other (slightly tachycardic) Lungs: Clear, Other (no rhonchi) Abdomen: Normal bowel sounds, Soft Extremities: No clubbing, No cyanosis Skin: No rashes, No breakdown Labs LABS Laboratory Tests Test 04/30/18 11:51 04/30/18 12:06 04/30/18 12:36 04/30/18 13:50 Glucose (Fingerstick) 472 mg/dL (70-99) 527 mg/dL (70-99) Urine Collection Type Unknown Urine Color Yellow Urine Clarity Clear Urine pH 5.5 Urine Specific Davis 1.025 Urine Protein 30 mg/dL (NEG-TRACE) Urine Glucose (UA) >=1000 mg/dL (NEG) Urine Ketones (Stick) 15 mg/dL (NEG) Urine Blood Large (NEG) Urine Nitrite Positive (NEG) Urine Bilirubin Negative (NEG) Urine Urobilinogen Dipstick 0.2 mg/dL (0.2 mg/dL) Urine Leukocyte Esterase Negative (NEG) Urine RBC 3-5 /HPF (0-2) Urine WBC 20-40 /HPF (0-4) Urine Transitional Epithelial Cells Occ /LPF Urine Bacteria 0 /HPF (0-FEW) Urine Hyaline Casts Moderate /HPF Urine Mucus Slight /LPF Clostridium difficile Toxin B Gene Negative (Negative) Lactic Acid Level 3.5 mmol/L (0.4-2.0) Procalcitonin 48.12 ng/mL (0.00-0.10) Test 04/30/18 14:16 04/30/18 15:41 04/30/18 17:02 04/30/18 18:15 Glucose (Fingerstick) 407 mg/dL (70-99) 401 mg/dL (70-99) 370 mg/dL (70-99) Activated Partial Thromboplast Time 33 SEC (24-38) Fibrinogen 971 mg/dL (200-440) Test 04/30/18 18:16 04/30/18 19:35 04/30/18 20:42 05/01/18 04:30 Glucose (Fingerstick) 270 mg/dL (70-99) 247 mg/dL (70-99) 216 mg/dL (70-99) White Blood Count 9.2 x10^3/uL (4.0-11.0) Red Blood Count 4.06 x10^6/uL (4.30-5.70) Hemoglobin 11.3 g/dL (13.0-17.5) Hematocrit 33.9 % (39.0-53.0) Mean Corpuscular Volume 84 fL (79-100) Mean Corpuscular Hemoglobin 28 pg (25-35) Mean Corpuscular Hemoglobin Concent 33 g/dL (31-37) Red Cell Distribution Width 15.4 % (11.5-14.5) Platelet Count 100 x10^3/uL (140-400) Neutrophils (%) (Auto) 84 % (31-73) Lymphocytes (%) (Auto) 7 % (24-48) Monocytes (%) (Auto) 8 % (0-9) Eosinophils (%) (Auto) 1 % (0-3) Basophils (%) (Auto) 0 % (0-3) Neutrophils # (Auto) 7.7 x10^3uL (1.8-7.7) Lymphocytes # (Auto) 0.7 x10^3/uL (1.0-4.8) Monocytes # (Auto) 0.8 x10^3/uL (0.0-1.1) Eosinophils # (Auto) 0.1 x10^3/uL (0.0-0.7) Basophils # (Auto) 0.0 x10^3/uL (0.0-0.2) Sodium Level 133 mmol/L (136-145) Potassium Level 4.0 mmol/L (3.5-5.1) Chloride Level 97 mmol/L (98-107) Carbon Dioxide Level 22 mmol/L (21-32) Anion Gap 14 (6-14) Blood Urea Nitrogen 56 mg/dL (8-26) Creatinine 2.5 mg/dL (0.7-1.3) Estimated GFR (Cockcroft-Gault) 27.8 BUN/Creatinine Ratio 22 (6-20) Glucose Level 356 mg/dL (70-99) Calcium Level 8.3 mg/dL (8.5-10.1) Total Bilirubin 0.7 mg/dL (0.2-1.0) Aspartate Amino Transf (AST/SGOT) 13 U/L (15-37) Alanine Aminotransferase (ALT/SGPT) 14 U/L (16-63) Alkaline Phosphatase 55 U/L (46-116) Total Protein 6.9 g/dL (6.4-8.2) Albumin 2.2 g/dL (3.4-5.0) Albumin/Globulin Ratio 0.5 (1.0-1.7) Test 05/01/18 07:53 Glucose (Fingerstick) 320 mg/dL (70-99) Review of Systems Review of Systems Complains of weakness and abdominal pain. Denies fever and shortness of breath. Assessment and Plan Assessmemt and Plan Assessment: DKA Sepsis UTI/pyelonephritis GNR bacteremia Hyperglycemia YOEL History of E. Coli septicemia Tachycardia HTN Peripheral neuropathy Plan: 1. ICU monitoring 2. Empiric IV meropenem 3. Await blood cultures 4. Off insulin drip, anion gap closed 5. Home and sliding scale insulin 6. Encourage fluid intake 7. Home medications 8. PT/OT 9. Monitor labs 10. Appreciate subspecialty input Comment Review of Relevant I have reviewed the following items odell (where applicable) has been applied. Labs Laboratory Tests Test 04/30/18 09:17 04/30/18 09:30 04/30/18 11:51 04/30/18 12:06 Glucose (Fingerstick) 523 mg/dL (70-99) 472 mg/dL (70-99) White Blood Count 10.7 x10^3/uL (4.0-11.0) Red Blood Count 4.84 x10^6/uL (4.30-5.70) Hemoglobin 13.4 g/dL (13.0-17.5) Hematocrit 40.3 % (39.0-53.0) Mean Corpuscular Volume 83 fL (79-100) Mean Corpuscular Hemoglobin 28 pg (25-35) Mean Corpuscular Hemoglobin Concent 33 g/dL (31-37) Red Cell Distribution Width 15.2 % (11.5-14.5) Platelet Count 124 x10^3/uL (140-400) Neutrophils (%) (Auto) 92 % (31-73) Lymphocytes (%) (Auto) 5 % (24-48) Monocytes (%) (Auto) 3 % (0-9) Eosinophils (%) (Auto) 0 % (0-3) Basophils (%) (Auto) 0 % (0-3) Neutrophils # (Auto) 9.9 x10^3uL (1.8-7.7) Lymphocytes # (Auto) 0.5 x10^3/uL (1.0-4.8) Monocytes # (Auto) 0.4 x10^3/uL (0.0-1.1) Eosinophils # (Auto) 0.0 x10^3/uL (0.0-0.7) Basophils # (Auto) 0.0 x10^3/uL (0.0-0.2) Segmented Neutrophils % 61 % (35-66) Band Neutrophils % 31 % (0-9) Lymphocytes % 4 % (24-48) Monocytes % 3 % (0-10) Myelocytes % 1 % (0-0) Toxic Vacuolation Slight Dohle Bodies Few Platelet Estimate Decreased (ADEQUATE) Large Platelets Few Prothrombin Time 17.0 SEC (11.7-14.0) Prothromb Time International Ratio 1.4 (0.8-1.1) Sodium Level 128 mmol/L (136-145) Potassium Level 4.5 mmol/L (3.5-5.1) Chloride Level 89 mmol/L (98-107) Carbon Dioxide Level 25 mmol/L (21-32) Anion Gap 14 (6-14) Blood Urea Nitrogen 56 mg/dL (8-26) Creatinine 3.2 mg/dL (0.7-1.3) Estimated GFR (Cockcroft-Gault) 20.9 BUN/Creatinine Ratio 18 (6-20) Glucose Level 538 mg/dL (70-99) Lactic Acid Level 3.8 mmol/L (0.4-2.0) Calcium Level 9.4 mg/dL (8.5-10.1) Total Bilirubin 1.2 mg/dL (0.2-1.0) Aspartate Amino Transf (AST/SGOT) 16 U/L (15-37) Alanine Aminotransferase (ALT/SGPT) 21 U/L (16-63) Alkaline Phosphatase 76 U/L (46-116) Troponin I Quantitative < 0.017 ng/mL (0.000-0.055) Total Protein 8.2 g/dL (6.4-8.2) Albumin 2.9 g/dL (3.4-5.0) Albumin/Globulin Ratio 0.5 (1.0-1.7) Lipase 77 U/L (73-393) Procalcitonin 56.44 ng/mL (0.00-0.10) Ethyl Alcohol Level < 10 mg/dL (0-10) Urine Collection Type Unknown Urine Color Yellow Urine Clarity Clear Urine pH 5.5 Urine Specific Davis 1.025 Urine Protein 30 mg/dL (NEG-TRACE) Urine Glucose (UA) >=1000 mg/dL (NEG) Urine Ketones (Stick) 15 mg/dL (NEG) Urine Blood Large (NEG) Urine Nitrite Positive (NEG) Urine Bilirubin Negative (NEG) Urine Urobilinogen Dipstick 0.2 mg/dL (0.2 mg/dL) Urine Leukocyte Esterase Negative (NEG) Urine RBC 3-5 /HPF (0-2) Urine WBC 20-40 /HPF (0-4) Urine Transitional Epithelial Cells Occ /LPF Urine Bacteria 0 /HPF (0-FEW) Urine Hyaline Casts Moderate /HPF Urine Mucus Slight /LPF Clostridium difficile Toxin B Gene Negative (Negative) Test 04/30/18 12:36 04/30/18 13:50 04/30/18 14:16 04/30/18 15:41 Glucose (Fingerstick) 527 mg/dL (70-99) 407 mg/dL (70-99) 401 mg/dL (70-99) Lactic Acid Level 3.5 mmol/L (0.4-2.0) Procalcitonin 48.12 ng/mL (0.00-0.10) Test 04/30/18 17:02 04/30/18 18:15 04/30/18 18:16 04/30/18 19:35 Glucose (Fingerstick) 370 mg/dL (70-99) 270 mg/dL (70-99) 247 mg/dL (70-99) Activated Partial Thromboplast Time 33 SEC (24-38) Fibrinogen 971 mg/dL (200-440) Test 04/30/18 20:42 05/01/18 04:30 05/01/18 07:53 Glucose (Fingerstick) 216 mg/dL (70-99) 320 mg/dL (70-99) White Blood Count 9.2 x10^3/uL (4.0-11.0) Red Blood Count 4.06 x10^6/uL (4.30-5.70) Hemoglobin 11.3 g/dL (13.0-17.5) Hematocrit 33.9 % (39.0-53.0) Mean Corpuscular Volume 84 fL (79-100) Mean Corpuscular Hemoglobin 28 pg (25-35) Mean Corpuscular Hemoglobin Concent 33 g/dL (31-37) Red Cell Distribution Width 15.4 % (11.5-14.5) Platelet Count 100 x10^3/uL (140-400) Neutrophils (%) (Auto) 84 % (31-73) Lymphocytes (%) (Auto) 7 % (24-48) Monocytes (%) (Auto) 8 % (0-9) Eosinophils (%) (Auto) 1 % (0-3) Basophils (%) (Auto) 0 % (0-3) Neutrophils # (Auto) 7.7 x10^3uL (1.8-7.7) Lymphocytes # (Auto) 0.7 x10^3/uL (1.0-4.8) Monocytes # (Auto) 0.8 x10^3/uL (0.0-1.1) Eosinophils # (Auto) 0.1 x10^3/uL (0.0-0.7) Basophils # (Auto) 0.0 x10^3/uL (0.0-0.2) Sodium Level 133 mmol/L (136-145) Potassium Level 4.0 mmol/L (3.5-5.1) Chloride Level 97 mmol/L (98-107) Carbon Dioxide Level 22 mmol/L (21-32) Anion Gap 14 (6-14) Blood Urea Nitrogen 56 mg/dL (8-26) Creatinine 2.5 mg/dL (0.7-1.3) Estimated GFR (Cockcroft-Gault) 27.8 BUN/Creatinine Ratio 22 (6-20) Glucose Level 356 mg/dL (70-99) Calcium Level 8.3 mg/dL (8.5-10.1) Total Bilirubin 0.7 mg/dL (0.2-1.0) Aspartate Amino Transf (AST/SGOT) 13 U/L (15-37) Alanine Aminotransferase (ALT/SGPT) 14 U/L (16-63) Alkaline Phosphatase 55 U/L (46-116) Total Protein 6.9 g/dL (6.4-8.2) Albumin 2.2 g/dL (3.4-5.0) Albumin/Globulin Ratio 0.5 (1.0-1.7) Laboratory Tests Test 04/30/18 11:51 04/30/18 12:06 04/30/18 12:36 04/30/18 13:50 Glucose (Fingerstick) 472 mg/dL (70-99) 527 mg/dL (70-99) Urine Collection Type Unknown Urine Color Yellow Urine Clarity Clear Urine pH 5.5 Urine Specific Davis 1.025 Urine Protein 30 mg/dL (NEG-TRACE) Urine Glucose (UA) >=1000 mg/dL (NEG) Urine Ketones (Stick) 15 mg/dL (NEG) Urine Blood Large (NEG) Urine Nitrite Positive (NEG) Urine Bilirubin Negative (NEG) Urine Urobilinogen Dipstick 0.2 mg/dL (0.2 mg/dL) Urine Leukocyte Esterase Negative (NEG) Urine RBC 3-5 /HPF (0-2) Urine WBC 20-40 /HPF (0-4) Urine Transitional Epithelial Cells Occ /LPF Urine Bacteria 0 /HPF (0-FEW) Urine Hyaline Casts Moderate /HPF Urine Mucus Slight /LPF Clostridium difficile Toxin B Gene Negative (Negative) Lactic Acid Level 3.5 mmol/L (0.4-2.0) Procalcitonin 48.12 ng/mL (0.00-0.10) Test 04/30/18 14:16 04/30/18 15:41 04/30/18 17:02 04/30/18 18:15 Glucose (Fingerstick) 407 mg/dL (70-99) 401 mg/dL (70-99) 370 mg/dL (70-99) Activated Partial Thromboplast Time 33 SEC (24-38) Fibrinogen 971 mg/dL (200-440) Test 04/30/18 18:16 04/30/18 19:35 04/30/18 20:42 05/01/18 04:30 Glucose (Fingerstick) 270 mg/dL (70-99) 247 mg/dL (70-99) 216 mg/dL (70-99) White Blood Count 9.2 x10^3/uL (4.0-11.0) Red Blood Count 4.06 x10^6/uL (4.30-5.70) Hemoglobin 11.3 g/dL (13.0-17.5) Hematocrit 33.9 % (39.0-53.0) Mean Corpuscular Volume 84 fL (79-100) Mean Corpuscular Hemoglobin 28 pg (25-35) Mean Corpuscular Hemoglobin Concent 33 g/dL (31-37) Red Cell Distribution Width 15.4 % (11.5-14.5) Platelet Count 100 x10^3/uL (140-400) Neutrophils (%) (Auto) 84 % (31-73) Lymphocytes (%) (Auto) 7 % (24-48) Monocytes (%) (Auto) 8 % (0-9) Eosinophils (%) (Auto) 1 % (0-3) Basophils (%) (Auto) 0 % (0-3) Neutrophils # (Auto) 7.7 x10^3uL (1.8-7.7) Lymphocytes # (Auto) 0.7 x10^3/uL (1.0-4.8) Monocytes # (Auto) 0.8 x10^3/uL (0.0-1.1) Eosinophils # (Auto) 0.1 x10^3/uL (0.0-0.7) Basophils # (Auto) 0.0 x10^3/uL (0.0-0.2) Sodium Level 133 mmol/L (136-145) Potassium Level 4.0 mmol/L (3.5-5.1) Chloride Level 97 mmol/L (98-107) Carbon Dioxide Level 22 mmol/L (21-32) Anion Gap 14 (6-14) Blood Urea Nitrogen 56 mg/dL (8-26) Creatinine 2.5 mg/dL (0.7-1.3) Estimated GFR (Cockcroft-Gault) 27.8 BUN/Creatinine Ratio 22 (6-20) Glucose Level 356 mg/dL (70-99) Calcium Level 8.3 mg/dL (8.5-10.1) Total Bilirubin 0.7 mg/dL (0.2-1.0) Aspartate Amino Transf (AST/SGOT) 13 U/L (15-37) Alanine Aminotransferase (ALT/SGPT) 14 U/L (16-63) Alkaline Phosphatase 55 U/L (46-116) Total Protein 6.9 g/dL (6.4-8.2) Albumin 2.2 g/dL (3.4-5.0) Albumin/Globulin Ratio 0.5 (1.0-1.7) Test 05/01/18 07:53 Glucose (Fingerstick) 320 mg/dL (70-99) Microbiology 04/30/18 Blood Culture - Final, Complete Medications Current Medications Ertapenem 50 ml @ 100 mls/hr 1X STAT IV Last administered on 04/30/18at 10:00 ; Start 04/30/18 at 09:34; Stop 04/30/18 at 10:03; Status DC Sodium Chloride 1,000 ml @ 1,000 mls/hr 1X ONCE IV Last administered on at 09:50; Start 04/30/18 at 09:45; Stop 04/30/18 at 10:44; Status DC Sodium Chloride 1,000 ml @ 1,000 mls/hr 1X ONCE IV Last administered on at 10:28; Start 04/30/18 at 09:45; Stop 04/30/18 at 10:44; Status DC Insulin Human Regular (HumuLIN R VIAL) 10 unit 1X ONCE IV Last administered on 04/30/18at 10:33; Start 04/30/18 at 10:30; Stop 04/30/18 at 10:31; Status DC Ondansetron HCl (Zofran) 4 mg 1X ONCE IV Last administered on 04/30/18at 10:31 ; Start 04/30/18 at 10:30; Stop 04/30/18 at 10:32; Status DC Fentanyl Citrate (Fentanyl 2ml Vial) 50 mcg 1X ONCE IV Last administered on at 10:36; Start 04/30/18 at 10:30; Stop 04/30/18 at 10:32; Status DC Sodium Chloride 1,000 ml @ 1,000 mls/hr 1X ONCE IV Last administered on at 12:36; Start 04/30/18 at 10:45; Stop 04/30/18 at 11:44; Status DC Metoclopramide HCl (Reglan Vial) 10 mg 1X ONCE IV Last administered on at 12:08; Start 04/30/18 at 12:00; Stop 04/30/18 at 12:01; Status DC Fentanyl Citrate (Fentanyl 2ml Vial) 50 mcg 1X ONCE IV ; Start 04/30/18 at 21: 00; Stop 04/30/18 at 21:01; Status DC Acetaminophen (Tylenol) 1,000 mg 1X ONCE PO ; Start 04/30/18 at 11:45; Stop at 11:47; Status DC Insulin Human Regular 150 ml @ 0 mls/hr 1X ONCE IV Last administered on at 12:48; Start 04/30/18 at 12:00; Stop 04/30/18 at 12:01; Status DC Fentanyl Citrate (Fentanyl 2ml Vial) 50 mcg 1X ONCE IV Last administered on at 12:21; Start 04/30/18 at 12:00; Stop 04/30/18 at 12:01; Status DC Meropenem 500 mg/ Sodium Chloride 50 ml @ 100 mls/hr Q12HR IV Last administered on 05/01/18at 08:58; Start 04/30/18 at 21:00; Stop 05/01/18 at 10:32 ; Status DC Sodium Chloride 1,000 ml @ 1,920 mls/hr Q32M IV ; Start 04/30/18 at 15:06; Stop 04/30/18 at 16:08; Status DC Sodium Chloride 500 ml @ 1,000 mls/hr PRN Q30MIN PRN IV SEE COMMENTS; Start at 15:15; Stop 05/01/18 at 10:15; Status DC Sodium Chloride 1,000 ml @ 150 mls/hr Q6H40M IV Last administered on at 21:16; Start 04/30/18 at 15:10; Stop 05/01/18 at 10:15; Status DC Norepinephrine Bitartrate 250 ml @ 0 mls/hr CONT PRN IV SEE I/O RECORD; Start 04/30/18 at 15:15 Dobutamine HCl/ Dextrose 250 ml @ 0 mls/hr CONT PRN IV SEE I/O RECORD; Start at 15:15 Insulin Human Lispro (HumaLOG) 0-7 UNITS TIDWMEALS SQ Last administered on 04/30at 20:13; Start 04/30/18 at 17:00; Stop 05/01/18 at 08:15; Status DC Dextrose (Dextrose 50%-Water Syringe) 12.5 gm PRN Q15MIN PRN IV SEE COMMENTS; Start 04/30/18 at 15:15 Heparin Sodium (Porcine) (Heparin Sodium) 5,000 unit Q8HRS SQ Last administered on 05/01/18at 06:22; Start 04/30/18 at 22:00 Fentanyl Citrate (Fentanyl 2ml Vial) 50 mcg PRN Q3HRS PRN IV PAIN Last administered on 04/30/18at 16:55; Start 04/30/18 at 17:00 Ondansetron HCl (Zofran) 4 mg PRN Q6HRS PRN IV NAUSEA/VOMITING Last administered on 05/01/18at 07:48; Start 04/30/18 at 19:30 Ibuprofen (Motrin) 200 mg PRN Q6HRS PRN PO MILD PAIN / TEMP Last administered on 04/30/18at 21:14; Start 04/30/18 at 20:45 Insulin Glargine (Lantus) 35 units [id number] SQ Last administered on at 08:57; Start 05/02/18 at 08:00 Insulin Human Lispro (HumaLOG) 0-7 UNITS TIDWMEALS SQ Last administered on 05/01at 08:56; Start 05/01/18 at 12:00 Meropenem 1 gm/ Sodium Chloride 100 ml @ 200 mls/hr Q12HR IV ; Start 05/01/18 at 18:00 Lactobacillus Rhamnosus (Culturelle) 1 cap BID PO ; Start 05/01/18 at 21:00 Active Scripts Active Humalog (Insulin Lispro) 100 Unit/1 Ml Insuln.pen 8 Units SQ TIDWMEALS 14 Days Lantus Solostar (Insulin Glargine,Hum.rec.anlog) 100 Unit/1 Ml Insuln.pen 25 Units SQ QHS 14 Days Tramadol Hcl 50 Mg Tablet 50 Mg PO PRN Q6HRS PRN Amlodipine Besylate 10 Mg Tablet 10 Mg PO DAILY 30 Days Carvedilol 12.5 Mg Tablet 12.5 Mg PO BIDWMEALS 30 Days Zofran (Ondansetron Hcl) 4 Mg Tablet 1 Tab PO PRN Q8HRS PRN Reported Losartan-Hctz 50-12.5 Mg Tab (Losartan/Hydrochlorothiazide) 1 Each Tablet 1 Each PO DAILY Lyrica (Pregabalin) 75 Mg Capsule 75 Mg PO TID Atorvastatin Calcium 20 Mg Tablet 20 Mg PO HS Amlodipine Besylate 10 Mg Tablet 20 Mg PO BID Trulicity (Dulaglutide) 1.5 Mg/0.5 Ml Pen.injctr 1.5 Mg SQ WEEKLY Metformin Hcl 1,000 Mg Tablet 1,000 Mg PO BIDWMEALS Vitals/I & O Vital Sign - Last 24 Hours 04/30/18 04/30/18 04/30/18 04/30/18 12:20 12:21 12:49 13:20 Temp 98.5 98.5 Pulse 132 113 Resp 20 18 B/P (MAP) 159/76 (103) 161/81 (107) Pulse Ox 99 99 99 O2 Delivery Nasal Cannula Nasal Cannula Nasal Cannula O2 Flow Rate 3.0 2.0 3.0 04/30/18 04/30/18 04/30/18 04/30/18 13:45 14:45 15:45 16:00 Temp 99.3 99.3 Pulse 138 138 136 Resp 21 22 18 B/P (MAP) 131/85 (100) 145/88 (107) 159/92 (114) Pulse Ox 96 97 97 O2 Delivery Room Air Room Air Room Air O2 Flow Rate 2.0 04/30/18 04/30/18 04/30/18 04/30/18 16:55 17:00 18:00 19:00 Pulse 140 146 142 Resp 24 28 28 B/P (MAP) 151/91 (111) 169/95 (119) 145/92 (109) Pulse Ox 97 97 98 98 O2 Delivery Nasal Cannula Room Air Room Air O2 Flow Rate 2.0 2.0 2.0 2.0 04/30/18 04/30/18 04/30/18 04/30/18 20:00 20:00 21:00 22:00 Temp 103.0 98.7 103.0 98.7 Pulse 140 144 121 Resp B/P (MAP) 144/75 (98) 162/65 (97) 113/84 (94) Pulse Ox 93 94 97 O2 Delivery Room Air Nasal Cannula Room Air Room Air O2 Flow Rate 2.0 2.0 2.0 2.0 04/30/18 04/30/18 04/30/18 05/01/18 23:00 23:59 23:59 01:00 Pulse 115 110 105 B/P (MAP) 108/62 (77) 121/74 (90) 131/75 (93) Pulse Ox 97 99 99 O2 Delivery Room Air Nasal Cannula Room Air Room Air O2 Flow Rate 2.0 2.0 2.0 2.0 05/01/18 05/01/18 05/01/18 05/01/18 02:00 03:00 04:00 04:00 Temp 98.7 98.7 Pulse 102 105 100 B/P (MAP) 152/88 (109) 138/74 (95) 130/72 (91) Pulse Ox 98 97 97 O2 Delivery Room Air Room Air Room Air Nasal Cannula O2 Flow Rate 2.0 2.0 2.0 2.0 05/01/18 05/01/18 05/01/18 05/01/18 05:00 06:00 07:00 08:00 Temp 98.1 98.1 Pulse 107 99 102 108 B/P (MAP) 147/83 (104) 153/88 (109) 153/83 (106) 151/79 (103) Pulse Ox 97 97 98 98 O2 Delivery Room Air Room Air Nasal Cannula Nasal Cannula O2 Flow Rate 2.0 2.0 2.0 2.0 05/01/18 05/01/18 05/01/18 05/01/18 08:00 09:00 10:21 11:05 Temp 97.5 97.5 Pulse 103 102 97 Resp 24 20 22 B/P (MAP) 160/85 (110) 154/90 (111) 161/89 (113) Pulse Ox 98 99 99 O2 Delivery Nasal Cannula Nasal Cannula Nasal Cannula Room Air O2 Flow Rate 2.0 2.0 2.0 Intake and Output 04/30/18 04/30/18 05/01/18 15:00 23:00 07:00 Intake Total 3200 ml 59 ml 3119.4 ml Output Total 450 ml 1100 ml Balance 2750 ml -1041 ml 3119.4 ml LOLITA SMITH III DO May 01, 2018 11:38
--- NOTE | 2018-05-01 11:41 | PDOC2 ---
CONSULT Date of Consult Date of Consult DATE: 05/01/18 TIME: 11:36 Reason for Consult Reason for Consult: YOEL Referring Physician Referring Physician: LANDEN Identification/Chief Complaint Chief Complaint N/V Source Source: Chart review, Patient History of Present Illness Reason for Visit: THIS IS A 47 YR OLD WITH SEVERAL DAY HX OF N/V. NOTED TO HAVE RIGHT FLANK PAIN AND NOTED HAVE IMAGING C/W PYELONEPHRITIS WITH PYURIA. CR IS 3.2. BASELINE CR IS 1.5-2.0 DUE TO DM AND HTN RELATED END ORGAN DAMAGE. NO OTHER HX NOTED. NO NEPHROTOXINS NOTED. HE FEELS DEHYDRATED. HAS HAD A FEVER WELL Past Medical History Cardiovascular: HTN Pulmonary: No pertinent hx GI: No pertinent hx Heme/Onc: No pertinent hx Hepatobiliary: No pertinent hx Psych: No pertinent hx Infectious disease: No pertinent hx, Other (BACTEREMIA 2018) Renal/: Chronic renal insuff Endocrine: Diabetes Past Surgical History Past Surgical History: No pertinent history Family History Family History: Diabetes Social History Social History: Parent No ALCOHOL: none Drugs: None, Other (DISABLED) Current Problem List Problem List Problems Medical Problems: (1) Dehydration Status: Acute (2) Hyperglycemia Status: Acute Current Medications Current Medications Current Medications Ertapenem 50 ml @ 100 mls/hr 1X STAT IV Last administered on 04/30/18at 10:00 ; Start 04/30/18 at 09:34; Stop 04/30/18 at 10:03; Status DC Sodium Chloride 1,000 ml @ 1,000 mls/hr 1X ONCE IV Last administered on at 09:50; Start 04/30/18 at 09:45; Stop 04/30/18 at 10:44; Status DC Sodium Chloride 1,000 ml @ 1,000 mls/hr 1X ONCE IV Last administered on at 10:28; Start 04/30/18 at 09:45; Stop 04/30/18 at 10:44; Status DC Insulin Human Regular (HumuLIN R VIAL) 10 unit 1X ONCE IV Last administered on 04/30/18at 10:33; Start 04/30/18 at 10:30; Stop 04/30/18 at 10:31; Status DC Ondansetron HCl (Zofran) 4 mg 1X ONCE IV Last administered on 04/30/18at 10:31 ; Start 04/30/18 at 10:30; Stop 04/30/18 at 10:32; Status DC Fentanyl Citrate (Fentanyl 2ml Vial) 50 mcg 1X ONCE IV Last administered on at 10:36; Start 04/30/18 at 10:30; Stop 04/30/18 at 10:32; Status DC Sodium Chloride 1,000 ml @ 1,000 mls/hr 1X ONCE IV Last administered on at 12:36; Start 04/30/18 at 10:45; Stop 04/30/18 at 11:44; Status DC Metoclopramide HCl (Reglan Vial) 10 mg 1X ONCE IV Last administered on at 12:08; Start 04/30/18 at 12:00; Stop 04/30/18 at 12:01; Status DC Fentanyl Citrate (Fentanyl 2ml Vial) 50 mcg 1X ONCE IV ; Start 04/30/18 at 21: 00; Stop 04/30/18 at 21:01; Status DC Acetaminophen (Tylenol) 1,000 mg 1X ONCE PO ; Start 04/30/18 at 11:45; Stop at 11:47; Status DC Insulin Human Regular 150 ml @ 0 mls/hr 1X ONCE IV Last administered on at 12:48; Start 04/30/18 at 12:00; Stop 04/30/18 at 12:01; Status DC Fentanyl Citrate (Fentanyl 2ml Vial) 50 mcg 1X ONCE IV Last administered on at 12:21; Start 04/30/18 at 12:00; Stop 04/30/18 at 12:01; Status DC Meropenem 500 mg/ Sodium Chloride 50 ml @ 100 mls/hr Q12HR IV Last administered on 05/01/18at 08:58; Start 04/30/18 at 21:00; Stop 05/01/18 at 10:32 ; Status DC Sodium Chloride 1,000 ml @ 1,920 mls/hr Q32M IV ; Start 04/30/18 at 15:06; Stop 04/30/18 at 16:08; Status DC Sodium Chloride 500 ml @ 1,000 mls/hr PRN Q30MIN PRN IV SEE COMMENTS; Start at 15:15; Stop 05/01/18 at 10:15; Status DC Sodium Chloride 1,000 ml @ 150 mls/hr Q6H40M IV Last administered on at 21:16; Start 04/30/18 at 15:10; Stop 05/01/18 at 10:15; Status DC Norepinephrine Bitartrate 250 ml @ 0 mls/hr CONT PRN IV SEE I/O RECORD; Start 04/30/18 at 15:15 Dobutamine HCl/ Dextrose 250 ml @ 0 mls/hr CONT PRN IV SEE I/O RECORD; Start at 15:15 Insulin Human Lispro (HumaLOG) 0-7 UNITS TIDWMEALS SQ Last administered on 04/30at 20:13; Start 04/30/18 at 17:00; Stop 05/01/18 at 08:15; Status DC Dextrose (Dextrose 50%-Water Syringe) 12.5 gm PRN Q15MIN PRN IV SEE COMMENTS; Start 04/30/18 at 15:15 Heparin Sodium (Porcine) (Heparin Sodium) 5,000 unit Q8HRS SQ Last administered on 05/01/18at 06:22; Start 04/30/18 at 22:00 Fentanyl Citrate (Fentanyl 2ml Vial) 50 mcg PRN Q3HRS PRN IV PAIN Last administered on 04/30/18at 16:55; Start 04/30/18 at 17:00 Ondansetron HCl (Zofran) 4 mg PRN Q6HRS PRN IV NAUSEA/VOMITING Last administered on 05/01/18at 07:48; Start 04/30/18 at 19:30 Ibuprofen (Motrin) 200 mg PRN Q6HRS PRN PO MILD PAIN / TEMP Last administered on 04/30/18at 21:14; Start 04/30/18 at 20:45 Insulin Glargine (Lantus) 35 units DAILYWBKFT SQ Last administered on at 08:57; Start 05/02/18 at 08:00 Insulin Human Lispro (HumaLOG) 0-7 UNITS TIDWMEALS SQ Last administered on 05/01at 08:56; Start 05/01/18 at 12:00 Meropenem 1 gm/ Sodium Chloride 100 ml @ 200 mls/hr Q12HR IV ; Start 05/01/18 at 18:00 Lactobacillus Rhamnosus (Culturelle) 1 cap BID PO ; Start 05/01/18 at 21:00 Active Scripts Active Humalog (Insulin Lispro) 100 Unit/1 Ml Insuln.pen 8 Units SQ TIDWMEALS 14 Days Lantus Solostar (Insulin Glargine,Hum.rec.anlog) 100 Unit/1 Ml Insuln.pen 25 Units SQ QHS 14 Days Tramadol Hcl 50 Mg Tablet 50 Mg PO PRN Q6HRS PRN Amlodipine Besylate 10 Mg Tablet 10 Mg PO DAILY 30 Days Carvedilol 12.5 Mg Tablet 12.5 Mg PO BIDWMEALS 30 Days Zofran (Ondansetron Hcl) 4 Mg Tablet 1 Tab PO PRN Q8HRS PRN Reported Losartan-Hctz 50-12.5 Mg Tab (Losartan/Hydrochlorothiazide) 1 Each Tablet 1 Each PO DAILY Lyrica (Pregabalin) 75 Mg Capsule 75 Mg PO TID Atorvastatin Calcium 20 Mg Tablet 20 Mg PO HS Amlodipine Besylate 10 Mg Tablet 20 Mg PO BID Trulicity (Dulaglutide) 1.5 Mg/0.5 Ml Pen.injctr 1.5 Mg SQ WEEKLY Metformin Hcl 1,000 Mg Tablet 1,000 Mg PO BIDWMEALS Allergies Allergies: Coded Allergies: acetaminophen (Verified Adverse Reaction, Intermediate, UPSET STOMACH, DOESN'T WANT TO TAKE, 04/30/18) lisinopril (Verified Adverse Reaction, Intermediate, CHEST PAIN, ACID REFLUX, 04/30/18) ROS General: YES: Fatigue, Malaise, Appetite PSYCHOLOGICAL ROS: YES: Anxiety HEENT: YES: Jeff ALLERGY AND IMMUNOLOGY: YES: Seasonal Allergies Respiratory: YES: Cough Genitourinary: YES Frequency, YES Flank Pain Musculoskeletal: Yes Muscular Weakness Neurological: Yes Weakness Skin: Yes Dry Skin Physical Exam General: Alert, Oriented X3, Cooperative, No acute distress, mild distress HEENT: Atraumatic, PERRLA, EOMI, Other (DRY MUCOSA) Lungs: Clear to auscultation Heart: Regular rate, Normal S1, Normal S2 Abdomen: Normal bowel sounds, Soft, Other (FLANK PAIN ON PERCUSSION) Extremities: No clubbing Skin: No breakdown Neuro: Normal speech, Cranial nerves 3-12 NL Psych/Mental Status: Mental status NL, Mood NL MUSCULOSKELETAL: No joint tenderness, No deformity, No swelling Vitals VITALS Vital Signs Date Time Temp Pulse Resp B/P (MAP) Pulse Ox O2 Delivery O2 Flow Rate FiO2 05/01/18 11:05 97.5 97 22 161/89 (113) 99 Room Air 97.5 05/01/18 10:21 2.0 Labs Labs Laboratory Tests Test 04/30/18 09:17 04/30/18 09:30 04/30/18 11:51 04/30/18 12:06 Glucose (Fingerstick) 523 mg/dL (70-99) 472 mg/dL (70-99) White Blood Count 10.7 x10^3/uL (4.0-11.0) Red Blood Count 4.84 x10^6/uL (4.30-5.70) Hemoglobin 13.4 g/dL (13.0-17.5) Hematocrit 40.3 % (39.0-53.0) Mean Corpuscular Volume 83 fL (79-100) Mean Corpuscular Hemoglobin 28 pg (25-35) Mean Corpuscular Hemoglobin Concent 33 g/dL (31-37) Red Cell Distribution Width 15.2 % (11.5-14.5) Platelet Count 124 x10^3/uL (140-400) Neutrophils (%) (Auto) 92 % (31-73) Lymphocytes (%) (Auto) 5 % (24-48) Monocytes (%) (Auto) 3 % (0-9) Eosinophils (%) (Auto) 0 % (0-3) Basophils (%) (Auto) 0 % (0-3) Neutrophils # (Auto) 9.9 x10^3uL (1.8-7.7) Lymphocytes # (Auto) 0.5 x10^3/uL (1.0-4.8) Monocytes # (Auto) 0.4 x10^3/uL (0.0-1.1) Eosinophils # (Auto) 0.0 x10^3/uL (0.0-0.7) Basophils # (Auto) 0.0 x10^3/uL (0.0-0.2) Segmented Neutrophils % 61 % (35-66) Band Neutrophils % 31 % (0-9) Lymphocytes % 4 % (24-48) Monocytes % 3 % (0-10) Myelocytes % 1 % (0-0) Toxic Vacuolation Slight Dohle Bodies Few Platelet Estimate Decreased (ADEQUATE) Large Platelets Few Prothrombin Time 17.0 SEC (11.7-14.0) Prothromb Time International Ratio 1.4 (0.8-1.1) Sodium Level 128 mmol/L (136-145) Potassium Level 4.5 mmol/L (3.5-5.1) Chloride Level 89 mmol/L (98-107) Carbon Dioxide Level 25 mmol/L (21-32) Anion Gap 14 (6-14) Blood Urea Nitrogen 56 mg/dL (8-26) Creatinine 3.2 mg/dL (0.7-1.3) Estimated GFR (Cockcroft-Gault) 20.9 BUN/Creatinine Ratio 18 (6-20) Glucose Level 538 mg/dL (70-99) Lactic Acid Level 3.8 mmol/L (0.4-2.0) Calcium Level 9.4 mg/dL (8.5-10.1) Total Bilirubin 1.2 mg/dL (0.2-1.0) Aspartate Amino Transf (AST/SGOT) 16 U/L (15-37) Alanine Aminotransferase (ALT/SGPT) 21 U/L (16-63) Alkaline Phosphatase 76 U/L (46-116) Troponin I Quantitative < 0.017 ng/mL (0.000-0.055) Total Protein 8.2 g/dL (6.4-8.2) Albumin 2.9 g/dL (3.4-5.0) Albumin/Globulin Ratio 0.5 (1.0-1.7) Lipase 77 U/L (73-393) Procalcitonin 56.44 ng/mL (0.00-0.10) Ethyl Alcohol Level < 10 mg/dL (0-10) Urine Collection Type Unknown Urine Color Yellow Urine Clarity Clear Urine pH 5.5 Urine Specific [place] 1.025 Urine Protein 30 mg/dL (NEG-TRACE) Urine Glucose (UA) >=1000 mg/dL (NEG) Urine Ketones (Stick) 15 mg/dL (NEG) Urine Blood Large (NEG) Urine Nitrite Positive (NEG) Urine Bilirubin Negative (NEG) Urine Urobilinogen Dipstick 0.2 mg/dL (0.2 mg/dL) Urine Leukocyte Esterase Negative (NEG) Urine RBC 3-5 /HPF (0-2) Urine WBC 20-40 /HPF (0-4) Urine Transitional Epithelial Cells Occ /LPF Urine Bacteria 0 /HPF (0-FEW) Urine Hyaline Casts Moderate /HPF Urine Mucus Slight /LPF Clostridium difficile Toxin B Gene Negative (Negative) Test 04/30/18 12:36 04/30/18 13:50 04/30/18 14:16 04/30/18 15:41 Glucose (Fingerstick) 527 mg/dL (70-99) 407 mg/dL (70-99) 401 mg/dL (70-99) Lactic Acid Level 3.5 mmol/L (0.4-2.0) Procalcitonin 48.12 ng/mL (0.00-0.10) Test 04/30/18 17:02 04/30/18 18:15 04/30/18 18:16 04/30/18 19:35 Glucose (Fingerstick) 370 mg/dL (70-99) 270 mg/dL (70-99) 247 mg/dL (70-99) Activated Partial Thromboplast Time 33 SEC (24-38) Fibrinogen 971 mg/dL (200-440) Test 04/30/18 20:42 05/01/18 04:30 05/01/18 07:53 Glucose (Fingerstick) 216 mg/dL (70-99) 320 mg/dL (70-99) White Blood Count 9.2 x10^3/uL (4.0-11.0) Red Blood Count 4.06 x10^6/uL (4.30-5.70) Hemoglobin 11.3 g/dL (13.0-17.5) Hematocrit 33.9 % (39.0-53.0) Mean Corpuscular Volume 84 fL (79-100) Mean Corpuscular Hemoglobin 28 pg (25-35) Mean Corpuscular Hemoglobin Concent 33 g/dL (31-37) Red Cell Distribution Width 15.4 % (11.5-14.5) Platelet Count 100 x10^3/uL (140-400) Neutrophils (%) (Auto) 84 % (31-73) Lymphocytes (%) (Auto) 7 % (24-48) Monocytes (%) (Auto) 8 % (0-9) Eosinophils (%) (Auto) 1 % (0-3) Basophils (%) (Auto) 0 % (0-3) Neutrophils # (Auto) 7.7 x10^3uL (1.8-7.7) Lymphocytes # (Auto) 0.7 x10^3/uL (1.0-4.8) Monocytes # (Auto) 0.8 x10^3/uL (0.0-1.1) Eosinophils # (Auto) 0.1 x10^3/uL (0.0-0.7) Basophils # (Auto) 0.0 x10^3/uL (0.0-0.2) Sodium Level 133 mmol/L (136-145) Potassium Level 4.0 mmol/L (3.5-5.1) Chloride Level 97 mmol/L (98-107) Carbon Dioxide Level 22 mmol/L (21-32) Anion Gap 14 (6-14) Blood Urea Nitrogen 56 mg/dL (8-26) Creatinine 2.5 mg/dL (0.7-1.3) Estimated GFR (Cockcroft-Gault) 27.8 BUN/Creatinine Ratio 22 (6-20) Glucose Level 356 mg/dL (70-99) Calcium Level 8.3 mg/dL (8.5-10.1) Total Bilirubin 0.7 mg/dL (0.2-1.0) Aspartate Amino Transf (AST/SGOT) 13 U/L (15-37) Alanine Aminotransferase (ALT/SGPT) 14 U/L (16-63) Alkaline Phosphatase 55 U/L (46-116) Total Protein 6.9 g/dL (6.4-8.2) Albumin 2.2 g/dL (3.4-5.0) Albumin/Globulin Ratio 0.5 (1.0-1.7) Laboratory Tests Test 04/30/18 11:51 04/30/18 12:06 04/30/18 12:36 04/30/18 13:50 Glucose (Fingerstick) 472 mg/dL (70-99) 527 mg/dL (70-99) Urine Collection Type Unknown Urine Color Yellow Urine Clarity Clear Urine pH 5.5 Urine Specific [place] 1.025 Urine Protein 30 mg/dL (NEG-TRACE) Urine Glucose (UA) >=1000 mg/dL (NEG) Urine Ketones (Stick) 15 mg/dL (NEG) Urine Blood Large (NEG) Urine Nitrite Positive (NEG) Urine Bilirubin Negative (NEG) Urine Urobilinogen Dipstick 0.2 mg/dL (0.2 mg/dL) Urine Leukocyte Esterase Negative (NEG) Urine RBC 3-5 /HPF (0-2) Urine WBC 20-40 /HPF (0-4) Urine Transitional Epithelial Cells Occ /LPF Urine Bacteria 0 /HPF (0-FEW) Urine Hyaline Casts Moderate /HPF Urine Mucus Slight /LPF Clostridium difficile Toxin B Gene Negative (Negative) Lactic Acid Level 3.5 mmol/L (0.4-2.0) Procalcitonin 48.12 ng/mL (0.00-0.10) Test 04/30/18 14:16 04/30/18 15:41 04/30/18 17:02 04/30/18 18:15 Glucose (Fingerstick) 407 mg/dL (70-99) 401 mg/dL (70-99) 370 mg/dL (70-99) Activated Partial Thromboplast Time 33 SEC (24-38) Fibrinogen 971 mg/dL (200-440) Test 04/30/18 18:16 04/30/18 19:35 04/30/18 20:42 05/01/18 04:30 Glucose (Fingerstick) 270 mg/dL (70-99) 247 mg/dL (70-99) 216 mg/dL (70-99) White Blood Count 9.2 x10^3/uL (4.0-11.0) Red Blood Count 4.06 x10^6/uL (4.30-5.70) Hemoglobin 11.3 g/dL (13.0-17.5) Hematocrit 33.9 % (39.0-53.0) Mean Corpuscular Volume 84 fL (79-100) Mean Corpuscular Hemoglobin 28 pg (25-35) Mean Corpuscular Hemoglobin Concent 33 g/dL (31-37) Red Cell Distribution Width 15.4 % (11.5-14.5) Platelet Count 100 x10^3/uL (140-400) Neutrophils (%) (Auto) 84 % (31-73) Lymphocytes (%) (Auto) 7 % (24-48) Monocytes (%) (Auto) 8 % (0-9) Eosinophils (%) (Auto) 1 % (0-3) Basophils (%) (Auto) 0 % (0-3) Neutrophils # (Auto) 7.7 x10^3uL (1.8-7.7) Lymphocytes # (Auto) 0.7 x10^3/uL (1.0-4.8) Monocytes # (Auto) 0.8 x10^3/uL (0.0-1.1) Eosinophils # (Auto) 0.1 x10^3/uL (0.0-0.7) Basophils # (Auto) 0.0 x10^3/uL (0.0-0.2) Sodium Level 133 mmol/L (136-145) Potassium Level 4.0 mmol/L (3.5-5.1) Chloride Level 97 mmol/L (98-107) Carbon Dioxide Level 22 mmol/L (21-32) Anion Gap 14 (6-14) Blood Urea Nitrogen 56 mg/dL (8-26) Creatinine 2.5 mg/dL (0.7-1.3) Estimated GFR (Cockcroft-Gault) 27.8 BUN/Creatinine Ratio 22 (6-20) Glucose Level 356 mg/dL (70-99) Calcium Level 8.3 mg/dL (8.5-10.1) Total Bilirubin 0.7 mg/dL (0.2-1.0) Aspartate Amino Transf (AST/SGOT) 13 U/L (15-37) Alanine Aminotransferase (ALT/SGPT) 14 U/L (16-63) Alkaline Phosphatase 55 U/L (46-116) Total Protein 6.9 g/dL (6.4-8.2) Albumin 2.2 g/dL (3.4-5.0) Albumin/Globulin Ratio 0.5 (1.0-1.7) Test 05/01/18 07:53 Glucose (Fingerstick) 320 mg/dL (70-99) Assessment/Plan Assessment/Plan IMP YOEL WITH CR OF 3.2 CKD STAGE 3 WITH BASELINE CR OF 1.5-2.0 DEHYDRATION NAUSEA/VOMITING PYELONEPHRITIS DM II HTN PLAN HOLD LOSARTAN HOLD HCTZ HOLD METFORMIN ANTIBIOTICS IVF'S LEONA BENSON MD May 01, 2018 11:41
[2018-05-01] MEDS ORDERED: INSULIN LISPRO 300 UNITS/3 ML INSULN.PEN. SQ SCH ×2 (12:00→17:00)
[2018-05-01] MEDS ORDERED: INSULIN LISPRO 300 UNITS/3 ML INSULN.PEN. SQ ONE ×2 (12:30→17:00)
--- NOTE | 2018-05-01 12:54 | NUR ---
SS following for discharge planning. SS reviewed pt chart. Pt is self pay. Pt is from home. No discharge needs noted at this time. SS will continue to follow for pending discharge needs.
--- NOTE | 2018-05-01 13:44 | NUR ---
More comfortable in chair. Frequent c/o gas w eructation followed by little relief in abd. pain. Intermittent nausea- sputum,no observed gastric content. Attempts nutrition w/o success. Tolerates 'soft' foods better. Informed of transfer to step down room 664.
--- NOTE | 2018-05-01 14:31 | PDOC2 ---
Chief Complaint: Chief Complaint: DFU Problems: (1) Type 2 diabetes mellitus with foot ulcer Vital Signs: Vital Signs: Vital Signs Date Time Temp Pulse Resp B/P (MAP) Pulse Ox O2 Delivery O2 Flow Rate FiO2 04/30/18 09:09 98.1 130 18 132/77 (95) 95 Room Air 98.1 04/30/18 11:06 2.0 Vital Signs Date Time Temp Pulse Resp B/P (MAP) Pulse Ox O2 Delivery O2 Flow Rate FiO2 05/01/18 11:05 97.5 97 22 161/89 (113) 99 Room Air 97.5 05/01/18 10:21 2.0 Allergies: Allergies: Allergies Coded Allergies Type Severity Reaction Last Updated Verified acetaminophen Adverse Reaction Intermediate UPSET STOMACH, DOESN'T WANT TO TAKE 04/30/18 Yes lisinopril Adverse Reaction Intermediate CHEST PAIN, ACID REFLUX 04/30/18 Yes Medications: Home Meds Active Scripts Insulin Lispro (HUMALOG) 100 Unit/1 Ml Insuln.pen, 8 UNITS SQ TIDWMEALS for 14 Days, EACH Prov:CARTER HOLLIS MD 01/05/18 Insulin Glargine,Hum.rec.anlog (LANTUS SOLOSTAR) 100 Unit/1 Ml Insuln.pen, 25 UNITS SQ QHS for 14 Days, EACH Prov:CARTER HOLLIS MD 01/05/18 Tramadol Hcl (TRAMADOL HCL) 50 Mg Tablet, 50 MG PO PRN Q6HRS PRN for MILD TO MODERATE PAIN, #30 TAB Prov:CARTER HOLLIS MD 01/05/18 Amlodipine Besylate (AMLODIPINE BESYLATE) 10 Mg Tablet, 10 MG PO DAILY for 30 Days, #30 TAB Prov:CARTER HOLLIS MD 01/05/18 Carvedilol (CARVEDILOL ) 12.5 Mg Tablet, 12.5 MG PO BIDWMEALS for 30 Days, # 60 TAB Prov:CARTER HOLLIS MD 01/05/18 Ondansetron Hcl (ZOFRAN) 4 Mg Tablet, 1 TAB PO PRN Q8HRS PRN for NAUSEA, #12 TAB Prov:MICHAEL MAYER DO 02/07/17 Reported Medications Losartan/Hydrochlorothiazide (LOSARTAN-HCTZ 50-12.5 MG TAB) 1 Each Tablet, 1 EACH PO DAILY, TAB 01/03/18 Pregabalin (LYRICA) 75 Mg Capsule, 75 MG PO TID, CAP 12/30/17 Atorvastatin Calcium (ATORVASTATIN CALCIUM) 20 Mg Tablet, 20 MG PO HS for FOR CHOLESTEROL, #30 TAB 0 Refills 12/30/17 Amlodipine Besylate (AMLODIPINE BESYLATE) 10 Mg Tablet, 20 MG PO BID, TAB 12/30/17 Dulaglutide (Trulicity) 1.5 Mg/0.5 Ml Pen.injctr, 1.5 MG SQ WEEKLY, EACH 12/30/17 Metformin Hcl (METFORMIN HCL) 1,000 Mg Tablet, 1000 MG PO BIDWMEALS, TAB 12/30/17 Pain: Pain Location: Foot Pain Description: Acute Scale (pain): 8 Date of Onset Mr. Rodarte is well known to the wound care clinic where we were following him as an out patient for DFU Husain 2 under the 1st metatarsal head. After his last discharge, due to his self pay status, I was following him at the [facility]. He was treated with antibiotics and off-loaded with felting and a Darco boot. Our last visit was 3 weeks ago and he was nearly healed. Today on exam his DFU is completely healed. He has a thin but tough callus. No s/s infection Review of Systems: Recent N/V. Admitted with pyelonephritis. A/P DFU left plantar 1st metatarsal is closed. No s/s infection. He is instructed to gently debride the callus at home with [place] board, avoiding going all the way through the callus. F/U with us if he develops other wounds. Problems: (1) Type 2 diabetes mellitus with foot ulcer NIA SALAZAR MD May 01, 2018 14:31
--- NOTE | 2018-05-01 15:15 | NUR ---
Wound care: Patient seen per wound care. Patient is known to us in the [facility]. There are no open wounds at this time. Right DFU remains closed. Dr. Shepard at bedside. No wound care needed at this time. Please re consult regarding any changes per wound care.
--- NOTE | 2018-05-01 15:39 | NUR ---
Received patient transfer from ICU, property underwriter agrees with previous nurse head to toe assessment. Will continue to monitor.
[2018-05-01] MEDS ORDERED: METOPROLOL TARTRATE 5 MG/5 ML VIAL. IVP ONE (16:15)
--- NOTE | 2018-05-01 16:26 | NUR ---
Patients blood pressure is 118/113, pulse has been ranging from 140's-150's. Notified Dr. Gimenez, new order to consult cardiology. Notify BRYAN Yarbrough for cardiology and received new medication order, will continue to monitor patient. Addendum: 05/01/18 at 1752 by DALIA DUQUE RN Error in typing patients blood pressure, actual is 188/113.
--- NOTE | 2018-05-01 16:51 | NUR ---
Patients blood sugar is 394, notified Dr. Gimenez. new order for novolog 20units total.
[2018-05-01] MEDS: MEROPENEM 1 GM in IV NORMAL SALINE 100ML 100 ML IV SCH (16:53)
--- NOTE | 2018-05-01 19:31 | CONS ---
DATE OF CONSULTATION: 05/01/2018 REFERRING PHYSICIAN: Dr. Kaur. REASON FOR CONSULTATION: Pyelonephritis. HISTORY OF PRESENT ILLNESS: A 47-year-old male, with history of diabetes, poorly controlled; history of multidrug-resistant E. coli urosepsis in December 2017, presented to the ER with complaints of back pain, nausea, vomiting, not feeling well, weak, decreased p.o. intake, which he attributed first to flu-like illness, but as he continued to get worse, he presented to the ER. He also had a sense of urgency. He also had diarrhea. He was found to have hyperglycemia. White count was normal. Hyponatremia, YOEL, lactic acidosis in the setting of increased creatinine. UA showed pyuria. CT showed fat stranding in the right perinephric region and right paracolic gutter with facial thickening suggestive of acute inflammatory or infectious etiology such as pyelonephritis. C. diff was negative. Ethyl alcohol level was low. The patient was started on empiric meropenem after I discussed with the ED physician yesterday due to history of multidrug-resistant UTI in the past, renal dosing. This morning, creatinine has come down from 3.2 to 2.5. Fever has resolved. The patient still has nausea, continues to have back discomfort. Blood cultures are done, which are pending at this time. PAST MEDICAL HISTORY: Diabetes, history of lower extremity wound, hyperlipidemia, hypertension, migraine, peripheral neuropathy, retinopathy, history of renal insufficiency. REVIEW OF SYSTEMS: Negative except for above in HPI. ALLERGIES: LISTED LISINOPRIL AND TYLENOL, LATTER WITH NAUSEA. SOCIAL HISTORY: Denies smoking, ETOH. 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 No pets. FAMILY HISTORY: Per HPI. MEDICATIONS: Current medications, IV meropenem and insulin. Other medications reviewed in medication list. PHYSICAL EXAMINATION: VITAL SIGNS: T-max 103. This morning, temperature is 98.1, pulse 102, respiratory rate 26, blood pressure 153/83, oxygen saturation 98% on 2 liters nasal cannula. GENERAL: Tired-appearing male, sitting in chair, in no acute distress, cooperative. Wears glasses, drinking water. HEENT: Pupils equal, reactive to light. Extraocular movements intact. Normal conjunctivae. Oral cavity, pharynx clear. NECK: Supple. No JVD. LUNGS: Clear bilaterally. No wheezing. HEART: S1, S2. ABDOMEN: Soft, obese. Bowel sounds present, nontender, nondistended, mild discomfort in the sub-epigastric area, mild CVA tenderness, more on the right side. EXTREMITIES: No edema, no cyanosis, no clubbing. CENTRAL NERVOUS SYSTEM: Alert and oriented x 3. Grossly nonfocal. DERMATOLOGIC: Warm, dry, no generalized rash. LABORATORY DATA: WBC 9.2, hemoglobin 11.3, hematocrit 33.9, platelets 100. Sodium 133, potassium 4, chloride 97, bicarbonate 22, BUN 56, creatinine 2.5, glucose 356. Lactate was 3.5, calcium 8.3. LFTs within normal limits. Albumin 2.2. Ethyl alcohol less than 10. C. diff negative. UA shows 20-40 wbc's, positive nitrite and leukocyte esterase negative. IMAGING: CT abdomen and pelvis shows fatty stranding in the right perinephric region and right paracolic gutter with facial thickening. Findings suggestive of nonspecific acute inflammatory or infectious etiologies such as pyelonephritis. Right descending colon is adjacent to these inflammatory changes, but demonstrates no definite intrinsic wall thickening. No evidence of obstructive uropathy or calculus. Stable mild splenomegaly. Chest x-ray shows linear right mid thorax atelectasis or interstitial infiltrate. Ultrasound shows hepatomegaly with hepatic steatosis, contracted appearance of the gallbladder. IMPRESSION: 1. Nausea, vomiting. Working diagnosis for probable urinary tract infection, nitrite positive, leukocyte esterase negative. 2. History of Escherichia coli sepsis with urinary tract infection in December 2017 with multidrug resistance. 3. Acute kidney injury. 4. Questionable urinary tract infection. 5. Diabetes mellitus with hyperosmolar hyperglycemia. 6. Thrombocytopenia. 7. Hyponatremia. 8. Lactic acidosis in the setting of increased creatinine. 9. Fever, resolving. RECOMMENDATIONS: 1. Continue empiric meropenem, renal dosing. 2. Follow up labs in a.m. and cultures. 3. Continue supportive care. Thank you for allowing me to participate in this patient's care. If you have any questions, do not hesitate to contact me. JERAMIE MCGINNIS MD DR: GIOVANNA/allen JOB#: [id number] / [id number] ISMAEL
[2018-05-01] MEDS: LACTOBACILLUS RHAMNOSUS GG 1 CAPSULE. PO SCH (21:10)
[2018-05-02 03:05] VITALS: BP 160/93
[2018-05-02 05:06] LABS: BASO % 0 % (0-3); EOS # 0.1 x10^3/uL (0.0-0.7); EOS % 1 % (0-3); HEMATOCRIT 34.2 % (39.0-53.0); HEMOGLOBIN 11.2 g/dL (13.0-17.5); LYMPH # 1.1 x10^3/uL (1.0-4.8); LYMPH % 10 % (24-48); MEAN CORPUSCULAR HEMOGLOBIN 27 pg (25-35); MEAN CORPUSCULAR HGB CONC 33 g/dL (31-37); MEAN CORPUSCULAR VOLUME 82 fL (79-100); MONO # 1.3 x10^3/uL (0.0-1.1); MONO % 12 % (0-9); NEUT % 77 % (31-73); PLATELET COUNT 124 x10^3/uL (140-400); RED BLOOD COUNT 4.15 x10^6/uL (4.30-5.70); RED CELL DISTRIBUTION WIDTH 15.6 % (11.5-14.5); WHITE BLOOD COUNT 10.5 x10^3/uL (4.0-11.0)
[2018-05-02 05:16] LABS: ALBUMIN 2.1 g/dL (3.4-5.0); ALBUMIN/GLOBULIN RATIO 0.4 (1.0-1.7); CALCIUM 8.3 mg/dL (8.5-10.1); CREATININE 1.9 mg/dL (0.7-1.3); GFR 38.2; POTASSIUM 3.7 mmol/L (3.5-5.1); TOTAL BILIRUBIN 0.8 mg/dL (0.2-1.0); TOTAL PROTEIN 6.9 g/dL (6.4-8.2)
[2018-05-02] MEDS: ONDANSETRON PF 4 MG/2 ML VIAL. IV PRN (05:17)
[2018-05-02] MEDS: fentaNYL PF VIAL 100 MCG/2 ML VIAL IV PRN ×3 (05:17→21:29)
[2018-05-02] MEDS: IV NORMAL SALINE 1000ML BAG 1,000 ML IV SCH ×2 (05:18→17:45)
[2018-05-02] MEDS: HEPARIN for SUB-Q USE 5,000 UNIT/ML VIAL. SQ SCH ×3 (05:24→21:22)
[2018-05-02 07:00] VITALS: BP 166/98
[2018-05-02] MEDS ORDERED: NON FORMULARY ITEM (Dulaglutide (Trulicity) 1.5 MG) SQ SCH (09:00)
[2018-05-02] MEDS: CARVEDILOL 12.5 MG TABLET. PO SCH ×2 (09:00→17:00)
[2018-05-02] MEDS ORDERED: ONDANSETRON ODT 4 MG TAB.RAPDIS. PO PRN (09:00)
[2018-05-02] MEDS: amLODIPine BESYLATE 10 MG TABLET PO SCH (09:00)
[2018-05-02] MEDS ORDERED: LABETALOL 20 MG/4 ML DISP.SYRIN. IVP PRN (09:00)
[2018-05-02] MEDS ORDERED: traMADol 50 MG TABLET PO PRN (09:00)
[2018-05-02] MEDS ORDERED: ZOLPIDEM 5 MG TABLET. PO PRN (09:00)
[2018-05-02] MEDS ORDERED: DEXTROSE 50% 25 GM / 50ML DISP.SYRIN. IV PRN (09:00)
[2018-05-02] MEDS: MEROPENEM 1 GM in IV NORMAL SALINE 100ML 100 ML IV SCH ×2 (09:54→17:48)
[2018-05-02] MEDS: LACTOBACILLUS RHAMNOSUS GG 1 CAPSULE. PO SCH ×2 (09:54→21:14)
--- NOTE | 2018-05-02 10:46 | PDOC ---
Provider Note Provider Note 47 Y.O MALE WITH tachycardia and htn tachy related to poor p.o intake He is not inclined to take many BP meds. He is still not able to take p.o. When able to take p.o, restart low dose metoprolol from home, start amlodipine and use hydralazine for additional drug if needed. Full note dictated. CELSO HORN MD May 02, 2018 10:46
[2018-05-02 11:00] VITALS: BP 173/100
--- NOTE | 2018-05-02 11:09 | PDOC ---
Infectious Disease Note Subjective Subjective c/o N/V/upset stomach and diminished appetite Denies F/C/S/aches ROS ROS per HPI otherwise neg Vital Sign Vital Signs Vital Signs Date Time Temp Pulse Resp B/P (MAP) Pulse Ox O2 Delivery O2 Flow Rate FiO2 05/02/18 07:00 98.5 98 20 166/98 (120) 97 Room Air 98.5 05/01/18 10:21 2.0 Physical Exam PHYSICAL EXAM GENERAL: Sitting in the chair, alert, NAD HEENT: Oral cavity, pharynx clear. NECK: Supple. LUNGS: Clear bilaterally. No wheezing. HEART: S1, S2. ABDOMEN: Soft, obese. Bowel sounds present, nontender EXTREMITIES: No edema, no cyanosis, no clubbing. SECURITY SERVICES MANAGER: Alert and oriented x 3. Grossly nonfocal. SKIN: Warm, dry, no generalized rash. PIV ok Labs Lab Laboratory Tests Test 05/01/18 12:05 05/01/18 16:45 05/01/18 21:13 05/02/18 04:10 Glucose (Fingerstick) 389 mg/dL (70-99) 394 mg/dL (70-99) 202 mg/dL (70-99) White Blood Count 10.5 x10^3/uL (4.0-11.0) Red Blood Count 4.15 x10^6/uL (4.30-5.70) Hemoglobin 11.2 g/dL (13.0-17.5) Hematocrit 34.2 % (39.0-53.0) Mean Corpuscular Volume 82 fL (79-100) Mean Corpuscular Hemoglobin 27 pg (25-35) Mean Corpuscular Hemoglobin Concent 33 g/dL (31-37) Red Cell Distribution Width 15.6 % (11.5-14.5) Platelet Count 124 x10^3/uL (140-400) Neutrophils (%) (Auto) 77 % (31-73) Lymphocytes (%) (Auto) 10 % (24-48) Monocytes (%) (Auto) 12 % (0-9) Eosinophils (%) (Auto) 1 % (0-3) Basophils (%) (Auto) 0 % (0-3) Neutrophils # (Auto) 8.0 x10^3uL (1.8-7.7) Lymphocytes # (Auto) 1.1 x10^3/uL (1.0-4.8) Monocytes # (Auto) 1.3 x10^3/uL (0.0-1.1) Eosinophils # (Auto) 0.1 x10^3/uL (0.0-0.7) Basophils # (Auto) 0.0 x10^3/uL (0.0-0.2) Erythrocyte Sedimentation Rate 120 (0-15) Sodium Level 131 mmol/L (136-145) Potassium Level 3.7 mmol/L (3.5-5.1) Chloride Level 96 mmol/L (98-107) Carbon Dioxide Level 23 mmol/L (21-32) Anion Gap 12 (6-14) Blood Urea Nitrogen 48 mg/dL (8-26) Creatinine 1.9 mg/dL (0.7-1.3) Estimated GFR (Cockcroft-Gault) 38.2 BUN/Creatinine Ratio 25 (6-20) Glucose Level 254 mg/dL (70-99) Calcium Level 8.3 mg/dL (8.5-10.1) Total Bilirubin 0.8 mg/dL (0.2-1.0) Aspartate Amino Transf (AST/SGOT) 12 U/L (15-37) Alanine Aminotransferase (ALT/SGPT) 13 U/L (16-63) Alkaline Phosphatase 58 U/L (46-116) Total Protein 6.9 g/dL (6.4-8.2) Albumin 2.1 g/dL (3.4-5.0) Albumin/Globulin Ratio 0.4 (1.0-1.7) Test 05/02/18 07:37 Glucose (Fingerstick) 261 mg/dL (70-99) CT A/P 1. Fatty stranding in the right perinephric region and right paracolic gutter with fascial thickening. Findings suggest nonspecific acute inflammatory or infectious etiology, such as pyelonephritis. The right descending colon is adjacent to these inflammatory changes but demonstrates no definite intrinsic wall thickening. 2. No evidence of obstructive uropathy or calculus. 3. Stable mild splenomegaly. Micro URINE CULTURE RES 1 Final Comment Culture shows less than 10,000 colony forming units of bacteria per milliliter of urine. This colony count is not generally considered to be clinically significant. BLOOD CULTURE Final GRAM NEGATIVE RODS IN BOTH BOTTLES OF THE ONLY SET DRAWN. THE RESULT WAS CALLED TO KAI FERREIRA(ICU)ON 05/01/18 AT 0821 BY Sylvia ESCAMILLA. Objective Assessment GNR sepsis, POA Nausea, vomiting. Working diagnosis for probable urinary tract infection, nitrite positive, leukocyte esterase negative. History of Escherichia coli sepsis with urinary tract infection in December 2017 with multidrug resistance. Acute kidney injury - better Questionable urinary tract infection. UC neg Diabetes mellitus with hyperosmolar hyperglycemia. Thrombocytopenia. Hyponatremia. Lactic acidosis in the setting of increased creatinine. Fever, resolving. Diarrhea, c. diff neg 04/30. Plan Plan of Care Cont Merrem Probiotics Await GNR ID/susceptibilities Monitor labs cont supportive care Patient seen and examined on 05/02. Chart reviewed in detail. Case discussed with PHP WEB DEVELOPER. Agree with above plan. JELLY MCDONALD APRN May 02, 2018 11:09 MICHEAL ACUNA MD May 03, 2018 20:05
--- NOTE | 2018-05-02 11:21 | PDOC ---
PROGRESS NOTES Chief Complaint Chief Complaint GNR sepsis, POA Nausea, vomiting. Working diagnosis for probable urinary tract infection, nitrite positive, leukocyte esterase negative. History of Escherichia coli sepsis with urinary tract infection in December 2017 with multidrug resistance. Acute kidney injury - better Questionable urinary tract infection. UC neg Diabetes mellitus with hyperosmolar hyperglycemia. Thrombocytopenia. Hyponatremia. Lactic acidosis in the setting of increased creatinine. Fever, resolving. Diarrhea, c. diff neg 04/30. s/p DKA? History of Present Illness History of Present Illness transferred out of ICU 05/01/18 for DKA and sepsis Blood sugars better Still poor by mouth intake Still diarrhea - C. difficile negative Some abdominal pain and no sleep because of abd discomfort Hemoglobin A1c 8 Creatinine 1.9 better from 3.2 Blood pressure and heart rate still on the high side WBC 10 History of Escherichia coli multidrug-resistant Plan: follow ID recommendations PT OT I did hold lisinopril HCTZ and metformin because of creatinine of 1.9 Imodium, Lactobacillus-C. difficile negative Sliding-scale insulin-hemoglobin A1c 8 in March 2018 Supprotive meds Vitals Vitals Vital Signs Date Time Temp Pulse Resp B/P (MAP) Pulse Ox O2 Delivery O2 Flow Rate FiO2 05/02/18 07:00 98.5 98 20 166/98 (120) 97 Room Air 98.5 05/01/18 10:21 2.0 Physical Exam Physical Exam GENERAL: Sitting in the chair, alert, NAD HEENT: Oral cavity, pharynx clear. NECK: Supple. LUNGS: Clear bilaterally. No wheezing. HEART: S1, S2. ABDOMEN: Soft, obese. Bowel sounds present, nontender EXTREMITIES: No edema, no cyanosis, no clubbing. LOAD OUT PERSON: Alert and oriented x 3. Grossly nonfocal. SKIN: Warm, dry, no generalized rash. PIV ok General: Alert, Oriented X3, Cooperative, No acute distress, mild distress Heart: Regular rate, Normal S1, Normal S2 Lungs: Clear, Other (no rhonchi) Abdomen: Normal bowel sounds, Soft, Other (FLANK PAIN ON PERCUSSION) Extremities: No clubbing Skin: No breakdown Labs LABS Laboratory Tests Test 05/01/18 12:05 05/01/18 16:45 05/01/18 21:13 05/02/18 04:10 Glucose (Fingerstick) 389 mg/dL (70-99) 394 mg/dL (70-99) 202 mg/dL (70-99) White Blood Count 10.5 x10^3/uL (4.0-11.0) Red Blood Count 4.15 x10^6/uL (4.30-5.70) Hemoglobin 11.2 g/dL (13.0-17.5) Hematocrit 34.2 % (39.0-53.0) Mean Corpuscular Volume 82 fL (79-100) Mean Corpuscular Hemoglobin 27 pg (25-35) Mean Corpuscular Hemoglobin Concent 33 g/dL (31-37) Red Cell Distribution Width 15.6 % (11.5-14.5) Platelet Count 124 x10^3/uL (140-400) Neutrophils (%) (Auto) 77 % (31-73) Lymphocytes (%) (Auto) 10 % (24-48) Monocytes (%) (Auto) 12 % (0-9) Eosinophils (%) (Auto) 1 % (0-3) Basophils (%) (Auto) 0 % (0-3) Neutrophils # (Auto) 8.0 x10^3uL (1.8-7.7) Lymphocytes # (Auto) 1.1 x10^3/uL (1.0-4.8) Monocytes # (Auto) 1.3 x10^3/uL (0.0-1.1) Eosinophils # (Auto) 0.1 x10^3/uL (0.0-0.7) Basophils # (Auto) 0.0 x10^3/uL (0.0-0.2) Erythrocyte Sedimentation Rate 120 (0-15) Sodium Level 131 mmol/L (136-145) Potassium Level 3.7 mmol/L (3.5-5.1) Chloride Level 96 mmol/L (98-107) Carbon Dioxide Level 23 mmol/L (21-32) Anion Gap 12 (6-14) Blood Urea Nitrogen 48 mg/dL (8-26) Creatinine 1.9 mg/dL (0.7-1.3) Estimated GFR (Cockcroft-Gault) 38.2 BUN/Creatinine Ratio 25 (6-20) Glucose Level 254 mg/dL (70-99) Calcium Level 8.3 mg/dL (8.5-10.1) Total Bilirubin 0.8 mg/dL (0.2-1.0) Aspartate Amino Transf (AST/SGOT) 12 U/L (15-37) Alanine Aminotransferase (ALT/SGPT) 13 U/L (16-63) Alkaline Phosphatase 58 U/L (46-116) Total Protein 6.9 g/dL (6.4-8.2) Albumin 2.1 g/dL (3.4-5.0) Albumin/Globulin Ratio 0.4 (1.0-1.7) Test 05/02/18 07:37 Glucose (Fingerstick) 261 mg/dL (70-99) Review of Systems Review of Systems Diarrhea, abdominal discomfort, churning abdomen Rest of 14 point negative Assessment and Plan Assessmemt and Plan Problems Medical Problems: (1) Dehydration Status: Acute (2) Hyperglycemia Status: Acute Comment Review of Relevant I have reviewed the following items odell (where applicable) has been applied. Labs Laboratory Tests Test 04/30/18 11:51 04/30/18 12:06 04/30/18 12:36 04/30/18 13:50 Glucose (Fingerstick) 472 mg/dL (70-99) 527 mg/dL (70-99) Urine Collection Type Unknown Urine Color Yellow Urine Clarity Clear Urine pH 5.5 Urine Specific Burket 1.025 Urine Protein 30 mg/dL (NEG-TRACE) Urine Glucose (UA) >=1000 mg/dL (NEG) Urine Ketones (Stick) 15 mg/dL (NEG) Urine Blood Large (NEG) Urine Nitrite Positive (NEG) Urine Bilirubin Negative (NEG) Urine Urobilinogen Dipstick 0.2 mg/dL (0.2 mg/dL) Urine Leukocyte Esterase Negative (NEG) Urine RBC 3-5 /HPF (0-2) Urine WBC 20-40 /HPF (0-4) Urine Transitional Epithelial Cells Occ /LPF Urine Bacteria 0 /HPF (0-FEW) Urine Hyaline Casts Moderate /HPF Urine Mucus Slight /LPF Clostridium difficile Toxin B Gene Negative (Negative) Lactic Acid Level 3.5 mmol/L (0.4-2.0) Procalcitonin 48.12 ng/mL (0.00-0.10) Test 04/30/18 14:16 04/30/18 15:41 04/30/18 17:02 04/30/18 18:15 Glucose (Fingerstick) 407 mg/dL (70-99) 401 mg/dL (70-99) 370 mg/dL (70-99) Activated Partial Thromboplast Time 33 SEC (24-38) Fibrinogen 971 mg/dL (200-440) Test 04/30/18 18:16 04/30/18 19:35 04/30/18 20:42 05/01/18 00:05 Glucose (Fingerstick) 270 mg/dL (70-99) 247 mg/dL (70-99) 216 mg/dL (70-99) Nasal Screen MRSA (PCR) Negative (Negative) Test 05/01/18 04:30 05/01/18 07:53 05/01/18 12:05 05/01/18 16:45 White Blood Count 9.2 x10^3/uL (4.0-11.0) Red Blood Count 4.06 x10^6/uL (4.30-5.70) Hemoglobin 11.3 g/dL (13.0-17.5) Hematocrit 33.9 % (39.0-53.0) Mean Corpuscular Volume 84 fL (79-100) Mean Corpuscular Hemoglobin 28 pg (25-35) Mean Corpuscular Hemoglobin Concent 33 g/dL (31-37) Red Cell Distribution Width 15.4 % (11.5-14.5) Platelet Count 100 x10^3/uL (140-400) Neutrophils (%) (Auto) 84 % (31-73) Lymphocytes (%) (Auto) 7 % (24-48) Monocytes (%) (Auto) 8 % (0-9) Eosinophils (%) (Auto) 1 % (0-3) Basophils (%) (Auto) 0 % (0-3) Neutrophils # (Auto) 7.7 x10^3uL (1.8-7.7) Lymphocytes # (Auto) 0.7 x10^3/uL (1.0-4.8) Monocytes # (Auto) 0.8 x10^3/uL (0.0-1.1) Eosinophils # (Auto) 0.1 x10^3/uL (0.0-0.7) Basophils # (Auto) 0.0 x10^3/uL (0.0-0.2) Sodium Level 133 mmol/L (136-145) Potassium Level 4.0 mmol/L (3.5-5.1) Chloride Level 97 mmol/L (98-107) Carbon Dioxide Level 22 mmol/L (21-32) Anion Gap 14 (6-14) Blood Urea Nitrogen 56 mg/dL (8-26) Creatinine 2.5 mg/dL (0.7-1.3) Estimated GFR (Cockcroft-Gault) 27.8 BUN/Creatinine Ratio 22 (6-20) Glucose Level 356 mg/dL (70-99) Calcium Level 8.3 mg/dL (8.5-10.1) Total Bilirubin 0.7 mg/dL (0.2-1.0) Aspartate Amino Transf (AST/SGOT) 13 U/L (15-37) Alanine Aminotransferase (ALT/SGPT) 14 U/L (16-63) Alkaline Phosphatase 55 U/L (46-116) Total Protein 6.9 g/dL (6.4-8.2) Albumin 2.2 g/dL (3.4-5.0) Albumin/Globulin Ratio 0.5 (1.0-1.7) Glucose (Fingerstick) 320 mg/dL (70-99) 389 mg/dL (70-99) 394 mg/dL (70-99) Test 05/01/18 21:13 05/02/18 04:10 05/02/18 07:37 Glucose (Fingerstick) 202 mg/dL (70-99) 261 mg/dL (70-99) White Blood Count 10.5 x10^3/uL (4.0-11.0) Red Blood Count 4.15 x10^6/uL (4.30-5.70) Hemoglobin 11.2 g/dL (13.0-17.5) Hematocrit 34.2 % (39.0-53.0) Mean Corpuscular Volume 82 fL (79-100) Mean Corpuscular Hemoglobin 27 pg (25-35) Mean Corpuscular Hemoglobin Concent 33 g/dL (31-37) Red Cell Distribution Width 15.6 % (11.5-14.5) Platelet Count 124 x10^3/uL (140-400) Neutrophils (%) (Auto) 77 % (31-73) Lymphocytes (%) (Auto) 10 % (24-48) Monocytes (%) (Auto) 12 % (0-9) Eosinophils (%) (Auto) 1 % (0-3) Basophils (%) (Auto) 0 % (0-3) Neutrophils # (Auto) 8.0 x10^3uL (1.8-7.7) Lymphocytes # (Auto) 1.1 x10^3/uL (1.0-4.8) Monocytes # (Auto) 1.3 x10^3/uL (0.0-1.1) Eosinophils # (Auto) 0.1 x10^3/uL (0.0-0.7) Basophils # (Auto) 0.0 x10^3/uL (0.0-0.2) Erythrocyte Sedimentation Rate 120 (0-15) Sodium Level 131 mmol/L (136-145) Potassium Level 3.7 mmol/L (3.5-5.1) Chloride Level 96 mmol/L (98-107) Carbon Dioxide Level 23 mmol/L (21-32) Anion Gap 12 (6-14) Blood Urea Nitrogen 48 mg/dL (8-26) Creatinine 1.9 mg/dL (0.7-1.3) Estimated GFR (Cockcroft-Gault) 38.2 BUN/Creatinine Ratio 25 (6-20) Glucose Level 254 mg/dL (70-99) Calcium Level 8.3 mg/dL (8.5-10.1) Total Bilirubin 0.8 mg/dL (0.2-1.0) Aspartate Amino Transf (AST/SGOT) 12 U/L (15-37) Alanine Aminotransferase (ALT/SGPT) 13 U/L (16-63) Alkaline Phosphatase 58 U/L (46-116) Total Protein 6.9 g/dL (6.4-8.2) Albumin 2.1 g/dL (3.4-5.0) Albumin/Globulin Ratio 0.4 (1.0-1.7) Laboratory Tests Test 05/01/18 12:05 05/01/18 16:45 05/01/18 21:13 05/02/18 04:10 Glucose (Fingerstick) 389 mg/dL (70-99) 394 mg/dL (70-99) 202 mg/dL (70-99) White Blood Count 10.5 x10^3/uL (4.0-11.0) Red Blood Count 4.15 x10^6/uL (4.30-5.70) Hemoglobin 11.2 g/dL (13.0-17.5) Hematocrit 34.2 % (39.0-53.0) Mean Corpuscular Volume 82 fL (79-100) Mean Corpuscular Hemoglobin 27 pg (25-35) Mean Corpuscular Hemoglobin Concent 33 g/dL (31-37) Red Cell Distribution Width 15.6 % (11.5-14.5) Platelet Count 124 x10^3/uL (140-400) Neutrophils (%) (Auto) 77 % (31-73) Lymphocytes (%) (Auto) 10 % (24-48) Monocytes (%) (Auto) 12 % (0-9) Eosinophils (%) (Auto) 1 % (0-3) Basophils (%) (Auto) 0 % (0-3) Neutrophils # (Auto) 8.0 x10^3uL (1.8-7.7) Lymphocytes # (Auto) 1.1 x10^3/uL (1.0-4.8) Monocytes # (Auto) 1.3 x10^3/uL (0.0-1.1) Eosinophils # (Auto) 0.1 x10^3/uL (0.0-0.7) Basophils # (Auto) 0.0 x10^3/uL (0.0-0.2) Erythrocyte Sedimentation Rate 120 (0-15) Sodium Level 131 mmol/L (136-145) Potassium Level 3.7 mmol/L (3.5-5.1) Chloride Level 96 mmol/L (98-107) Carbon Dioxide Level 23 mmol/L (21-32) Anion Gap 12 (6-14) Blood Urea Nitrogen 48 mg/dL (8-26) Creatinine 1.9 mg/dL (0.7-1.3) Estimated GFR (Cockcroft-Gault) 38.2 BUN/Creatinine Ratio 25 (6-20) Glucose Level 254 mg/dL (70-99) Calcium Level 8.3 mg/dL (8.5-10.1) Total Bilirubin 0.8 mg/dL (0.2-1.0) Aspartate Amino Transf (AST/SGOT) 12 U/L (15-37) Alanine Aminotransferase (ALT/SGPT) 13 U/L (16-63) Alkaline Phosphatase 58 U/L (46-116) Total Protein 6.9 g/dL (6.4-8.2) Albumin 2.1 g/dL (3.4-5.0) Albumin/Globulin Ratio 0.4 (1.0-1.7) Test 05/02/18 07:37 Glucose (Fingerstick) 261 mg/dL (70-99) Microbiology 04/30/18 Blood Culture - Final, Complete 04/30/18 Urine Culture - Final, Complete 04/30/18 Urine Culture Result 1 (HAZEL) - Final, Complete Medications Current Medications Ertapenem 50 ml @ 100 mls/hr 1X STAT IV Last administered on 04/30/18at 10:00 ; Start 04/30/18 at 09:34; Stop 04/30/18 at 10:03; Status DC Sodium Chloride 1,000 ml @ 1,000 mls/hr 1X ONCE IV Last administered on at 09:50; Start 04/30/18 at 09:45; Stop 04/30/18 at 10:44; Status DC Sodium Chloride 1,000 ml @ 1,000 mls/hr 1X ONCE IV Last administered on at 10:28; Start 04/30/18 at 09:45; Stop 04/30/18 at 10:44; Status DC Insulin Human Regular (HumuLIN R VIAL) 10 unit 1X ONCE IV Last administered on 04/30/18at 10:33; Start 04/30/18 at 10:30; Stop 04/30/18 at 10:31; Status DC Ondansetron HCl (Zofran) 4 mg 1X ONCE IV Last administered on 04/30/18at 10:31 ; Start 04/30/18 at 10:30; Stop 04/30/18 at 10:32; Status DC Fentanyl Citrate (Fentanyl 2ml Vial) 50 mcg 1X ONCE IV Last administered on at 10:36; Start 04/30/18 at 10:30; Stop 04/30/18 at 10:32; Status DC Sodium Chloride 1,000 ml @ 1,000 mls/hr 1X ONCE IV Last administered on at 12:36; Start 04/30/18 at 10:45; Stop 04/30/18 at 11:44; Status DC Metoclopramide HCl (Reglan Vial) 10 mg 1X ONCE IV Last administered on at 12:08; Start 04/30/18 at 12:00; Stop 04/30/18 at 12:01; Status DC Fentanyl Citrate (Fentanyl 2ml Vial) 50 mcg 1X ONCE IV ; Start 04/30/18 at 21: 00; Stop 04/30/18 at 21:01; Status DC Acetaminophen (Tylenol) 1,000 mg 1X ONCE PO ; Start 04/30/18 at 11:45; Stop at 11:47; Status DC Insulin Human Regular 150 ml @ 0 mls/hr 1X ONCE IV Last administered on at 12:48; Start 04/30/18 at 12:00; Stop 04/30/18 at 12:01; Status DC Fentanyl Citrate (Fentanyl 2ml Vial) 50 mcg 1X ONCE IV Last administered on at 12:21; Start 04/30/18 at 12:00; Stop 04/30/18 at 12:01; Status DC Meropenem 500 mg/ Sodium Chloride 50 ml @ 100 mls/hr Q12HR IV Last administered on 05/01/18at 08:58; Start 04/30/18 at 21:00; Stop 05/01/18 at 10:32 ; Status DC Sodium Chloride 1,000 ml @ 1,920 mls/hr Q32M IV ; Start 04/30/18 at 15:06; Stop 04/30/18 at 16:08; Status DC Sodium Chloride 500 ml @ 1,000 mls/hr PRN Q30MIN PRN IV SEE COMMENTS; Start at 15:15; Stop 05/01/18 at 10:15; Status DC Sodium Chloride 1,000 ml @ 150 mls/hr Q6H40M IV Last administered on at 21:16; Start 04/30/18 at 15:10; Stop 05/01/18 at 10:15; Status DC Norepinephrine Bitartrate 250 ml @ 0 mls/hr CONT PRN IV SEE I/O RECORD; Start 04/30/18 at 15:15; Stop 05/02/18 at 08:49; Status DC Dobutamine HCl/ Dextrose 250 ml @ 0 mls/hr CONT PRN IV SEE I/O RECORD; Start at 15:15; Stop 05/02/18 at 08:49; Status DC Insulin Human Lispro (HumaLOG) 0-7 UNITS TIDWMEALS SQ Last administered on 04/30at 20:13; Start 04/30/18 at 17:00; Stop 05/01/18 at 08:15; Status DC Dextrose (Dextrose 50%-Water Syringe) 12.5 gm PRN Q15MIN PRN IV SEE COMMENTS; Start 04/30/18 at 15:15; Stop 05/02/18 at 08:54; Status DC Heparin Sodium (Porcine) (Heparin Sodium) 5,000 unit Q8HRS SQ Last administered on 05/02/18at 05:24; Start 04/30/18 at 22:00 Fentanyl Citrate (Fentanyl 2ml Vial) 50 mcg PRN Q3HRS PRN IV PAIN Last administered on 05/02/18 05:17; Start 04/30/18 at 17:00 Ondansetron HCl (Zofran) 4 mg PRN Q6HRS PRN IV NAUSEA/VOMITING Last administered on 05/02/18at 05:17; Start 04/30/18 at 19:30 Ibuprofen (Motrin) 200 mg PRN Q6HRS PRN PO MILD PAIN / TEMP Last administered on 04/30/18at 21:14; Start 04/30/18 at 20:45; Stop 05/01/18 at 11:54; Status DC Insulin Glargine (Lantus) 35 units [id number] SQ Last administered on at 08:57; Start 05/02/18 at 08:00 Insulin Human Lispro (HumaLOG) 0-7 UNITS TIDWMEALS SQ Last administered on 05/01 08:56; Start 05/01/18 at 12:00; Stop 05/01/18 at 12:24; Status DC Meropenem 1 gm/ Sodium Chloride 100 ml @ 200 mls/hr Q12HR IV Last administered on 05/02/18at 09:54; Start 05/01/18 at 18:00 Lactobacillus Rhamnosus (Culturelle) 1 cap BID PO Last administered on at 09:54; Start 05/01/18 at 21:00 Sodium Chloride 1,000 ml @ 100 mls/hr Q10H IV Last administered on 05/02/18at 05:18; Start 05/01/18 at 11:45 Insulin Human Lispro (HumaLOG) 15 units 1X ONCE SQ Last administered on at 14:56; Start 05/01/18 at 12:30; Stop 05/01/18 at 12:31; Status DC Insulin Human Lispro (HumaLOG) 0-9 UNITS TIDWMEALS SQ ; Start 05/01/18 at 17:00 ; Stop 05/02/18 at 08:50; Status DC Metoprolol Tartrate (Lopressor Vial) 5 mg 1X ONCE IVP Last administered on at 16:21; Start 05/01/18 at 16:15; Stop 05/01/18 at 16:18; Status DC Insulin Human Lispro (HumaLOG) 20 units 1X ONCE SQ Last administered on at 16:58; Start 05/01/18 at 17:00; Stop 05/01/18 at 17:01; Status DC Insulin Human Lispro (HumaLOG) 0-9 UNITS TIDWMEALS SQ ; Start 05/02/18 at 12:00 Dextrose (Dextrose 50%-Water Syringe) 12.5 gm PRN Q15MIN PRN IV SEE COMMENTS; Start 05/02/18 at 09:00 Tramadol HCl (Ultram) 50 mg PRN Q6HRS PRN PO PAIN; Start 05/02/18 at 09:00 Zolpidem Tartrate (Ambien) 5 mg PRN QHS PRN PO INSOMNIA; Start 05/02/18 at 09: 00 Amlodipine Besylate (Norvasc) 10 mg DAILY PO ; Start 05/02/18 at 09:00 Atorvastatin Calcium (Lipitor) 20 mg HS PO ; Start 05/02/18 at 21:00 Carvedilol (Coreg) 12.5 mg BIDWMEALS PO ; Start 05/02/18 at 09:00 Insulin Glargine (Lantus) 25 units QHS SQ ; Start 05/02/18 at 21:00 Insulin Human Lispro (HumaLOG) 8 units TIDWMEALS SQ ; Start 05/02/18 at 12:00 Pregabalin (Lyrica) 75 mg TID PO ; Start 05/02/18 at 09:00 Non-Formulary Medication (Dulaglutide (Trulicity)) 1.5 mg WEEKLY SQ ; Start at 09:00; Status UNV Ondansetron HCl (Zofran Odt) 4 mg PRN Q8HRS PRN PO NAUSEA/VOMITING; Start 05/02 at 09:00 Labetalol HCl (Normodyne Iv Push) 10 mg PRN Q2HR PRN IVP HYPERTENSION, SEE COMMENTS; Start 05/02/18 at 09:00 Active Scripts Active Humalog (Insulin Lispro) 100 Unit/1 Ml Insuln.pen 8 Units SQ TIDWMEALS 14 Days Lantus Solostar (Insulin Glargine,Hum.rec.anlog) 100 Unit/1 Ml Insuln.pen 25 Units SQ QHS 14 Days Tramadol Hcl 50 Mg Tablet 50 Mg PO PRN Q6HRS PRN Amlodipine Besylate 10 Mg Tablet 10 Mg PO DAILY 30 Days Carvedilol (Carvedilol) 12.5 Mg Tablet 12.5 Mg PO BIDWMEALS 30 Days Zofran (Ondansetron Hcl) 4 Mg Tablet 1 Tab PO PRN Q8HRS PRN Reported Losartan-Hctz 50-12.5 Mg Tab (Losartan/Hydrochlorothiazide) 1 Each Tablet 1 Each PO DAILY Lyrica (Pregabalin) 75 Mg Capsule 75 Mg PO TID Atorvastatin Calcium 20 Mg Tablet 20 Mg PO HS Amlodipine Besylate 10 Mg Tablet 20 Mg PO BID Trulicity (Dulaglutide) 1.5 Mg/0.5 Ml Pen.injctr 1.5 Mg SQ WEEKLY Metformin Hcl 1,000 Mg Tablet 1,000 Mg PO BIDWMEALS Vitals/I & O Vital Sign - Last 24 Hours 05/01/18 05/01/18 05/01/18 05/01/18 16:08 16:21 16:47 19:05 Temp 98.0 97.9 98.0 97.9 Pulse 145 145 121 109 Resp 20 18 B/P (MAP) 188/113 (138) 188/113 176/98 (124) 134/88 (103) Pulse Ox 92 92 O2 Delivery Room Air Room Air 05/01/18 05/01/18 05/02/18 05/02/18 20:00 23:05 03:05 05:17 Temp 98.2 99.2 98.2 99.2 Pulse 98 97 Resp 18 18 B/P (MAP) 143/91 (108) 160/93 (115) Pulse Ox 94 94 O2 Delivery Room Air Room Air Room Air Room Air 05/02/18 05/02/18 05:47 07:00 Temp 98.5 98.5 Pulse 98 Resp 20 B/P (MAP) 166/98 (120) Pulse Ox 97 O2 Delivery Room Air Room Air Intake and Output 05/01/18 05/01/18 05/02/18 14:59 22:59 06:59 Intake Total 1650 ml 356 ml 1000 ml Output Total 500 ml 600 ml 950 ml Balance 1150 ml -244 ml 50 ml CARTER HOLLIS MD May 02, 2018 11:21
[2018-05-02] MEDS ORDERED: CALCIUM CARBONATE 500 MG TAB.CHEW PO PRN (11:30)
[2018-05-02] MEDS ORDERED: LOPERAMIDE 2 MG CAPSULE PO PRN (11:30)
[2018-05-02] MEDS ORDERED: DICYCLOMINE HCL 10 MG CAPSULE PO ONE (11:30)
--- NOTE | 2018-05-02 11:57 | PDOC ---
Renal-Progress Notes Subjective Notes Notes BETTER, LESS FLANK PAIN History of Present Illness Hx of present illness BETTER Vitals Vitals Vital Signs Date Time Temp Pulse Resp B/P (MAP) Pulse Ox O2 Delivery O2 Flow Rate FiO2 05/02/18 07:00 98.5 98 20 166/98 (120) 97 Room Air 98.5 05/01/18 10:21 2.0 Weight Weight [ ] I.O. Intake and Output Intake and Output 05/02/18 07:00 Intake Total 3006 ml Output Total 2050 ml Balance 956 ml Intake Oral 2500 ml IV Total 506 ml Output Urine Total 2050 ml # Voids 1 # Bowel Movements 3 Labs Labs Laboratory Tests Test 05/01/18 12:05 05/01/18 16:45 05/01/18 21:13 05/02/18 04:10 Glucose (Fingerstick) 389 mg/dL (70-99) 394 mg/dL (70-99) 202 mg/dL (70-99) White Blood Count 10.5 x10^3/uL (4.0-11.0) Red Blood Count 4.15 x10^6/uL (4.30-5.70) Hemoglobin 11.2 g/dL (13.0-17.5) Hematocrit 34.2 % (39.0-53.0) Mean Corpuscular Volume 82 fL (79-100) Mean Corpuscular Hemoglobin 27 pg (25-35) Mean Corpuscular Hemoglobin Concent 33 g/dL (31-37) Red Cell Distribution Width 15.6 % (11.5-14.5) Platelet Count 124 x10^3/uL (140-400) Neutrophils (%) (Auto) 77 % (31-73) Lymphocytes (%) (Auto) 10 % (24-48) Monocytes (%) (Auto) 12 % (0-9) Eosinophils (%) (Auto) 1 % (0-3) Basophils (%) (Auto) 0 % (0-3) Neutrophils # (Auto) 8.0 x10^3uL (1.8-7.7) Lymphocytes # (Auto) 1.1 x10^3/uL (1.0-4.8) Monocytes # (Auto) 1.3 x10^3/uL (0.0-1.1) Eosinophils # (Auto) 0.1 x10^3/uL (0.0-0.7) Basophils # (Auto) 0.0 x10^3/uL (0.0-0.2) Erythrocyte Sedimentation Rate 120 (0-15) Sodium Level 131 mmol/L (136-145) Potassium Level 3.7 mmol/L (3.5-5.1) Chloride Level 96 mmol/L (98-107) Carbon Dioxide Level 23 mmol/L (21-32) Anion Gap 12 (6-14) Blood Urea Nitrogen 48 mg/dL (8-26) Creatinine 1.9 mg/dL (0.7-1.3) Estimated GFR (Cockcroft-Gault) 38.2 BUN/Creatinine Ratio 25 (6-20) Glucose Level 254 mg/dL (70-99) Calcium Level 8.3 mg/dL (8.5-10.1) Total Bilirubin 0.8 mg/dL (0.2-1.0) Aspartate Amino Transf (AST/SGOT) 12 U/L (15-37) Alanine Aminotransferase (ALT/SGPT) 13 U/L (16-63) Alkaline Phosphatase 58 U/L (46-116) Total Protein 6.9 g/dL (6.4-8.2) Albumin 2.1 g/dL (3.4-5.0) Albumin/Globulin Ratio 0.4 (1.0-1.7) Test 05/02/18 07:37 Glucose (Fingerstick) 261 mg/dL (70-99) Micro Micro Microbiology 04/30/18 Blood Culture - Final, Complete 04/30/18 Urine Culture - Final, Complete 04/30/18 Urine Culture Result 1 (HAZEL) - Final, Complete Review of Systems Constitutional: yes: alert, oriented Ears/Nose/Throat: Yes: no symptom reported Eyes: Yes: no symptom reported Pulmonary: Yes no symptom reported Cardiovascular: Yes no symptom reported Gastrointestional: Yes: no symptom reported Genitourinary: Yes: no symptom reported Musculoskeletal: Yes: no symptom reported Skin: Yes no symptom reported Psychiatric/Neurological: Yes: no symptom reported Endocrine: Yes: no symptom reported Physical Exam General Appearance: no apparent distress Skin: warm Respiratory: bilateral CTA Heart: S1S2, RRR Abdomen: soft, bowel sounds present Genitourinary: bladder flat Extremities: pulses present Neurology: alert, oriented Assessment Assessment IMP GNR SEPSIS YOEL - IMPROVED WITH CR DOWN TO 1.9 CKD STAGE 3 WITH BASELINE CR OF 1.5-2.0 DEHYDRATION NAUSEA/VOMITING PYELONEPHRITIS DM II HTN PLAN HOLD LOSARTAN HOLD HCTZ HOLD METFORMIN ANTIBIOTICS IVF'S LEONA BENSON MD May 02, 2018 11:57
[2018-05-02] MEDS: PREGABALIN 75 MG CAPSULE PO SCH ×3 (12:48→21:15)
[2018-05-02 15:00] VITALS: BP 167/97
[2018-05-02] MEDS: DICYCLOMINE HCL 10 MG CAPSULE PO SCH ×2 (16:19→21:15)
[2018-05-02] MEDS: INSULIN LISPRO 300 UNITS/3 ML INSULN.PEN. SQ SCH ×4 (16:27→17:58)
[2018-05-02 20:05] VITALS: BP 174/95
[2018-05-02] MEDS ORDERED: INSULIN GLARGINE 300 UNITS/3 ML INSULN.PEN. SQ SCH (21:00)
[2018-05-02] MEDS: ATORVASTATIN CALCIUM 20 MG TABLET PO SCH (21:15)
--- NOTE | 2018-05-02 22:04 | CONS ---
DATE OF CONSULTATION: 05/02/2018 REASON FOR CONSULTATION: Tachycardia and hypertension. HISTORY OF PRESENT ILLNESS: A 47-year-old male, with past medical history of hypertension, diabetes type 2, hyperlipidemia, coming in with kidney, back and abdominal pain with nausea, vomiting and diarrhea for the past 3-4 days and a glucose of 538. No events overnight. Still complaining of abdominal pain and is hypertensive in the 130s-180s systolic. PMHX ABOVE SOCHX: NO excessive alcohol. No smoking. MEDICATIONS: He is taking atorvastatin 20 mg at bedtime, Coreg 12.5 b.i.d., amlodipine 10 mg, heparin 5000 subcutaneous, meropenem 100 mg, add 200 mL per hour. PHYSICAL EXAMINATION: VITAL SIGNS: Abnormal vital signs, blood pressure 130s-180s, heart rate is 95. NECK: No JVD. HEART: No murmurs, rubs or gallops. PULMONARY: Clear to auscultation bilaterally. EXTREMITIES: No leg edema, radial pulses +2. ABDOMEN: Mild distention. EXTREMITIES: No tenderness to palpation in the upper right quadrant. IMAGING: Abdominal ultrasound revealing hepatomegaly with steatosis and contracted gallbladder. CT abdomen showing fat stranding, possibly consistent with nonspecific inflammatory pyelonephritis. LABORATORY DATA: Abnormal labs, hemoglobin 11.2, platelets 124, hematocrit 34.2. UA, white blood cells 20-40, greater than 1000 glucose. BMP, hyponatremic, sodium 131, BUN and creatinine 48 and 1.9 respectively, glucose 260s. Blood cultures show Gram-negative rods, unspecified. C. diff negative. ASSESSMENT AND PLAN: Uncontrolled diabetes, uncontrolled hypertension. The patient states he normally takes metoprolol b.i.d., cannot specify the dose. We will advise the patient to start calcium channel louis with amlodipine 10 mg and Coreg 12.5 mg b.i.d. to help manage blood pressure. Otherwise, doing well from a cardiac perspective. CELSO HORN MD DR: SUMI/allen JOB#: [id number] / [id number] ISMAEL
[2018-05-02 23:12] LABS: HEMOGLOBIN A1C 8.7 % (4.8-5.6)
[2018-05-02 23:16] VITALS: BP 136/85
[2018-05-03 03:21] VITALS: BP 135/91
[2018-05-03 04:57] LABS: BASO % 0 % (0-3); EOS # 0.1 x10^3/uL (0.0-0.7); EOS % 1 % (0-3); HEMATOCRIT 35.4 % (39.0-53.0); HEMOGLOBIN 11.6 g/dL (13.0-17.5); LYMPH # 1.2 x10^3/uL (1.0-4.8); LYMPH % 14 % (24-48); MEAN CORPUSCULAR HEMOGLOBIN 27 pg (25-35); MEAN CORPUSCULAR HGB CONC 33 g/dL (31-37); MEAN CORPUSCULAR VOLUME 82 fL (79-100); MONO # 1.4 x10^3/uL (0.0-1.1); MONO % 16 % (0-9); NEUT % 69 % (31-73); PLATELET COUNT 127 x10^3/uL (140-400); RED BLOOD COUNT 4.29 x10^6/uL (4.30-5.70); RED CELL DISTRIBUTION WIDTH 15.7 % (11.5-14.5); WHITE BLOOD COUNT 8.8 x10^3/uL (4.0-11.0)
[2018-05-03 05:48] LABS: ALBUMIN/GLOBULIN RATIO 0.4 (1.0-1.7); CALCIUM 8.4 mg/dL (8.5-10.1); CREATININE 1.8 mg/dL (0.7-1.3); GFR 40.6; POTASSIUM 3.7 mmol/L (3.5-5.1); TOTAL BILIRUBIN 0.6 mg/dL (0.2-1.0); TOTAL PROTEIN 6.8 g/dL (6.4-8.2)
[2018-05-03] MEDS: IV NORMAL SALINE 1000ML BAG 1,000 ML IV SCH ×3 (05:55→20:20)
[2018-05-03] MEDS: HEPARIN for SUB-Q USE 5,000 UNIT/ML VIAL. SQ SCH (06:03)
[2018-05-03 07:00] VITALS: BP 142/87
--- NOTE | 2018-05-03 08:58 | NUR ---
pt was running [id number], pt reported that he is allergic to Tylenol, when asked what reaction he gets when taking tylenol and he stated a gassy/upset stomach. Per Dr Gaviria, if reaction is not bad then to order tylenol for fever. Ordering tylenol for pt. Oren Lomax RN
--- NOTE | 2018-05-03 09:22 | PDOC ---
Infectious Disease Note Subjective Subjective Feeling better this morning Still not feeling hungry Altered taste Little bit diarrhea Fever 100 ROS ROS per HPI otherwise neg Vital Sign Vital Signs Vital Signs Date Time Temp Pulse Resp B/P (MAP) Pulse Ox O2 Delivery O2 Flow Rate FiO2 05/03/18 07:00 100.0 100 18 142/87 (105) 94 Room Air 100.0 05/02/18 12:49 2.0 Physical Exam PHYSICAL EXAM GENERAL: Sitting in the chair, alert, NAD HEENT: Oral cavity, pharynx clear. NECK: Supple. LUNGS: Clear bilaterally. No wheezing. HEART: S1, S2. ABDOMEN: Soft, obese. Bowel sounds present, nontender EXTREMITIES: BLE 2-3+ edema. 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 Grossly nonfocal. SKIN: Warm, dry, no generalized rash. PIV ok Labs Lab Laboratory Tests Test 05/02/18 10:39 05/02/18 16:33 05/02/18 20:41 05/03/18 04:00 Glucose (Fingerstick) 302 mg/dL (70-99) 294 mg/dL (70-99) 183 mg/dL (70-99) White Blood Count 8.8 x10^3/uL (4.0-11.0) Red Blood Count 4.29 x10^6/uL (4.30-5.70) Hemoglobin 11.6 g/dL (13.0-17.5) Hematocrit 35.4 % (39.0-53.0) Mean Corpuscular Volume 82 fL (79-100) Mean Corpuscular Hemoglobin 27 pg (25-35) Mean Corpuscular Hemoglobin Concent 33 g/dL (31-37) Red Cell Distribution Width 15.7 % (11.5-14.5) Platelet Count 127 x10^3/uL (140-400) Neutrophils (%) (Auto) 69 % (31-73) Lymphocytes (%) (Auto) 14 % (24-48) Monocytes (%) (Auto) 16 % (0-9) Eosinophils (%) (Auto) 1 % (0-3) Basophils (%) (Auto) 0 % (0-3) Neutrophils # (Auto) 6.0 x10^3uL (1.8-7.7) Lymphocytes # (Auto) 1.2 x10^3/uL (1.0-4.8) Monocytes # (Auto) 1.4 x10^3/uL (0.0-1.1) Eosinophils # (Auto) 0.1 x10^3/uL (0.0-0.7) Basophils # (Auto) 0.0 x10^3/uL (0.0-0.2) Sodium Level 132 mmol/L (136-145) Potassium Level 3.7 mmol/L (3.5-5.1) Chloride Level 97 mmol/L (98-107) Carbon Dioxide Level 24 mmol/L (21-32) Anion Gap 11 (6-14) Blood Urea Nitrogen 44 mg/dL (8-26) Creatinine 1.8 mg/dL (0.7-1.3) Estimated GFR (Cockcroft-Gault) 40.6 BUN/Creatinine Ratio 24 (6-20) Glucose Level 205 mg/dL (70-99) Calcium Level 8.4 mg/dL (8.5-10.1) Total Bilirubin 0.6 mg/dL (0.2-1.0) Aspartate Amino Transf (AST/SGOT) 13 U/L (15-37) Alanine Aminotransferase (ALT/SGPT) 12 U/L (16-63) Alkaline Phosphatase 59 U/L (46-116) Total Protein 6.8 g/dL (6.4-8.2) Albumin 2.0 g/dL (3.4-5.0) Albumin/Globulin Ratio 0.4 (1.0-1.7) Micro BLOOD CULTURE Final GRAM NEGATIVE RODS IN BOTH BOTTLES OF THE ONLY SET DRAWN. THE RESULT WAS CALLED TO KAI FERREIRA(ICU)ON 05/01/18 AT 0821 BY Sylvia ESCAMILLA. Objective Assessment GNR sepsis, POA Fever Nausea, vomiting. Working diagnosis for probable urinary tract infection, nitrite positive, leukocyte esterase negative. UC neg History of Escherichia coli sepsis with urinary tract infection in December 2017 with multidrug resistance. Acute kidney injury - better Questionable urinary tract infection. UC neg Diabetes mellitus with hyperosmolar hyperglycemia. Thrombocytopenia. Hyponatremia. Lactic acidosis in the setting of increased creatinine. Diarrhea, c. diff neg 04/30. Plan Plan of Care Cont Merrem Probiotics Await GNR ID/susceptibilities Monitor labs cont supportive care Patient seen and examined. Chart reviewed in detail. Case discussed with LEAD TECHNICAL WRITER. Agree with above plan. JELLY MCDONALD APRN May 03, 2018 09:22 MICHEAL ACUNA MD May 03, 2018 20:05
[2018-05-03] MEDS: CARVEDILOL 12.5 MG TABLET. PO SCH ×2 (09:37→16:55)
[2018-05-03] MEDS: DICYCLOMINE HCL 10 MG CAPSULE PO SCH ×3 (09:37→20:20)
[2018-05-03] MEDS: amLODIPine BESYLATE 10 MG TABLET PO SCH (09:37)
[2018-05-03] MEDS: PREGABALIN 75 MG CAPSULE PO SCH ×3 (09:37→20:18)
[2018-05-03] MEDS: MEROPENEM 1 GM in IV NORMAL SALINE 100ML 100 ML IV SCH ×2 (09:38→20:17)
[2018-05-03] MEDS: LACTOBACILLUS RHAMNOSUS GG 1 CAPSULE. PO SCH ×2 (09:38→20:17)
[2018-05-03] MEDS: INSULIN GLARGINE 300 UNITS/3 ML INSULN.PEN. SQ SCH ×2 (09:49→20:18)
[2018-05-03] MEDS: INSULIN LISPRO 300 UNITS/3 ML INSULN.PEN. SQ SCH ×6 (09:52→17:06)
--- NOTE | 2018-05-03 09:56 | PDOC ---
Renal-Progress Notes Subjective Notes Notes FLANK PAIN IS A BIT BETTER History of Present Illness Hx of present illness STABLE Vitals Vitals Vital Signs Date Time Temp Pulse Resp B/P (MAP) Pulse Ox O2 Delivery O2 Flow Rate FiO2 05/03/18 09:37 100 142/87 05/03/18 07:00 100.0 18 94 Room Air 100.0 05/02/18 12:49 2.0 Weight Weight [ ] I.O. Intake and Output Intake and Output 05/03/18 07:00 Intake Total 1250 ml Output Total 1575 ml Balance -325 ml Intake Oral 1250 ml Output Urine Total 1575 ml Labs Labs Laboratory Tests Test 05/02/18 10:39 05/02/18 16:33 05/02/18 20:41 05/03/18 04:00 Glucose (Fingerstick) 302 mg/dL (70-99) 294 mg/dL (70-99) 183 mg/dL (70-99) White Blood Count 8.8 x10^3/uL (4.0-11.0) Red Blood Count 4.29 x10^6/uL (4.30-5.70) Hemoglobin 11.6 g/dL (13.0-17.5) Hematocrit 35.4 % (39.0-53.0) Mean Corpuscular Volume 82 fL (79-100) Mean Corpuscular Hemoglobin 27 pg (25-35) Mean Corpuscular Hemoglobin Concent 33 g/dL (31-37) Red Cell Distribution Width 15.7 % (11.5-14.5) Platelet Count 127 x10^3/uL (140-400) Neutrophils (%) (Auto) 69 % (31-73) Lymphocytes (%) (Auto) 14 % (24-48) Monocytes (%) (Auto) 16 % (0-9) Eosinophils (%) (Auto) 1 % (0-3) Basophils (%) (Auto) 0 % (0-3) Neutrophils # (Auto) 6.0 x10^3uL (1.8-7.7) Lymphocytes # (Auto) 1.2 x10^3/uL (1.0-4.8) Monocytes # (Auto) 1.4 x10^3/uL (0.0-1.1) Eosinophils # (Auto) 0.1 x10^3/uL (0.0-0.7) Basophils # (Auto) 0.0 x10^3/uL (0.0-0.2) Sodium Level 132 mmol/L (136-145) Potassium Level 3.7 mmol/L (3.5-5.1) Chloride Level 97 mmol/L (98-107) Carbon Dioxide Level 24 mmol/L (21-32) Anion Gap 11 (6-14) Blood Urea Nitrogen 44 mg/dL (8-26) Creatinine 1.8 mg/dL (0.7-1.3) Estimated GFR (Cockcroft-Gault) 40.6 BUN/Creatinine Ratio 24 (6-20) Glucose Level 205 mg/dL (70-99) Calcium Level 8.4 mg/dL (8.5-10.1) Total Bilirubin 0.6 mg/dL (0.2-1.0) Aspartate Amino Transf (AST/SGOT) 13 U/L (15-37) Alanine Aminotransferase (ALT/SGPT) 12 U/L (16-63) Alkaline Phosphatase 59 U/L (46-116) Total Protein 6.8 g/dL (6.4-8.2) Albumin 2.0 g/dL (3.4-5.0) Albumin/Globulin Ratio 0.4 (1.0-1.7) Test 05/03/18 09:37 Glucose (Fingerstick) 335 mg/dL (70-99) Micro Micro Microbiology 04/30/18 Blood Culture - Final, Complete 04/30/18 Urine Culture - Final, Complete 04/30/18 Urine Culture Result 1 (HAZEL) - Final, Complete Review of Systems Constitutional: yes: alert, oriented Ears/Nose/Throat: Yes: no symptom reported Eyes: Yes: no symptom reported Pulmonary: Yes no symptom reported Cardiovascular: Yes no symptom reported Gastrointestional: Yes: no symptom reported Genitourinary: Yes: no symptom reported Musculoskeletal: Yes: no symptom reported Skin: Yes no symptom reported Psychiatric/Neurological: Yes: no symptom reported Endocrine: Yes: no symptom reported Physical Exam General Appearance: no apparent distress Skin: warm Respiratory: bilateral CTA Heart: S1S2, RRR Abdomen: soft, bowel sounds present Genitourinary: bladder flat Extremities: pulses present Neurology: alert, oriented Assessment Assessment IMP GNR SEPSIS YOEL - IMPROVED WITH CR DOWN TO 1.6 CKD STAGE 3 WITH BASELINE CR OF 1.5-2.0 DEHYDRATION NAUSEA/VOMITING PYELONEPHRITIS DM II HTN PLAN HOLD LOSARTAN HOLD HCTZ HOLD METFORMIN ANTIBIOTICS IVF'S LEONA BENSON MD May 03, 2018 09:56
[2018-05-03] MEDS: SIMETHICONE 80 MG TAB.CHEW PO PRN ×2 (10:26→20:17)
[2018-05-03] MEDS: ACETAMINOPHEN 500 MG TABLET PO PRN ×2 (10:26→16:55)
--- NOTE | 2018-05-03 10:55 | PDOC ---
PROGRESS NOTES Chief Complaint Chief Complaint GNR sepsis, POA Neg urince cx FEvers History of Escherichia coli sepsis with urinary tract infection in December 2017 with multidrug resistance. Acute kidney injury - better Diabetes mellitus with hyperosmolar hyperglycemia s/p ICU - hgba1c 8 Thrombocytopenia, better/stable pseudohyponat Lactic acidosis in the setting of increased creatinine. Diarrhea, c. diff neg 04/30. History of Present Illness History of Present Illness He is better now as we spent 30 minutes talking in the room transferred out of ICU 05/01/18 for DKA and sepsis Sugars are running high 300s-status post HON K in the ICU Hemoglobin A1c 8 MAXIMUM TEMPERATURE 100 Better by mouth intake today Creatinine better 1 from 3, fluids running 100 mL per hour per renal Some swelling now on legs and hands Still diarrhea - C. difficile negative Some abdominal pain or dates to the back with reassuring CAT scan and abdominal ultrasound Blood pressure better, heart rate can still be on the high side WBC 10 History of Escherichia coli multidrug-resistant Plan: follow ID recommendations no pT needs I did hold lisinopril HCTZ and metformin because of creatinine of 1.9 Imodium, Lactobacillus-C. difficile negative Sliding-scale insulin-hemoglobin A1c 8 in March 2018 Supprotive meds INCrease Lantus from 20-35 units daily at bedtime Increase mealtime NovoLog from 8-12 3 times a day follow BC - has left peripheral line HX of PICC with 1 week course abx for MDR e coli not too long ago Vitals Vitals Vital Signs Date Time Temp Pulse Resp B/P (MAP) Pulse Ox O2 Delivery O2 Flow Rate FiO2 05/03/18 09:37 100 142/87 05/03/18 07:00 100.0 18 94 Room Air 100.0 05/02/18 12:49 2.0 Physical Exam Physical Exam GENERAL: Sitting in the chair, alert, NAD HEENT: Oral cavity, pharynx clear. NECK: Supple. LUNGS: Clear bilaterally. No wheezing. HEART: S1, S2. ABDOMEN: Soft, obese. Bowel sounds present, nontender EXTREMITIES: BLE 2-3+ edema. no cyanosis DIRECTOR OF CREATIVE SERVICES: Alert and oriented x 3. Grossly nonfocal. SKIN: Warm, dry, no generalized rash. PIV ok General: Alert, Oriented X3, Cooperative, No acute distress, mild distress Heart: Regular rate, Normal S1, Normal S2 Lungs: Clear, Other (no rhonchi) Abdomen: Normal bowel sounds, Soft, Other (FLANK PAIN ON PERCUSSION) Extremities: No clubbing Skin: No breakdown Labs LABS Laboratory Tests Test 05/02/18 16:33 05/02/18 20:41 05/03/18 04:00 05/03/18 09:37 Glucose (Fingerstick) 294 mg/dL (70-99) 183 mg/dL (70-99) 335 mg/dL (70-99) White Blood Count 8.8 x10^3/uL (4.0-11.0) Red Blood Count 4.29 x10^6/uL (4.30-5.70) Hemoglobin 11.6 g/dL (13.0-17.5) Hematocrit 35.4 % (39.0-53.0) Mean Corpuscular Volume 82 fL (79-100) Mean Corpuscular Hemoglobin 27 pg (25-35) Mean Corpuscular Hemoglobin Concent 33 g/dL (31-37) Red Cell Distribution Width 15.7 % (11.5-14.5) Platelet Count 127 x10^3/uL (140-400) Neutrophils (%) (Auto) 69 % (31-73) Lymphocytes (%) (Auto) 14 % (24-48) Monocytes (%) (Auto) 16 % (0-9) Eosinophils (%) (Auto) 1 % (0-3) Basophils (%) (Auto) 0 % (0-3) Neutrophils # (Auto) 6.0 x10^3uL (1.8-7.7) Lymphocytes # (Auto) 1.2 x10^3/uL (1.0-4.8) Monocytes # (Auto) 1.4 x10^3/uL (0.0-1.1) Eosinophils # (Auto) 0.1 x10^3/uL (0.0-0.7) Basophils # (Auto) 0.0 x10^3/uL (0.0-0.2) Sodium Level 132 mmol/L (136-145) Potassium Level 3.7 mmol/L (3.5-5.1) Chloride Level 97 mmol/L (98-107) Carbon Dioxide Level 24 mmol/L (21-32) Anion Gap 11 (6-14) Blood Urea Nitrogen 44 mg/dL (8-26) Creatinine 1.8 mg/dL (0.7-1.3) Estimated GFR (Cockcroft-Gault) 40.6 BUN/Creatinine Ratio 24 (6-20) Glucose Level 205 mg/dL (70-99) Calcium Level 8.4 mg/dL (8.5-10.1) Total Bilirubin 0.6 mg/dL (0.2-1.0) Aspartate Amino Transf (AST/SGOT) 13 U/L (15-37) Alanine Aminotransferase (ALT/SGPT) 12 U/L (16-63) Alkaline Phosphatase 59 U/L (46-116) Total Protein 6.8 g/dL (6.4-8.2) Albumin 2.0 g/dL (3.4-5.0) Albumin/Globulin Ratio 0.4 (1.0-1.7) Review of Systems Review of Systems abd pain and back pain, the rest of ROS 14 point better negative Assessment and Plan Assessmemt and Plan Problems Medical Problems: (1) Dehydration Status: Acute (2) Hyperglycemia Status: Acute Comment Review of Relevant I have reviewed the following items odell (where applicable) has been applied. Labs Laboratory Tests Test 05/01/18 12:05 05/01/18 16:45 05/01/18 21:13 05/02/18 04:10 Glucose (Fingerstick) 389 mg/dL (70-99) 394 mg/dL (70-99) 202 mg/dL (70-99) White Blood Count 10.5 x10^3/uL (4.0-11.0) Red Blood Count 4.15 x10^6/uL (4.30-5.70) Hemoglobin 11.2 g/dL (13.0-17.5) Hematocrit 34.2 % (39.0-53.0) Mean Corpuscular Volume 82 fL (79-100) Mean Corpuscular Hemoglobin 27 pg (25-35) Mean Corpuscular Hemoglobin Concent 33 g/dL (31-37) Red Cell Distribution Width 15.6 % (11.5-14.5) Platelet Count 124 x10^3/uL (140-400) Neutrophils (%) (Auto) 77 % (31-73) Lymphocytes (%) (Auto) 10 % (24-48) Monocytes (%) (Auto) 12 % (0-9) Eosinophils (%) (Auto) 1 % (0-3) Basophils (%) (Auto) 0 % (0-3) Neutrophils # (Auto) 8.0 x10^3uL (1.8-7.7) Lymphocytes # (Auto) 1.1 x10^3/uL (1.0-4.8) Monocytes # (Auto) 1.3 x10^3/uL (0.0-1.1) Eosinophils # (Auto) 0.1 x10^3/uL (0.0-0.7) Basophils # (Auto) 0.0 x10^3/uL (0.0-0.2) Erythrocyte Sedimentation Rate 120 (0-15) Sodium Level 131 mmol/L (136-145) Potassium Level 3.7 mmol/L (3.5-5.1) Chloride Level 96 mmol/L (98-107) Carbon Dioxide Level 23 mmol/L (21-32) Anion Gap 12 (6-14) Blood Urea Nitrogen 48 mg/dL (8-26) Creatinine 1.9 mg/dL (0.7-1.3) Estimated GFR (Cockcroft-Gault) 38.2 BUN/Creatinine Ratio 25 (6-20) Glucose Level 254 mg/dL (70-99) Hemoglobin A1c 8.7 % (4.8-5.6) Calcium Level 8.3 mg/dL (8.5-10.1) Total Bilirubin 0.8 mg/dL (0.2-1.0) Aspartate Amino Transf (AST/SGOT) 12 U/L (15-37) Alanine Aminotransferase (ALT/SGPT) 13 U/L (16-63) Alkaline Phosphatase 58 U/L (46-116) Total Protein 6.9 g/dL (6.4-8.2) Albumin 2.1 g/dL (3.4-5.0) Albumin/Globulin Ratio 0.4 (1.0-1.7) Test 05/02/18 07:37 05/02/18 10:39 05/02/18 16:33 05/02/18 20:41 Glucose (Fingerstick) 261 mg/dL (70-99) 302 mg/dL (70-99) 294 mg/dL (70-99) 183 mg/dL (70-99) Test 05/03/18 04:00 05/03/18 09:37 White Blood Count 8.8 x10^3/uL (4.0-11.0) Red Blood Count 4.29 x10^6/uL (4.30-5.70) Hemoglobin 11.6 g/dL (13.0-17.5) Hematocrit 35.4 % (39.0-53.0) Mean Corpuscular Volume 82 fL (79-100) Mean Corpuscular Hemoglobin 27 pg (25-35) Mean Corpuscular Hemoglobin Concent 33 g/dL (31-37) Red Cell Distribution Width 15.7 % (11.5-14.5) Platelet Count 127 x10^3/uL (140-400) Neutrophils (%) (Auto) 69 % (31-73) Lymphocytes (%) (Auto) 14 % (24-48) Monocytes (%) (Auto) 16 % (0-9) Eosinophils (%) (Auto) 1 % (0-3) Basophils (%) (Auto) 0 % (0-3) Neutrophils # (Auto) 6.0 x10^3uL (1.8-7.7) Lymphocytes # (Auto) 1.2 x10^3/uL (1.0-4.8) Monocytes # (Auto) 1.4 x10^3/uL (0.0-1.1) Eosinophils # (Auto) 0.1 x10^3/uL (0.0-0.7) Basophils # (Auto) 0.0 x10^3/uL (0.0-0.2) Sodium Level 132 mmol/L (136-145) Potassium Level 3.7 mmol/L (3.5-5.1) Chloride Level 97 mmol/L (98-107) Carbon Dioxide Level 24 mmol/L (21-32) Anion Gap 11 (6-14) Blood Urea Nitrogen 44 mg/dL (8-26) Creatinine 1.8 mg/dL (0.7-1.3) Estimated GFR (Cockcroft-Gault) 40.6 BUN/Creatinine Ratio 24 (6-20) Glucose Level 205 mg/dL (70-99) Calcium Level 8.4 mg/dL (8.5-10.1) Total Bilirubin 0.6 mg/dL (0.2-1.0) Aspartate Amino Transf (AST/SGOT) 13 U/L (15-37) Alanine Aminotransferase (ALT/SGPT) 12 U/L (16-63) Alkaline Phosphatase 59 U/L (46-116) Total Protein 6.8 g/dL (6.4-8.2) Albumin 2.0 g/dL (3.4-5.0) Albumin/Globulin Ratio 0.4 (1.0-1.7) Glucose (Fingerstick) 335 mg/dL (70-99) Laboratory Tests Test 05/02/18 16:33 05/02/18 20:41 05/03/18 04:00 05/03/18 09:37 Glucose (Fingerstick) 294 mg/dL (70-99) 183 mg/dL (70-99) 335 mg/dL (70-99) White Blood Count 8.8 x10^3/uL (4.0-11.0) Red Blood Count 4.29 x10^6/uL (4.30-5.70) Hemoglobin 11.6 g/dL (13.0-17.5) Hematocrit 35.4 % (39.0-53.0) Mean Corpuscular Volume 82 fL (79-100) Mean Corpuscular Hemoglobin 27 pg (25-35) Mean Corpuscular Hemoglobin Concent 33 g/dL (31-37) Red Cell Distribution Width 15.7 % (11.5-14.5) Platelet Count 127 x10^3/uL (140-400) Neutrophils (%) (Auto) 69 % (31-73) Lymphocytes (%) (Auto) 14 % (24-48) Monocytes (%) (Auto) 16 % (0-9) Eosinophils (%) (Auto) 1 % (0-3) Basophils (%) (Auto) 0 % (0-3) Neutrophils # (Auto) 6.0 x10^3uL (1.8-7.7) Lymphocytes # (Auto) 1.2 x10^3/uL (1.0-4.8) Monocytes # (Auto) 1.4 x10^3/uL (0.0-1.1) Eosinophils # (Auto) 0.1 x10^3/uL (0.0-0.7) Basophils # (Auto) 0.0 x10^3/uL (0.0-0.2) Sodium Level 132 mmol/L (136-145) Potassium Level 3.7 mmol/L (3.5-5.1) Chloride Level 97 mmol/L (98-107) Carbon Dioxide Level 24 mmol/L (21-32) Anion Gap 11 (6-14) Blood Urea Nitrogen 44 mg/dL (8-26) Creatinine 1.8 mg/dL (0.7-1.3) Estimated GFR (Cockcroft-Gault) 40.6 BUN/Creatinine Ratio 24 (6-20) Glucose Level 205 mg/dL (70-99) Calcium Level 8.4 mg/dL (8.5-10.1) Total Bilirubin 0.6 mg/dL (0.2-1.0) Aspartate Amino Transf (AST/SGOT) 13 U/L (15-37) Alanine Aminotransferase (ALT/SGPT) 12 U/L (16-63) Alkaline Phosphatase 59 U/L (46-116) Total Protein 6.8 g/dL (6.4-8.2) Albumin 2.0 g/dL (3.4-5.0) Albumin/Globulin Ratio 0.4 (1.0-1.7) Microbiology 04/30/18 Blood Culture - Final, Complete 04/30/18 Urine Culture - Final, Complete 04/30/18 Urine Culture Result 1 (HAZEL) - Final, Complete Medications Current Medications Ertapenem 50 ml @ 100 mls/hr 1X STAT IV Last administered on 04/30/18at 10:00 ; Start 04/30/18 at 09:34; Stop 04/30/18 at 10:03; Status DC Sodium Chloride 1,000 ml @ 1,000 mls/hr 1X ONCE IV Last administered on at 09:50; Start 04/30/18 at 09:45; Stop 04/30/18 at 10:44; Status DC Sodium Chloride 1,000 ml @ 1,000 mls/hr 1X ONCE IV Last administered on at 10:28; Start 04/30/18 at 09:45; Stop 04/30/18 at 10:44; Status DC Insulin Human Regular (HumuLIN R VIAL) 10 unit 1X ONCE IV Last administered on 04/30/18at 10:33; Start 04/30/18 at 10:30; Stop 04/30/18 at 10:31; Status DC Ondansetron HCl (Zofran) 4 mg 1X ONCE IV Last administered on 04/30/18at 10:31 ; Start 04/30/18 at 10:30; Stop 04/30/18 at 10:32; Status DC Fentanyl Citrate (Fentanyl 2ml Vial) 50 mcg 1X ONCE IV Last administered on at 10:36; Start 04/30/18 at 10:30; Stop 04/30/18 at 10:32; Status DC Sodium Chloride 1,000 ml @ 1,000 mls/hr 1X ONCE IV Last administered on at 12:36; Start 04/30/18 at 10:45; Stop 04/30/18 at 11:44; Status DC Metoclopramide HCl (Reglan Vial) 10 mg 1X ONCE IV Last administered on at 12:08; Start 04/30/18 at 12:00; Stop 04/30/18 at 12:01; Status DC Fentanyl Citrate (Fentanyl 2ml Vial) 50 mcg 1X ONCE IV ; Start 04/30/18 at 21: 00; Stop 04/30/18 at 21:01; Status DC Acetaminophen (Tylenol) 1,000 mg 1X ONCE PO ; Start 04/30/18 at 11:45; Stop at 11:47; Status DC Insulin Human Regular 150 ml @ 0 mls/hr 1X ONCE IV Last administered on at 12:48; Start 04/30/18 at 12:00; Stop 04/30/18 at 12:01; Status DC Fentanyl Citrate (Fentanyl 2ml Vial) 50 mcg 1X ONCE IV Last administered on at 12:21; Start 04/30/18 at 12:00; Stop 04/30/18 at 12:01; Status DC Meropenem 500 mg/ Sodium Chloride 50 ml @ 100 mls/hr Q12HR IV Last administered on 05/01/18at 08:58; Start 04/30/18 at 21:00; Stop 05/01/18 at 10:32 ; Status DC Sodium Chloride 1,000 ml @ 1,920 mls/hr Q32M IV ; Start 04/30/18 at 15:06; Stop 04/30/18 at 16:08; Status DC Sodium Chloride 500 ml @ 1,000 mls/hr PRN Q30MIN PRN IV SEE COMMENTS; Start at 15:15; Stop 05/01/18 at 10:15; Status DC Sodium Chloride 1,000 ml @ 150 mls/hr Q6H40M IV Last administered on at 21:16; Start 04/30/18 at 15:10; Stop 05/01/18 at 10:15; Status DC Norepinephrine Bitartrate 250 ml @ 0 mls/hr CONT PRN IV SEE I/O RECORD; Start 04/30/18 at 15:15; Stop 05/02/18 at 08:49; Status DC Dobutamine HCl/ Dextrose 250 ml @ 0 mls/hr CONT PRN IV SEE I/O RECORD; Start at 15:15; Stop 05/02/18 at 08:49; Status DC Insulin Human Lispro (HumaLOG) 0-7 UNITS TIDWMEALS SQ Last administered on 04/30at 20:13; Start 04/30/18 at 17:00; Stop 05/01/18 at 08:15; Status DC Dextrose (Dextrose 50%-Water Syringe) 12.5 gm PRN Q15MIN PRN IV SEE COMMENTS; Start 04/30/18 at 15:15; Stop 05/02/18 at 08:54; Status DC Heparin Sodium (Porcine) (Heparin Sodium) 5,000 unit Q8HRS SQ Last administered on 05/03/18at 06:03; Start 04/30/18 at 22:00 Fentanyl Citrate (Fentanyl 2ml Vial) 50 mcg PRN Q3HRS PRN IV PAIN Last administered on 05/02/18at 21:29; Start 04/30/18 at 17:00 Ondansetron HCl (Zofran) 4 mg PRN Q6HRS PRN IV NAUSEA/VOMITING Last administered on 05/02/18at 05:17; Start 04/30/18 at 19:30 Ibuprofen (Motrin) 200 mg PRN Q6HRS PRN PO MILD PAIN / TEMP Last administered on 04/30/18at 21:14; Start 04/30/18 at 20:45; Stop 05/01/18 at 11:54; Status DC Insulin Glargine (Lantus) 35 units [id number] SQ Last administered on at 09:49; Start 05/02/18 at 08:00 Insulin Human Lispro (HumaLOG) 0-7 UNITS TIDWMEALS SQ Last administered on 05/01at 08:56; Start 05/01/18 at 12:00; Stop 05/01/18 at 12:24; Status DC Meropenem 1 gm/ Sodium Chloride 100 ml @ 200 mls/hr Q12HR IV Last administered on 05/03/18 09:38; Start 05/01/18 at 18:00 Lactobacillus Rhamnosus (Culturelle) 1 cap BID PO Last administered on 09:38; Start 05/01/18 at 21:00 Sodium Chloride 1,000 ml @ 100 mls/hr Q10H IV Last administered on 05/03/18at 05:55; Start 05/01/18 at 11:45 Insulin Human Lispro (HumaLOG) 15 units 1X ONCE SQ Last administered on at 14:56; Start 05/01/18 at 12:30; Stop 05/01/18 at 12:31; Status DC Insulin Human Lispro (HumaLOG) 0-9 UNITS TIDWMEALS SQ ; Start 05/01/18 at 17:00 ; Stop 05/02/18 at 08:50; Status DC Metoprolol Tartrate (Lopressor Vial) 5 mg 1X ONCE IVP Last administered on at 16:21; Start 05/01/18 at 16:15; Stop 05/01/18 at 16:18; Status DC Insulin Human Lispro (HumaLOG) 20 units 1X ONCE SQ Last administered on at 16:58; Start 05/01/18 at 17:00; Stop 05/01/18 at 17:01; Status DC Insulin Human Lispro (HumaLOG) 0-9 UNITS TIDWMEALS SQ Last administered on 05/03at 09:53; Start 05/02/18 at 12:00 Dextrose (Dextrose 50%-Water Syringe) 12.5 gm PRN Q15MIN PRN IV SEE COMMENTS; Start 05/02/18 at 09:00 Tramadol HCl (Ultram) 50 mg PRN Q6HRS PRN PO PAIN; Start 05/02/18 at 09:00 Zolpidem Tartrate (Ambien) 5 mg PRN QHS PRN PO INSOMNIA; Start 05/02/18 at 09: 00 Amlodipine Besylate (Norvasc) 10 mg DAILY PO Last administered on 05/03/18 09: 37; Start 05/02/18 at 09:00 Atorvastatin Calcium (Lipitor) 20 mg HS PO Last administered on 05/02/18 21:15 ; Start 05/02/18 at 21:00 Carvedilol (Coreg) 12.5 mg BIDWMEALS PO Last administered on 05/03/18 09:37; Start 05/02/18 at 09:00 Insulin Glargine (Lantus) 25 units QHS SQ Last administered on 05/02/18 21:27 ; Start 05/02/18 at 21:00 Insulin Human Lispro (HumaLOG) 8 units TIDWMEALS SQ Last administered on 09:52; Start 05/02/18 at 12:00 Pregabalin (Lyrica) 75 mg TID PO Last administered on 05/03/18 09:37; Start at 09:00 Non-Formulary Medication (Dulaglutide (Trulicity)) 1.5 mg WEEKLY SQ ; Start at 09:00; Status UNV Ondansetron HCl (Zofran Odt) 4 mg PRN Q8HRS PRN PO NAUSEA/VOMITING; Start 05/02 at 09:00 Labetalol HCl (Normodyne Iv Push) 10 mg PRN Q2HR PRN IVP HYPERTENSION, SEE COMMENTS; Start 05/02/18 at 09:00 Dicyclomine HCl (Bentyl) 10 mg TID PO Last administered on 05/03/18 09:37; Start 05/02/18 at 14:00 Dicyclomine HCl (Bentyl) 10 mg 1X ONCE PO Last administered on 05/02/18 12:48 ; Start 05/02/18 at 11:30; Stop 05/02/18 at 11:31; Status DC Calcium Carbonate/ Glycine (Tums) 500 mg PRN AFTMEALHC PRN PO INDIGESTION; Start 05/02/18 at 11:30 Loperamide HCl (Imodium) 2 mg PRN Q15MIN PRN PO DIARRHEA Last administered on 2 /16/19at 21:14; Start 05/02/18 at 11:30 Acetaminophen (Tylenol) 500 mg PRN Q6HRS PRN PO MILD PAIN / TEMP Last administered on 05/03/18at 10:26; Start 05/03/18 at 09:00 Simethicone (Gas-X) 80 mg PRN AFTMEALHC PRN PO GAS / BLOATING Last administered on 05/03/18at 10:26; Start 05/03/18 at 09:45 Active Scripts Active Humalog (Insulin Lispro) 100 Unit/1 Ml Insuln.pen 8 Units SQ TIDWMEALS 14 Days Lantus Solostar (Insulin Glargine,Hum.rec.anlog) 100 Unit/1 Ml Insuln.pen 25 Units SQ QHS 14 Days Tramadol Hcl 50 Mg Tablet 50 Mg PO PRN Q6HRS PRN Amlodipine Besylate 10 Mg Tablet 10 Mg PO DAILY 30 Days Carvedilol (Carvedilol) 12.5 Mg Tablet 12.5 Mg PO BIDWMEALS 30 Days Zofran (Ondansetron Hcl) 4 Mg Tablet 1 Tab PO PRN Q8HRS PRN Reported Losartan-Hctz 50-12.5 Mg Tab (Losartan/Hydrochlorothiazide) 1 Each Tablet 1 Each PO DAILY Lyrica (Pregabalin) 75 Mg Capsule 75 Mg PO TID Atorvastatin Calcium 20 Mg Tablet 20 Mg PO HS Amlodipine Besylate 10 Mg Tablet 20 Mg PO BID Trulicity (Dulaglutide) 1.5 Mg/0.5 Ml Pen.injctr 1.5 Mg SQ WEEKLY Metformin Hcl 1,000 Mg Tablet 1,000 Mg PO BIDWMEALS Vitals/I & O Vital Sign - Last 24 Hours 05/02/18 05/02/18 05/02/18 05/02/18 11:00 12:49 15:00 17:00 Temp 98.6 98.3 98.6 98.3 Pulse 96 93 93 Resp 20 20 B/P (MAP) 173/100 (124) 167/97 (120) 167/97 Pulse Ox 97 97 97 O2 Delivery Room Air Room Air Room Air O2 Flow Rate 2.0 05/02/18 05/02/18 05/02/18 05/02/18 20:00 20:05 21:29 21:59 Temp 98.8 98.8 Pulse 114 Resp 16 B/P (MAP) 174/95 (121) Pulse Ox 95 95 95 O2 Delivery Room Air Room Air Room Air Room Air 05/02/18 05/03/18 05/03/18 05/03/18 23:16 03:21 07:00 09:37 Temp 99.3 99.0 100.0 99.3 99.0 100.0 Pulse 105 105 100 100 Resp B/P (MAP) 136/85 (102) 135/91 (106) 142/87 (105) 142/87 Pulse Ox 92 93 94 O2 Delivery Room Air Room Air Room Air 05/03/18 09:37 Pulse 100 B/P (MAP) 142/87 Intake and Output 05/02/18 05/02/18 05/03/18 15:00 23:00 07:00 Intake Total 360 ml 180 ml 710 ml Output Total 525 ml 300 ml 750 ml Balance -165 ml -120 ml -40 ml CARTER HOLLIS MD May 03, 2018 10:55
[2018-05-03 11:00] VITALS: BP 109/69
[2018-05-03] MEDS: fentaNYL PF VIAL 100 MCG/2 ML VIAL IV PRN ×2 (12:19→21:41)
[2018-05-03 15:00] VITALS: BP 118/72
[2018-05-03 19:35] VITALS: BP 97/61
[2018-05-03] MEDS: ATORVASTATIN CALCIUM 20 MG TABLET PO SCH (20:17)
[2018-05-03 23:32] VITALS: BP 101/64
[2018-05-04 03:38] VITALS: BP 136/78
[2018-05-04] MEDS: IV NORMAL SALINE 1000ML BAG 1,000 ML IV SCH ×2 (04:32→19:45)
[2018-05-04] MEDS: fentaNYL PF VIAL 100 MCG/2 ML VIAL IV PRN ×2 (04:36→18:22)
[2018-05-04 04:42] LABS: BASO % 0 % (0-3); EOS # 0.2 x10^3/uL (0.0-0.7); EOS % 2 % (0-3); HEMATOCRIT 34.3 % (39.0-53.0); HEMOGLOBIN 11.4 g/dL (13.0-17.5); LYMPH # 1.2 x10^3/uL (1.0-4.8); LYMPH % 12 % (24-48); MEAN CORPUSCULAR HEMOGLOBIN 27 pg (25-35); MEAN CORPUSCULAR HGB CONC 33 g/dL (31-37); MEAN CORPUSCULAR VOLUME 82 fL (79-100); MONO # 1.3 x10^3/uL (0.0-1.1); MONO % 13 % (0-9); NEUT % 73 % (31-73); PLATELET COUNT 158 x10^3/uL (140-400); RED BLOOD COUNT 4.17 x10^6/uL (4.30-5.70); RED CELL DISTRIBUTION WIDTH 15.6 % (11.5-14.5); WHITE BLOOD COUNT 9.6 x10^3/uL (4.0-11.0)
[2018-05-04 05:19] LABS: ALBUMIN/GLOBULIN RATIO 0.4 (1.0-1.7); CALCIUM 8.4 mg/dL (8.5-10.1); CREATININE 1.9 mg/dL (0.7-1.3); GFR 38.2; POTASSIUM 3.7 mmol/L (3.5-5.1); TOTAL BILIRUBIN 0.5 mg/dL (0.2-1.0); TOTAL PROTEIN 6.6 g/dL (6.4-8.2)
[2018-05-04 07:00] VITALS: BP 147/74
--- NOTE | 2018-05-04 07:53 | PDOC ---
Infectious Disease Note Subjective Subjective Feeling better this morning Still not feeling hungry and is bloated Altered taste Little bit diarrhea improving Fever improving overall Vital Sign Vital Signs Vital Signs Date Time Temp Pulse Resp B/P (MAP) Pulse Ox O2 Delivery O2 Flow Rate FiO2 05/04/18 05:06 16 96 Room Air 2.0 05/04/18 03:38 99.6 101 136/78 (97) 99.6 Physical Exam PHYSICAL EXAM GENERAL: Sitting in the chair, alert, NAD HEENT: Oral cavity, pharynx clear. NECK: Supple. LUNGS: Clear bilaterally. No wheezing. HEART: S1, S2. ABDOMEN: Soft, obese. Bowel sounds present, nontender distended : mild R CVA tenderness EXTREMITIES: BLE 2+ edema. no cyanosis SALES AND SERVICE AGENT: Alert and oriented x 3. Grossly nonfocal. SKIN: Warm, dry, no generalized rash. PIV LUE ok Labs Lab Laboratory Tests Test 05/03/18 09:37 05/03/18 11:23 05/03/18 16:43 05/03/18 20:16 Glucose (Fingerstick) 335 mg/dL (70-99) 289 mg/dL (70-99) 190 mg/dL (70-99) 119 mg/dL (70-99) Test 05/04/18 03:30 05/04/18 07:40 White Blood Count 9.6 x10^3/uL (4.0-11.0) Red Blood Count 4.17 x10^6/uL (4.30-5.70) Hemoglobin 11.4 g/dL (13.0-17.5) Hematocrit 34.3 % (39.0-53.0) Mean Corpuscular Volume 82 fL (79-100) Mean Corpuscular Hemoglobin 27 pg (25-35) Mean Corpuscular Hemoglobin Concent 33 g/dL (31-37) Red Cell Distribution Width 15.6 % (11.5-14.5) Platelet Count 158 x10^3/uL (140-400) Neutrophils (%) (Auto) 73 % (31-73) Lymphocytes (%) (Auto) 12 % (24-48) Monocytes (%) (Auto) 13 % (0-9) Eosinophils (%) (Auto) 2 % (0-3) Basophils (%) (Auto) 0 % (0-3) Neutrophils # (Auto) 7.0 x10^3uL (1.8-7.7) Lymphocytes # (Auto) 1.2 x10^3/uL (1.0-4.8) Monocytes # (Auto) 1.3 x10^3/uL (0.0-1.1) Eosinophils # (Auto) 0.2 x10^3/uL (0.0-0.7) Basophils # (Auto) 0.0 x10^3/uL (0.0-0.2) Sodium Level 134 mmol/L (136-145) Potassium Level 3.7 mmol/L (3.5-5.1) Chloride Level 99 mmol/L (98-107) Carbon Dioxide Level 25 mmol/L (21-32) Anion Gap 10 (6-14) Blood Urea Nitrogen 43 mg/dL (8-26) Creatinine 1.9 mg/dL (0.7-1.3) Estimated GFR (Cockcroft-Gault) 38.2 BUN/Creatinine Ratio 23 (6-20) Glucose Level 103 mg/dL (70-99) Calcium Level 8.4 mg/dL (8.5-10.1) Total Bilirubin 0.5 mg/dL (0.2-1.0) Aspartate Amino Transf (AST/SGOT) 17 U/L (15-37) Alanine Aminotransferase (ALT/SGPT) 12 U/L (16-63) Alkaline Phosphatase 53 U/L (46-116) Total Protein 6.6 g/dL (6.4-8.2) Albumin 2.0 g/dL (3.4-5.0) Albumin/Globulin Ratio 0.4 (1.0-1.7) Glucose (Fingerstick) 125 mg/dL (70-99) Micro Microbiology 04/30/18 Blood Culture - Preliminary, Resulted 04/30/18 Blood Culture Result 1 (HAZEL) - Preliminary, Resulted 04/30/18 Urine Culture - Final, Complete 04/30/18 Urine Culture Result 1 (HAZEL) - Final, Complete Objective Assessment GNR sepsis, POA 04/30 Fever - curve is improving Abd distension - C-diff is pending Nausea, vomiting. Working diagnosis for probable urinary tract infection, nitrite positive, leukocyte esterase negative. UC neg History of Escherichia coli sepsis with urinary tract infection in December 2017 with multidrug resistance. Acute kidney injury - better Questionable urinary tract infection. UC neg - ? pyelo on CT 04/30 Diabetes mellitus with hyperosmolar hyperglycemia. Thrombocytopenia - better. Hyponatremia. Lactic acidosis in the setting of increased creatinine. Diarrhea, c. diff neg 04/30. Plan Plan of Care Cont Merrem 1 q 12 (05/01 did receive Invanz times one 04/30) D/c Loperamide given abd distension and C-diff order. F/u distension Cont Probiotics Await GNR ID/susceptibilities Monitor labs in am cont supportive care TIP ZAPATA MD May 04, 2018 07:53
[2018-05-04] MEDS: INSULIN LISPRO 300 UNITS/3 ML INSULN.PEN. SQ SCH ×6 (08:00→17:37)
[2018-05-04] MEDS: CARVEDILOL 12.5 MG TABLET. PO SCH ×2 (08:56→17:32)
[2018-05-04] MEDS: amLODIPine BESYLATE 10 MG TABLET PO SCH (08:57)
[2018-05-04] MEDS: SIMETHICONE 80 MG TAB.CHEW PO PRN ×2 (08:57→15:42)
[2018-05-04] MEDS: ACETAMINOPHEN 500 MG TABLET PO PRN ×2 (08:58→21:16)
[2018-05-04] MEDS: LACTOBACILLUS RHAMNOSUS GG 1 CAPSULE. PO SCH ×2 (08:58→21:16)
[2018-05-04] MEDS: PREGABALIN 75 MG CAPSULE PO SCH ×3 (08:58→21:16)
[2018-05-04] MEDS: DICYCLOMINE HCL 10 MG CAPSULE PO SCH ×3 (08:58→21:16)
[2018-05-04] MEDS: MEROPENEM 1 GM in IV NORMAL SALINE 100ML 100 ML IV SCH ×2 (09:11→21:15)
[2018-05-04] MEDS: INSULIN GLARGINE 300 UNITS/3 ML INSULN.PEN. SQ SCH ×2 (09:19→21:00)
[2018-05-04 11:00] VITALS: BP 106/64
--- NOTE | 2018-05-04 12:41 | EKG ---
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
--- NOTE | 2018-05-04 14:18 | PDOC ---
PROGRESS NOTES Chief Complaint Chief Complaint GNR sepsis, POA Neg urince cx Fevers History of Escherichia coli sepsis with urinary tract infection in December 2017 with multidrug resistance. Acute kidney injury Diabetes mellitus with hyperosmolar hyperglycemia s/p ICU - [id number] 8 Thrombocytopenia, better/stable pseudohyponatremia Lactic acidosis in the setting of increased creatinine. Diarrhea, c. diff neg 04/30. History of Present Illness History of Present Illness Transferred out of ICU 05/01/18 for DKA and sepsis Sugars are running high 300s-status post HON K in the ICU Hemoglobin A1c 8 MAXIMUM TEMPERATURE 100.8F Better by mouth intake today, ate his whole lunch Creatinine better 1.9 from 3, fluids running 100 mL per hour per renal Some swelling now on legs and hands Still diarrhea - C. difficile negative Some abdominal pain on eating Blood cultures with GNR, no final yet Plan: follow ID recommendations no pT needs Hold lisinopril HCTZ and metformin because of creatinine of 1.9 Imodium, Lactobacillus-C. difficile negative Sliding-scale insulin-hemoglobin A1c 8 in March 2018 Supprotive meds Increased Lantus from 20-35 units daily at bedtime Increase mealtime NovoLog from 8-12 3 times a day follow BC - has left peripheral line HX of PICC with 1 week course abx for MDR e coli not too long ago, December 2017 History of Escherichia coli sepsis with urinary tract infection in December 2017 with multidrug resistance. Acute kidney injury - better Questionable urinary tract infection. UC neg - ? pyelo on CT 04/30 Diarrhea, c. diff neg 04/30. Cont Merrem 1 q 12 (05/01 did receive Invanz times one 04/30) D/c Loperamide given abd distension and C-diff order. F/u distension Cont Probiotics Await GNR ID/susceptibilities Monitor labs in am cont supportive care Vitals Vitals Vital Signs Date Time Temp Pulse Resp B/P (MAP) Pulse Ox O2 Delivery O2 Flow Rate FiO2 05/04/18 11:00 99.0 83 18 106/64 (78) 99 Room Air 99.0 05/04/18 08:00 2.0 Physical Exam Physical Exam GENERAL: Sitting in the chair, alert, NAD HEENT: Oral cavity, pharynx clear. NECK: Supple. LUNGS: Clear bilaterally. No wheezing. HEART: S1, S2. ABDOMEN: Soft, obese. Bowel sounds present, nontender distended : mild R CVA tenderness EXTREMITIES: BLE 2+ edema. 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 Grossly nonfocal. SKIN: Warm, dry, no generalized rash. PIV LUE ok General: Alert, Oriented X3, Cooperative, No acute distress, mild distress Heart: Regular rate, Normal S1, Normal S2 Lungs: Clear, Other (no rhonchi) Abdomen: Normal bowel sounds, Soft, Other (FLANK PAIN ON PERCUSSION) Extremities: No clubbing Skin: No breakdown Labs LABS Laboratory Tests Test 05/03/18 16:43 05/03/18 20:16 05/04/18 03:30 05/04/18 07:40 Glucose (Fingerstick) 190 mg/dL (70-99) 119 mg/dL (70-99) 125 mg/dL (70-99) White Blood Count 9.6 x10^3/uL (4.0-11.0) Red Blood Count 4.17 x10^6/uL (4.30-5.70) Hemoglobin 11.4 g/dL (13.0-17.5) Hematocrit 34.3 % (39.0-53.0) Mean Corpuscular Volume 82 fL (79-100) Mean Corpuscular Hemoglobin 27 pg (25-35) Mean Corpuscular Hemoglobin Concent 33 g/dL (31-37) Red Cell Distribution Width 15.6 % (11.5-14.5) Platelet Count 158 x10^3/uL (140-400) Neutrophils (%) (Auto) 73 % (31-73) Lymphocytes (%) (Auto) 12 % (24-48) Monocytes (%) (Auto) 13 % (0-9) Eosinophils (%) (Auto) 2 % (0-3) Basophils (%) (Auto) 0 % (0-3) Neutrophils # (Auto) 7.0 x10^3uL (1.8-7.7) Lymphocytes # (Auto) 1.2 x10^3/uL (1.0-4.8) Monocytes # (Auto) 1.3 x10^3/uL (0.0-1.1) Eosinophils # (Auto) 0.2 x10^3/uL (0.0-0.7) Basophils # (Auto) 0.0 x10^3/uL (0.0-0.2) Sodium Level 134 mmol/L (136-145) Potassium Level 3.7 mmol/L (3.5-5.1) Chloride Level 99 mmol/L (98-107) Carbon Dioxide Level 25 mmol/L (21-32) Anion Gap 10 (6-14) Blood Urea Nitrogen 43 mg/dL (8-26) Creatinine 1.9 mg/dL (0.7-1.3) Estimated GFR (Cockcroft-Gault) 38.2 BUN/Creatinine Ratio 23 (6-20) Glucose Level 103 mg/dL (70-99) Calcium Level 8.4 mg/dL (8.5-10.1) Total Bilirubin 0.5 mg/dL (0.2-1.0) Aspartate Amino Transf (AST/SGOT) 17 U/L (15-37) Alanine Aminotransferase (ALT/SGPT) 12 U/L (16-63) Alkaline Phosphatase 53 U/L (46-116) Total Protein 6.6 g/dL (6.4-8.2) Albumin 2.0 g/dL (3.4-5.0) Albumin/Globulin Ratio 0.4 (1.0-1.7) Test 05/04/18 11:57 Glucose (Fingerstick) 256 mg/dL (70-99) Assessment and Plan Assessmemt and Plan Problems Medical Problems: (1) Dehydration Status: Acute (2) Hyperglycemia Status: Acute Comment Review of Relevant I have reviewed the following items odell (where applicable) has been applied. Labs Laboratory Tests Test 05/02/18 16:33 05/02/18 20:41 05/03/18 04:00 05/03/18 09:37 Glucose (Fingerstick) 294 mg/dL (70-99) 183 mg/dL (70-99) 335 mg/dL (70-99) White Blood Count 8.8 x10^3/uL (4.0-11.0) Red Blood Count 4.29 x10^6/uL (4.30-5.70) Hemoglobin 11.6 g/dL (13.0-17.5) Hematocrit 35.4 % (39.0-53.0) Mean Corpuscular Volume 82 fL (79-100) Mean Corpuscular Hemoglobin 27 pg (25-35) Mean Corpuscular Hemoglobin Concent 33 g/dL (31-37) Red Cell Distribution Width 15.7 % (11.5-14.5) Platelet Count 127 x10^3/uL (140-400) Neutrophils (%) (Auto) 69 % (31-73) Lymphocytes (%) (Auto) 14 % (24-48) Monocytes (%) (Auto) 16 % (0-9) Eosinophils (%) (Auto) 1 % (0-3) Basophils (%) (Auto) 0 % (0-3) Neutrophils # (Auto) 6.0 x10^3uL (1.8-7.7) Lymphocytes # (Auto) 1.2 x10^3/uL (1.0-4.8) Monocytes # (Auto) 1.4 x10^3/uL (0.0-1.1) Eosinophils # (Auto) 0.1 x10^3/uL (0.0-0.7) Basophils # (Auto) 0.0 x10^3/uL (0.0-0.2) Sodium Level 132 mmol/L (136-145) Potassium Level 3.7 mmol/L (3.5-5.1) Chloride Level 97 mmol/L (98-107) Carbon Dioxide Level 24 mmol/L (21-32) Anion Gap 11 (6-14) Blood Urea Nitrogen 44 mg/dL (8-26) Creatinine 1.8 mg/dL (0.7-1.3) Estimated GFR (Cockcroft-Gault) 40.6 BUN/Creatinine Ratio 24 (6-20) Glucose Level 205 mg/dL (70-99) Calcium Level 8.4 mg/dL (8.5-10.1) Total Bilirubin 0.6 mg/dL (0.2-1.0) Aspartate Amino Transf (AST/SGOT) 13 U/L (15-37) Alanine Aminotransferase (ALT/SGPT) 12 U/L (16-63) Alkaline Phosphatase 59 U/L (46-116) Total Protein 6.8 g/dL (6.4-8.2) Albumin 2.0 g/dL (3.4-5.0) Albumin/Globulin Ratio 0.4 (1.0-1.7) Test 05/03/18 11:23 05/03/18 16:43 05/03/18 20:16 2/18/19 03:30 Glucose (Fingerstick) 289 mg/dL (70-99) 190 mg/dL (70-99) 119 mg/dL (70-99) White Blood Count 9.6 x10^3/uL (4.0-11.0) Red Blood Count 4.17 x10^6/uL (4.30-5.70) Hemoglobin 11.4 g/dL (13.0-17.5) Hematocrit 34.3 % (39.0-53.0) Mean Corpuscular Volume 82 fL (79-100) Mean Corpuscular Hemoglobin 27 pg (25-35) Mean Corpuscular Hemoglobin Concent 33 g/dL (31-37) Red Cell Distribution Width 15.6 % (11.5-14.5) Platelet Count 158 x10^3/uL (140-400) Neutrophils (%) (Auto) 73 % (31-73) Lymphocytes (%) (Auto) 12 % (24-48) Monocytes (%) (Auto) 13 % (0-9) Eosinophils (%) (Auto) 2 % (0-3) Basophils (%) (Auto) 0 % (0-3) Neutrophils # (Auto) 7.0 x10^3uL (1.8-7.7) Lymphocytes # (Auto) 1.2 x10^3/uL (1.0-4.8) Monocytes # (Auto) 1.3 x10^3/uL (0.0-1.1) Eosinophils # (Auto) 0.2 x10^3/uL (0.0-0.7) Basophils # (Auto) 0.0 x10^3/uL (0.0-0.2) Sodium Level 134 mmol/L (136-145) Potassium Level 3.7 mmol/L (3.5-5.1) Chloride Level 99 mmol/L (98-107) Carbon Dioxide Level 25 mmol/L (21-32) Anion Gap 10 (6-14) Blood Urea Nitrogen 43 mg/dL (8-26) Creatinine 1.9 mg/dL (0.7-1.3) Estimated GFR (Cockcroft-Gault) 38.2 BUN/Creatinine Ratio 23 (6-20) Glucose Level 103 mg/dL (70-99) Calcium Level 8.4 mg/dL (8.5-10.1) Total Bilirubin 0.5 mg/dL (0.2-1.0) Aspartate Amino Transf (AST/SGOT) 17 U/L (15-37) Alanine Aminotransferase (ALT/SGPT) 12 U/L (16-63) Alkaline Phosphatase 53 U/L (46-116) Total Protein 6.6 g/dL (6.4-8.2) Albumin 2.0 g/dL (3.4-5.0) Albumin/Globulin Ratio 0.4 (1.0-1.7) Test 05/04/18 07:40 05/04/18 11:57 Glucose (Fingerstick) 125 mg/dL (70-99) 256 mg/dL (70-99) Laboratory Tests Test 05/03/18 16:43 05/03/18 20:16 05/04/18 03:30 05/04/18 07:40 Glucose (Fingerstick) 190 mg/dL (70-99) 119 mg/dL (70-99) 125 mg/dL (70-99) White Blood Count 9.6 x10^3/uL (4.0-11.0) Red Blood Count 4.17 x10^6/uL (4.30-5.70) Hemoglobin 11.4 g/dL (13.0-17.5) Hematocrit 34.3 % (39.0-53.0) Mean Corpuscular Volume 82 fL (79-100) Mean Corpuscular Hemoglobin 27 pg (25-35) Mean Corpuscular Hemoglobin Concent 33 g/dL (31-37) Red Cell Distribution Width 15.6 % (11.5-14.5) Platelet Count 158 x10^3/uL (140-400) Neutrophils (%) (Auto) 73 % (31-73) Lymphocytes (%) (Auto) 12 % (24-48) Monocytes (%) (Auto) 13 % (0-9) Eosinophils (%) (Auto) 2 % (0-3) Basophils (%) (Auto) 0 % (0-3) Neutrophils # (Auto) 7.0 x10^3uL (1.8-7.7) Lymphocytes # (Auto) 1.2 x10^3/uL (1.0-4.8) Monocytes # (Auto) 1.3 x10^3/uL (0.0-1.1) Eosinophils # (Auto) 0.2 x10^3/uL (0.0-0.7) Basophils # (Auto) 0.0 x10^3/uL (0.0-0.2) Sodium Level 134 mmol/L (136-145) Potassium Level 3.7 mmol/L (3.5-5.1) Chloride Level 99 mmol/L (98-107) Carbon Dioxide Level 25 mmol/L (21-32) Anion Gap 10 (6-14) Blood Urea Nitrogen 43 mg/dL (8-26) Creatinine 1.9 mg/dL (0.7-1.3) Estimated GFR (Cockcroft-Gault) 38.2 BUN/Creatinine Ratio 23 (6-20) Glucose Level 103 mg/dL (70-99) Calcium Level 8.4 mg/dL (8.5-10.1) Total Bilirubin 0.5 mg/dL (0.2-1.0) Aspartate Amino Transf (AST/SGOT) 17 U/L (15-37) Alanine Aminotransferase (ALT/SGPT) 12 U/L (16-63) Alkaline Phosphatase 53 U/L (46-116) Total Protein 6.6 g/dL (6.4-8.2) Albumin 2.0 g/dL (3.4-5.0) Albumin/Globulin Ratio 0.4 (1.0-1.7) Test 05/04/18 11:57 Glucose (Fingerstick) 256 mg/dL (70-99) Microbiology 04/30/18 Blood Culture - Preliminary, Resulted 04/30/18 Blood Culture Result 1 (HAZEL) - Preliminary, Resulted 04/30/18 Urine Culture - Final, Complete 04/30/18 Urine Culture Result 1 (HAZEL) - Final, Complete Medications Current Medications Ertapenem 50 ml @ 100 mls/hr 1X STAT IV Last administered on 04/30/18at 10:00 ; Start 04/30/18 at 09:34; Stop 04/30/18 at 10:03; Status DC Sodium Chloride 1,000 ml @ 1,000 mls/hr 1X ONCE IV Last administered on at 09:50; Start 04/30/18 at 09:45; Stop 04/30/18 at 10:44; Status DC Sodium Chloride 1,000 ml @ 1,000 mls/hr 1X ONCE IV Last administered on at 10:28; Start 04/30/18 at 09:45; Stop 04/30/18 at 10:44; Status DC Insulin Human Regular (HumuLIN R VIAL) 10 unit 1X ONCE IV Last administered on 04/30/18at 10:33; Start 04/30/18 at 10:30; Stop 04/30/18 at 10:31; Status DC Ondansetron HCl (Zofran) 4 mg 1X ONCE IV Last administered on 04/30/18at 10:31 ; Start 04/30/18 at 10:30; Stop 04/30/18 at 10:32; Status DC Fentanyl Citrate (Fentanyl 2ml Vial) 50 mcg 1X ONCE IV Last administered on at 10:36; Start 04/30/18 at 10:30; Stop 04/30/18 at 10:32; Status DC Sodium Chloride 1,000 ml @ 1,000 mls/hr 1X ONCE IV Last administered on at 12:36; Start 04/30/18 at 10:45; Stop 04/30/18 at 11:44; Status DC Metoclopramide HCl (Reglan Vial) 10 mg 1X ONCE IV Last administered on at 12:08; Start 04/30/18 at 12:00; Stop 04/30/18 at 12:01; Status DC Fentanyl Citrate (Fentanyl 2ml Vial) 50 mcg 1X ONCE IV ; Start 04/30/18 at 21: 00; Stop 04/30/18 at 21:01; Status DC Acetaminophen (Tylenol) 1,000 mg 1X ONCE PO ; Start 04/30/18 at 11:45; Stop at 11:47; Status DC Insulin Human Regular 150 ml @ 0 mls/hr 1X ONCE IV Last administered on at 12:48; Start 04/30/18 at 12:00; Stop 04/30/18 at 12:01; Status DC Fentanyl Citrate (Fentanyl 2ml Vial) 50 mcg 1X ONCE IV Last administered on at 12:21; Start 04/30/18 at 12:00; Stop 04/30/18 at 12:01; Status DC Meropenem 500 mg/ Sodium Chloride 50 ml @ 100 mls/hr Q12HR IV Last administered on 05/01/18at 08:58; Start 04/30/18 at 21:00; Stop 05/01/18 at 10:32 ; Status DC Sodium Chloride 1,000 ml @ 1,920 mls/hr Q32M IV ; Start 04/30/18 at 15:06; Stop 04/30/18 at 16:08; Status DC Sodium Chloride 500 ml @ 1,000 mls/hr PRN Q30MIN PRN IV SEE COMMENTS; Start at 15:15; Stop 05/01/18 at 10:15; Status DC Sodium Chloride 1,000 ml @ 150 mls/hr Q6H40M IV Last administered on at 21:16; Start 04/30/18 at 15:10; Stop 05/01/18 at 10:15; Status DC Norepinephrine Bitartrate 250 ml @ 0 mls/hr CONT PRN IV SEE I/O RECORD; Start 04/30/18 at 15:15; Stop 05/02/18 at 08:49; Status DC Dobutamine HCl/ Dextrose 250 ml @ 0 mls/hr CONT PRN IV SEE I/O RECORD; Start at 15:15; Stop 05/02/18 at 08:49; Status DC Insulin Human Lispro (HumaLOG) 0-7 UNITS TIDWMEALS SQ Last administered on 04/30at 20:13; Start 04/30/18 at 17:00; Stop 05/01/18 at 08:15; Status DC Dextrose (Dextrose 50%-Water Syringe) 12.5 gm PRN Q15MIN PRN IV SEE COMMENTS; Start 04/30/18 at 15:15; Stop 05/02/18 at 08:54; Status DC Heparin Sodium (Porcine) (Heparin Sodium) 5,000 unit Q8HRS SQ Last administered on 05/03/18at 06:03; Start 04/30/18 at 22:00; Stop 05/03/18 at 10:51 ; Status DC Fentanyl Citrate (Fentanyl 2ml Vial) 50 mcg PRN Q3HRS PRN IV PAIN Last administered on 05/04/18at 04:36; Start 04/30/18 at 17:00 Ondansetron HCl (Zofran) 4 mg PRN Q6HRS PRN IV NAUSEA/VOMITING Last administered on 05/02/18 05:17; Start 04/30/18 at 19:30 Ibuprofen (Motrin) 200 mg PRN Q6HRS PRN PO MILD PAIN / TEMP Last administered on 04/30/18 21:14; Start 04/30/18 at 20:45; Stop 05/01/18 at 11:54; Status DC Insulin Glargine (Lantus) 35 units [id number] SQ Last administered on 09:19; Start 05/02/18 at 08:00 Insulin Human Lispro (HumaLOG) 0-7 UNITS TIDWMEALS SQ Last administered on 05/01 08:56; Start 05/01/18 at 12:00; Stop 05/01/18 at 12:24; Status DC Meropenem 1 gm/ Sodium Chloride 100 ml @ 200 mls/hr Q12HR IV Last administered on 05/04/18 09:11; Start 05/01/18 at 18:00 Lactobacillus Rhamnosus (Culturelle) 1 cap BID PO Last administered on 08:58; Start 05/01/18 at 21:00 Sodium Chloride 1,000 ml @ 100 mls/hr Q10H IV Last administered on 05/04/18 04:32; Start 05/01/18 at 11:45 Insulin Human Lispro (HumaLOG) 15 units 1X ONCE SQ Last administered on 14:56; Start 05/01/18 at 12:30; Stop 05/01/18 at 12:31; Status DC Insulin Human Lispro (HumaLOG) 0-9 UNITS TIDWMEALS SQ ; Start 05/01/18 at 17:00 ; Stop 05/02/18 at 08:50; Status DC Metoprolol Tartrate (Lopressor Vial) 5 mg 1X ONCE IVP Last administered on 16:21; Start 05/01/18 at 16:15; Stop 05/01/18 at 16:18; Status DC Insulin Human Lispro (HumaLOG) 20 units 1X ONCE SQ Last administered on at 16:58; Start 05/01/18 at 17:00; Stop 05/01/18 at 17:01; Status DC Insulin Human Lispro (HumaLOG) 0-9 UNITS TIDWMEALS SQ Last administered on 05/04at 13:11; Start 05/02/18 at 12:00 Dextrose (Dextrose 50%-Water Syringe) 12.5 gm PRN Q15MIN PRN IV SEE COMMENTS; Start 05/02/18 at 09:00 Tramadol HCl (Ultram) 50 mg PRN Q6HRS PRN PO PAIN; Start 05/02/18 at 09:00 Zolpidem Tartrate (Ambien) 5 mg PRN QHS PRN PO INSOMNIA; Start 05/02/18 at 09: 00 Amlodipine Besylate (Norvasc) 10 mg DAILY PO Last administered on 05/04/18at 08: 57; Start 05/02/18 at 09:00 Atorvastatin Calcium (Lipitor) 20 mg HS PO Last administered on 05/03/18at 20:17 ; Start 05/02/18 at 21:00 Carvedilol (Coreg) 12.5 mg BIDWMEALS PO Last administered on 05/04/18at 08:56; Start 05/02/18 at 09:00 Insulin Glargine (Lantus) 25 units QHS SQ Last administered on 05/02/18at 21:27 ; Start 05/02/18 at 21:00; Stop 05/03/18 at 10:51; Status DC Insulin Human Lispro (HumaLOG) 8 units TIDWMEALS SQ Last administered on at 09:52; Start 05/02/18 at 12:00; Stop 05/03/18 at 10:51; Status DC Pregabalin (Lyrica) 75 mg TID PO Last administered on 05/04/18at 08:58; Start at 09:00 Non-Formulary Medication (Dulaglutide (Trulicity)) 1.5 mg WEEKLY SQ ; Start at 09:00; Stop 05/04/18 at 07:35; Status DC Ondansetron HCl (Zofran Odt) 4 mg PRN Q8HRS PRN PO NAUSEA/VOMITING; Start 05/02 at 09:00 Labetalol HCl (Normodyne Iv Push) 10 mg PRN Q2HR PRN IVP HYPERTENSION, SEE COMMENTS; Start 05/02/18 at 09:00 Dicyclomine HCl (Bentyl) 10 mg TID PO Last administered on 05/04/18 08:58; Start 05/02/18 at 14:00 Dicyclomine HCl (Bentyl) 10 mg 1X ONCE PO Last administered on 05/02/18at 12:48 ; Start 05/02/18 at 11:30; Stop 05/02/18 at 11:31; Status DC Calcium Carbonate/ Glycine (Tums) 500 mg PRN AFTMEALHC PRN PO INDIGESTION; Start 05/02/18 at 11:30 Loperamide HCl (Imodium) 2 mg PRN Q15MIN PRN PO DIARRHEA Last administered on 21:14; Start 05/02/18 at 11:30; Stop 05/04/18 at 08:20; Status DC Acetaminophen (Tylenol) 500 mg PRN Q6HRS PRN PO MILD PAIN / TEMP Last administered on 05/04/18 08:58; Start 05/03/18 at 09:00 Simethicone (Gas-X) 80 mg PRN AFTMEALHC PRN PO GAS / BLOATING Last administered on 05/04/18at 08:57; Start 05/03/18 at 09:45 Insulin Glargine (Lantus) 35 units QHS SQ ; Start 05/03/18 at 21:00 Insulin Human Lispro (HumaLOG) 12 units TIDWMEALS SQ Last administered on at 13:10; Start 05/03/18 at 12:00 Active Scripts Active Humalog (Insulin Lispro) 100 Unit/1 Ml Insuln.pen 8 Units SQ TIDWMEALS 14 Days Lantus Solostar (Insulin Glargine,Hum.rec.anlog) 100 Unit/1 Ml Insuln.pen 25 Units SQ QHS 14 Days Tramadol Hcl 50 Mg Tablet 50 Mg PO PRN Q6HRS PRN Amlodipine Besylate 10 Mg Tablet 10 Mg PO DAILY 30 Days Carvedilol (Carvedilol) 12.5 Mg Tablet 12.5 Mg PO BIDWMEALS 30 Days Zofran (Ondansetron Hcl) 4 Mg Tablet 1 Tab PO PRN Q8HRS PRN Reported Losartan-Hctz 50-12.5 Mg Tab (Losartan/Hydrochlorothiazide) 1 Each Tablet 1 Each PO DAILY Lyrica (Pregabalin) 75 Mg Capsule 75 Mg PO TID Atorvastatin Calcium 20 Mg Tablet 20 Mg PO HS Amlodipine Besylate 10 Mg Tablet 20 Mg PO BID Trulicity (Dulaglutide) 1.5 Mg/0.5 Ml Pen.injctr 1.5 Mg SQ WEEKLY Metformin Hcl 1,000 Mg Tablet 1,000 Mg PO BIDWMEALS Vitals/I & O Vital Sign - Last 24 Hours 05/03/18 05/03/18 05/03/18 05/03/18 15:00 16:55 19:35 20:50 Temp 99.4 99.5 99.4 99.5 Pulse 80 80 81 Resp 18 20 B/P (MAP) 118/72 (87) 118/72 97/61 (73) Pulse Ox 95 94 O2 Delivery Room Air Room Air Room Air 05/03/18 05/03/18 05/04/18 05/04/18 21:41 23:32 03:38 04:36 Temp 99.0 99.6 99.0 99.6 Pulse 82 101 Resp 18 19 20 16 B/P (MAP) 101/64 (76) 136/78 (97) Pulse Ox 93 96 96 O2 Delivery Room Air Room Air Room Air Room Air 05/04/18 05/04/18 05/04/18 05/04/18 05:06 07:00 08:00 08:56 Temp 101.0 101.0 Pulse 90 90 Resp 16 18 B/P (MAP) 147/74 (98) 147/74 Pulse Ox 96 95 O2 Delivery Room Air Room Air Room Air O2 Flow Rate 2.0 2.0 05/04/18 05/04/18 08:57 11:00 Temp 99.0 99.0 Pulse 90 83 Resp 18 B/P (MAP) 147/74 106/64 (78) Pulse Ox 99 O2 Delivery Room Air Intake and Output 05/03/18 05/03/18 05/04/18 15:00 23:00 07:00 Intake Total 630 ml 1050 ml Output Total 300 ml Balance 330 ml 1050 ml KENJI NOWAK MD May 04, 2018 14:17
[2018-05-04 15:00] VITALS: BP 160/74
--- NOTE | 2018-05-04 15:00 | NUR ---
SW following pt. ID currently following pt and pt is self pay. 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
--- NOTE | 2018-05-04 15:13 | PDOC ---
SUBJECTIVE ROS Feeling better, Diarrhea improving OBJECTIVE Vital Signs Vital Signs Date Time Temp Pulse Resp B/P (MAP) Pulse Ox O2 Delivery O2 Flow Rate FiO2 05/04/18 11:00 99.0 83 18 106/64 (78) 99 Room Air 99.0 05/04/18 08:00 2.0 I & 0 Intake and Output 05/04/18 06:59 Intake Total 1680 ml Output Total 300 ml Balance 1380 ml Intake Oral 1680 ml Output Urine Total 300 ml # Voids 2 PHYSICAL EXAM Physical Exam GEN: Awake, Oriented x [], In [] distress EYES: Vision Unchanged, Conjunctiva Normal EN: No EN Drainage, Mucous Membranes [] NECK: [] JVD, [] JVP, Supple, [] Thyromegaly CVS: S1S2, [] Murmur, No Gallop, No Rub,[] Edema RESP: [] Rales, [] Rhonchi,[] Acc. Muscle Use GI: BS + ve, NO Bruit, Non Tender, Non Distended : [] CVA tenderness, [] Suprapubic Tenderness DIAGNOSIS/ASSESSMENT Assessment & Plan YOEL - Improved Due to Dehydration Losartan , HCTZ and Metformin Held CKD stage 3 - Baseline Cr 1.5-2.0 DM II HTN- Continue antihypertensives GNR sepsis-? UTI /?Pyelo on CT 04/30 Nausea, vomiting COMMENT/RELEVANT DATA Meds Current Medications Medications (Trade) Dose Ordered Sig/Felisha Start Time Stop Time Status Last Admin Dose Admin Acetaminophen (Tylenol) 500 mg PRN Q6HRS PRN 05/03/18 09:00 05/04/18 08:58 500 MG Amlodipine Besylate (Norvasc) 10 mg DAILY 05/02/18 09:00 05/04/18 08:57 10 MG Atorvastatin Calcium (Lipitor) 20 mg HS 05/02/18 21:00 05/03/18 20:17 20 MG Calcium Carbonate/ Glycine (Tums) 500 mg PRN AFTMEALHC PRN 05/02/18 11:30 Carvedilol (Coreg) 12.5 mg BIDWMEALS 05/02/18 09:00 05/04/18 08:56 12.5 MG Dextrose (Dextrose 50%-Water Syringe) 12.5 gm PRN Q15MIN PRN 05/02/18 09:00 Dicyclomine HCl (Bentyl) 10 mg 1X ONCE 05/02/18 11:30 05/02/18 11:31 DC 05/02/18 12:48 10 MG Dobutamine HCl/ Dextrose 250 ml @ 0 mls/hr CONT PRN 04/30/18 15:15 05/02/18 08:49 DC Ertapenem 50 ml @ 100 mls/hr 1X STAT 04/30/18 09:34 04/30/18 10:03 DC 04/30/18 10:00 100 MLS/HR Fentanyl Citrate (Fentanyl 2ml Vial) 50 mcg PRN Q3HRS PRN 04/30/18 17:00 05/04/18 04:36 50 MCG Heparin Sodium (Porcine) (Heparin Sodium) 5,000 unit Q8HRS 04/30/18 22:00 05/03/18 10:51 DC 05/03/18 06:03 5,000 UNIT Ibuprofen (Motrin) 200 mg PRN Q6HRS PRN 04/30/18 20:45 05/01/18 11:54 DC 04/30/18 21:14 200 MG Insulin Glargine (Lantus) 35 units QHS 05/03/18 21:00 Insulin Human Lispro (HumaLOG) 12 units TIDWMEALS 05/03/18 12:00 05/04/18 13:10 12 UNITS Insulin Human Regular 150 ml @ 0 mls/hr 1X ONCE 04/30/18 12:00 04/30/18 12:01 DC 04/30/18 12:48 9.3 MLS/HR Insulin Human Regular (HumuLIN R VIAL) 10 unit 1X ONCE 04/30/18 10:30 04/30/18 10:31 DC 04/30/18 10:33 10 UNIT Labetalol HCl (Normodyne Iv Push) 10 mg PRN Q2HR PRN 05/02/18 09:00 Lactobacillus Rhamnosus (Culturelle) 1 cap BID 05/01/18 21:00 05/04/18 08:58 1 CAP Loperamide HCl (Imodium) 2 mg PRN Q15MIN PRN 05/02/18 11:30 05/04/18 08:20 DC 05/02/18 21:14 2 MG Meropenem 1 gm/ Sodium Chloride 100 ml @ 200 mls/hr Q12HR 05/01/18 18:00 05/04/18 09:11 200 MLS/HR Meropenem 500 mg/ Sodium Chloride 50 ml @ 100 mls/hr Q12HR 04/30/18 21:00 05/01/18 10:32 DC 05/01/18 08:58 100 MLS/HR Metoclopramide HCl (Reglan Vial) 10 mg 1X ONCE 04/30/18 12:00 04/30/18 12:01 DC 04/30/18 12:08 10 MG Metoprolol Tartrate (Lopressor Vial) 5 mg 1X ONCE 05/01/18 16:15 05/01/18 16:18 DC 05/01/18 16:21 5 MG Non-Formulary Medication (Dulaglutide (Trulicity)) 1.5 mg WEEKLY 05/02/18 09:00 05/04/18 07:35 DC Norepinephrine Bitartrate 250 ml @ 0 mls/hr CONT PRN 04/30/18 15:15 05/02/18 08:49 DC Ondansetron HCl (Zofran Odt) 4 mg PRN Q8HRS PRN 05/02/18 09:00 Ondansetron HCl (Zofran) 4 mg PRN Q6HRS PRN 04/30/18 19:30 05/02/18 05:17 4 MG Pregabalin (Lyrica) 75 mg TID 05/02/18 09:00 05/04/18 08:58 75 MG Simethicone (Gas-X) 80 mg PRN AFTMEALHC PRN 05/03/18 09:45 05/04/18 08:57 80 MG Sodium Chloride 1,000 ml @ 100 mls/hr Q10H 05/01/18 11:45 05/04/18 04:32 100 MLS/HR Tramadol HCl (Ultram) 50 mg PRN Q6HRS PRN 05/02/18 09:00 Zolpidem Tartrate (Ambien) 5 mg PRN QHS PRN 05/02/18 09:00 Lab Laboratory Tests Test 05/03/18 16:43 05/03/18 20:16 05/04/18 03:30 05/04/18 07:40 Glucose (Fingerstick) 190 mg/dL (70-99) 119 mg/dL (70-99) 125 mg/dL (70-99) White Blood Count 9.6 x10^3/uL (4.0-11.0) Red Blood Count 4.17 x10^6/uL (4.30-5.70) Hemoglobin 11.4 g/dL (13.0-17.5) Hematocrit 34.3 % (39.0-53.0) Mean Corpuscular Volume 82 fL (79-100) Mean Corpuscular Hemoglobin 27 pg (25-35) Mean Corpuscular Hemoglobin Concent 33 g/dL (31-37) Red Cell Distribution Width 15.6 % (11.5-14.5) Platelet Count 158 x10^3/uL (140-400) Neutrophils (%) (Auto) 73 % (31-73) Lymphocytes (%) (Auto) 12 % (24-48) Monocytes (%) (Auto) 13 % (0-9) Eosinophils (%) (Auto) 2 % (0-3) Basophils (%) (Auto) 0 % (0-3) Neutrophils # (Auto) 7.0 x10^3uL (1.8-7.7) Lymphocytes # (Auto) 1.2 x10^3/uL (1.0-4.8) Monocytes # (Auto) 1.3 x10^3/uL (0.0-1.1) Eosinophils # (Auto) 0.2 x10^3/uL (0.0-0.7) Basophils # (Auto) 0.0 x10^3/uL (0.0-0.2) Sodium Level 134 mmol/L (136-145) Potassium Level 3.7 mmol/L (3.5-5.1) Chloride Level 99 mmol/L (98-107) Carbon Dioxide Level 25 mmol/L (21-32) Anion Gap 10 (6-14) Blood Urea Nitrogen 43 mg/dL (8-26) Creatinine 1.9 mg/dL (0.7-1.3) Estimated GFR (Cockcroft-Gault) 38.2 BUN/Creatinine Ratio 23 (6-20) Glucose Level 103 mg/dL (70-99) Calcium Level 8.4 mg/dL (8.5-10.1) Total Bilirubin 0.5 mg/dL (0.2-1.0) Aspartate Amino Transf (AST/SGOT) 17 U/L (15-37) Alanine Aminotransferase (ALT/SGPT) 12 U/L (16-63) Alkaline Phosphatase 53 U/L (46-116) Total Protein 6.6 g/dL (6.4-8.2) Albumin 2.0 g/dL (3.4-5.0) Albumin/Globulin Ratio 0.4 (1.0-1.7) Test 05/04/18 11:57 Glucose (Fingerstick) 256 mg/dL (70-99) Results All relevant outside records, renal labs, imaging studies, telemetry/EKG's were reviewed. JERRY WEN MD May 04, 2018 15:13
[2018-05-04 19:53] VITALS: BP 120/66
[2018-05-04] MEDS: ATORVASTATIN CALCIUM 20 MG TABLET PO SCH (21:15)
[2018-05-04 23:31] VITALS: BP 114/64
[2018-05-05 03:27] VITALS: BP 124/75
[2018-05-05 05:43] LABS: BASO % 0 % (0-3); EOS # 0.1 x10^3/uL (0.0-0.7); EOS % 1 % (0-3); HEMATOCRIT 32.8 % (39.0-53.0); HEMOGLOBIN 10.9 g/dL (13.0-17.5); LYMPH # 1.6 x10^3/uL (1.0-4.8); LYMPH % 14 % (24-48); MEAN CORPUSCULAR HEMOGLOBIN 27 pg (25-35); MEAN CORPUSCULAR HGB CONC 33 g/dL (31-37); MEAN CORPUSCULAR VOLUME 83 fL (79-100); MONO # 1.2 x10^3/uL (0.0-1.1); MONO % 11 % (0-9); NEUT # 8.4 x10^3uL (1.8-7.7); NEUT % 74 % (31-73); PLATELET COUNT 188 x10^3/uL (140-400); RED BLOOD COUNT 3.98 x10^6/uL (4.30-5.70); RED CELL DISTRIBUTION WIDTH 15.3 % (11.5-14.5); WHITE BLOOD COUNT 11.4 x10^3/uL (4.0-11.0)
[2018-05-05] MEDS: IV NORMAL SALINE 1000ML BAG 1,000 ML IV SCH ×3 (05:56→20:45)
[2018-05-05] MEDS: fentaNYL PF VIAL 100 MCG/2 ML VIAL IV PRN (06:01)
[2018-05-05 06:05] LABS: ALBUMIN 1.8 g/dL (3.4-5.0); ALBUMIN/GLOBULIN RATIO 0.4 (1.0-1.7); CALCIUM 8.4 mg/dL (8.5-10.1); CREATININE 1.8 mg/dL (0.7-1.3); GFR 40.6; POTASSIUM 4.1 mmol/L (3.5-5.1); TOTAL BILIRUBIN 0.6 mg/dL (0.2-1.0); TOTAL PROTEIN 6.5 g/dL (6.4-8.2)
[2018-05-05 06:58] VITALS: BP 158/82
[2018-05-05] MEDS: INSULIN GLARGINE 300 UNITS/3 ML INSULN.PEN. SQ SCH ×2 (08:00→20:56)
[2018-05-05] MEDS: INSULIN LISPRO 300 UNITS/3 ML INSULN.PEN. SQ SCH ×6 (08:00→17:46)
[2018-05-05] MEDS: DICYCLOMINE HCL 10 MG CAPSULE PO SCH ×3 (08:07→20:45)
[2018-05-05] MEDS: amLODIPine BESYLATE 10 MG TABLET PO SCH (08:08)
[2018-05-05] MEDS: ACETAMINOPHEN 500 MG TABLET PO PRN (08:08)
[2018-05-05] MEDS: LACTOBACILLUS RHAMNOSUS GG 1 CAPSULE. PO SCH ×2 (08:09→20:46)
[2018-05-05] MEDS: CARVEDILOL 12.5 MG TABLET. PO SCH ×2 (08:10→17:36)
[2018-05-05] MEDS: PREGABALIN 75 MG CAPSULE PO SCH ×3 (08:10→20:46)
[2018-05-05] MEDS: MEROPENEM 1 GM in IV NORMAL SALINE 100ML 100 ML IV SCH ×2 (08:11→20:44)
[2018-05-05] MEDS: SIMETHICONE 80 MG TAB.CHEW PO PRN ×2 (08:24→12:53)
--- NOTE | 2018-05-05 08:43 | PDOC ---
Infectious Disease Note Subjective Subjective Feeling better yet this morning. Moving more and less discomfort Now constipated Less bloated Altered taste Fever improving overall ROS ROS o/w neg Vital Sign Vital Signs Vital Signs Date Time Temp Pulse Resp B/P (MAP) Pulse Ox O2 Delivery O2 Flow Rate FiO2 05/05/18 08:10 89 158/82 05/05/18 06:58 98.7 17 94 Room Air 98.7 05/04/18 18:22 2.0 Physical Exam PHYSICAL EXAM GENERAL: Ambulating to bathroom without problems, alert, NAD HEENT: Oral cavity, pharynx clear. NECK: Supple. LUNGS: Clear bilaterally. No wheezing. HEART: S1, S2. ABDOMEN: Soft, obese. Bowel sounds present, nontender, les distended : less R CVA tenderness EXTREMITIES: BLE 1+ edema. 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 Grossly nonfocal. SKIN: Warm, dry, no generalized rash. PIV LUE ok Labs Lab Laboratory Tests Test 05/04/18 11:57 05/04/18 16:41 05/04/18 21:16 05/05/18 05:10 Glucose (Fingerstick) 256 mg/dL (70-99) 163 mg/dL (70-99) 110 mg/dL (70-99) White Blood Count 11.4 x10^3/uL (4.0-11.0) Red Blood Count 3.98 x10^6/uL (4.30-5.70) Hemoglobin 10.9 g/dL (13.0-17.5) Hematocrit 32.8 % (39.0-53.0) Mean Corpuscular Volume 83 fL (79-100) Mean Corpuscular Hemoglobin 27 pg (25-35) Mean Corpuscular Hemoglobin Concent 33 g/dL (31-37) Red Cell Distribution Width 15.3 % (11.5-14.5) Platelet Count 188 x10^3/uL (140-400) Neutrophils (%) (Auto) 74 % (31-73) Lymphocytes (%) (Auto) 14 % (24-48) Monocytes (%) (Auto) 11 % (0-9) Eosinophils (%) (Auto) 1 % (0-3) Basophils (%) (Auto) 0 % (0-3) Neutrophils # (Auto) 8.4 x10^3uL (1.8-7.7) Lymphocytes # (Auto) 1.6 x10^3/uL (1.0-4.8) Monocytes # (Auto) 1.2 x10^3/uL (0.0-1.1) Eosinophils # (Auto) 0.1 x10^3/uL (0.0-0.7) Basophils # (Auto) 0.0 x10^3/uL (0.0-0.2) Sodium Level 137 mmol/L (136-145) Potassium Level 4.1 mmol/L (3.5-5.1) Chloride Level 102 mmol/L (98-107) Carbon Dioxide Level 25 mmol/L (21-32) Anion Gap 10 (6-14) Blood Urea Nitrogen 43 mg/dL (8-26) Creatinine 1.8 mg/dL (0.7-1.3) Estimated GFR (Cockcroft-Gault) 40.6 BUN/Creatinine Ratio 24 (6-20) Glucose Level 127 mg/dL (70-99) Calcium Level 8.4 mg/dL (8.5-10.1) Total Bilirubin 0.6 mg/dL (0.2-1.0) Aspartate Amino Transf (AST/SGOT) 19 U/L (15-37) Alanine Aminotransferase (ALT/SGPT) 15 U/L (16-63) Alkaline Phosphatase 67 U/L (46-116) Total Protein 6.5 g/dL (6.4-8.2) Albumin 1.8 g/dL (3.4-5.0) Albumin/Globulin Ratio 0.4 (1.0-1.7) Test 05/05/18 07:12 Glucose (Fingerstick) 137 mg/dL (70-99) Micro Microbiology 04/30/18 Blood Culture - Preliminary, Resulted 04/30/18 Blood Culture Result 1 (HAZEL) - Preliminary, Resulted 04/30/18 Urine Culture - Final, Complete 04/30/18 Urine Culture Result 1 (HAZEL) - Final, Complete Objective Assessment Ecoli sepsis, POA 04/30 probable ESBL Leukocytosis - ? constipation Fever - curve is improving Abd distension - C-diff is neg Nausea, vomiting - better. History of Escherichia coli sepsis with urinary tract infection in December 2017 with multidrug resistance. Acute kidney injury - better Questionable urinary tract infection. UC neg - ? pyelo on CT 04/30 Diabetes mellitus with hyperosmolar hyperglycemia. Thrombocytopenia - better. Hyponatremia. Lactic acidosis in the setting of increased creatinine. Diarrhea, c. diff neg 04/30. Plan Plan of Care Cont Merrem 1 q 12 (05/01 did receive Invanz times one 04/30) -clinically much better D/c Loperamide given abd distension and C-diff order. F/u distension 05/04 Cont Probiotics Await Ecoli susceptibilities Monitor labs in am if WBC cont to increase may need additional imaging cont supportive care TIP ZAPATA MD May 05, 2018 08:43
--- NOTE | 2018-05-05 10:43 | PDOC ---
PROGRESS NOTES Chief Complaint Chief Complaint GNR sepsis, POA Neg urince cx Fevers History of Escherichia coli sepsis with urinary tract infection in December 2017 with multidrug resistance. Acute kidney injury Diabetes mellitus with hyperosmolar hyperglycemia s/p ICU - [id number] 8 Thrombocytopenia, better/stable pseudohyponatremia Lactic acidosis in the setting of increased creatinine. Diarrhea, c. diff neg 04/30. History of Present Illness History of Present Illness Transferred out of ICU 05/01/18 for DKA and sepsis Sugars are running high 300s-status post HON K in the ICU Hemoglobin A1c 8 MAXIMUM TEMPERATURE 100.6F Yesterday evening Better by mouth intake today, ate his whole lunch Creatinine better 1.8 from 3, fluids running 100 mL per hour per renal Some swelling now on legs and hands Still diarrhea - C. difficile negative. Some abdominal pain on eating, bloating Blood cultures with GNR - e coli, prelim shows likely ESBL, no final yet Plan: follow ID recommendations no pT needs Hold lisinopril HCTZ and metformin because of creatinine of 1.9 Imodium, Lactobacillus-C. difficile negative - will add psyllium Sliding-scale insulin-hemoglobin A1c 8 in March 2018 Supprotive meds Increased Lantus from 20-35 units daily at bedtime Increase mealtime NovoLog from 8-12 3 times a day follow BC - has left peripheral line HX of PICC with 1 week course abx for MDR e coli not too long ago, December 2017 History of Escherichia coli sepsis with urinary tract infection in December 2017 with multidrug resistance. Acute kidney injury - better Questionable urinary tract infection. UC neg - ? pyelo on CT 04/30 Diarrhea, c. diff neg 04/30. Cont Merrem 1 q 12 (05/01 did receive Invanz times one 04/30) D/c Loperamide given abd distension and C-diff order. F/u distension Cont Probiotics Await GNR ID/susceptibilities Monitor labs in am cont supportive care Vitals Vitals Vital Signs Date Time Temp Pulse Resp B/P (MAP) Pulse Ox O2 Delivery O2 Flow Rate FiO2 05/05/18 08:10 89 158/82 05/05/18 06:58 98.7 17 94 Room Air 98.7 05/04/18 18:22 2.0 Physical Exam Physical Exam GENERAL: Ambulating to bathroom without problems, alert, NAD HEENT: Oral cavity, pharynx clear. NECK: Supple. LUNGS: Clear bilaterally. No wheezing. HEART: S1, S2. ABDOMEN: Soft, obese. Bowel sounds present, nontender, les distended : less R CVA tenderness EXTREMITIES: BLE 1+ edema. 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 Grossly nonfocal. SKIN: Warm, dry, no generalized rash. PIV LUE ok General: Alert, Oriented X3, Cooperative, No acute distress, mild distress Heart: Regular rate, Normal S1, Normal S2 Lungs: Clear, Other (no rhonchi) Abdomen: Normal bowel sounds, Soft, Other (FLANK PAIN ON PERCUSSION) Extremities: No clubbing Skin: No breakdown Labs LABS Laboratory Tests Test 05/04/18 11:57 05/04/18 16:41 05/04/18 21:16 05/05/18 05:10 Glucose (Fingerstick) 256 mg/dL (70-99) 163 mg/dL (70-99) 110 mg/dL (70-99) White Blood Count 11.4 x10^3/uL (4.0-11.0) Red Blood Count 3.98 x10^6/uL (4.30-5.70) Hemoglobin 10.9 g/dL (13.0-17.5) Hematocrit 32.8 % (39.0-53.0) Mean Corpuscular Volume 83 fL (79-100) Mean Corpuscular Hemoglobin 27 pg (25-35) Mean Corpuscular Hemoglobin Concent 33 g/dL (31-37) Red Cell Distribution Width 15.3 % (11.5-14.5) Platelet Count 188 x10^3/uL (140-400) Neutrophils (%) (Auto) 74 % (31-73) Lymphocytes (%) (Auto) 14 % (24-48) Monocytes (%) (Auto) 11 % (0-9) Eosinophils (%) (Auto) 1 % (0-3) Basophils (%) (Auto) 0 % (0-3) Neutrophils # (Auto) 8.4 x10^3uL (1.8-7.7) Lymphocytes # (Auto) 1.6 x10^3/uL (1.0-4.8) Monocytes # (Auto) 1.2 x10^3/uL (0.0-1.1) Eosinophils # (Auto) 0.1 x10^3/uL (0.0-0.7) Basophils # (Auto) 0.0 x10^3/uL (0.0-0.2) Sodium Level 137 mmol/L (136-145) Potassium Level 4.1 mmol/L (3.5-5.1) Chloride Level 102 mmol/L (98-107) Carbon Dioxide Level 25 mmol/L (21-32) Anion Gap 10 (6-14) Blood Urea Nitrogen 43 mg/dL (8-26) Creatinine 1.8 mg/dL (0.7-1.3) Estimated GFR (Cockcroft-Gault) 40.6 BUN/Creatinine Ratio 24 (6-20) Glucose Level 127 mg/dL (70-99) Calcium Level 8.4 mg/dL (8.5-10.1) Total Bilirubin 0.6 mg/dL (0.2-1.0) Aspartate Amino Transf (AST/SGOT) 19 U/L (15-37) Alanine Aminotransferase (ALT/SGPT) 15 U/L (16-63) Alkaline Phosphatase 67 U/L (46-116) Total Protein 6.5 g/dL (6.4-8.2) Albumin 1.8 g/dL (3.4-5.0) Albumin/Globulin Ratio 0.4 (1.0-1.7) Test 05/05/18 07:12 Glucose (Fingerstick) 137 mg/dL (70-99) Assessment and Plan Assessmemt and Plan Problems Medical Problems: (1) Dehydration Status: Acute (2) Hyperglycemia Status: Acute Comment Review of Relevant I have reviewed the following items odell (where applicable) has been applied. Labs Laboratory Tests Test 05/03/18 11:23 05/03/18 16:43 05/03/18 20:16 05/04/18 03:30 Glucose (Fingerstick) 289 mg/dL (70-99) 190 mg/dL (70-99) 119 mg/dL (70-99) White Blood Count 9.6 x10^3/uL (4.0-11.0) Red Blood Count 4.17 x10^6/uL (4.30-5.70) Hemoglobin 11.4 g/dL (13.0-17.5) Hematocrit 34.3 % (39.0-53.0) Mean Corpuscular Volume 82 fL (79-100) Mean Corpuscular Hemoglobin 27 pg (25-35) Mean Corpuscular Hemoglobin Concent 33 g/dL (31-37) Red Cell Distribution Width 15.6 % (11.5-14.5) Platelet Count 158 x10^3/uL (140-400) Neutrophils (%) (Auto) 73 % (31-73) Lymphocytes (%) (Auto) 12 % (24-48) Monocytes (%) (Auto) 13 % (0-9) Eosinophils (%) (Auto) 2 % (0-3) Basophils (%) (Auto) 0 % (0-3) Neutrophils # (Auto) 7.0 x10^3uL (1.8-7.7) Lymphocytes # (Auto) 1.2 x10^3/uL (1.0-4.8) Monocytes # (Auto) 1.3 x10^3/uL (0.0-1.1) Eosinophils # (Auto) 0.2 x10^3/uL (0.0-0.7) Basophils # (Auto) 0.0 x10^3/uL (0.0-0.2) Sodium Level 134 mmol/L (136-145) Potassium Level 3.7 mmol/L (3.5-5.1) Chloride Level 99 mmol/L (98-107) Carbon Dioxide Level 25 mmol/L (21-32) Anion Gap 10 (6-14) Blood Urea Nitrogen 43 mg/dL (8-26) Creatinine 1.9 mg/dL (0.7-1.3) Estimated GFR (Cockcroft-Gault) 38.2 BUN/Creatinine Ratio 23 (6-20) Glucose Level 103 mg/dL (70-99) Calcium Level 8.4 mg/dL (8.5-10.1) Total Bilirubin 0.5 mg/dL (0.2-1.0) Aspartate Amino Transf (AST/SGOT) 17 U/L (15-37) Alanine Aminotransferase (ALT/SGPT) 12 U/L (16-63) Alkaline Phosphatase 53 U/L (46-116) Total Protein 6.6 g/dL (6.4-8.2) Albumin 2.0 g/dL (3.4-5.0) Albumin/Globulin Ratio 0.4 (1.0-1.7) Test 05/04/18 07:40 05/04/18 11:57 05/04/18 16:41 05/04/18 21:16 Glucose (Fingerstick) 125 mg/dL (70-99) 256 mg/dL (70-99) 163 mg/dL (70-99) 110 mg/dL (70-99) Test 05/05/18 05:10 05/05/18 07:12 White Blood Count 11.4 x10^3/uL (4.0-11.0) Red Blood Count 3.98 x10^6/uL (4.30-5.70) Hemoglobin 10.9 g/dL (13.0-17.5) Hematocrit 32.8 % (39.0-53.0) Mean Corpuscular Volume 83 fL (79-100) Mean Corpuscular Hemoglobin 27 pg (25-35) Mean Corpuscular Hemoglobin Concent 33 g/dL (31-37) Red Cell Distribution Width 15.3 % (11.5-14.5) Platelet Count 188 x10^3/uL (140-400) Neutrophils (%) (Auto) 74 % (31-73) Lymphocytes (%) (Auto) 14 % (24-48) Monocytes (%) (Auto) 11 % (0-9) Eosinophils (%) (Auto) 1 % (0-3) Basophils (%) (Auto) 0 % (0-3) Neutrophils # (Auto) 8.4 x10^3uL (1.8-7.7) Lymphocytes # (Auto) 1.6 x10^3/uL (1.0-4.8) Monocytes # (Auto) 1.2 x10^3/uL (0.0-1.1) Eosinophils # (Auto) 0.1 x10^3/uL (0.0-0.7) Basophils # (Auto) 0.0 x10^3/uL (0.0-0.2) Sodium Level 137 mmol/L (136-145) Potassium Level 4.1 mmol/L (3.5-5.1) Chloride Level 102 mmol/L (98-107) Carbon Dioxide Level 25 mmol/L (21-32) Anion Gap 10 (6-14) Blood Urea Nitrogen 43 mg/dL (8-26) Creatinine 1.8 mg/dL (0.7-1.3) Estimated GFR (Cockcroft-Gault) 40.6 BUN/Creatinine Ratio 24 (6-20) Glucose Level 127 mg/dL (70-99) Calcium Level 8.4 mg/dL (8.5-10.1) Total Bilirubin 0.6 mg/dL (0.2-1.0) Aspartate Amino Transf (AST/SGOT) 19 U/L (15-37) Alanine Aminotransferase (ALT/SGPT) 15 U/L (16-63) Alkaline Phosphatase 67 U/L (46-116) Total Protein 6.5 g/dL (6.4-8.2) Albumin 1.8 g/dL (3.4-5.0) Albumin/Globulin Ratio 0.4 (1.0-1.7) Glucose (Fingerstick) 137 mg/dL (70-99) Laboratory Tests Test 05/04/18 11:57 05/04/18 16:41 05/04/18 21:16 05/05/18 05:10 Glucose (Fingerstick) 256 mg/dL (70-99) 163 mg/dL (70-99) 110 mg/dL (70-99) White Blood Count 11.4 x10^3/uL (4.0-11.0) Red Blood Count 3.98 x10^6/uL (4.30-5.70) Hemoglobin 10.9 g/dL (13.0-17.5) Hematocrit 32.8 % (39.0-53.0) Mean Corpuscular Volume 83 fL (79-100) Mean Corpuscular Hemoglobin 27 pg (25-35) Mean Corpuscular Hemoglobin Concent 33 g/dL (31-37) Red Cell Distribution Width 15.3 % (11.5-14.5) Platelet Count 188 x10^3/uL (140-400) Neutrophils (%) (Auto) 74 % (31-73) Lymphocytes (%) (Auto) 14 % (24-48) Monocytes (%) (Auto) 11 % (0-9) Eosinophils (%) (Auto) 1 % (0-3) Basophils (%) (Auto) 0 % (0-3) Neutrophils # (Auto) 8.4 x10^3uL (1.8-7.7) Lymphocytes # (Auto) 1.6 x10^3/uL (1.0-4.8) Monocytes # (Auto) 1.2 x10^3/uL (0.0-1.1) Eosinophils # (Auto) 0.1 x10^3/uL (0.0-0.7) Basophils # (Auto) 0.0 x10^3/uL (0.0-0.2) Sodium Level 137 mmol/L (136-145) Potassium Level 4.1 mmol/L (3.5-5.1) Chloride Level 102 mmol/L (98-107) Carbon Dioxide Level 25 mmol/L (21-32) Anion Gap 10 (6-14) Blood Urea Nitrogen 43 mg/dL (8-26) Creatinine 1.8 mg/dL (0.7-1.3) Estimated GFR (Cockcroft-Gault) 40.6 BUN/Creatinine Ratio 24 (6-20) Glucose Level 127 mg/dL (70-99) Calcium Level 8.4 mg/dL (8.5-10.1) Total Bilirubin 0.6 mg/dL (0.2-1.0) Aspartate Amino Transf (AST/SGOT) 19 U/L (15-37) Alanine Aminotransferase (ALT/SGPT) 15 U/L (16-63) Alkaline Phosphatase 67 U/L (46-116) Total Protein 6.5 g/dL (6.4-8.2) Albumin 1.8 g/dL (3.4-5.0) Albumin/Globulin Ratio 0.4 (1.0-1.7) Test 05/05/18 07:12 Glucose (Fingerstick) 137 mg/dL (70-99) Microbiology 04/30/18 Blood Culture - Preliminary, Resulted 04/30/18 Blood Culture Result 1 (HAZEL) - Preliminary, Resulted 04/30/18 Urine Culture - Final, Complete 04/30/18 Urine Culture Result 1 (HAZEL) - Final, Complete Medications Current Medications Ertapenem 50 ml @ 100 mls/hr 1X STAT IV Last administered on 04/30/18at 10:00 ; Start 04/30/18 at 09:34; Stop 04/30/18 at 10:03; Status DC Sodium Chloride 1,000 ml @ 1,000 mls/hr 1X ONCE IV Last administered on at 09:50; Start 04/30/18 at 09:45; Stop 04/30/18 at 10:44; Status DC Sodium Chloride 1,000 ml @ 1,000 mls/hr 1X ONCE IV Last administered on at 10:28; Start 04/30/18 at 09:45; Stop 04/30/18 at 10:44; Status DC Insulin Human Regular (HumuLIN R VIAL) 10 unit 1X ONCE IV Last administered on 04/30/18at 10:33; Start 04/30/18 at 10:30; Stop 04/30/18 at 10:31; Status DC Ondansetron HCl (Zofran) 4 mg 1X ONCE IV Last administered on 04/30/18at 10:31 ; Start 04/30/18 at 10:30; Stop 04/30/18 at 10:32; Status DC Fentanyl Citrate (Fentanyl 2ml Vial) 50 mcg 1X ONCE IV Last administered on at 10:36; Start 04/30/18 at 10:30; Stop 04/30/18 at 10:32; Status DC Sodium Chloride 1,000 ml @ 1,000 mls/hr 1X ONCE IV Last administered on at 12:36; Start 04/30/18 at 10:45; Stop 04/30/18 at 11:44; Status DC Metoclopramide HCl (Reglan Vial) 10 mg 1X ONCE IV Last administered on at 12:08; Start 04/30/18 at 12:00; Stop 04/30/18 at 12:01; Status DC Fentanyl Citrate (Fentanyl 2ml Vial) 50 mcg 1X ONCE IV ; Start 04/30/18 at 21: 00; Stop 04/30/18 at 21:01; Status DC Acetaminophen (Tylenol) 1,000 mg 1X ONCE PO ; Start 04/30/18 at 11:45; Stop at 11:47; Status DC Insulin Human Regular 150 ml @ 0 mls/hr 1X ONCE IV Last administered on at 12:48; Start 04/30/18 at 12:00; Stop 04/30/18 at 12:01; Status DC Fentanyl Citrate (Fentanyl 2ml Vial) 50 mcg 1X ONCE IV Last administered on at 12:21; Start 04/30/18 at 12:00; Stop 04/30/18 at 12:01; Status DC Meropenem 500 mg/ Sodium Chloride 50 ml @ 100 mls/hr Q12HR IV Last administered on 05/01/18at 08:58; Start 04/30/18 at 21:00; Stop 05/01/18 at 10:32 ; Status DC Sodium Chloride 1,000 ml @ 1,920 mls/hr Q32M IV ; Start 04/30/18 at 15:06; Stop 04/30/18 at 16:08; Status DC Sodium Chloride 500 ml @ 1,000 mls/hr PRN Q30MIN PRN IV SEE COMMENTS; Start at 15:15; Stop 05/01/18 at 10:15; Status DC Sodium Chloride 1,000 ml @ 150 mls/hr Q6H40M IV Last administered on at 21:16; Start 04/30/18 at 15:10; Stop 05/01/18 at 10:15; Status DC Norepinephrine Bitartrate 250 ml @ 0 mls/hr CONT PRN IV SEE I/O RECORD; Start 04/30/18 at 15:15; Stop 05/02/18 at 08:49; Status DC Dobutamine HCl/ Dextrose 250 ml @ 0 mls/hr CONT PRN IV SEE I/O RECORD; Start at 15:15; Stop 05/02/18 at 08:49; Status DC Insulin Human Lispro (HumaLOG) 0-7 UNITS TIDWMEALS SQ Last administered on 04/30at 20:13; Start 04/30/18 at 17:00; Stop 05/01/18 at 08:15; Status DC Dextrose (Dextrose 50%-Water Syringe) 12.5 gm PRN Q15MIN PRN IV SEE COMMENTS; Start 04/30/18 at 15:15; Stop 05/02/18 at 08:54; Status DC Heparin Sodium (Porcine) (Heparin Sodium) 5,000 unit Q8HRS SQ Last administered on 05/03/18at 06:03; Start 04/30/18 at 22:00; Stop 05/03/18 at 10:51 ; Status DC Fentanyl Citrate (Fentanyl 2ml Vial) 50 mcg PRN Q3HRS PRN IV PAIN Last administered on 05/05/18 06:01; Start 04/30/18 at 17:00 Ondansetron HCl (Zofran) 4 mg PRN Q6HRS PRN IV NAUSEA/VOMITING Last administered on 05/02/18 05:17; Start 04/30/18 at 19:30 Ibuprofen (Motrin) 200 mg PRN Q6HRS PRN PO MILD PAIN / TEMP Last administered on 04/30/18at 21:14; Start 04/30/18 at 20:45; Stop 05/01/18 at 11:54; Status DC Insulin Glargine (Lantus) 35 units [id number] SQ Last administered on 08:00; Start 05/02/18 at 08:00 Insulin Human Lispro (HumaLOG) 0-7 UNITS TIDWMEALS SQ Last administered on 05/01 08:56; Start 05/01/18 at 12:00; Stop 05/01/18 at 12:24; Status DC Meropenem 1 gm/ Sodium Chloride 100 ml @ 200 mls/hr Q12HR IV Last administered on 05/05/18at 08:11; Start 05/01/18 at 18:00 Lactobacillus Rhamnosus (Culturelle) 1 cap BID PO Last administered on 08:09; Start 05/01/18 at 21:00 Sodium Chloride 1,000 ml @ 100 mls/hr Q10H IV Last administered on 05/05/18 05:56; Start 05/01/18 at 11:45 Insulin Human Lispro (HumaLOG) 15 units 1X ONCE SQ Last administered on at 14:56; Start 05/01/18 at 12:30; Stop 05/01/18 at 12:31; Status DC Insulin Human Lispro (HumaLOG) 0-9 UNITS TIDWMEALS SQ ; Start 05/01/18 at 17:00 ; Stop 05/02/18 at 08:50; Status DC Metoprolol Tartrate (Lopressor Vial) 5 mg 1X ONCE IVP Last administered on 16:21; Start 05/01/18 at 16:15; Stop 05/01/18 at 16:18; Status DC Insulin Human Lispro (HumaLOG) 20 units 1X ONCE SQ Last administered on at 16:58; Start 05/01/18 at 17:00; Stop 05/01/18 at 17:01; Status DC Insulin Human Lispro (HumaLOG) 0-9 UNITS TIDWMEALS SQ Last administered on 05/04at 17:37; Start 05/02/18 at 12:00 Dextrose (Dextrose 50%-Water Syringe) 12.5 gm PRN Q15MIN PRN IV SEE COMMENTS; Start 05/02/18 at 09:00 Tramadol HCl (Ultram) 50 mg PRN Q6HRS PRN PO PAIN; Start 05/02/18 at 09:00 Zolpidem Tartrate (Ambien) 5 mg PRN QHS PRN PO INSOMNIA; Start 05/02/18 at 09: 00 Amlodipine Besylate (Norvasc) 10 mg DAILY PO Last administered on 05/05/18 08: 08; Start 05/02/18 at 09:00 Atorvastatin Calcium (Lipitor) 20 mg HS PO Last administered on 05/04/18at 21:15 ; Start 05/02/18 at 21:00 Carvedilol (Coreg) 12.5 mg BIDWMEALS PO Last administered on 05/05/18 08:10; Start 05/02/18 at 09:00 Insulin Glargine (Lantus) 25 units QHS SQ Last administered on 05/02/18at 21:27 ; Start 05/02/18 at 21:00; Stop 05/03/18 at 10:51; Status DC Insulin Human Lispro (HumaLOG) 8 units TIDWMEALS SQ Last administered on at 09:52; Start 05/02/18 at 12:00; Stop 05/03/18 at 10:51; Status DC Pregabalin (Lyrica) 75 mg TID PO Last administered on 05/05/18 08:10; Start at 09:00 Non-Formulary Medication (Dulaglutide (Trulicity)) 1.5 mg WEEKLY SQ ; Start at 09:00; Stop 05/04/18 at 07:35; Status DC Ondansetron HCl (Zofran Odt) 4 mg PRN Q8HRS PRN PO NAUSEA/VOMITING; Start 05/02 at 09:00 Labetalol HCl (Normodyne Iv Push) 10 mg PRN Q2HR PRN IVP HYPERTENSION, SEE COMMENTS; Start 05/02/18 at 09:00 Dicyclomine HCl (Bentyl) 10 mg TID PO Last administered on 05/05/18at 08:07; Start 05/02/18 at 14:00 Dicyclomine HCl (Bentyl) 10 mg 1X ONCE PO Last administered on 05/02/18at 12:48 ; Start 05/02/18 at 11:30; Stop 05/02/18 at 11:31; Status DC Calcium Carbonate/ Glycine (Tums) 500 mg PRN AFTMEALHC PRN PO INDIGESTION; Start 05/02/18 at 11:30 Loperamide HCl (Imodium) 2 mg PRN Q15MIN PRN PO DIARRHEA Last administered on at 21:14; Start 05/02/18 at 11:30; Stop 05/04/18 at 08:20; Status DC Acetaminophen (Tylenol) 500 mg PRN Q6HRS PRN PO MILD PAIN / TEMP Last administered on 05/05/18at 08:08; Start 05/03/18 at 09:00 Simethicone (Gas-X) 80 mg PRN AFTMEALHC PRN PO GAS / BLOATING Last administered on 05/05/18at 08:24; Start 05/03/18 at 09:45 Insulin Glargine (Lantus) 35 units QHS SQ ; Start 05/03/18 at 21:00 Insulin Human Lispro (HumaLOG) 12 units TIDWMEALS SQ Last administered on at 08:00; Start 05/03/18 at 12:00 Active Scripts Active Humalog (Insulin Lispro) 100 Unit/1 Ml Insuln.pen 8 Units SQ TIDWMEALS 14 Days Lantus Solostar (Insulin Glargine,Hum.rec.anlog) 100 Unit/1 Ml Insuln.pen 25 Units SQ QHS 14 Days Tramadol Hcl 50 Mg Tablet 50 Mg PO PRN Q6HRS PRN Amlodipine Besylate 10 Mg Tablet 10 Mg PO DAILY 30 Days Carvedilol (Carvedilol) 12.5 Mg Tablet 12.5 Mg PO BIDWMEALS 30 Days Zofran (Ondansetron Hcl) 4 Mg Tablet 1 Tab PO PRN Q8HRS PRN Reported Losartan-Hctz 50-12.5 Mg Tab (Losartan/Hydrochlorothiazide) 1 Each Tablet 1 Each PO DAILY Lyrica (Pregabalin) 75 Mg Capsule 75 Mg PO TID Atorvastatin Calcium 20 Mg Tablet 20 Mg PO HS Amlodipine Besylate 10 Mg Tablet 20 Mg PO BID Trulicity (Dulaglutide) 1.5 Mg/0.5 Ml Pen.injctr 1.5 Mg SQ WEEKLY Metformin Hcl 1,000 Mg Tablet 1,000 Mg PO BIDWMEALS Vitals/I & O Vital Sign - Last 24 Hours 05/04/18 05/04/18 05/04/18 05/04/18 11:00 15:00 17:32 18:22 Temp 99.0 98.4 99.0 98.4 Pulse 83 93 93 Resp 18 18 B/P (MAP) 106/64 (78) 160/74 (102) 160/74 Pulse Ox 99 98 98 O2 Delivery Room Air Room Air Room Air O2 Flow Rate 2.0 05/04/18 05/04/18 05/04/18 05/05/18 19:53 20:00 23:31 03:27 Temp 100.6 99.3 99.3 100.6 99.3 99.3 Pulse 96 74 83 Resp 16 16 16 B/P (MAP) 120/66 (84) 114/64 (81) 124/75 (91) Pulse Ox 95 95 96 O2 Delivery Room Air Room Air Room Air Room Air 05/05/18 05/05/18 05/05/18 05/05/18 06:01 06:39 06:58 08:08 Temp 98.7 98.7 Pulse 89 89 Resp 17 B/P (MAP) 158/82 (107) 158/82 Pulse Ox 94 O2 Delivery Room Air Room Air Room Air 05/05/18 08:10 Pulse 89 B/P (MAP) 158/82 Intake and Output 05/04/18 05/04/18 05/05/18 15:00 23:00 07:00 Intake Total 900 ml 340 ml Balance 900 ml 340 ml KENJI NOWAK MD May 05, 2018 10:43
[2018-05-05 11:27] VITALS: BP 122/74
--- NOTE | 2018-05-05 11:42 | PDOC ---
SUBJECTIVE ROS Feeling better OBJECTIVE Vital Signs Vital Signs Date Time Temp Pulse Resp B/P (MAP) Pulse Ox O2 Delivery O2 Flow Rate FiO2 05/05/18 11:27 98.4 82 18 122/74 (90) 94 Room Air 98.4 05/04/18 18:22 2.0 I & 0 Intake and Output 05/05/18 06:59 Intake Total 1240 ml Balance 1240 ml Intake Oral 1240 ml # Voids 6 PHYSICAL EXAM Physical Exam GENERAL: NAD HEENT: OM moist NECK: Supple. LUNGS: Clear bilaterally. No wheezing. HEART: S1, S2. ABDOMEN: Soft, obese. : R CVA tenderness improved , No Amaro EXTREMITIES: BLE 1+ edema. 3D ANIMATOR: Alert and oriented x 3. SKIN: no rash. DIAGNOSIS/ASSESSMENT Assessment & Plan OYEL - Improved, stable today Due to Dehydration /ATN Losartan , HCTZ and Metformin Held Not at baseline ? may have a new basline CKD stage 3 - Baseline Cr 1.2 As per Pt was started on Losartan by PCP mid 2017 Hospitalized in Dec 2017- YOEL - post dc dose was decreased to 50 mg QD DM II HTN- Continue antihypertensives GNR sepsis-? UTI /?Pyelo on CT 04/30 Nausea, vomiting COMMENT/RELEVANT DATA Meds Current Medications Medications (Trade) Dose Ordered Sig/Felisha Start Time Stop Time Status Last Admin Dose Admin Acetaminophen (Tylenol) 500 mg PRN Q6HRS PRN 05/03/18 09:00 05/05/18 08:08 500 MG Amlodipine Besylate (Norvasc) 10 mg DAILY 05/02/18 09:00 05/05/18 08:08 10 MG Atorvastatin Calcium (Lipitor) 20 mg HS 05/02/18 21:00 05/04/18 21:15 20 MG Calcium Carbonate/ Glycine (Tums) 500 mg PRN AFTMEALHC PRN 05/02/18 11:30 Carvedilol (Coreg) 12.5 mg BIDWMEALS 05/02/18 09:00 05/05/18 08:10 12.5 MG Dextrose (Dextrose 50%-Water Syringe) 12.5 gm PRN Q15MIN PRN 05/02/18 09:00 Dicyclomine HCl (Bentyl) 10 mg 1X ONCE 05/02/18 11:30 05/02/18 11:31 DC 05/02/18 12:48 10 MG Dobutamine HCl/ Dextrose 250 ml @ 0 mls/hr CONT PRN 04/30/18 15:15 05/02/18 08:49 DC Ertapenem 50 ml @ 100 mls/hr 1X STAT 04/30/18 09:34 04/30/18 10:03 DC 04/30/18 10:00 100 MLS/HR Fentanyl Citrate (Fentanyl 2ml Vial) 50 mcg PRN Q3HRS PRN 04/30/18 17:00 05/05/18 06:01 50 MCG Heparin Sodium (Porcine) (Heparin Sodium) 5,000 unit Q8HRS 04/30/18 22:00 05/03/18 10:51 DC 05/03/18 06:03 5,000 UNIT Ibuprofen (Motrin) 200 mg PRN Q6HRS PRN 04/30/18 20:45 05/01/18 11:54 DC 04/30/18 21:14 200 MG Insulin Glargine (Lantus) 35 units QHS 05/03/18 21:00 Insulin Human Lispro (HumaLOG) 12 units TIDWMEALS 05/03/18 12:00 05/05/18 08:00 12 UNITS Insulin Human Regular 150 ml @ 0 mls/hr 1X ONCE 04/30/18 12:00 04/30/18 12:01 DC 04/30/18 12:48 9.3 MLS/HR Insulin Human Regular (HumuLIN R VIAL) 10 unit 1X ONCE 04/30/18 10:30 04/30/18 10:31 DC 04/30/18 10:33 10 UNIT Labetalol HCl (Normodyne Iv Push) 10 mg PRN Q2HR PRN 05/02/18 09:00 Lactobacillus Rhamnosus (Culturelle) 1 cap BID 05/01/18 21:00 05/05/18 08:09 1 CAP Loperamide HCl (Imodium) 2 mg PRN Q15MIN PRN 05/02/18 11:30 05/04/18 08:20 DC 05/02/18 21:14 2 MG Meropenem 1 gm/ Sodium Chloride 100 ml @ 200 mls/hr Q12HR 05/01/18 18:00 05/05/18 08:11 200 MLS/HR Meropenem 500 mg/ Sodium Chloride 50 ml @ 100 mls/hr Q12HR 04/30/18 21:00 05/01/18 10:32 DC 05/01/18 08:58 100 MLS/HR Metoclopramide HCl (Reglan Vial) 10 mg 1X ONCE 04/30/18 12:00 04/30/18 12:01 DC 04/30/18 12:08 10 MG Metoprolol Tartrate (Lopressor Vial) 5 mg 1X ONCE 05/01/18 16:15 05/01/18 16:18 DC 05/01/18 16:21 5 MG Non-Formulary Medication (Dulaglutide (Trulicity)) 1.5 mg WEEKLY 05/02/18 09:00 05/04/18 07:35 DC Norepinephrine Bitartrate 250 ml @ 0 mls/hr CONT PRN 04/30/18 15:15 05/02/18 08:49 DC Ondansetron HCl (Zofran Odt) 4 mg PRN Q8HRS PRN 05/02/18 09:00 Ondansetron HCl (Zofran) 4 mg PRN Q6HRS PRN 04/30/18 19:30 05/02/18 05:17 4 MG Pregabalin (Lyrica) 75 mg TID 05/02/18 09:00 05/05/18 08:10 75 MG Psyllium Hydrophilic Mucilloid (Metamucil Fiber Packet) 1 pkt DAILY 05/05/18 11:30 Simethicone (Gas-X) 80 mg PRN AFTMEALHC PRN 05/03/18 09:45 05/05/18 08:24 80 MG Sodium Chloride 1,000 ml @ 100 mls/hr Q10H 05/01/18 11:45 05/05/18 05:56 100 MLS/HR Tramadol HCl (Ultram) 50 mg PRN Q6HRS PRN 05/02/18 09:00 Zolpidem Tartrate (Ambien) 5 mg PRN QHS PRN 05/02/18 09:00 Lab Laboratory Tests Test 05/04/18 11:57 05/04/18 16:41 05/04/18 21:16 05/05/18 05:10 Glucose (Fingerstick) 256 mg/dL (70-99) 163 mg/dL (70-99) 110 mg/dL (70-99) White Blood Count 11.4 x10^3/uL (4.0-11.0) Red Blood Count 3.98 x10^6/uL (4.30-5.70) Hemoglobin 10.9 g/dL (13.0-17.5) Hematocrit 32.8 % (39.0-53.0) Mean Corpuscular Volume 83 fL (79-100) Mean Corpuscular Hemoglobin 27 pg (25-35) Mean Corpuscular Hemoglobin Concent 33 g/dL (31-37) Red Cell Distribution Width 15.3 % (11.5-14.5) Platelet Count 188 x10^3/uL (140-400) Neutrophils (%) (Auto) 74 % (31-73) Lymphocytes (%) (Auto) 14 % (24-48) Monocytes (%) (Auto) 11 % (0-9) Eosinophils (%) (Auto) 1 % (0-3) Basophils (%) (Auto) 0 % (0-3) Neutrophils # (Auto) 8.4 x10^3uL (1.8-7.7) Lymphocytes # (Auto) 1.6 x10^3/uL (1.0-4.8) Monocytes # (Auto) 1.2 x10^3/uL (0.0-1.1) Eosinophils # (Auto) 0.1 x10^3/uL (0.0-0.7) Basophils # (Auto) 0.0 x10^3/uL (0.0-0.2) Sodium Level 137 mmol/L (136-145) Potassium Level 4.1 mmol/L (3.5-5.1) Chloride Level 102 mmol/L (98-107) Carbon Dioxide Level 25 mmol/L (21-32) Anion Gap 10 (6-14) Blood Urea Nitrogen 43 mg/dL (8-26) Creatinine 1.8 mg/dL (0.7-1.3) Estimated GFR (Cockcroft-Gault) 40.6 BUN/Creatinine Ratio 24 (6-20) Glucose Level 127 mg/dL (70-99) Calcium Level 8.4 mg/dL (8.5-10.1) Total Bilirubin 0.6 mg/dL (0.2-1.0) Aspartate Amino Transf (AST/SGOT) 19 U/L (15-37) Alanine Aminotransferase (ALT/SGPT) 15 U/L (16-63) Alkaline Phosphatase 67 U/L (46-116) Total Protein 6.5 g/dL (6.4-8.2) Albumin 1.8 g/dL (3.4-5.0) Albumin/Globulin Ratio 0.4 (1.0-1.7) Test 05/05/18 07:12 Glucose (Fingerstick) 137 mg/dL (70-99) Results All relevant outside records, renal labs, imaging studies, telemetry/EKG's were reviewed. JERRY WEN MD May 05, 2018 11:42
[2018-05-05] MEDS: PSYLLIUM HUSK (SUGAR FREE) 1 PKT PACKET PO SCH (12:54)
[2018-05-05 15:06] VITALS: BP 146/81
[2018-05-05 19:16] VITALS: BP 127/82
[2018-05-05] MEDS: ATORVASTATIN CALCIUM 20 MG TABLET PO SCH (20:46)
[2018-05-05 23:19] VITALS: BP 161/84
[2018-05-06] VITALS (7 sets, daily range): BP systolic 107–145; BP diastolic 55–78
[2018-05-06] MEDS: fentaNYL PF VIAL 100 MCG/2 ML VIAL IV PRN (00:31)
[2018-05-06] MEDS: ACETAMINOPHEN 500 MG TABLET PO PRN ×2 (05:20→20:46)
[2018-05-06 08:03] LABS: BASO # 0.1 x10^3/uL (0.0-0.2); BASO % 1 % (0-3); EOS # 0.2 x10^3/uL (0.0-0.7); EOS % 1 % (0-3); HEMATOCRIT 35.8 % (39.0-53.0); HEMOGLOBIN 11.5 g/dL (13.0-17.5); LYMPH # 1.6 x10^3/uL (1.0-4.8); LYMPH % 11 % (24-48); MEAN CORPUSCULAR HEMOGLOBIN 26 pg (25-35); MEAN CORPUSCULAR HGB CONC 32 g/dL (31-37); MEAN CORPUSCULAR VOLUME 82 fL (79-100); MONO # 0.8 x10^3/uL (0.0-1.1); MONO % 6 % (0-9); NEUT # 11.5 x10^3uL (1.8-7.7); NEUT % 81 % (31-73); PLATELET COUNT 288 x10^3/uL (140-400); RED BLOOD COUNT 4.37 x10^6/uL (4.30-5.70); RED CELL DISTRIBUTION WIDTH 15.4 % (11.5-14.5); WHITE BLOOD COUNT 14.2 x10^3/uL (4.0-11.0)
[2018-05-06 08:29] LABS: ALBUMIN 2.1 g/dL (3.4-5.0); ALBUMIN/GLOBULIN RATIO 0.4 (1.0-1.7); CALCIUM 8.6 mg/dL (8.5-10.1); CREATININE 1.9 mg/dL (0.7-1.3); GFR 38.2; TOTAL BILIRUBIN 0.7 mg/dL (0.2-1.0); TOTAL PROTEIN 7.2 g/dL (6.4-8.2)
--- NOTE | 2018-05-06 09:12 | NUR ---
IP: Pt has a + blood culture with (R) E.coil with probable ESBL requiring contact precautions.
[2018-05-06] MEDS: PSYLLIUM HUSK (SUGAR FREE) 1 PKT PACKET PO SCH (09:19)
[2018-05-06] MEDS: PREGABALIN 75 MG CAPSULE PO SCH ×3 (09:19→20:38)
[2018-05-06] MEDS: LACTOBACILLUS RHAMNOSUS GG 1 CAPSULE. PO SCH ×2 (09:20→20:37)
[2018-05-06] MEDS: amLODIPine BESYLATE 10 MG TABLET PO SCH (09:20)
[2018-05-06] MEDS: CARVEDILOL 12.5 MG TABLET. PO SCH ×2 (09:20→17:03)
[2018-05-06] MEDS: INSULIN GLARGINE 300 UNITS/3 ML INSULN.PEN. SQ SCH ×2 (09:35→21:00)
[2018-05-06] MEDS: INSULIN LISPRO 300 UNITS/3 ML INSULN.PEN. SQ SCH ×6 (09:36→17:00)
--- NOTE | 2018-05-06 10:20 | PDOC ---
Infectious Disease Note Subjective Subjective Feeling ok but had fever. + BM constipated. Has h/o constipation/loose stools over a year Less bloated Altered taste Vital Sign Vital Signs Vital Signs Date Time Temp Pulse Resp B/P (MAP) Pulse Ox O2 Delivery O2 Flow Rate FiO2 05/06/18 09:20 85 142/77 05/06/18 07:30 97.8 18 95 Room Air 97.8 Physical Exam PHYSICAL EXAM GENERAL: In chair, alert, NAD HEENT: Oral cavity, pharynx clear. NECK: Supple. LUNGS: Clear bilaterally. No wheezing. HEART: S1, S2. ABDOMEN: Soft, obese. Bowel sounds present, nontender, Mild distended : no gross R CVA tenderness EXTREMITIES: BLE 1+ edema. no cyanosis TALENT DEVELOPMENT CONSULTANT: Alert and oriented x 3. Grossly nonfocal. SKIN: Warm, dry, no generalized rash. PIV LUE ok Labs Lab Laboratory Tests Test 05/05/18 11:09 05/05/18 17:26 05/05/18 20:55 05/06/18 07:41 Glucose (Fingerstick) 160 mg/dL (70-99) 166 mg/dL (70-99) 148 mg/dL (70-99) 165 mg/dL (70-99) Test 05/06/18 07:45 White Blood Count 14.2 x10^3/uL (4.0-11.0) Red Blood Count 4.37 x10^6/uL (4.30-5.70) Hemoglobin 11.5 g/dL (13.0-17.5) Hematocrit 35.8 % (39.0-53.0) Mean Corpuscular Volume 82 fL (79-100) Mean Corpuscular Hemoglobin 26 pg (25-35) Mean Corpuscular Hemoglobin Concent 32 g/dL (31-37) Red Cell Distribution Width 15.4 % (11.5-14.5) Platelet Count 288 x10^3/uL (140-400) Neutrophils (%) (Auto) 81 % (31-73) Lymphocytes (%) (Auto) 11 % (24-48) Monocytes (%) (Auto) 6 % (0-9) Eosinophils (%) (Auto) 1 % (0-3) Basophils (%) (Auto) 1 % (0-3) Neutrophils # (Auto) 11.5 x10^3uL (1.8-7.7) Lymphocytes # (Auto) 1.6 x10^3/uL (1.0-4.8) Monocytes # (Auto) 0.8 x10^3/uL (0.0-1.1) Eosinophils # (Auto) 0.2 x10^3/uL (0.0-0.7) Basophils # (Auto) 0.1 x10^3/uL (0.0-0.2) Sodium Level 135 mmol/L (136-145) Potassium Level 4.0 mmol/L (3.5-5.1) Chloride Level 99 mmol/L (98-107) Carbon Dioxide Level 27 mmol/L (21-32) Anion Gap 9 (6-14) Blood Urea Nitrogen 29 mg/dL (8-26) Creatinine 1.9 mg/dL (0.7-1.3) Estimated GFR (Cockcroft-Gault) 38.2 BUN/Creatinine Ratio 15 (6-20) Glucose Level 173 mg/dL (70-99) Calcium Level 8.6 mg/dL (8.5-10.1) Total Bilirubin 0.7 mg/dL (0.2-1.0) Aspartate Amino Transf (AST/SGOT) 22 U/L (15-37) Alanine Aminotransferase (ALT/SGPT) 17 U/L (16-63) Alkaline Phosphatase 85 U/L (46-116) Total Protein 7.2 g/dL (6.4-8.2) Albumin 2.1 g/dL (3.4-5.0) Albumin/Globulin Ratio 0.4 (1.0-1.7) Micro Blood 04/30 BLOOD CULTURE Final Final report BLD CULT RESULT 1 Final Escherichia coli Multi-Drug Resistant Organism Susceptibility profile is consistent with a probable ESBL. Recovered from aerobic and anaerobic bottles. ANTIMICROBIAL SUSCEPTIBILITY Final Comment S = Susceptible; I = Intermediate; R = Resistant P = Positive; N = Negative MICS are expressed in micrograms per mL Antibiotic RSLT#1 RSLT#2 RSLT#3 RSLT#4 Amoxicillin/Clavulanic Acid I =16 Ampicillin R>=32 Cefazolin R>=64 Cefepime R =16 Ceftriaxone R>=64 Cefuroxime R>=64 Ciprofloxacin R>=4 Ertapenem S<=0.12 Gentamicin R>=16 Imipenem S<=0.25 Levofloxacin R>=8 Meropenem S<=0.25 Nitrofurantoin S<=16 Piperacillin/Tazobactam S<=4 Tetracycline R>=16 Tobramycin R>=16 Trimethoprim/Sulfa R>=320 Microbiology 04/30/18 Blood Culture - Preliminary, Resulted 04/30/18 Blood Culture Result 1 (HAZEL) - Preliminary, Resulted 04/30/18 Urine Culture - Final, Complete 04/30/18 Urine Culture Result 1 (HAZEL) - Final, Complete Objective Assessment MDR Ecoli sepsis, POA 04/30 probable ESBL Leukocytosis - ? constipation Fever - curve is improving Abd distension - C-diff is neg Nausea, vomiting - better. History of Escherichia coli sepsis with urinary tract infection in December 2017 with multidrug resistance. Acute kidney injury - better Questionable urinary tract infection. UC neg - ? pyelo on CT 04/30 Diabetes mellitus with hyperosmolar hyperglycemia. Thrombocytopenia - better. Hyponatremia. Lactic acidosis in the setting of increased creatinine. Diarrhea, c. diff neg 04/30. Plan Plan of Care Cont Merrem 1 q 12 (05/01 did receive Invanz times one 04/30) -clinically much better Repeat CT abd/pel with oral contrast only D/c Loperamide given abd distension and C-diff order. F/u distension 05/04 Cont Probiotics Monitor labs in am if WBC cont to increase may need additional imaging cont supportive care TIP ZAPATA MD May 06, 2018 10:20
[2018-05-06] MEDS: SIMETHICONE 80 MG TAB.CHEW PO PRN (10:55)
[2018-05-06] MEDS: DICYCLOMINE HCL 10 MG CAPSULE PO SCH ×3 (10:55→20:37)
[2018-05-06] MEDS: MEROPENEM 1 GM in IV NORMAL SALINE 100ML 100 ML IV SCH ×2 (10:56→20:37)
[2018-05-06] MEDS ORDERED: IOHEXOL 240 MG/ML 50ML VIAL. PO ONE (11:15)
[2018-05-06] MEDS ORDERED: CONTRAST GIVEN. MC PRN (11:30)
[2018-05-06] MEDS: IV NORMAL SALINE 1000ML BAG 1,000 ML IV SCH ×2 (11:45→20:47)
--- NOTE | 2018-05-06 14:34 | PDOC ---
PROGRESS NOTES Chief Complaint Chief Complaint GNR sepsis, POA Neg urince cx Fevers History of Escherichia coli sepsis with urinary tract infection in December 2017 with multidrug resistance. Acute kidney injury Diabetes mellitus with hyperosmolar hyperglycemia s/p ICU - [id number] 8 Thrombocytopenia, better/stable pseudohyponatremia Lactic acidosis in the setting of increased creatinine. Diarrhea, c. diff neg 04/30. History of Present Illness History of Present Illness Transferred out of ICU 05/01/18 for DKA and sepsis Sugars were running high 300s-status post HON K in the ICU, Hemoglobin A1c 8 MAXIMUM TEMPERATURE 100.2F Yesterday evening Better by mouth intake today, ate his whole lunch Creatinine better 1.9 from 3, fluids running 100 mL per hour per renal Still diarrhea - C. difficile negative. WBC up today Blood cultures with e coli ESBL. He is still having a little abdominal pain. No SOB or CP Plan: follow ID recommendations CT abdomen. May need a tagged WBC scan in the future. I will d/w ID no pT needs Hold lisinopril HCTZ and metformin because of creatinine of 1.9 Imodium, Lactobacillus-C. difficile negative - will add psyllium Sliding-scale insulin-hemoglobin A1c 8 in March 2018 Supportive meds Increased Lantus from 20-35 units daily at bedtime Increase mealtime NovoLog from 8-12 3 times a day follow BC - has left peripheral line HX of PICC with 1 week course abx for MDR e coli not too long ago, December 2017 History of Escherichia coli sepsis with urinary tract infection in December 2017 with multidrug resistance. Acute kidney injury - better Questionable urinary tract infection. UC neg - ? pyelo on CT 04/30 Diarrhea, c. diff neg 04/30. Cont Merrem 1 q 12 (05/01 did receive Invanz times one 04/30) D/c Loperamide given abd distension and C-diff order. F/u distension Cont Probiotics Monitor labs in am cont supportive care Vitals Vitals Vital Signs Date Time Temp Pulse Resp B/P (MAP) Pulse Ox O2 Delivery O2 Flow Rate FiO2 05/06/18 10:28 98.3 83 18 124/68 (86) 95 Room Air 98.3 Physical Exam Physical Exam GENERAL: In chair, alert, NAD HEENT: Oral cavity, pharynx clear. NECK: Supple. LUNGS: Clear bilaterally. No wheezing. HEART: S1, S2. ABDOMEN: Soft, obese. Bowel sounds present, nontender, Mild distended : no gross R CVA tenderness EXTREMITIES: BLE 1+ edema. no cyanosis LABORATORY MONITOR: Alert and oriented x 3. Grossly nonfocal. SKIN: Warm, dry, no generalized rash. PIV LUE ok General: Alert, Oriented X3, Cooperative, No acute distress, mild distress Heart: Regular rate, Normal S1, Normal S2 Lungs: Clear, Other (no rhonchi) Abdomen: Normal bowel sounds, Soft, Other (FLANK PAIN ON PERCUSSION) Extremities: No clubbing Skin: No breakdown Labs LABS Laboratory Tests Test 05/05/18 17:26 05/05/18 20:55 05/06/18 07:41 05/06/18 07:45 Glucose (Fingerstick) 166 mg/dL (70-99) 148 mg/dL (70-99) 165 mg/dL (70-99) White Blood Count 14.2 x10^3/uL (4.0-11.0) Red Blood Count 4.37 x10^6/uL (4.30-5.70) Hemoglobin 11.5 g/dL (13.0-17.5) Hematocrit 35.8 % (39.0-53.0) Mean Corpuscular Volume 82 fL (79-100) Mean Corpuscular Hemoglobin 26 pg (25-35) Mean Corpuscular Hemoglobin Concent 32 g/dL (31-37) Red Cell Distribution Width 15.4 % (11.5-14.5) Platelet Count 288 x10^3/uL (140-400) Neutrophils (%) (Auto) 81 % (31-73) Lymphocytes (%) (Auto) 11 % (24-48) Monocytes (%) (Auto) 6 % (0-9) Eosinophils (%) (Auto) 1 % (0-3) Basophils (%) (Auto) 1 % (0-3) Neutrophils # (Auto) 11.5 x10^3uL (1.8-7.7) Lymphocytes # (Auto) 1.6 x10^3/uL (1.0-4.8) Monocytes # (Auto) 0.8 x10^3/uL (0.0-1.1) Eosinophils # (Auto) 0.2 x10^3/uL (0.0-0.7) Basophils # (Auto) 0.1 x10^3/uL (0.0-0.2) Sodium Level 135 mmol/L (136-145) Potassium Level 4.0 mmol/L (3.5-5.1) Chloride Level 99 mmol/L (98-107) Carbon Dioxide Level 27 mmol/L (21-32) Anion Gap 9 (6-14) Blood Urea Nitrogen 29 mg/dL (8-26) Creatinine 1.9 mg/dL (0.7-1.3) Estimated GFR (Cockcroft-Gault) 38.2 BUN/Creatinine Ratio 15 (6-20) Glucose Level 173 mg/dL (70-99) Calcium Level 8.6 mg/dL (8.5-10.1) Total Bilirubin 0.7 mg/dL (0.2-1.0) Aspartate Amino Transf (AST/SGOT) 22 U/L (15-37) Alanine Aminotransferase (ALT/SGPT) 17 U/L (16-63) Alkaline Phosphatase 85 U/L (46-116) Total Protein 7.2 g/dL (6.4-8.2) Albumin 2.1 g/dL (3.4-5.0) Albumin/Globulin Ratio 0.4 (1.0-1.7) Test 05/06/18 11:56 Glucose (Fingerstick) 196 mg/dL (70-99) Assessment and Plan Assessmemt and Plan Problems Medical Problems: (1) Dehydration Status: Acute (2) Hyperglycemia Status: Acute Comment Review of Relevant I have reviewed the following items odell (where applicable) has been applied. Labs Laboratory Tests Test 05/04/18 16:41 05/04/18 21:16 05/05/18 05:10 05/05/18 07:12 Glucose (Fingerstick) 163 mg/dL (70-99) 110 mg/dL (70-99) 137 mg/dL (70-99) White Blood Count 11.4 x10^3/uL (4.0-11.0) Red Blood Count 3.98 x10^6/uL (4.30-5.70) Hemoglobin 10.9 g/dL (13.0-17.5) Hematocrit 32.8 % (39.0-53.0) Mean Corpuscular Volume 83 fL (79-100) Mean Corpuscular Hemoglobin 27 pg (25-35) Mean Corpuscular Hemoglobin Concent 33 g/dL (31-37) Red Cell Distribution Width 15.3 % (11.5-14.5) Platelet Count 188 x10^3/uL (140-400) Neutrophils (%) (Auto) 74 % (31-73) Lymphocytes (%) (Auto) 14 % (24-48) Monocytes (%) (Auto) 11 % (0-9) Eosinophils (%) (Auto) 1 % (0-3) Basophils (%) (Auto) 0 % (0-3) Neutrophils # (Auto) 8.4 x10^3uL (1.8-7.7) Lymphocytes # (Auto) 1.6 x10^3/uL (1.0-4.8) Monocytes # (Auto) 1.2 x10^3/uL (0.0-1.1) Eosinophils # (Auto) 0.1 x10^3/uL (0.0-0.7) Basophils # (Auto) 0.0 x10^3/uL (0.0-0.2) Sodium Level 137 mmol/L (136-145) Potassium Level 4.1 mmol/L (3.5-5.1) Chloride Level 102 mmol/L (98-107) Carbon Dioxide Level 25 mmol/L (21-32) Anion Gap 10 (6-14) Blood Urea Nitrogen 43 mg/dL (8-26) Creatinine 1.8 mg/dL (0.7-1.3) Estimated GFR (Cockcroft-Gault) 40.6 BUN/Creatinine Ratio 24 (6-20) Glucose Level 127 mg/dL (70-99) Calcium Level 8.4 mg/dL (8.5-10.1) Total Bilirubin 0.6 mg/dL (0.2-1.0) Aspartate Amino Transf (AST/SGOT) 19 U/L (15-37) Alanine Aminotransferase (ALT/SGPT) 15 U/L (16-63) Alkaline Phosphatase 67 U/L (46-116) Total Protein 6.5 g/dL (6.4-8.2) Albumin 1.8 g/dL (3.4-5.0) Albumin/Globulin Ratio 0.4 (1.0-1.7) Test 05/05/18 11:09 05/05/18 17:26 05/05/18 20:55 05/06/18 07:41 Glucose (Fingerstick) 160 mg/dL (70-99) 166 mg/dL (70-99) 148 mg/dL (70-99) 165 mg/dL (70-99) Test 05/06/18 07:45 05/06/18 11:56 White Blood Count 14.2 x10^3/uL (4.0-11.0) Red Blood Count 4.37 x10^6/uL (4.30-5.70) Hemoglobin 11.5 g/dL (13.0-17.5) Hematocrit 35.8 % (39.0-53.0) Mean Corpuscular Volume 82 fL (79-100) Mean Corpuscular Hemoglobin 26 pg (25-35) Mean Corpuscular Hemoglobin Concent 32 g/dL (31-37) Red Cell Distribution Width 15.4 % (11.5-14.5) Platelet Count 288 x10^3/uL (140-400) Neutrophils (%) (Auto) 81 % (31-73) Lymphocytes (%) (Auto) 11 % (24-48) Monocytes (%) (Auto) 6 % (0-9) Eosinophils (%) (Auto) 1 % (0-3) Basophils (%) (Auto) 1 % (0-3) Neutrophils # (Auto) 11.5 x10^3uL (1.8-7.7) Lymphocytes # (Auto) 1.6 x10^3/uL (1.0-4.8) Monocytes # (Auto) 0.8 x10^3/uL (0.0-1.1) Eosinophils # (Auto) 0.2 x10^3/uL (0.0-0.7) Basophils # (Auto) 0.1 x10^3/uL (0.0-0.2) Sodium Level 135 mmol/L (136-145) Potassium Level 4.0 mmol/L (3.5-5.1) Chloride Level 99 mmol/L (98-107) Carbon Dioxide Level 27 mmol/L (21-32) Anion Gap 9 (6-14) Blood Urea Nitrogen 29 mg/dL (8-26) Creatinine 1.9 mg/dL (0.7-1.3) Estimated GFR (Cockcroft-Gault) 38.2 BUN/Creatinine Ratio 15 (6-20) Glucose Level 173 mg/dL (70-99) Calcium Level 8.6 mg/dL (8.5-10.1) Total Bilirubin 0.7 mg/dL (0.2-1.0) Aspartate Amino Transf (AST/SGOT) 22 U/L (15-37) Alanine Aminotransferase (ALT/SGPT) 17 U/L (16-63) Alkaline Phosphatase 85 U/L (46-116) Total Protein 7.2 g/dL (6.4-8.2) Albumin 2.1 g/dL (3.4-5.0) Albumin/Globulin Ratio 0.4 (1.0-1.7) Glucose (Fingerstick) 196 mg/dL (70-99) Laboratory Tests Test 05/05/18 17:26 05/05/18 20:55 05/06/18 07:41 05/06/18 07:45 Glucose (Fingerstick) 166 mg/dL (70-99) 148 mg/dL (70-99) 165 mg/dL (70-99) White Blood Count 14.2 x10^3/uL (4.0-11.0) Red Blood Count 4.37 x10^6/uL (4.30-5.70) Hemoglobin 11.5 g/dL (13.0-17.5) Hematocrit 35.8 % (39.0-53.0) Mean Corpuscular Volume 82 fL (79-100) Mean Corpuscular Hemoglobin 26 pg (25-35) Mean Corpuscular Hemoglobin Concent 32 g/dL (31-37) Red Cell Distribution Width 15.4 % (11.5-14.5) Platelet Count 288 x10^3/uL (140-400) Neutrophils (%) (Auto) 81 % (31-73) Lymphocytes (%) (Auto) 11 % (24-48) Monocytes (%) (Auto) 6 % (0-9) Eosinophils (%) (Auto) 1 % (0-3) Basophils (%) (Auto) 1 % (0-3) Neutrophils # (Auto) 11.5 x10^3uL (1.8-7.7) Lymphocytes # (Auto) 1.6 x10^3/uL (1.0-4.8) Monocytes # (Auto) 0.8 x10^3/uL (0.0-1.1) Eosinophils # (Auto) 0.2 x10^3/uL (0.0-0.7) Basophils # (Auto) 0.1 x10^3/uL (0.0-0.2) Sodium Level 135 mmol/L (136-145) Potassium Level 4.0 mmol/L (3.5-5.1) Chloride Level 99 mmol/L (98-107) Carbon Dioxide Level 27 mmol/L (21-32) Anion Gap 9 (6-14) Blood Urea Nitrogen 29 mg/dL (8-26) Creatinine 1.9 mg/dL (0.7-1.3) Estimated GFR (Cockcroft-Gault) 38.2 BUN/Creatinine Ratio 15 (6-20) Glucose Level 173 mg/dL (70-99) Calcium Level 8.6 mg/dL (8.5-10.1) Total Bilirubin 0.7 mg/dL (0.2-1.0) Aspartate Amino Transf (AST/SGOT) 22 U/L (15-37) Alanine Aminotransferase (ALT/SGPT) 17 U/L (16-63) Alkaline Phosphatase 85 U/L (46-116) Total Protein 7.2 g/dL (6.4-8.2) Albumin 2.1 g/dL (3.4-5.0) Albumin/Globulin Ratio 0.4 (1.0-1.7) Test 05/06/18 11:56 Glucose (Fingerstick) 196 mg/dL (70-99) Microbiology 04/30/18 Blood Culture - Final, Complete 04/30/18 Blood Culture Result 1 (HAZEL) - Final, Complete 04/30/18 Antimicrobic Susceptibility - Final, Complete 04/30/18 Urine Culture - Final, Complete 04/30/18 Urine Culture Result 1 (HAZEL) - Final, Complete Medications Current Medications Ertapenem 50 ml @ 100 mls/hr 1X STAT IV Last administered on 04/30/18at 10:00 ; Start 04/30/18 at 09:34; Stop 04/30/18 at 10:03; Status DC Sodium Chloride 1,000 ml @ 1,000 mls/hr 1X ONCE IV Last administered on at 09:50; Start 04/30/18 at 09:45; Stop 04/30/18 at 10:44; Status DC Sodium Chloride 1,000 ml @ 1,000 mls/hr 1X ONCE IV Last administered on at 10:28; Start 04/30/18 at 09:45; Stop 04/30/18 at 10:44; Status DC Insulin Human Regular (HumuLIN R VIAL) 10 unit 1X ONCE IV Last administered on 04/30/18at 10:33; Start 04/30/18 at 10:30; Stop 04/30/18 at 10:31; Status DC Ondansetron HCl (Zofran) 4 mg 1X ONCE IV Last administered on 04/30/18at 10:31 ; Start 04/30/18 at 10:30; Stop 04/30/18 at 10:32; Status DC Fentanyl Citrate (Fentanyl 2ml Vial) 50 mcg 1X ONCE IV Last administered on at 10:36; Start 04/30/18 at 10:30; Stop 04/30/18 at 10:32; Status DC Sodium Chloride 1,000 ml @ 1,000 mls/hr 1X ONCE IV Last administered on at 12:36; Start 04/30/18 at 10:45; Stop 04/30/18 at 11:44; Status DC Metoclopramide HCl (Reglan Vial) 10 mg 1X ONCE IV Last administered on at 12:08; Start 04/30/18 at 12:00; Stop 04/30/18 at 12:01; Status DC Fentanyl Citrate (Fentanyl 2ml Vial) 50 mcg 1X ONCE IV ; Start 04/30/18 at 21: 00; Stop 04/30/18 at 21:01; Status DC Acetaminophen (Tylenol) 1,000 mg 1X ONCE PO ; Start 04/30/18 at 11:45; Stop at 11:47; Status DC Insulin Human Regular 150 ml @ 0 mls/hr 1X ONCE IV Last administered on at 12:48; Start 04/30/18 at 12:00; Stop 04/30/18 at 12:01; Status DC Fentanyl Citrate (Fentanyl 2ml Vial) 50 mcg 1X ONCE IV Last administered on at 12:21; Start 04/30/18 at 12:00; Stop 04/30/18 at 12:01; Status DC Meropenem 500 mg/ Sodium Chloride 50 ml @ 100 mls/hr Q12HR IV Last administered on 05/01/18at 08:58; Start 04/30/18 at 21:00; Stop 05/01/18 at 10:32 ; Status DC Sodium Chloride 1,000 ml @ 1,920 mls/hr Q32M IV ; Start 04/30/18 at 15:06; Stop 04/30/18 at 16:08; Status DC Sodium Chloride 500 ml @ 1,000 mls/hr PRN Q30MIN PRN IV SEE COMMENTS; Start at 15:15; Stop 05/01/18 at 10:15; Status DC Sodium Chloride 1,000 ml @ 150 mls/hr Q6H40M IV Last administered on at 21:16; Start 04/30/18 at 15:10; Stop 05/01/18 at 10:15; Status DC Norepinephrine Bitartrate 250 ml @ 0 mls/hr CONT PRN IV SEE I/O RECORD; Start 04/30/18 at 15:15; Stop 05/02/18 at 08:49; Status DC Dobutamine HCl/ Dextrose 250 ml @ 0 mls/hr CONT PRN IV SEE I/O RECORD; Start at 15:15; Stop 05/02/18 at 08:49; Status DC Insulin Human Lispro (HumaLOG) 0-7 UNITS TIDWMEALS SQ Last administered on 04/30at 20:13; Start 04/30/18 at 17:00; Stop 05/01/18 at 08:15; Status DC Dextrose (Dextrose 50%-Water Syringe) 12.5 gm PRN Q15MIN PRN IV SEE COMMENTS; Start 04/30/18 at 15:15; Stop 05/02/18 at 08:54; Status DC Heparin Sodium (Porcine) (Heparin Sodium) 5,000 unit Q8HRS SQ Last administered on 05/03/18at 06:03; Start 04/30/18 at 22:00; Stop 05/03/18 at 10:51 ; Status DC Fentanyl Citrate (Fentanyl 2ml Vial) 50 mcg PRN Q3HRS PRN IV SEVERE PAIN Last administered on 05/06/18 00:31; Start 04/30/18 at 17:00 Ondansetron HCl (Zofran) 4 mg PRN Q6HRS PRN IV NAUSEA/VOMITING Last administered on 05/02/18 05:17; Start 04/30/18 at 19:30 Ibuprofen (Motrin) 200 mg PRN Q6HRS PRN PO MILD PAIN / TEMP Last administered on 04/30/18 21:14; Start 04/30/18 at 20:45; Stop 05/01/18 at 11:54; Status DC Insulin Glargine (Lantus) 35 units [id number] SQ Last administered on 09:35; Start 05/02/18 at 08:00 Insulin Human Lispro (HumaLOG) 0-7 UNITS TIDWMEALS SQ Last administered on 05/01 08:56; Start 05/01/18 at 12:00; Stop 05/01/18 at 12:24; Status DC Meropenem 1 gm/ Sodium Chloride 100 ml @ 200 mls/hr Q12HR IV Last administered on 05/06/18 10:56; Start 05/01/18 at 18:00 Lactobacillus Rhamnosus (Culturelle) 1 cap BID PO Last administered on 09:20; Start 05/01/18 at 21:00 Sodium Chloride 1,000 ml @ 100 mls/hr Q10H IV Last administered on 05/05/18 20:45; Start 05/01/18 at 11:45 Insulin Human Lispro (HumaLOG) 15 units 1X ONCE SQ Last administered on 14:56; Start 05/01/18 at 12:30; Stop 05/01/18 at 12:31; Status DC Insulin Human Lispro (HumaLOG) 0-9 UNITS TIDWMEALS SQ ; Start 05/01/18 at 17:00 ; Stop 05/02/18 at 08:50; Status DC Metoprolol Tartrate (Lopressor Vial) 5 mg 1X ONCE IVP Last administered on 16:21; Start 05/01/18 at 16:15; Stop 05/01/18 at 16:18; Status DC Insulin Human Lispro (HumaLOG) 20 units 1X ONCE SQ Last administered on 2/15/ 19at 16:58; Start 05/01/18 at 17:00; Stop 05/01/18 at 17:01; Status DC Insulin Human Lispro (HumaLOG) 0-9 UNITS TIDWMEALS SQ Last administered on 05/06at 12:39; Start 05/02/18 at 12:00 Dextrose (Dextrose 50%-Water Syringe) 12.5 gm PRN Q15MIN PRN IV SEE COMMENTS; Start 05/02/18 at 09:00 Tramadol HCl (Ultram) 50 mg PRN Q6HRS PRN PO MODERATE PAIN; Start 05/02/18 at 09:00 Zolpidem Tartrate (Ambien) 5 mg PRN QHS PRN PO INSOMNIA; Start 05/02/18 at 09: 00 Amlodipine Besylate (Norvasc) 10 mg DAILY PO Last administered on 05/06/18at 09: 20; Start 05/02/18 at 09:00 Atorvastatin Calcium (Lipitor) 20 mg HS PO Last administered on 05/05/18at 20:46 ; Start 05/02/18 at 21:00 Carvedilol (Coreg) 12.5 mg BIDWMEALS PO Last administered on 05/06/18at 09:20; Start 05/02/18 at 09:00 Insulin Glargine (Lantus) 25 units QHS SQ Last administered on 05/02/18at 21:27 ; Start 05/02/18 at 21:00; Stop 05/03/18 at 10:51; Status DC Insulin Human Lispro (HumaLOG) 8 units TIDWMEALS SQ Last administered on at 09:52; Start 05/02/18 at 12:00; Stop 05/03/18 at 10:51; Status DC Pregabalin (Lyrica) 75 mg TID PO Last administered on 05/06/18at 09:19; Start at 09:00 Non-Formulary Medication (Dulaglutide (Trulicity)) 1.5 mg WEEKLY SQ ; Start at 09:00; Stop 05/04/18 at 07:35; Status DC Ondansetron HCl (Zofran Odt) 4 mg PRN Q8HRS PRN PO NAUSEA/VOMITING; Start 05/02 at 09:00 Labetalol HCl (Normodyne Iv Push) 10 mg PRN Q2HR PRN IVP HYPERTENSION, SEE COMMENTS; Start 05/02/18 at 09:00 Dicyclomine HCl (Bentyl) 10 mg TID PO Last administered on 05/06/18at 10:55; Start 05/02/18 at 14:00 Dicyclomine HCl (Bentyl) 10 mg 1X ONCE PO Last administered on 05/02/18at 12:48 ; Start 05/02/18 at 11:30; Stop 05/02/18 at 11:31; Status DC Calcium Carbonate/ Glycine (Tums) 500 mg PRN AFTMEALHC PRN PO INDIGESTION; Start 05/02/18 at 11:30 Loperamide HCl (Imodium) 2 mg PRN Q15MIN PRN PO DIARRHEA Last administered on at 21:14; Start 05/02/18 at 11:30; Stop 05/04/18 at 08:20; Status DC Acetaminophen (Tylenol) 500 mg PRN Q6HRS PRN PO MILD PAIN / TEMP Last administered on 05/06/18at 05:20; Start 05/03/18 at 09:00 Simethicone (Gas-X) 80 mg PRN AFTMEALHC PRN PO GAS / BLOATING Last administered on 05/06/18at 10:55; Start 05/03/18 at 09:45 Insulin Glargine (Lantus) 35 units QHS SQ ; Start 05/03/18 at 21:00 Insulin Human Lispro (HumaLOG) 12 units TIDWMEALS SQ Last administered on at 12:40; Start 05/03/18 at 12:00 Psyllium Hydrophilic Mucilloid (Metamucil Fiber Packet) 1 pkt DAILY PO Last administered on 05/06/18at 09:19; Start 05/05/18 at 11:30 Iohexol (Omnipaque 240 Mg/ml) 30 ml 1X ONCE PO Last administered on 05/06/18at 11:15; Start 05/06/18 at 11:15; Stop 05/06/18 at 11:16; Status DC Info (CONTRAST GIVEN -- Rx MONITORING) 1 each PRN DAILY PRN MC SEE COMMENTS; Start 05/06/18 at 11:30; Stop 05/08/18 at 11:29 Active Scripts Active Humalog (Insulin Lispro) 100 Unit/1 Ml Insuln.pen 8 Units SQ TIDWMEALS 14 Days Lantus Solostar (Insulin Glargine,Hum.rec.anlog) 100 Unit/1 Ml Insuln.pen 25 Units SQ QHS 14 Days Tramadol Hcl 50 Mg Tablet 50 Mg PO PRN Q6HRS PRN Amlodipine Besylate 10 Mg Tablet 10 Mg PO DAILY 30 Days Carvedilol (Carvedilol) 12.5 Mg Tablet 12.5 Mg PO BIDWMEALS 30 Days Zofran (Ondansetron Hcl) 4 Mg Tablet 1 Tab PO PRN Q8HRS PRN Reported Losartan-Hctz 50-12.5 Mg Tab (Losartan/Hydrochlorothiazide) 1 Each Tablet 1 Each PO DAILY Lyrica (Pregabalin) 75 Mg Capsule 75 Mg PO TID Atorvastatin Calcium 20 Mg Tablet 20 Mg PO HS Amlodipine Besylate 10 Mg Tablet 20 Mg PO BID Trulicity (Dulaglutide) 1.5 Mg/0.5 Ml Pen.injctr 1.5 Mg SQ WEEKLY Metformin Hcl 1,000 Mg Tablet 1,000 Mg PO BIDWMEALS Vitals/I & O Vital Sign - Last 24 Hours 05/05/18 05/05/18 05/05/18 05/05/18 15:06 17:36 19:16 20:00 Temp 99.0 99.5 99.0 99.5 Pulse 69 69 88 Resp 18 18 B/P (MAP) 146/81 (102) 146/81 127/82 (97) Pulse Ox 97 96 O2 Delivery Room Air Room Air Room Air 05/05/18 05/06/18 05/06/18 05/06/18 23:19 00:31 01:01 02:47 Temp 99.1 100.2 99.1 100.2 Pulse 93 96 Resp 18 18 B/P (MAP) 161/84 (109) 145/75 (98) Pulse Ox 94 94 O2 Delivery Room Air Room Air Room Air Room Air 05/06/18 05/06/18 05/06/18 05/06/18 07:30 08:00 09:20 09:20 Temp 97.8 97.8 Pulse 85 85 85 Resp 18 B/P (MAP) 142/77 (98) 142/77 142/77 Pulse Ox 95 O2 Delivery Room Air Room Air 05/06/18 10:28 Temp 98.3 98.3 Pulse 83 Resp 18 B/P (MAP) 124/68 (86) Pulse Ox 95 O2 Delivery Room Air Intake and Output 05/05/18 05/05/18 05/06/18 15:00 23:00 07:00 Intake Total 420 ml 900 ml 480 ml Balance 420 ml 900 ml 480 ml KENJI NOWAK MD May 06, 2018 14:34
--- NOTE | 2018-05-06 14:38 | PDOC ---
SUBJECTIVE ROS Stable, reports has CT abdomen scheduled today OBJECTIVE Vital Signs Vital Signs Date Time Temp Pulse Resp B/P (MAP) Pulse Ox O2 Delivery O2 Flow Rate FiO2 05/06/18 10:28 98.3 83 18 124/68 (86) 95 Room Air 98.3 I & 0 Intake and Output 05/06/18 07:00 Intake Total 1800 ml Balance 1800 ml Intake Oral 1800 ml # Voids 6 PHYSICAL EXAM Physical Exam GENERAL: NAD HEENT: OM moist NECK: Supple. LUNGS: Clear bilaterally. No wheezing. HEART: S1, S2. ABDOMEN: Soft, obese. : R CVA tenderness improved , No Amaro EXTREMITIES: BLE 1+ edema. [employer]: Alert and oriented x 3. SKIN: no rash. DIAGNOSIS/ASSESSMENT DIAGNOSIS/ASSESSMENT Assessment & Plan YOEL - Improved, stable today Due to Dehydration /ATN Losartan , HCTZ and Metformin Held Not at baseline ? may have a new basline CKD stage 3 - Baseline Cr 1.2 As per Pt was started on Losartan by PCP mid 2017 Hospitalized in Dec 2017- YOEL - post dc dose was decreased to 50 mg QD DM II HTN- Continue antihypertensives GNR sepsis-? UTI /?Pyelo on CT 04/30 Nausea, vomiting resolved Repeat Ct with PO contrast Today COMMENT/RELEVANT DATA Meds Current Medications Medications (Trade) Dose Ordered Sig/Felisha Start Time Stop Time Status Last Admin Dose Admin Acetaminophen (Tylenol) 500 mg PRN Q6HRS PRN 05/03/18 09:00 05/06/18 05:20 500 MG Amlodipine Besylate (Norvasc) 10 mg DAILY 05/02/18 09:00 05/06/18 09:20 10 MG Atorvastatin Calcium (Lipitor) 20 mg HS 05/02/18 21:00 05/05/18 20:46 20 MG Calcium Carbonate/ Glycine (Tums) 500 mg PRN AFTMEALHC PRN 05/02/18 11:30 Carvedilol (Coreg) 12.5 mg BIDWMEALS 05/02/18 09:00 05/06/18 09:20 12.5 MG Dextrose (Dextrose 50%-Water Syringe) 12.5 gm PRN Q15MIN PRN 05/02/18 09:00 Dicyclomine HCl (Bentyl) 10 mg 1X ONCE 05/02/18 11:30 05/02/18 11:31 DC 05/02/18 12:48 10 MG Dobutamine HCl/ Dextrose 250 ml @ 0 mls/hr CONT PRN 04/30/18 15:15 05/02/18 08:49 DC Ertapenem 50 ml @ 100 mls/hr 1X STAT 04/30/18 09:34 04/30/18 10:03 DC 04/30/18 10:00 100 MLS/HR Fentanyl Citrate (Fentanyl 2ml Vial) 50 mcg PRN Q3HRS PRN 04/30/18 17:00 05/06/18 00:31 50 MCG Heparin Sodium (Porcine) (Heparin Sodium) 5,000 unit Q8HRS 04/30/18 22:00 05/03/18 10:51 DC 05/03/18 06:03 5,000 UNIT Ibuprofen (Motrin) 200 mg PRN Q6HRS PRN 04/30/18 20:45 05/01/18 11:54 DC 04/30/18 21:14 200 MG Info (CONTRAST GIVEN -- Rx MONITORING) 1 each PRN DAILY PRN 05/06/18 11:30 05/08/18 11:29 Insulin Glargine (Lantus) 35 units QHS 05/03/18 21:00 Insulin Human Lispro (HumaLOG) 12 units TIDWMEALS 05/03/18 12:00 05/06/18 12:40 12 UNITS Insulin Human Regular 150 ml @ 0 mls/hr 1X ONCE 04/30/18 12:00 04/30/18 12:01 DC 04/30/18 12:48 9.3 MLS/HR Insulin Human Regular (HumuLIN R VIAL) 10 unit 1X ONCE 04/30/18 10:30 04/30/18 10:31 DC 04/30/18 10:33 10 UNIT Iohexol (Omnipaque 240 Mg/ml) 30 ml 1X ONCE 05/06/18 11:15 05/06/18 11:16 DC 05/06/18 11:15 30 ML Labetalol HCl (Normodyne Iv Push) 10 mg PRN Q2HR PRN 05/02/18 09:00 Lactobacillus Rhamnosus (Culturelle) 1 cap BID 05/01/18 21:00 05/06/18 09:20 1 CAP Loperamide HCl (Imodium) 2 mg PRN Q15MIN PRN 2/16/19 11:30 05/04/18 08:20 DC 05/02/18 21:14 2 MG Meropenem 1 gm/ Sodium Chloride 100 ml @ 200 mls/hr Q12HR 05/01/18 18:00 05/06/18 10:56 200 MLS/HR Meropenem 500 mg/ Sodium Chloride 50 ml @ 100 mls/hr Q12HR 04/30/18 21:00 05/01/18 10:32 DC 05/01/18 08:58 100 MLS/HR Metoclopramide HCl (Reglan Vial) 10 mg 1X ONCE 04/30/18 12:00 04/30/18 12:01 DC 04/30/18 12:08 10 MG Metoprolol Tartrate (Lopressor Vial) 5 mg 1X ONCE 05/01/18 16:15 05/01/18 16:18 DC 05/01/18 16:21 5 MG Non-Formulary Medication (Dulaglutide (Trulicity)) 1.5 mg WEEKLY 05/02/18 09:00 05/04/18 07:35 DC Norepinephrine Bitartrate 250 ml @ 0 mls/hr CONT PRN 04/30/18 15:15 05/02/18 08:49 DC Ondansetron HCl (Zofran Odt) 4 mg PRN Q8HRS PRN 05/02/18 09:00 Ondansetron HCl (Zofran) 4 mg PRN Q6HRS PRN 04/30/18 19:30 05/02/18 05:17 4 MG Pregabalin (Lyrica) 75 mg TID 05/02/18 09:00 05/06/18 09:19 75 MG Psyllium Hydrophilic Mucilloid (Metamucil Fiber Packet) 1 pkt DAILY 05/05/18 11:30 05/06/18 09:19 1 PKT Simethicone (Gas-X) 80 mg PRN AFTMEALHC PRN 05/03/18 09:45 05/06/18 10:55 80 MG Sodium Chloride 1,000 ml @ 100 mls/hr Q10H 05/01/18 11:45 05/05/18 20:45 100 MLS/HR Tramadol HCl (Ultram) 50 mg PRN Q6HRS PRN 05/02/18 09:00 Zolpidem Tartrate (Ambien) 5 mg PRN QHS PRN 05/02/18 09:00 Lab Laboratory Tests Test 05/05/18 17:26 05/05/18 20:55 05/06/18 07:41 05/06/18 07:45 Glucose (Fingerstick) 166 mg/dL (70-99) 148 mg/dL (70-99) 165 mg/dL (70-99) White Blood Count 14.2 x10^3/uL (4.0-11.0) Red Blood Count 4.37 x10^6/uL (4.30-5.70) Hemoglobin 11.5 g/dL (13.0-17.5) Hematocrit 35.8 % (39.0-53.0) Mean Corpuscular Volume 82 fL (79-100) Mean Corpuscular Hemoglobin 26 pg (25-35) Mean Corpuscular Hemoglobin Concent 32 g/dL (31-37) Red Cell Distribution Width 15.4 % (11.5-14.5) Platelet Count 288 x10^3/uL (140-400) Neutrophils (%) (Auto) 81 % (31-73) Lymphocytes (%) (Auto) 11 % (24-48) Monocytes (%) (Auto) 6 % (0-9) Eosinophils (%) (Auto) 1 % (0-3) Basophils (%) (Auto) 1 % (0-3) Neutrophils # (Auto) 11.5 x10^3uL (1.8-7.7) Lymphocytes # (Auto) 1.6 x10^3/uL (1.0-4.8) Monocytes # (Auto) 0.8 x10^3/uL (0.0-1.1) Eosinophils # (Auto) 0.2 x10^3/uL (0.0-0.7) Basophils # (Auto) 0.1 x10^3/uL (0.0-0.2) Sodium Level 135 mmol/L (136-145) Potassium Level 4.0 mmol/L (3.5-5.1) Chloride Level 99 mmol/L (98-107) Carbon Dioxide Level 27 mmol/L (21-32) Anion Gap 9 (6-14) Blood Urea Nitrogen 29 mg/dL (8-26) Creatinine 1.9 mg/dL (0.7-1.3) Estimated GFR (Cockcroft-Gault) 38.2 BUN/Creatinine Ratio 15 (6-20) Glucose Level 173 mg/dL (70-99) Calcium Level 8.6 mg/dL (8.5-10.1) Total Bilirubin 0.7 mg/dL (0.2-1.0) Aspartate Amino Transf (AST/SGOT) 22 U/L (15-37) Alanine Aminotransferase (ALT/SGPT) 17 U/L (16-63) Alkaline Phosphatase 85 U/L (46-116) Total Protein 7.2 g/dL (6.4-8.2) Albumin 2.1 g/dL (3.4-5.0) Albumin/Globulin Ratio 0.4 (1.0-1.7) Test 05/06/18 11:56 Glucose (Fingerstick) 196 mg/dL (70-99) Results All relevant outside records, renal labs, imaging studies, telemetry/EKG's were reviewed. JERRY WEN MD May 06, 2018 14:38
--- NOTE | 2018-05-06 15:11 | RAD ---
CT of the abdomen and pelvis without contrast, 05/06/2018: HISTORY: Renal failure, abdominal distention, pyelonephritis Multidetector CT imaging was performed following oral ingestion of contrast. No IV contrast was administered for this study. Comparison is made to an exam from 04/30/2018. There is mild streaky atelectasis or scarring in the right base which appears unchanged. No pleural fluid is evident. The unopacified liver is unremarkable. The gallbladder is collapsed. No pancreatic abnormality is seen. No splenic abnormality is detected. There are streaky perinephric opacities on the right, similar to those seen on the previous exam. Minimal left perinephric stranding has worsened slightly and now extends inferiorly adjacent to the distal left ureter. There is no evidence of hydronephrosis. No intrarenal or ureteral calculi are seen. The abdominal aorta is unremarkable. No abdominal or pelvic adenopathy is seen. There is mild diffuse bladder wall thickening. Minimal streaky presacral edema has developed. The bowel loops are not dilated. A portion of the appendix is visualized and it shows no abnormality. No free air is evident in the abdomen or pelvis. Streaky subcutaneous edema has developed in the flank regions bilaterally suggesting anasarca. IMPRESSION: 1. Mild streaky perinephric edema, right greater than left, has worsened slightly compatible with nonspecific inflammation or infection. 2. Mild diffuse bladder wall thickening raising the possibility of cystitis. 3. Mild anasarca. PQRS Compliance Statement: One or more of the following individualized dose reduction techniques were utilized for this examination: 1. Automated exposure control 2. Adjustment of the mA and/or kV according to patient size 3. Use of iterative reconstruction technique Electronically signed by: Francisco Singletary MD (05/06/2018 3:08 PM) [facility]
[2018-05-06] MEDS: ATORVASTATIN CALCIUM 20 MG TABLET PO SCH (20:38)
[2018-05-07 03:37] VITALS: BP 145/77
[2018-05-07 06:07] LABS: BASO % 0 % (0-3); EOS # 0.3 x10^3/uL (0.0-0.7); EOS % 2 % (0-3); HEMATOCRIT 34.5 % (39.0-53.0); HEMOGLOBIN 11.6 g/dL (13.0-17.5); LYMPH # 1.5 x10^3/uL (1.0-4.8); LYMPH % 10 % (24-48); MEAN CORPUSCULAR HEMOGLOBIN 28 pg (25-35); MEAN CORPUSCULAR HGB CONC 34 g/dL (31-37); MEAN CORPUSCULAR VOLUME 82 fL (79-100); MONO # 0.7 x10^3/uL (0.0-1.1); MONO % 5 % (0-9); NEUT # 12.2 x10^3uL (1.8-7.7); NEUT % 83 % (31-73); PLATELET COUNT 287 x10^3/uL (140-400); RED BLOOD COUNT 4.19 x10^6/uL (4.30-5.70); WHITE BLOOD COUNT 14.8 x10^3/uL (4.0-11.0)
[2018-05-07 06:26] LABS: ALBUMIN/GLOBULIN RATIO 0.4 (1.0-1.7); CALCIUM 8.6 mg/dL (8.5-10.1); CREATININE 1.5 mg/dL (0.7-1.3); GFR 50.2; POTASSIUM 4.6 mmol/L (3.5-5.1); TOTAL BILIRUBIN 0.7 mg/dL (0.2-1.0); TOTAL PROTEIN 7.1 g/dL (6.4-8.2)
[2018-05-07 06:55] VITALS: BP 161/76
--- NOTE | 2018-05-07 08:02 | PDOC ---
PROGRESS NOTES Chief Complaint Chief Complaint GNR sepsis, POA Neg urince cx Fevers History of Escherichia coli sepsis with urinary tract infection in December 2017 with multidrug resistance. Acute kidney injury Diabetes mellitus with hyperosmolar hyperglycemia s/p ICU - hgba1c 8 Thrombocytopenia, better/stable pseudohyponatremia Lactic acidosis in the setting of increased creatinine. Diarrhea, c. diff neg 04/30. History of Present Illness History of Present Illness Transferred out of ICU 05/01/18 for DKA and sepsis Sugars were running high 300s-status post HON K in the ICU, Hemoglobin A1c 8 Better by mouth intake today, ate his whole lunch Creatinine better 1.9 from 3, fluids running 100 mL per hour per renal Still diarrhea - C. difficile negative. WBC up today again. CT abdomen consistent with possible cystitis and pyelonephritis worse on right Blood cultures with e coli ESBL. He is still having a little abdominal pain, now right CVA tenderness. No SOB or CP Plan: follow ID recommendations CT abdomen. May need a tagged WBC scan in the future. I will d/w ID I have consulted urology after d/w ID as he has concerning CT findings no pT needs Hold lisinopril HCTZ and metformin because of creatinine elevation, down to 1.5 today Imodium, Lactobacillus-C. difficile negative - will add psyllium Sliding-scale insulin-hemoglobin A1c 8 in March 2018 Supportive meds Increased Lantus from 20-35 units daily at bedtime Increase mealtime NovoLog from 8-12 3 times a day follow BC - has left peripheral line HX of PICC with 1 week course abx for MDR e coli not too long ago, December 2017 , ID will order new PICC History of Escherichia coli sepsis with urinary tract infection in December 2017 with multidrug resistance. Acute kidney injury - better Questionable urinary tract infection. UC neg - ? pyelo on CT 04/30 Diarrhea, c. diff neg 04/30. Cont Merrem 1 q 12 (05/01 did receive Invanz times one 04/30) D/c Loperamide given abd distension and C-diff order. F/u distension Cont Probiotics Monitor labs in am cont supportive care Vitals Vitals Vital Signs Date Time Temp Pulse Resp B/P (MAP) Pulse Ox O2 Delivery O2 Flow Rate FiO2 05/07/18 06:55 98.0 95 18 161/76 (104) 95 Room Air 98.0 Physical Exam Physical Exam GENERAL: In chair, alert, NAD HEENT: Oral cavity, pharynx clear. NECK: Supple. LUNGS: Clear bilaterally. No wheezing. HEART: S1, S2. ABDOMEN: Soft, obese. Bowel sounds present, nontender, Mild distended : no gross R CVA tenderness EXTREMITIES: BLE 1+ edema. 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 Grossly nonfocal. SKIN: Warm, dry, no generalized rash. PIV LUE ok General: Alert, Oriented X3, Cooperative, No acute distress, mild distress Heart: Regular rate, Normal S1, Normal S2 Lungs: Clear, Other (no rhonchi) Abdomen: Normal bowel sounds, Soft, Other (FLANK PAIN ON PERCUSSION) Extremities: No clubbing Skin: No breakdown Labs LABS Laboratory Tests Test 05/06/18 11:56 05/06/18 16:43 05/06/18 20:40 05/07/18 05:40 Glucose (Fingerstick) 196 mg/dL (70-99) 87 mg/dL (70-99) 137 mg/dL (70-99) White Blood Count 14.8 x10^3/uL (4.0-11.0) Red Blood Count 4.19 x10^6/uL (4.30-5.70) Hemoglobin 11.6 g/dL (13.0-17.5) Hematocrit 34.5 % (39.0-53.0) Mean Corpuscular Volume 82 fL (79-100) Mean Corpuscular Hemoglobin 28 pg (25-35) Mean Corpuscular Hemoglobin Concent 34 g/dL (31-37) Red Cell Distribution Width 15.0 % (11.5-14.5) Platelet Count 287 x10^3/uL (140-400) Neutrophils (%) (Auto) 83 % (31-73) Lymphocytes (%) (Auto) 10 % (24-48) Monocytes (%) (Auto) 5 % (0-9) Eosinophils (%) (Auto) 2 % (0-3) Basophils (%) (Auto) 0 % (0-3) Neutrophils # (Auto) 12.2 x10^3uL (1.8-7.7) Lymphocytes # (Auto) 1.5 x10^3/uL (1.0-4.8) Monocytes # (Auto) 0.7 x10^3/uL (0.0-1.1) Eosinophils # (Auto) 0.3 x10^3/uL (0.0-0.7) Basophils # (Auto) 0.0 x10^3/uL (0.0-0.2) Sodium Level 137 mmol/L (136-145) Potassium Level 4.6 mmol/L (3.5-5.1) Chloride Level 101 mmol/L (98-107) Carbon Dioxide Level 28 mmol/L (21-32) Anion Gap 8 (6-14) Blood Urea Nitrogen 25 mg/dL (8-26) Creatinine 1.5 mg/dL (0.7-1.3) Estimated GFR (Cockcroft-Gault) 50.2 BUN/Creatinine Ratio 17 (6-20) Glucose Level 127 mg/dL (70-99) Calcium Level 8.6 mg/dL (8.5-10.1) Total Bilirubin 0.7 mg/dL (0.2-1.0) Aspartate Amino Transf (AST/SGOT) 18 U/L (15-37) Alanine Aminotransferase (ALT/SGPT) 15 U/L (16-63) Alkaline Phosphatase 86 U/L (46-116) Total Protein 7.1 g/dL (6.4-8.2) Albumin 2.0 g/dL (3.4-5.0) Albumin/Globulin Ratio 0.4 (1.0-1.7) Test 05/07/18 07:31 Glucose (Fingerstick) 128 mg/dL (70-99) Assessment and Plan Assessmemt and Plan Problems Medical Problems: (1) Dehydration Status: Acute (2) Hyperglycemia Status: Acute Comment Review of Relevant I have reviewed the following items odell (where applicable) has been applied. Labs Laboratory Tests Test 05/05/18 11:09 05/05/18 17:26 05/05/18 20:55 05/06/18 07:41 Glucose (Fingerstick) 160 mg/dL (70-99) 166 mg/dL (70-99) 148 mg/dL (70-99) 165 mg/dL (70-99) Test 05/06/18 07:45 05/06/18 11:56 05/06/18 16:43 05/06/18 20:40 White Blood Count 14.2 x10^3/uL (4.0-11.0) Red Blood Count 4.37 x10^6/uL (4.30-5.70) Hemoglobin 11.5 g/dL (13.0-17.5) Hematocrit 35.8 % (39.0-53.0) Mean Corpuscular Volume 82 fL (79-100) Mean Corpuscular Hemoglobin 26 pg (25-35) Mean Corpuscular Hemoglobin Concent 32 g/dL (31-37) Red Cell Distribution Width 15.4 % (11.5-14.5) Platelet Count 288 x10^3/uL (140-400) Neutrophils (%) (Auto) 81 % (31-73) Lymphocytes (%) (Auto) 11 % (24-48) Monocytes (%) (Auto) 6 % (0-9) Eosinophils (%) (Auto) 1 % (0-3) Basophils (%) (Auto) 1 % (0-3) Neutrophils # (Auto) 11.5 x10^3uL (1.8-7.7) Lymphocytes # (Auto) 1.6 x10^3/uL (1.0-4.8) Monocytes # (Auto) 0.8 x10^3/uL (0.0-1.1) Eosinophils # (Auto) 0.2 x10^3/uL (0.0-0.7) Basophils # (Auto) 0.1 x10^3/uL (0.0-0.2) Sodium Level 135 mmol/L (136-145) Potassium Level 4.0 mmol/L (3.5-5.1) Chloride Level 99 mmol/L (98-107) Carbon Dioxide Level 27 mmol/L (21-32) Anion Gap 9 (6-14) Blood Urea Nitrogen 29 mg/dL (8-26) Creatinine 1.9 mg/dL (0.7-1.3) Estimated GFR (Cockcroft-Gault) 38.2 BUN/Creatinine Ratio 15 (6-20) Glucose Level 173 mg/dL (70-99) Calcium Level 8.6 mg/dL (8.5-10.1) Total Bilirubin 0.7 mg/dL (0.2-1.0) Aspartate Amino Transf (AST/SGOT) 22 U/L (15-37) Alanine Aminotransferase (ALT/SGPT) 17 U/L (16-63) Alkaline Phosphatase 85 U/L (46-116) Total Protein 7.2 g/dL (6.4-8.2) Albumin 2.1 g/dL (3.4-5.0) Albumin/Globulin Ratio 0.4 (1.0-1.7) Glucose (Fingerstick) 196 mg/dL (70-99) 87 mg/dL (70-99) 137 mg/dL (70-99) Test 05/07/18 05:40 05/07/18 07:31 White Blood Count 14.8 x10^3/uL (4.0-11.0) Red Blood Count 4.19 x10^6/uL (4.30-5.70) Hemoglobin 11.6 g/dL (13.0-17.5) Hematocrit 34.5 % (39.0-53.0) Mean Corpuscular Volume 82 fL (79-100) Mean Corpuscular Hemoglobin 28 pg (25-35) Mean Corpuscular Hemoglobin Concent 34 g/dL (31-37) Red Cell Distribution Width 15.0 % (11.5-14.5) Platelet Count 287 x10^3/uL (140-400) Neutrophils (%) (Auto) 83 % (31-73) Lymphocytes (%) (Auto) 10 % (24-48) Monocytes (%) (Auto) 5 % (0-9) Eosinophils (%) (Auto) 2 % (0-3) Basophils (%) (Auto) 0 % (0-3) Neutrophils # (Auto) 12.2 x10^3uL (1.8-7.7) Lymphocytes # (Auto) 1.5 x10^3/uL (1.0-4.8) Monocytes # (Auto) 0.7 x10^3/uL (0.0-1.1) Eosinophils # (Auto) 0.3 x10^3/uL (0.0-0.7) Basophils # (Auto) 0.0 x10^3/uL (0.0-0.2) Sodium Level 137 mmol/L (136-145) Potassium Level 4.6 mmol/L (3.5-5.1) Chloride Level 101 mmol/L (98-107) Carbon Dioxide Level 28 mmol/L (21-32) Anion Gap 8 (6-14) Blood Urea Nitrogen 25 mg/dL (8-26) Creatinine 1.5 mg/dL (0.7-1.3) Estimated GFR (Cockcroft-Gault) 50.2 BUN/Creatinine Ratio 17 (6-20) Glucose Level 127 mg/dL (70-99) Calcium Level 8.6 mg/dL (8.5-10.1) Total Bilirubin 0.7 mg/dL (0.2-1.0) Aspartate Amino Transf (AST/SGOT) 18 U/L (15-37) Alanine Aminotransferase (ALT/SGPT) 15 U/L (16-63) Alkaline Phosphatase 86 U/L (46-116) Total Protein 7.1 g/dL (6.4-8.2) Albumin 2.0 g/dL (3.4-5.0) Albumin/Globulin Ratio 0.4 (1.0-1.7) Glucose (Fingerstick) 128 mg/dL (70-99) Laboratory Tests Test 05/06/18 11:56 05/06/18 16:43 05/06/18 20:40 05/07/18 05:40 Glucose (Fingerstick) 196 mg/dL (70-99) 87 mg/dL (70-99) 137 mg/dL (70-99) White Blood Count 14.8 x10^3/uL (4.0-11.0) Red Blood Count 4.19 x10^6/uL (4.30-5.70) Hemoglobin 11.6 g/dL (13.0-17.5) Hematocrit 34.5 % (39.0-53.0) Mean Corpuscular Volume 82 fL (79-100) Mean Corpuscular Hemoglobin 28 pg (25-35) Mean Corpuscular Hemoglobin Concent 34 g/dL (31-37) Red Cell Distribution Width 15.0 % (11.5-14.5) Platelet Count 287 x10^3/uL (140-400) Neutrophils (%) (Auto) 83 % (31-73) Lymphocytes (%) (Auto) 10 % (24-48) Monocytes (%) (Auto) 5 % (0-9) Eosinophils (%) (Auto) 2 % (0-3) Basophils (%) (Auto) 0 % (0-3) Neutrophils # (Auto) 12.2 x10^3uL (1.8-7.7) Lymphocytes # (Auto) 1.5 x10^3/uL (1.0-4.8) Monocytes # (Auto) 0.7 x10^3/uL (0.0-1.1) Eosinophils # (Auto) 0.3 x10^3/uL (0.0-0.7) Basophils # (Auto) 0.0 x10^3/uL (0.0-0.2) Sodium Level 137 mmol/L (136-145) Potassium Level 4.6 mmol/L (3.5-5.1) Chloride Level 101 mmol/L (98-107) Carbon Dioxide Level 28 mmol/L (21-32) Anion Gap 8 (6-14) Blood Urea Nitrogen 25 mg/dL (8-26) Creatinine 1.5 mg/dL (0.7-1.3) Estimated GFR (Cockcroft-Gault) 50.2 BUN/Creatinine Ratio 17 (6-20) Glucose Level 127 mg/dL (70-99) Calcium Level 8.6 mg/dL (8.5-10.1) Total Bilirubin 0.7 mg/dL (0.2-1.0) Aspartate Amino Transf (AST/SGOT) 18 U/L (15-37) Alanine Aminotransferase (ALT/SGPT) 15 U/L (16-63) Alkaline Phosphatase 86 U/L (46-116) Total Protein 7.1 g/dL (6.4-8.2) Albumin 2.0 g/dL (3.4-5.0) Albumin/Globulin Ratio 0.4 (1.0-1.7) Test 05/07/18 07:31 Glucose (Fingerstick) 128 mg/dL (70-99) Microbiology 04/30/18 Blood Culture - Final, Complete 04/30/18 Blood Culture Result 1 (HAZEL) - Final, Complete 04/30/18 Antimicrobic Susceptibility - Final, Complete 04/30/18 Urine Culture - Final, Complete 04/30/18 Urine Culture Result 1 (HAZEL) - Final, Complete Medications Current Medications Ertapenem 50 ml @ 100 mls/hr 1X STAT IV Last administered on 04/30/18at 10:00 ; Start 04/30/18 at 09:34; Stop 04/30/18 at 10:03; Status DC Sodium Chloride 1,000 ml @ 1,000 mls/hr 1X ONCE IV Last administered on at 09:50; Start 04/30/18 at 09:45; Stop 04/30/18 at 10:44; Status DC Sodium Chloride 1,000 ml @ 1,000 mls/hr 1X ONCE IV Last administered on at 10:28; Start 04/30/18 at 09:45; Stop 04/30/18 at 10:44; Status DC Insulin Human Regular (HumuLIN R VIAL) 10 unit 1X ONCE IV Last administered on 04/30/18at 10:33; Start 04/30/18 at 10:30; Stop 04/30/18 at 10:31; Status DC Ondansetron HCl (Zofran) 4 mg 1X ONCE IV Last administered on 04/30/18at 10:31 ; Start 04/30/18 at 10:30; Stop 04/30/18 at 10:32; Status DC Fentanyl Citrate (Fentanyl 2ml Vial) 50 mcg 1X ONCE IV Last administered on at 10:36; Start 04/30/18 at 10:30; Stop 04/30/18 at 10:32; Status DC Sodium Chloride 1,000 ml @ 1,000 mls/hr 1X ONCE IV Last administered on at 12:36; Start 04/30/18 at 10:45; Stop 04/30/18 at 11:44; Status DC Metoclopramide HCl (Reglan Vial) 10 mg 1X ONCE IV Last administered on at 12:08; Start 04/30/18 at 12:00; Stop 04/30/18 at 12:01; Status DC Fentanyl Citrate (Fentanyl 2ml Vial) 50 mcg 1X ONCE IV ; Start 04/30/18 at 21: 00; Stop 04/30/18 at 21:01; Status DC Acetaminophen (Tylenol) 1,000 mg 1X ONCE PO ; Start 04/30/18 at 11:45; Stop at 11:47; Status DC Insulin Human Regular 150 ml @ 0 mls/hr 1X ONCE IV Last administered on at 12:48; Start 04/30/18 at 12:00; Stop 04/30/18 at 12:01; Status DC Fentanyl Citrate (Fentanyl 2ml Vial) 50 mcg 1X ONCE IV Last administered on at 12:21; Start 04/30/18 at 12:00; Stop 04/30/18 at 12:01; Status DC Meropenem 500 mg/ Sodium Chloride 50 ml @ 100 mls/hr Q12HR IV Last administered on 05/01/18at 08:58; Start 04/30/18 at 21:00; Stop 05/01/18 at 10:32 ; Status DC Sodium Chloride 1,000 ml @ 1,920 mls/hr Q32M IV ; Start 04/30/18 at 15:06; Stop 04/30/18 at 16:08; Status DC Sodium Chloride 500 ml @ 1,000 mls/hr PRN Q30MIN PRN IV SEE COMMENTS; Start at 15:15; Stop 05/01/18 at 10:15; Status DC Sodium Chloride 1,000 ml @ 150 mls/hr Q6H40M IV Last administered on at 21:16; Start 04/30/18 at 15:10; Stop 05/01/18 at 10:15; Status DC Norepinephrine Bitartrate 250 ml @ 0 mls/hr CONT PRN IV SEE I/O RECORD; Start 04/30/18 at 15:15; Stop 05/02/18 at 08:49; Status DC Dobutamine HCl/ Dextrose 250 ml @ 0 mls/hr CONT PRN IV SEE I/O RECORD; Start at 15:15; Stop 05/02/18 at 08:49; Status DC Insulin Human Lispro (HumaLOG) 0-7 UNITS TIDWMEALS SQ Last administered on 04/30at 20:13; Start 04/30/18 at 17:00; Stop 05/01/18 at 08:15; Status DC Dextrose (Dextrose 50%-Water Syringe) 12.5 gm PRN Q15MIN PRN IV SEE COMMENTS; Start 04/30/18 at 15:15; Stop 05/02/18 at 08:54; Status DC Heparin Sodium (Porcine) (Heparin Sodium) 5,000 unit Q8HRS SQ Last administered on 05/03/18at 06:03; Start 04/30/18 at 22:00; Stop 05/03/18 at 10:51 ; Status DC Fentanyl Citrate (Fentanyl 2ml Vial) 50 mcg PRN Q3HRS PRN IV SEVERE PAIN Last administered on 05/06/18at 00:31; Start 04/30/18 at 17:00 Ondansetron HCl (Zofran) 4 mg PRN Q6HRS PRN IV NAUSEA/VOMITING Last administered on 05/02/18 05:17; Start 04/30/18 at 19:30 Ibuprofen (Motrin) 200 mg PRN Q6HRS PRN PO MILD PAIN / TEMP Last administered on 04/30/18 21:14; Start 04/30/18 at 20:45; Stop 05/01/18 at 11:54; Status DC Insulin Glargine (Lantus) 35 units [id number] SQ Last administered on at 09:35; Start 05/02/18 at 08:00 Insulin Human Lispro (HumaLOG) 0-7 UNITS TIDWMEALS SQ Last administered on 05/01at 08:56; Start 05/01/18 at 12:00; Stop 05/01/18 at 12:24; Status DC Meropenem 1 gm/ Sodium Chloride 100 ml @ 200 mls/hr Q12HR IV Last administered on 05/06/18at 20:37; Start 05/01/18 at 18:00 Lactobacillus Rhamnosus (Culturelle) 1 cap BID PO Last administered on at 20:37; Start 05/01/18 at 21:00 Sodium Chloride 1,000 ml @ 100 mls/hr Q10H IV Last administered on 05/06/18at 20:47; Start 05/01/18 at 11:45 Insulin Human Lispro (HumaLOG) 15 units 1X ONCE SQ Last administered on at 14:56; Start 05/01/18 at 12:30; Stop 05/01/18 at 12:31; Status DC Insulin Human Lispro (HumaLOG) 0-9 UNITS TIDWMEALS SQ ; Start 05/01/18 at 17:00 ; Stop 05/02/18 at 08:50; Status DC Metoprolol Tartrate (Lopressor Vial) 5 mg 1X ONCE IVP Last administered on at 16:21; Start 05/01/18 at 16:15; Stop 05/01/18 at 16:18; Status DC Insulin Human Lispro (HumaLOG) 20 units 1X ONCE SQ Last administered on at 16:58; Start 05/01/18 at 17:00; Stop 05/01/18 at 17:01; Status DC Insulin Human Lispro (HumaLOG) 0-9 UNITS TIDWMEALS SQ Last administered on 05/06at 12:39; Start 05/02/18 at 12:00 Dextrose (Dextrose 50%-Water Syringe) 12.5 gm PRN Q15MIN PRN IV SEE COMMENTS; Start 05/02/18 at 09:00 Tramadol HCl (Ultram) 50 mg PRN Q6HRS PRN PO MODERATE PAIN; Start 05/02/18 at 09:00 Zolpidem Tartrate (Ambien) 5 mg PRN QHS PRN PO INSOMNIA; Start 05/02/18 at 09: 00 Amlodipine Besylate (Norvasc) 10 mg DAILY PO Last administered on 05/06/18at 09: 20; Start 05/02/18 at 09:00 Atorvastatin Calcium (Lipitor) 20 mg HS PO Last administered on 05/06/18at 20:38 ; Start 05/02/18 at 21:00 Carvedilol (Coreg) 12.5 mg BIDWMEALS PO Last administered on 05/06/18at 17:03; Start 05/02/18 at 09:00 Insulin Glargine (Lantus) 25 units QHS SQ Last administered on 05/02/18at 21:27 ; Start 05/02/18 at 21:00; Stop 05/03/18 at 10:51; Status DC Insulin Human Lispro (HumaLOG) 8 units TIDWMEALS SQ Last administered on at 09:52; Start 05/02/18 at 12:00; Stop 05/03/18 at 10:51; Status DC Pregabalin (Lyrica) 75 mg TID PO Last administered on 05/06/18at 20:38; Start at 09:00 Non-Formulary Medication (Dulaglutide (Trulicity)) 1.5 mg WEEKLY SQ ; Start at 09:00; Stop 05/04/18 at 07:35; Status DC Ondansetron HCl (Zofran Odt) 4 mg PRN Q8HRS PRN PO NAUSEA/VOMITING; Start 05/02 at 09:00 Labetalol HCl (Normodyne Iv Push) 10 mg PRN Q2HR PRN IVP HYPERTENSION, SEE COMMENTS; Start 05/02/18 at 09:00 Dicyclomine HCl (Bentyl) 10 mg TID PO Last administered on 05/06/18at 20:37; Start 05/02/18 at 14:00 Dicyclomine HCl (Bentyl) 10 mg 1X ONCE PO Last administered on 05/02/18 12:48 ; Start 05/02/18 at 11:30; Stop 05/02/18 at 11:31; Status DC Calcium Carbonate/ Glycine (Tums) 500 mg PRN AFTMEALHC PRN PO INDIGESTION; Start 05/02/18 at 11:30 Loperamide HCl (Imodium) 2 mg PRN Q15MIN PRN PO DIARRHEA Last administered on at 21:14; Start 05/02/18 at 11:30; Stop 05/04/18 at 08:20; Status DC Acetaminophen (Tylenol) 500 mg PRN Q6HRS PRN PO MILD PAIN / TEMP Last administered on 05/06/18at 20:46; Start 05/03/18 at 09:00 Simethicone (Gas-X) 80 mg PRN AFTMEALHC PRN PO GAS / BLOATING Last administered on 05/06/18at 10:55; Start 05/03/18 at 09:45 Insulin Glargine (Lantus) 35 units QHS SQ ; Start 05/03/18 at 21:00 Insulin Human Lispro (HumaLOG) 12 units TIDWMEALS SQ Last administered on at 12:40; Start 05/03/18 at 12:00 Psyllium Hydrophilic Mucilloid (Metamucil Fiber Packet) 1 pkt DAILY PO Last administered on 05/06/18at 09:19; Start 05/05/18 at 11:30 Iohexol (Omnipaque 240 Mg/ml) 30 ml 1X ONCE PO Last administered on 05/06/18at 11:15; Start 05/06/18 at 11:15; Stop 05/06/18 at 11:16; Status DC Info (CONTRAST GIVEN -- Rx MONITORING) 1 each PRN DAILY PRN MC SEE COMMENTS; Start 05/06/18 at 11:30; Stop 05/08/18 at 11:29 Active Scripts Active Humalog (Insulin Lispro) 100 Unit/1 Ml Insuln.pen 8 Units SQ TIDWMEALS 14 Days Lantus Solostar (Insulin Glargine,Hum.rec.anlog) 100 Unit/1 Ml Insuln.pen 25 Units SQ QHS 14 Days Tramadol Hcl 50 Mg Tablet 50 Mg PO PRN Q6HRS PRN Amlodipine Besylate 10 Mg Tablet 10 Mg PO DAILY 30 Days Carvedilol (Carvedilol) 12.5 Mg Tablet 12.5 Mg PO BIDWMEALS 30 Days Zofran (Ondansetron Hcl) 4 Mg Tablet 1 Tab PO PRN Q8HRS PRN Reported Losartan-Hctz 50-12.5 Mg Tab (Losartan/Hydrochlorothiazide) 1 Each Tablet 1 Each PO DAILY Lyrica (Pregabalin) 75 Mg Capsule 75 Mg PO TID Atorvastatin Calcium 20 Mg Tablet 20 Mg PO HS Amlodipine Besylate 10 Mg Tablet 20 Mg PO BID Trulicity (Dulaglutide) 1.5 Mg/0.5 Ml Pen.injctr 1.5 Mg SQ WEEKLY Metformin Hcl 1,000 Mg Tablet 1,000 Mg PO BIDWMEALS Vitals/I & O Vital Sign - Last 24 Hours 05/06/18 05/06/18 05/06/18 05/06/18 09:20 09:20 10:28 15:03 Temp 98.3 98.1 98.3 98.1 Pulse 85 85 83 84 Resp 18 17 B/P (MAP) 142/77 142/77 124/68 (86) 132/73 (92) Pulse Ox 95 95 O2 Delivery Room Air Room Air 05/06/18 05/06/18 05/06/18 05/06/18 17:03 19:51 20:00 23:17 Temp 101.3 99.7 101.3 99.7 Pulse 84 84 87 Resp 18 18 B/P (MAP) 132/73 145/78 (100) 132/65 (87) Pulse Ox 94 96 O2 Delivery Room Air Room Air Room Air 05/07/18 05/07/18 03:37 06:55 Temp 99.0 98.0 99.0 98.0 Pulse 78 95 Resp 18 18 B/P (MAP) 145/77 (99) 161/76 (104) Pulse Ox 97 95 O2 Delivery Room Air Room Air Intake and Output 05/06/18 05/06/18 05/07/18 14:59 22:59 06:59 Intake Total 500 ml 600 ml 510 ml Output Total 300 ml Balance 500 ml 600 ml 210 ml KENJI NOWAK MD May 07, 2018 08:02
[2018-05-07] MEDS: PSYLLIUM HUSK (SUGAR FREE) 1 PKT PACKET PO SCH (09:13)
[2018-05-07] MEDS: PREGABALIN 75 MG CAPSULE PO SCH ×3 (09:13→20:20)
[2018-05-07] MEDS: LACTOBACILLUS RHAMNOSUS GG 1 CAPSULE. PO SCH ×2 (09:13→20:21)
[2018-05-07] MEDS: DICYCLOMINE HCL 10 MG CAPSULE PO SCH ×3 (09:13→20:21)
[2018-05-07] MEDS: CARVEDILOL 12.5 MG TABLET. PO SCH ×2 (09:14→17:54)
[2018-05-07] MEDS: amLODIPine BESYLATE 10 MG TABLET PO SCH (09:14)
[2018-05-07] MEDS: IV NORMAL SALINE 1000ML BAG 1,000 ML IV SCH ×3 (09:24→20:22)
[2018-05-07] MEDS: INSULIN LISPRO 300 UNITS/3 ML INSULN.PEN. SQ SCH ×6 (09:27→17:53)
[2018-05-07] MEDS: SIMETHICONE 80 MG TAB.CHEW PO PRN (09:31)
[2018-05-07] MEDS: MEROPENEM 1 GM in IV NORMAL SALINE 100ML 100 ML IV SCH ×2 (09:31→20:24)
[2018-05-07] MEDS: INSULIN GLARGINE 300 UNITS/3 ML INSULN.PEN. SQ SCH ×2 (09:44→21:56)
--- NOTE | 2018-05-07 10:41 | PDOC ---
Infectious Disease Note Subjective Subjective Feeling better still occ fever + BM Less bloated Still some R CVA tenderness Vital Sign Vital Signs Vital Signs Date Time Temp Pulse Resp B/P (MAP) Pulse Ox O2 Delivery O2 Flow Rate FiO2 05/07/18 09:14 95 161/76 05/07/18 06:55 98.0 18 95 Room Air 98.0 Physical Exam PHYSICAL EXAM GENERAL: In chair, alert, NAD HEENT: Oral cavity, pharynx clear. NECK: Supple. LUNGS: Clear bilaterally. No wheezing. HEART: S1, S2. ABDOMEN: Soft, obese. Bowel sounds present, nontender, Mild distended : mild R CVA tenderness EXTREMITIES: BLE 1+ edema. no cyanosis FRINGE MAKER: Alert and oriented x 3. Grossly nonfocal. SKIN: Warm, dry, no generalized rash. PIV LUE ok Labs Lab Laboratory Tests Test 05/06/18 11:56 05/06/18 16:43 05/06/18 20:40 05/07/18 05:40 Glucose (Fingerstick) 196 mg/dL (70-99) 87 mg/dL (70-99) 137 mg/dL (70-99) White Blood Count 14.8 x10^3/uL (4.0-11.0) Red Blood Count 4.19 x10^6/uL (4.30-5.70) Hemoglobin 11.6 g/dL (13.0-17.5) Hematocrit 34.5 % (39.0-53.0) Mean Corpuscular Volume 82 fL (79-100) Mean Corpuscular Hemoglobin 28 pg (25-35) Mean Corpuscular Hemoglobin Concent 34 g/dL (31-37) Red Cell Distribution Width 15.0 % (11.5-14.5) Platelet Count 287 x10^3/uL (140-400) Neutrophils (%) (Auto) 83 % (31-73) Lymphocytes (%) (Auto) 10 % (24-48) Monocytes (%) (Auto) 5 % (0-9) Eosinophils (%) (Auto) 2 % (0-3) Basophils (%) (Auto) 0 % (0-3) Neutrophils # (Auto) 12.2 x10^3uL (1.8-7.7) Lymphocytes # (Auto) 1.5 x10^3/uL (1.0-4.8) Monocytes # (Auto) 0.7 x10^3/uL (0.0-1.1) Eosinophils # (Auto) 0.3 x10^3/uL (0.0-0.7) Basophils # (Auto) 0.0 x10^3/uL (0.0-0.2) Sodium Level 137 mmol/L (136-145) Potassium Level 4.6 mmol/L (3.5-5.1) Chloride Level 101 mmol/L (98-107) Carbon Dioxide Level 28 mmol/L (21-32) Anion Gap 8 (6-14) Blood Urea Nitrogen 25 mg/dL (8-26) Creatinine 1.5 mg/dL (0.7-1.3) Estimated GFR (Cockcroft-Gault) 50.2 BUN/Creatinine Ratio 17 (6-20) Glucose Level 127 mg/dL (70-99) Calcium Level 8.6 mg/dL (8.5-10.1) Total Bilirubin 0.7 mg/dL (0.2-1.0) Aspartate Amino Transf (AST/SGOT) 18 U/L (15-37) Alanine Aminotransferase (ALT/SGPT) 15 U/L (16-63) Alkaline Phosphatase 86 U/L (46-116) Total Protein 7.1 g/dL (6.4-8.2) Albumin 2.0 g/dL (3.4-5.0) Albumin/Globulin Ratio 0.4 (1.0-1.7) Test 05/07/18 07:31 Glucose (Fingerstick) 128 mg/dL (70-99) Micro CT 05/06 IMPRESSION: 1. Mild streaky perinephric edema, right greater than left, has worsened slightly compatible with nonspecific inflammation or infection. 2. Mild diffuse bladder wall thickening raising the possibility of cystitis. 3. Mild anasarca.Blood 04/30 BLOOD CULTURE LC Final Final report BLD CULT RESULT 1 Final Escherichia coli Multi-Drug Resistant Organism Susceptibility profile is consistent with a probable ESBL. Recovered from aerobic and anaerobic bottles. ANTIMICROBIAL SUSCEPTIBILITY Final Comment S = Susceptible; I = Intermediate; R = Resistant P = Positive; N = Negative MICS are expressed in micrograms per mL Antibiotic RSLT#1 RSLT#2 RSLT#3 RSLT#4 Amoxicillin/Clavulanic Acid I =16 Ampicillin R>=32 Cefazolin R>=64 Cefepime R =16 Ceftriaxone R>=64 Cefuroxime R>=64 Ciprofloxacin R>=4 Ertapenem S<=0.12 Gentamicin R>=16 Imipenem S<=0.25 Levofloxacin R>=8 Meropenem S<=0.25 Nitrofurantoin S<=16 Piperacillin/Tazobactam S<=4 Tetracycline R>=16 Tobramycin R>=16 Trimethoprim/Sulfa R>=320 Microbiology 04/30/18 Blood Culture - Preliminary, Resulted 04/30/18 Blood Culture Result 1 (HAZEL) - Preliminary, Resulted 04/30/18 Urine Culture - Final, Complete 04/30/18 Urine Culture Result 1 (HAZEL) - Final, Complete Objective Assessment MDR Ecoli sepsis, POA 04/30 probable ESBL on appropriate abx Fever - persist c/w pyelo Leukocytosis - stablizing UTI - POA Probable Pyleonephritis Fever - curve is improving Abd distension - C-diff is neg Nausea, vomiting - better. History of Escherichia coli sepsis with urinary tract infection in December 2017 with multidrug resistance. Acute kidney injury - better Diabetes mellitus with hyperosmolar hyperglycemia. Thrombocytopenia - better. Hyponatremia. Lactic acidosis in the setting of increased creatinine. Diarrhea, c. diff neg 04/30. Plan Plan of Care Cont Merrem PICC line Repeat CT abd/pel with oral contrast reviewed with Nursing 05/06 ([facility]) - may need Urology eval D/c Loperamide given abd distension and C-diff order. F/u distension 05/04 Cont Probiotics Monitor labs in am if WBC cont to increase may need additional imaging cont supportive care D/w Dr. Torres D/w Soc [facility] TIP ZAPATA MD May 07, 2018 10:41
[2018-05-07 11:03] VITALS: BP 125/70
--- NOTE | 2018-05-07 11:26 | NUR ---
SW following. Spoke with ID and pt will need IV Invanz 1gm daily upon dc. DIMPLE phoned Arden Shaver at Pharmacy and discussed IV abx needs. Arden will notify DIMPLE if pt qualifies for any programs or next steps. Discussed with CM [employer]. Pt is getting a PICC line today. Will continue to follow. 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 Pt has only worked 2 weeks in the last three months. DIMPLE provided this info to Arden Shaver at Pharmacy. Will continue to follow.
[2018-05-07] MEDS ORDERED: LIDOCAINE WITH 8.4% SOD BICARB 3 ML DISP.SYRIN. ONE (13:13)
[2018-05-07] MEDS ORDERED: LIDOCAINE WITH 8.4% SOD BICARB 3 ML DISP.SYRIN. INJ ONE ×2 (13:15→14:00)
--- NOTE | 2018-05-07 13:17 | PDOC2 ---
GRETA MCDANIEL Tramaine DAT INSTRUCTOR 05/07/18 1317: UROLOGY CONSULT Date of Consult Date of Consult DATE: 05/07/18 TIME: 13:12 Reason for Consult Reason for Consult: Thickening on CT scan, pyelonephritis. Identification/Chief Complaint Chief Complaint Bladder thickening on CT scan, pyelonephritis Source Source: Caregiver, Chart review, Patient History of Present Illness Reason for Visit: Patient is a 47 year old male who presented through the ER with back pain abdominal pain nausea vomiting on 04/30. He has been hospitalized since then. He admits to LUTS only when he has an infection, and this is the second time he has had a UTI with pyelonephritis. The last time he had this was in December of 2017 and he was admitted then in a similar way for treatment. He had his prostate checked last year by his PCP and it was WNL; he is not sure if he had a PSA lab drawn at that time or not. He denies current dysuria, hematuria or difficulty emptying his bladder. Past Medical History Cardiovascular: HTN Pulmonary: No pertinent hx GI: No pertinent hx Heme/Onc: No pertinent hx Hepatobiliary: No pertinent hx Psych: No pertinent hx Infectious disease: No pertinent hx, Other (BACTEREMIA 2018) Renal/: Chronic renal insuff Endocrine: Diabetes Past Surgical History Past Surgical History: No pertinent history Family History Family History: Diabetes Social History Social History: Parent No ALCOHOL: none Drugs: None, Other (DISABLED) Allergies Allergies: Coded Allergies: I S O L A T I O N *CONTACT* (Verified Allergy, Unknown, 05/06/18) ESBL acetaminophen (Verified Adverse Reaction, Intermediate, UPSET STOMACH, DOESN'T WANT TO TAKE, 04/30/18) lisinopril (Verified Adverse Reaction, Intermediate, CHEST PAIN, ACID REFLUX, 04/30/18) ROS Review Of Systems: CONSTITUTIONAL: No fever or chills EYES: No recent changes SKIN: No rash or itching CARDIOVASCULAR: No chest pain, syncope, palpitations, or edema RESPIRATORY: No SOB or cough GASTROINTESTINAL: No nausea, vomiting or abdominal pain NEUROLOGICAL: No headaches or weakness ENDOCRINE: No cold or heat intolerance GENITOURINARY: + UTI, no hematuria MUSCULOSKELETAL: No back pain or joint pain LYMPHATICS: No enlarged lymph nodes PSYCHIATRIC: No anxiety or depression Physical Exam Physical Exam: General: Pleasant, no acute distress, well groomed Eyes: conjunctiva anicteric, eyes full range of motion ENT: moist oral mucosa, normal dentition Neck: Trachea midline, no masses Respiratory: unlabored breathing, not using accessory muscles, Abdomen: nontender, distended, obese. : Circ phallus. PVR is 14 via bladder scan Skin: no rashes or skin lesions on visualized skin Psych: normal mood, affect. Alert and oriented x 3. Vitals VITALS Vital Signs Date Time Temp Pulse Resp B/P (MAP) Pulse Ox O2 Delivery O2 Flow Rate FiO2 05/07/18 11:03 98.5 89 18 125/70 (88) 97 Room Air 98.5 Labs Labs Laboratory Tests Test 05/05/18 17:26 05/05/18 20:55 05/06/18 07:41 05/06/18 07:45 Glucose (Fingerstick) 166 mg/dL (70-99) 148 mg/dL (70-99) 165 mg/dL (70-99) White Blood Count 14.2 x10^3/uL (4.0-11.0) Red Blood Count 4.37 x10^6/uL (4.30-5.70) Hemoglobin 11.5 g/dL (13.0-17.5) Hematocrit 35.8 % (39.0-53.0) Mean Corpuscular Volume 82 fL (79-100) Mean Corpuscular Hemoglobin 26 pg (25-35) Mean Corpuscular Hemoglobin Concent 32 g/dL (31-37) Red Cell Distribution Width 15.4 % (11.5-14.5) Platelet Count 288 x10^3/uL (140-400) Neutrophils (%) (Auto) 81 % (31-73) Lymphocytes (%) (Auto) 11 % (24-48) Monocytes (%) (Auto) 6 % (0-9) Eosinophils (%) (Auto) 1 % (0-3) Basophils (%) (Auto) 1 % (0-3) Neutrophils # (Auto) 11.5 x10^3uL (1.8-7.7) Lymphocytes # (Auto) 1.6 x10^3/uL (1.0-4.8) Monocytes # (Auto) 0.8 x10^3/uL (0.0-1.1) Eosinophils # (Auto) 0.2 x10^3/uL (0.0-0.7) Basophils # (Auto) 0.1 x10^3/uL (0.0-0.2) Sodium Level 135 mmol/L (136-145) Potassium Level 4.0 mmol/L (3.5-5.1) Chloride Level 99 mmol/L (98-107) Carbon Dioxide Level 27 mmol/L (21-32) Anion Gap 9 (6-14) Blood Urea Nitrogen 29 mg/dL (8-26) Creatinine 1.9 mg/dL (0.7-1.3) Estimated GFR (Cockcroft-Gault) 38.2 BUN/Creatinine Ratio 15 (6-20) Glucose Level 173 mg/dL (70-99) Calcium Level 8.6 mg/dL (8.5-10.1) Total Bilirubin 0.7 mg/dL (0.2-1.0) Aspartate Amino Transf (AST/SGOT) 22 U/L (15-37) Alanine Aminotransferase (ALT/SGPT) 17 U/L (16-63) Alkaline Phosphatase 85 U/L (46-116) Total Protein 7.2 g/dL (6.4-8.2) Albumin 2.1 g/dL (3.4-5.0) Albumin/Globulin Ratio 0.4 (1.0-1.7) Test 05/06/18 11:56 05/06/18 16:43 05/06/18 20:40 05/07/18 05:40 Glucose (Fingerstick) 196 mg/dL (70-99) 87 mg/dL (70-99) 137 mg/dL (70-99) White Blood Count 14.8 x10^3/uL (4.0-11.0) Red Blood Count 4.19 x10^6/uL (4.30-5.70) Hemoglobin 11.6 g/dL (13.0-17.5) Hematocrit 34.5 % (39.0-53.0) Mean Corpuscular Volume 82 fL (79-100) Mean Corpuscular Hemoglobin 28 pg (25-35) Mean Corpuscular Hemoglobin Concent 34 g/dL (31-37) Red Cell Distribution Width 15.0 % (11.5-14.5) Platelet Count 287 x10^3/uL (140-400) Neutrophils (%) (Auto) 83 % (31-73) Lymphocytes (%) (Auto) 10 % (24-48) Monocytes (%) (Auto) 5 % (0-9) Eosinophils (%) (Auto) 2 % (0-3) Basophils (%) (Auto) 0 % (0-3) Neutrophils # (Auto) 12.2 x10^3uL (1.8-7.7) Lymphocytes # (Auto) 1.5 x10^3/uL (1.0-4.8) Monocytes # (Auto) 0.7 x10^3/uL (0.0-1.1) Eosinophils # (Auto) 0.3 x10^3/uL (0.0-0.7) Basophils # (Auto) 0.0 x10^3/uL (0.0-0.2) Sodium Level 137 mmol/L (136-145) Potassium Level 4.6 mmol/L (3.5-5.1) Chloride Level 101 mmol/L (98-107) Carbon Dioxide Level 28 mmol/L (21-32) Anion Gap 8 (6-14) Blood Urea Nitrogen 25 mg/dL (8-26) Creatinine 1.5 mg/dL (0.7-1.3) Estimated GFR (Cockcroft-Gault) 50.2 BUN/Creatinine Ratio 17 (6-20) Glucose Level 127 mg/dL (70-99) Calcium Level 8.6 mg/dL (8.5-10.1) Total Bilirubin 0.7 mg/dL (0.2-1.0) Aspartate Amino Transf (AST/SGOT) 18 U/L (15-37) Alanine Aminotransferase (ALT/SGPT) 15 U/L (16-63) Alkaline Phosphatase 86 U/L (46-116) Total Protein 7.1 g/dL (6.4-8.2) Albumin 2.0 g/dL (3.4-5.0) Albumin/Globulin Ratio 0.4 (1.0-1.7) Test 05/07/18 07:31 Glucose (Fingerstick) 128 mg/dL (70-99) Laboratory Tests Test 05/06/18 16:43 05/06/18 20:40 05/07/18 05:40 05/07/18 07:31 Glucose (Fingerstick) 87 mg/dL (70-99) 137 mg/dL (70-99) 128 mg/dL (70-99) White Blood Count 14.8 x10^3/uL (4.0-11.0) Red Blood Count 4.19 x10^6/uL (4.30-5.70) Hemoglobin 11.6 g/dL (13.0-17.5) Hematocrit 34.5 % (39.0-53.0) Mean Corpuscular Volume 82 fL (79-100) Mean Corpuscular Hemoglobin 28 pg (25-35) Mean Corpuscular Hemoglobin Concent 34 g/dL (31-37) Red Cell Distribution Width 15.0 % (11.5-14.5) Platelet Count 287 x10^3/uL (140-400) Neutrophils (%) (Auto) 83 % (31-73) Lymphocytes (%) (Auto) 10 % (24-48) Monocytes (%) (Auto) 5 % (0-9) Eosinophils (%) (Auto) 2 % (0-3) Basophils (%) (Auto) 0 % (0-3) Neutrophils # (Auto) 12.2 x10^3uL (1.8-7.7) Lymphocytes # (Auto) 1.5 x10^3/uL (1.0-4.8) Monocytes # (Auto) 0.7 x10^3/uL (0.0-1.1) Eosinophils # (Auto) 0.3 x10^3/uL (0.0-0.7) Basophils # (Auto) 0.0 x10^3/uL (0.0-0.2) Sodium Level 137 mmol/L (136-145) Potassium Level 4.6 mmol/L (3.5-5.1) Chloride Level 101 mmol/L (98-107) Carbon Dioxide Level 28 mmol/L (21-32) Anion Gap 8 (6-14) Blood Urea Nitrogen 25 mg/dL (8-26) Creatinine 1.5 mg/dL (0.7-1.3) Estimated GFR (Cockcroft-Gault) 50.2 BUN/Creatinine Ratio 17 (6-20) Glucose Level 127 mg/dL (70-99) Calcium Level 8.6 mg/dL (8.5-10.1) Total Bilirubin 0.7 mg/dL (0.2-1.0) Aspartate Amino Transf (AST/SGOT) 18 U/L (15-37) Alanine Aminotransferase (ALT/SGPT) 15 U/L (16-63) Alkaline Phosphatase 86 U/L (46-116) Total Protein 7.1 g/dL (6.4-8.2) Albumin 2.0 g/dL (3.4-5.0) Albumin/Globulin Ratio 0.4 (1.0-1.7) Images Images CT ABD/PELVIS IMPRESSION: 1. Mild streaky perinephric edema, right greater than left, has worsened slightly compatible with nonspecific inflammation or infection. 2. Mild diffuse bladder wall thickening raising the possibility of cystitis. 3. Mild anasarca. Assessment/Plan Assessment/Plan Bladder scan PVR is 14= no retention + hematuria on UA on admission. Will repeat today. 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 Washington for hematuria BELKIS WASHINGTON MD 05/07/18 1430: UROLOGY CONSULT Assessment/Plan Assessment/Plan Patient seen and examined. CT, labs from this admission and from 2017 reviewed. Do not see a treatable urologic cause for his recurrent bacteremia. Interestingly, his urine culture on admission was negative. Glucose on admission was over 500, I suspect that this is his biggest risk factor for developing infection. Recommend followup in urology clinic for diagnostic cystoscopy, however do not have much expectation that this will show abnormality based on his imaging and general lack of urinary symptoms.\ Consider prophylactic macrodantin long-term - will defer to ID. GRETA MCDANIEL APRN May 07, 2018 13:17 BELKIS WASHINGTON MD May 07, 2018 14:30
--- NOTE | 2018-05-07 13:27 | PDOC ---
SUBJECTIVE ROS Stable, OBJECTIVE Vital Signs Vital Signs Date Time Temp Pulse Resp B/P (MAP) Pulse Ox O2 Delivery O2 Flow Rate FiO2 05/07/18 11:03 98.5 89 18 125/70 (88) 97 Room Air 98.5 I & 0 Intake and Output 05/07/18 07:00 Intake Total 1610 ml Output Total 300 ml Balance 1310 ml Intake Oral 1610 ml Output Urine Total 300 ml # Voids 5 # Bowel Movements 2 PHYSICAL EXAM Physical Exam GENERAL: NAD HEENT: OM moist NECK: Supple. LUNGS: Clear bilaterally. No wheezing. HEART: S1, S2. ABDOMEN: Soft, obese. : R CVA tenderness improved , No Amaro EXTREMITIES: BLE 1+ edema. FHA UNDERWRITER: Alert and oriented x 3. SKIN: no rash. DIAGNOSIS/ASSESSMENT Assessment & Plan YOEL - Improved, Due to Dehydration /ATN Losartan , HCTZ and Metformin Held CKD stage 3 - Baseline Cr 1.2 As per Pt was started on Losartan by PCP mid 2017 Hospitalized in Dec 2017- YOEL - post dc dose was decreased to 50 mg QD DM II HTN- Continue antihypertensives GNR sepsis-? UTI /?Pyelo on CT 04/30 Nausea, vomiting resolved Repeat Ct reviewed, Urology consulted Ct scan abdomen(Repeat) 04/05 -- 1. Mild streaky perinephric edema, right greater than left, has worsened slightly compatible with nonspecific inflammation or infection. 2. Mild diffuse bladder wall thickening raising the possibility of cystitis. 3. Mild anasarca. COMMENT/RELEVANT DATA Meds Current Medications Medications (Trade) Dose Ordered Sig/Felisha Start Time Stop Time Status Last Admin Dose Admin Acetaminophen (Tylenol) 500 mg PRN Q6HRS PRN 05/03/18 09:00 05/06/18 20:46 500 MG Amlodipine Besylate (Norvasc) 10 mg DAILY 05/02/18 09:00 05/07/18 09:14 10 MG Atorvastatin Calcium (Lipitor) 20 mg HS 05/02/18 21:00 05/06/18 20:38 20 MG Calcium Carbonate/ Glycine (Tums) 500 mg PRN AFTMEALHC PRN 05/02/18 11:30 Carvedilol (Coreg) 12.5 mg BIDWMEALS 05/02/18 09:00 05/07/18 09:14 12.5 MG Dextrose (Dextrose 50%-Water Syringe) 12.5 gm PRN Q15MIN PRN 05/02/18 09:00 Dicyclomine HCl (Bentyl) 10 mg 1X ONCE 05/02/18 11:30 05/02/18 11:31 DC 05/02/18 12:48 10 MG Dobutamine HCl/ Dextrose 250 ml @ 0 mls/hr CONT PRN 04/30/18 15:15 05/02/18 08:49 DC Ertapenem 50 ml @ 100 mls/hr 1X STAT 04/30/18 09:34 04/30/18 10:03 DC 04/30/18 10:00 100 MLS/HR Fentanyl Citrate (Fentanyl 2ml Vial) 50 mcg PRN Q3HRS PRN 04/30/18 17:00 05/06/18 00:31 50 MCG Heparin Sodium (Porcine) (Heparin Sodium) 5,000 unit Q8HRS 04/30/18 22:00 05/03/18 10:51 DC 05/03/18 06:03 5,000 UNIT Ibuprofen (Motrin) 200 mg PRN Q6HRS PRN 04/30/18 20:45 05/01/18 11:54 DC 04/30/18 21:14 200 MG Info (CONTRAST GIVEN -- Rx MONITORING) 1 each PRN DAILY PRN 05/06/18 11:30 05/08/18 11:29 Insulin Glargine (Lantus) 35 units QHS 05/03/18 21:00 Insulin Human Lispro (HumaLOG) 12 units TIDWMEALS 05/03/18 12:00 05/07/18 09:45 12 UNITS Insulin Human Regular 150 ml @ 0 mls/hr 1X ONCE 04/30/18 12:00 04/30/18 12:01 DC 04/30/18 12:48 9.3 MLS/HR Insulin Human Regular (HumuLIN R VIAL) 10 unit 1X ONCE 04/30/18 10:30 04/30/18 10:31 DC 04/30/18 10:33 10 UNIT Iohexol (Omnipaque 240 Mg/ml) 30 ml 1X ONCE 05/06/18 11:15 05/06/18 11:16 DC 05/06/18 11:15 30 ML Labetalol HCl (Normodyne Iv Push) 10 mg PRN Q2HR PRN 05/02/18 09:00 Lactobacillus Rhamnosus (Culturelle) 1 cap BID 05/01/18 21:00 05/07/18 09:13 1 CAP Lidocaine/Sodium Bicarbonate (Buffered Lidocaine 1%) 3 ml 1X ONCE 05/07/18 13:15 05/07/18 13:16 DC Loperamide HCl (Imodium) 2 mg PRN Q15MIN PRN 05/02/18 11:30 05/04/18 08:20 DC 05/02/18 21:14 2 MG Meropenem 1 gm/ Sodium Chloride 100 ml @ 200 mls/hr Q12HR 05/01/18 18:00 05/07/18 09:31 200 MLS/HR Meropenem 500 mg/ Sodium Chloride 50 ml @ 100 mls/hr Q12HR 04/30/18 21:00 05/01/18 10:32 DC 05/01/18 08:58 100 MLS/HR Metoclopramide HCl (Reglan Vial) 10 mg 1X ONCE 04/30/18 12:00 04/30/18 12:01 DC 04/30/18 12:08 10 MG Metoprolol Tartrate (Lopressor Vial) 5 mg 1X ONCE 05/01/18 16:15 05/01/18 16:18 DC 05/01/18 16:21 5 MG Non-Formulary Medication (Dulaglutide (Trulicity)) 1.5 mg WEEKLY 05/02/18 09:00 05/04/18 07:35 DC Norepinephrine Bitartrate 250 ml @ 0 mls/hr CONT PRN 04/30/18 15:15 05/02/18 08:49 DC Ondansetron HCl (Zofran Odt) 4 mg PRN Q8HRS PRN 05/02/18 09:00 Ondansetron HCl (Zofran) 4 mg PRN Q6HRS PRN 04/30/18 19:30 05/02/18 05:17 4 MG Pregabalin (Lyrica) 75 mg TID 05/02/18 09:00 05/07/18 09:13 75 MG Psyllium Hydrophilic Mucilloid (Metamucil Fiber Packet) 1 pkt DAILY 05/05/18 11:30 05/07/18 09:13 1 PKT Simethicone (Gas-X) 80 mg PRN AFTMEALHC PRN 05/03/18 09:45 05/07/18 09:31 80 MG Sodium Chloride 1,000 ml @ 100 mls/hr Q10H 05/01/18 11:45 05/07/18 09:24 100 MLS/HR Tramadol HCl (Ultram) 50 mg PRN Q6HRS PRN 05/02/18 09:00 Zolpidem Tartrate (Ambien) 5 mg PRN QHS PRN 05/02/18 09:00 Lab Laboratory Tests Test 05/06/18 16:43 05/06/18 20:40 05/07/18 05:40 05/07/18 07:31 Glucose (Fingerstick) 87 mg/dL (70-99) 137 mg/dL (70-99) 128 mg/dL (70-99) White Blood Count 14.8 x10^3/uL (4.0-11.0) Red Blood Count 4.19 x10^6/uL (4.30-5.70) Hemoglobin 11.6 g/dL (13.0-17.5) Hematocrit 34.5 % (39.0-53.0) Mean Corpuscular Volume 82 fL (79-100) Mean Corpuscular Hemoglobin 28 pg (25-35) Mean Corpuscular Hemoglobin Concent 34 g/dL (31-37) Red Cell Distribution Width 15.0 % (11.5-14.5) Platelet Count 287 x10^3/uL (140-400) Neutrophils (%) (Auto) 83 % (31-73) Lymphocytes (%) (Auto) 10 % (24-48) Monocytes (%) (Auto) 5 % (0-9) Eosinophils (%) (Auto) 2 % (0-3) Basophils (%) (Auto) 0 % (0-3) Neutrophils # (Auto) 12.2 x10^3uL (1.8-7.7) Lymphocytes # (Auto) 1.5 x10^3/uL (1.0-4.8) Monocytes # (Auto) 0.7 x10^3/uL (0.0-1.1) Eosinophils # (Auto) 0.3 x10^3/uL (0.0-0.7) Basophils # (Auto) 0.0 x10^3/uL (0.0-0.2) Sodium Level 137 mmol/L (136-145) Potassium Level 4.6 mmol/L (3.5-5.1) Chloride Level 101 mmol/L (98-107) Carbon Dioxide Level 28 mmol/L (21-32) Anion Gap 8 (6-14) Blood Urea Nitrogen 25 mg/dL (8-26) Creatinine 1.5 mg/dL (0.7-1.3) Estimated GFR (Cockcroft-Gault) 50.2 BUN/Creatinine Ratio 17 (6-20) Glucose Level 127 mg/dL (70-99) Calcium Level 8.6 mg/dL (8.5-10.1) Total Bilirubin 0.7 mg/dL (0.2-1.0) Aspartate Amino Transf (AST/SGOT) 18 U/L (15-37) Alanine Aminotransferase (ALT/SGPT) 15 U/L (16-63) Alkaline Phosphatase 86 U/L (46-116) Total Protein 7.1 g/dL (6.4-8.2) Albumin 2.0 g/dL (3.4-5.0) Albumin/Globulin Ratio 0.4 (1.0-1.7) Results All relevant outside records, renal labs, imaging studies, telemetry/EKG's were reviewed. JERRY WEN MD May 07, 2018 13:27
[2018-05-07 15:16] VITALS: BP 129/71
--- NOTE | 2018-05-07 16:17 | RAD ---
Procedure: Upper extremity PICC line placement Clinical Indication: 47-year-old requiring central venous access Sedation: Local anesthesia only was provided Antibiotics: None Fluoro Time: 0.6 minutes. Images: 1 Contrast: None Sterility: All elements of maximal sterile barrier technique including the use of a cap, mask, sterile gown, sterile gloves, large sterile sheet, appropriate hand hygiene, and 2% chlorhexidine for cutaneous antisepsis (or acceptable alternative antiseptic per current guidelines) were followed for this procedure. Consent: The procedure was explained in its entirety to the patient or the patients designated hobbies and crafts sales representative by a member of the treatment team, including a discussion of the risks, benefits and commonly accepted alternatives to the procedure, as well as the expected consequences of no therapy whatsoever. Discussion of the risks included, but was not limited to, those that are most frequent and those that are rare but possibly severe or life-threatening, as well as the possibility of unforeseen complications. Technique and Findings: Following informed consent, the patient was prepped and draped in the usual sterile fashion. Ultrasound interrogation of the right arm revealed patency and compressibility of the right basilic vein. A hard copy ultrasound image was recorded. 1% Lidocaine was used to achieve local anesthesia and a 21-gauge micropuncture needle was used to gain access to the targeted vein. The needle was exchanged over wire for a 5 [place] Citizen peel-away sheath which was used to deploy a PICC line under fluoroscopic guidance such that the distal tip resided at the cavoatrial junction. The catheter flushed and aspirated with ease and was sutured to the skin. Complications: No immediate Impression: 1. Ultrasound guided PICC line placement as described.
[2018-05-07 19:20] VITALS: BP 147/68
[2018-05-07] MEDS: ATORVASTATIN CALCIUM 20 MG TABLET PO SCH (20:21)
[2018-05-07 20:39] LABS: BILIRUBIN,URINE NEGATIVE (NEG); CLARITY,URINE CLEAR; COLOR,URINE YELLOW; NITRITE,URINE NEGATIVE (NEG); PH,URINE 5.5; PROTEIN,URINE NEGATIVE (NEG-TRACE); UROBILINOGEN,URINE 0.2 mg/dL (0.2 mg/dL)
[2018-05-07 20:46] LABS: BACTERIA,URINE 0 /HPF (0-FEW); RBC,URINE 0 /HPF (0-2); SQUAMOUS EPITHELIAL CELL,UR FEW /LPF
[2018-05-07] MEDS: fentaNYL PF VIAL 100 MCG/2 ML VIAL IV PRN (21:46)
[2018-05-07 23:20] VITALS: BP 146/71
[2018-05-08 03:20] VITALS: BP 154/72
[2018-05-08 06:22] LABS: ALBUMIN 1.9 g/dL (3.4-5.0); ALBUMIN/GLOBULIN RATIO 0.4 (1.0-1.7); CALCIUM 8.1 mg/dL (8.5-10.1); CREATININE 1.6 mg/dL (0.7-1.3); GFR 46.6; TOTAL BILIRUBIN 0.5 mg/dL (0.2-1.0); TOTAL PROTEIN 6.5 g/dL (6.4-8.2)
[2018-05-08] MEDS: SIMETHICONE 80 MG TAB.CHEW PO PRN (06:31)
[2018-05-08 07:00] VITALS: BP 140/81
--- NOTE | 2018-05-08 07:43 | PDOC ---
PROGRESS NOTES Chief Complaint Chief Complaint GNR sepsis, POA Neg urince cx Fevers History of Escherichia coli sepsis with urinary tract infection in December 2017 with multidrug resistance. Acute kidney injury Diabetes mellitus with hyperosmolar hyperglycemia s/p ICU - hgba1c 8 Thrombocytopenia, better/stable pseudohyponatremia Lactic acidosis in the setting of increased creatinine. Diarrhea, c. diff neg 04/30. History of Present Illness History of Present Illness Transferred out of ICU 05/01/18 for DKA and sepsis Sugars were running high 300s-status post HON K in the ICU, Hemoglobin A1c 8 Better by mouth intake today, ate his whole lunch Creatinine better 1.9 from 3, fluids running 100 mL per hour per renal Still diarrhea - C. difficile negative. WBC down today finally. CT abdomen consistent with possible cystitis and pyelonephritis worse on right. Seen by urology -- follow up appointment on with Dr. Gonzalez for cystoscopy at 0940 am. Invanz 12 days per ID with f/u week of may 18. Blood cultures with e coli ESBL. He is still having a little abdominal pain, now right CVA tenderness. No SOB or CP Plan: follow ID recommendations CT abdomen. May need a tagged WBC scan in the future. I will d/w ID I have consulted urology after d/w ID as he has concerning CT findings no pT needs Hold lisinopril HCTZ and metformin because of creatinine elevation, down to 1.5 today Imodium, Lactobacillus-C. difficile negative - will add psyllium Sliding-scale insulin-hemoglobin A1c 8 in March 2018 Supportive meds Increased Lantus from 20-35 units daily at bedtime Increase mealtime NovoLog from 8-12 3 times a day follow BC - has left peripheral line HX of PICC with 1 week course abx for MDR e coli not too long ago, December 2017 , ID will order new PICC History of Escherichia coli sepsis with urinary tract infection in December 2017 with multidrug resistance. Acute kidney injury - better Questionable urinary tract infection. UC neg - ? pyelo on CT 04/30 Diarrhea, c. diff neg 04/30. Cont Merrem 1 q 12 (05/01 did receive Invanz times one 04/30) D/c Loperamide given abd distension and C-diff order. F/u distension Cont Probiotics Monitor labs in am cont supportive care Vitals Vitals Vital Signs Date Time Temp Pulse Resp B/P (MAP) Pulse Ox O2 Delivery O2 Flow Rate FiO2 05/08/18 03:20 99.5 83 18 154/72 (99) 95 Room Air 99.5 Physical Exam Physical Exam GENERAL: In chair, alert, NAD HEENT: Oral cavity, pharynx clear. NECK: Supple. LUNGS: Clear bilaterally. No wheezing. HEART: S1, S2. ABDOMEN: Soft, obese. Bowel sounds present, nontender, Mild distended : mild R CVA tenderness EXTREMITIES: BLE 1+ edema. 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 Grossly nonfocal. SKIN: Warm, dry, no generalized rash. PIV LUE ok General: Alert, Oriented X3, Cooperative, No acute distress, mild distress Heart: Regular rate, Normal S1, Normal S2 Lungs: Clear, Other (no rhonchi) Abdomen: Normal bowel sounds, Soft, Other (FLANK PAIN ON PERCUSSION) Extremities: No clubbing Skin: No breakdown Labs LABS Laboratory Tests Test 05/07/18 11:54 05/07/18 17:07 05/07/18 20:00 05/07/18 20:53 Glucose (Fingerstick) 145 mg/dL (70-99) 110 mg/dL (70-99) 175 mg/dL (70-99) Urine Collection Type Unknown Urine Color Yellow Urine Clarity Clear Urine pH 5.5 Urine Specific Upperco 1.010 Urine Protein Negative mg/dL (NEG-TRACE) Urine Glucose (UA) Negative mg/dL (NEG) Urine Ketones (Stick) Negative mg/dL (NEG) Urine Blood Small (NEG) Urine Nitrite Negative (NEG) Urine Bilirubin Negative (NEG) Urine Urobilinogen Dipstick 0.2 mg/dL (0.2 mg/dL) Urine Leukocyte Esterase Trace (NEG) Urine RBC 0 /HPF (0-2) Urine WBC 11-20 /HPF (0-4) Urine Squamous Epithelial Cells Few /LPF Urine Bacteria 0 /HPF (0-FEW) Urine Mucus Mod /LPF Test 05/08/18 05:30 Sodium Level 135 mmol/L (136-145) Potassium Level 4.0 mmol/L (3.5-5.1) Chloride Level 101 mmol/L (98-107) Carbon Dioxide Level 27 mmol/L (21-32) Anion Gap 7 (6-14) Blood Urea Nitrogen 22 mg/dL (8-26) Creatinine 1.6 mg/dL (0.7-1.3) Estimated GFR (Cockcroft-Gault) 46.6 BUN/Creatinine Ratio 14 (6-20) Glucose Level 151 mg/dL (70-99) Calcium Level 8.1 mg/dL (8.5-10.1) Total Bilirubin 0.5 mg/dL (0.2-1.0) Aspartate Amino Transf (AST/SGOT) 16 U/L (15-37) Alanine Aminotransferase (ALT/SGPT) 14 U/L (16-63) Alkaline Phosphatase 73 U/L (46-116) Total Protein 6.5 g/dL (6.4-8.2) Albumin 1.9 g/dL (3.4-5.0) Albumin/Globulin Ratio 0.4 (1.0-1.7) Assessment and Plan Assessmemt and Plan Problems Medical Problems: (1) Dehydration Status: Acute (2) Hyperglycemia Status: Acute Comment Review of Relevant I have reviewed the following items odell (where applicable) has been applied. Labs Laboratory Tests Test 05/06/18 07:45 05/06/18 11:56 05/06/18 16:43 05/06/18 20:40 White Blood Count 14.2 x10^3/uL (4.0-11.0) Red Blood Count 4.37 x10^6/uL (4.30-5.70) Hemoglobin 11.5 g/dL (13.0-17.5) Hematocrit 35.8 % (39.0-53.0) Mean Corpuscular Volume 82 fL (79-100) Mean Corpuscular Hemoglobin 26 pg (25-35) Mean Corpuscular Hemoglobin Concent 32 g/dL (31-37) Red Cell Distribution Width 15.4 % (11.5-14.5) Platelet Count 288 x10^3/uL (140-400) Neutrophils (%) (Auto) 81 % (31-73) Lymphocytes (%) (Auto) 11 % (24-48) Monocytes (%) (Auto) 6 % (0-9) Eosinophils (%) (Auto) 1 % (0-3) Basophils (%) (Auto) 1 % (0-3) Neutrophils # (Auto) 11.5 x10^3uL (1.8-7.7) Lymphocytes # (Auto) 1.6 x10^3/uL (1.0-4.8) Monocytes # (Auto) 0.8 x10^3/uL (0.0-1.1) Eosinophils # (Auto) 0.2 x10^3/uL (0.0-0.7) Basophils # (Auto) 0.1 x10^3/uL (0.0-0.2) Sodium Level 135 mmol/L (136-145) Potassium Level 4.0 mmol/L (3.5-5.1) Chloride Level 99 mmol/L (98-107) Carbon Dioxide Level 27 mmol/L (21-32) Anion Gap 9 (6-14) Blood Urea Nitrogen 29 mg/dL (8-26) Creatinine 1.9 mg/dL (0.7-1.3) Estimated GFR (Cockcroft-Gault) 38.2 BUN/Creatinine Ratio 15 (6-20) Glucose Level 173 mg/dL (70-99) Calcium Level 8.6 mg/dL (8.5-10.1) Total Bilirubin 0.7 mg/dL (0.2-1.0) Aspartate Amino Transf (AST/SGOT) 22 U/L (15-37) Alanine Aminotransferase (ALT/SGPT) 17 U/L (16-63) Alkaline Phosphatase 85 U/L (46-116) Total Protein 7.2 g/dL (6.4-8.2) Albumin 2.1 g/dL (3.4-5.0) Albumin/Globulin Ratio 0.4 (1.0-1.7) Glucose (Fingerstick) 196 mg/dL (70-99) 87 mg/dL (70-99) 137 mg/dL (70-99) Test 05/07/18 05:40 05/07/18 07:31 05/07/18 11:54 05/07/18 17:07 White Blood Count 14.8 x10^3/uL (4.0-11.0) Red Blood Count 4.19 x10^6/uL (4.30-5.70) Hemoglobin 11.6 g/dL (13.0-17.5) Hematocrit 34.5 % (39.0-53.0) Mean Corpuscular Volume 82 fL (79-100) Mean Corpuscular Hemoglobin 28 pg (25-35) Mean Corpuscular Hemoglobin Concent 34 g/dL (31-37) Red Cell Distribution Width 15.0 % (11.5-14.5) Platelet Count 287 x10^3/uL (140-400) Neutrophils (%) (Auto) 83 % (31-73) Lymphocytes (%) (Auto) 10 % (24-48) Monocytes (%) (Auto) 5 % (0-9) Eosinophils (%) (Auto) 2 % (0-3) Basophils (%) (Auto) 0 % (0-3) Neutrophils # (Auto) 12.2 x10^3uL (1.8-7.7) Lymphocytes # (Auto) 1.5 x10^3/uL (1.0-4.8) Monocytes # (Auto) 0.7 x10^3/uL (0.0-1.1) Eosinophils # (Auto) 0.3 x10^3/uL (0.0-0.7) Basophils # (Auto) 0.0 x10^3/uL (0.0-0.2) Sodium Level 137 mmol/L (136-145) Potassium Level 4.6 mmol/L (3.5-5.1) Chloride Level 101 mmol/L (98-107) Carbon Dioxide Level 28 mmol/L (21-32) Anion Gap 8 (6-14) Blood Urea Nitrogen 25 mg/dL (8-26) Creatinine 1.5 mg/dL (0.7-1.3) Estimated GFR (Cockcroft-Gault) 50.2 BUN/Creatinine Ratio 17 (6-20) Glucose Level 127 mg/dL (70-99) Calcium Level 8.6 mg/dL (8.5-10.1) Total Bilirubin 0.7 mg/dL (0.2-1.0) Aspartate Amino Transf (AST/SGOT) 18 U/L (15-37) Alanine Aminotransferase (ALT/SGPT) 15 U/L (16-63) Alkaline Phosphatase 86 U/L (46-116) Total Protein 7.1 g/dL (6.4-8.2) Albumin 2.0 g/dL (3.4-5.0) Albumin/Globulin Ratio 0.4 (1.0-1.7) Glucose (Fingerstick) 128 mg/dL (70-99) 145 mg/dL (70-99) 110 mg/dL (70-99) Test 05/07/18 20:00 05/07/18 20:53 05/08/18 05:30 Urine Collection Type Unknown Urine Color Yellow Urine Clarity Clear Urine pH 5.5 Urine Specific Upper[place] 1.010 Urine Protein Negative mg/dL (NEG-TRACE) Urine Glucose (UA) Negative mg/dL (NEG) Urine Ketones (Stick) Negative mg/dL (NEG) Urine Blood Small (NEG) Urine Nitrite Negative (NEG) Urine Bilirubin Negative (NEG) Urine Urobilinogen Dipstick 0.2 mg/dL (0.2 mg/dL) Urine Leukocyte Esterase Trace (NEG) Urine RBC 0 /HPF (0-2) Urine WBC 11-20 /HPF (0-4) Urine Squamous Epithelial Cells Few /LPF Urine Bacteria 0 /HPF (0-FEW) Urine Mucus Mod /LPF Glucose (Fingerstick) 175 mg/dL (70-99) Sodium Level 135 mmol/L (136-145) Potassium Level 4.0 mmol/L (3.5-5.1) Chloride Level 101 mmol/L (98-107) Carbon Dioxide Level 27 mmol/L (21-32) Anion Gap 7 (6-14) Blood Urea Nitrogen 22 mg/dL (8-26) Creatinine 1.6 mg/dL (0.7-1.3) Estimated GFR (Cockcroft-Gault) 46.6 BUN/Creatinine Ratio 14 (6-20) Glucose Level 151 mg/dL (70-99) Calcium Level 8.1 mg/dL (8.5-10.1) Total Bilirubin 0.5 mg/dL (0.2-1.0) Aspartate Amino Transf (AST/SGOT) 16 U/L (15-37) Alanine Aminotransferase (ALT/SGPT) 14 U/L (16-63) Alkaline Phosphatase 73 U/L (46-116) Total Protein 6.5 g/dL (6.4-8.2) Albumin 1.9 g/dL (3.4-5.0) Albumin/Globulin Ratio 0.4 (1.0-1.7) Laboratory Tests Test 05/07/18 11:54 05/07/18 17:07 05/07/18 20:00 05/07/18 20:53 Glucose (Fingerstick) 145 mg/dL (70-99) 110 mg/dL (70-99) 175 mg/dL (70-99) Urine Collection Type Unknown Urine Color Yellow Urine Clarity Clear Urine pH 5.5 Urine Specific Upperco 1.010 Urine Protein Negative mg/dL (NEG-TRACE) Urine Glucose (UA) Negative mg/dL (NEG) Urine Ketones (Stick) Negative mg/dL (NEG) Urine Blood Small (NEG) Urine Nitrite Negative (NEG) Urine Bilirubin Negative (NEG) Urine Urobilinogen Dipstick 0.2 mg/dL (0.2 mg/dL) Urine Leukocyte Esterase Trace (NEG) Urine RBC 0 /HPF (0-2) Urine WBC 11-20 /HPF (0-4) Urine Squamous Epithelial Cells Few /LPF Urine Bacteria 0 /HPF (0-FEW) Urine Mucus Mod /LPF Test 05/08/18 05:30 Sodium Level 135 mmol/L (136-145) Potassium Level 4.0 mmol/L (3.5-5.1) Chloride Level 101 mmol/L (98-107) Carbon Dioxide Level 27 mmol/L (21-32) Anion Gap 7 (6-14) Blood Urea Nitrogen 22 mg/dL (8-26) Creatinine 1.6 mg/dL (0.7-1.3) Estimated GFR (Cockcroft-Gault) 46.6 BUN/Creatinine Ratio 14 (6-20) Glucose Level 151 mg/dL (70-99) Calcium Level 8.1 mg/dL (8.5-10.1) Total Bilirubin 0.5 mg/dL (0.2-1.0) Aspartate Amino Transf (AST/SGOT) 16 U/L (15-37) Alanine Aminotransferase (ALT/SGPT) 14 U/L (16-63) Alkaline Phosphatase 73 U/L (46-116) Total Protein 6.5 g/dL (6.4-8.2) Albumin 1.9 g/dL (3.4-5.0) Albumin/Globulin Ratio 0.4 (1.0-1.7) Microbiology 04/30/18 Blood Culture - Final, Complete 04/30/18 Blood Culture Result 1 (HAZEL) - Final, Complete 04/30/18 Antimicrobic Susceptibility - Final, Complete 04/30/18 Urine Culture - Final, Complete 04/30/18 Urine Culture Result 1 (HAZEL) - Final, Complete Medications Current Medications Ertapenem 50 ml @ 100 mls/hr 1X STAT IV Last administered on 04/30/18at 10:00 ; Start 04/30/18 at 09:34; Stop 04/30/18 at 10:03; Status DC Sodium Chloride 1,000 ml @ 1,000 mls/hr 1X ONCE IV Last administered on at 09:50; Start 04/30/18 at 09:45; Stop 04/30/18 at 10:44; Status DC Sodium Chloride 1,000 ml @ 1,000 mls/hr 1X ONCE IV Last administered on at 10:28; Start 04/30/18 at 09:45; Stop 04/30/18 at 10:44; Status DC Insulin Human Regular (HumuLIN R VIAL) 10 unit 1X ONCE IV Last administered on 04/30/18at 10:33; Start 04/30/18 at 10:30; Stop 04/30/18 at 10:31; Status DC Ondansetron HCl (Zofran) 4 mg 1X ONCE IV Last administered on 04/30/18at 10:31 ; Start 04/30/18 at 10:30; Stop 04/30/18 at 10:32; Status DC Fentanyl Citrate (Fentanyl 2ml Vial) 50 mcg 1X ONCE IV Last administered on at 10:36; Start 04/30/18 at 10:30; Stop 04/30/18 at 10:32; Status DC Sodium Chloride 1,000 ml @ 1,000 mls/hr 1X ONCE IV Last administered on at 12:36; Start 04/30/18 at 10:45; Stop 04/30/18 at 11:44; Status DC Metoclopramide HCl (Reglan Vial) 10 mg 1X ONCE IV Last administered on at 12:08; Start 04/30/18 at 12:00; Stop 04/30/18 at 12:01; Status DC Fentanyl Citrate (Fentanyl 2ml Vial) 50 mcg 1X ONCE IV ; Start 04/30/18 at 21: 00; Stop 04/30/18 at 21:01; Status DC Acetaminophen (Tylenol) 1,000 mg 1X ONCE PO ; Start 04/30/18 at 11:45; Stop at 11:47; Status DC Insulin Human Regular 150 ml @ 0 mls/hr 1X ONCE IV Last administered on at 12:48; Start 04/30/18 at 12:00; Stop 04/30/18 at 12:01; Status DC Fentanyl Citrate (Fentanyl 2ml Vial) 50 mcg 1X ONCE IV Last administered on at 12:21; Start 04/30/18 at 12:00; Stop 04/30/18 at 12:01; Status DC Meropenem 500 mg/ Sodium Chloride 50 ml @ 100 mls/hr Q12HR IV Last administered on 05/01/18at 08:58; Start 04/30/18 at 21:00; Stop 05/01/18 at 10:32 ; Status DC Sodium Chloride 1,000 ml @ 1,920 mls/hr Q32M IV ; Start 04/30/18 at 15:06; Stop 04/30/18 at 16:08; Status DC Sodium Chloride 500 ml @ 1,000 mls/hr PRN Q30MIN PRN IV SEE COMMENTS; Start at 15:15; Stop 05/01/18 at 10:15; Status DC Sodium Chloride 1,000 ml @ 150 mls/hr Q6H40M IV Last administered on at 21:16; Start 04/30/18 at 15:10; Stop 05/01/18 at 10:15; Status DC Norepinephrine Bitartrate 250 ml @ 0 mls/hr CONT PRN IV SEE I/O RECORD; Start 04/30/18 at 15:15; Stop 05/02/18 at 08:49; Status DC Dobutamine HCl/ Dextrose 250 ml @ 0 mls/hr CONT PRN IV SEE I/O RECORD; Start at 15:15; Stop 05/02/18 at 08:49; Status DC Insulin Human Lispro (HumaLOG) 0-7 UNITS TIDWMEALS SQ Last administered on 04/30at 20:13; Start 04/30/18 at 17:00; Stop 05/01/18 at 08:15; Status DC Dextrose (Dextrose 50%-Water Syringe) 12.5 gm PRN Q15MIN PRN IV SEE COMMENTS; Start 04/30/18 at 15:15; Stop 05/02/18 at 08:54; Status DC Heparin Sodium (Porcine) (Heparin Sodium) 5,000 unit Q8HRS SQ Last administered on 05/03/18at 06:03; Start 04/30/18 at 22:00; Stop 05/03/18 at 10:51 ; Status DC Fentanyl Citrate (Fentanyl 2ml Vial) 50 mcg PRN Q3HRS PRN IV SEVERE PAIN Last administered on 05/07/18at 21:46; Start 04/30/18 at 17:00 Ondansetron HCl (Zofran) 4 mg PRN Q6HRS PRN IV NAUSEA/VOMITING Last administered on 05/02/18at 05:17; Start 04/30/18 at 19:30 Ibuprofen (Motrin) 200 mg PRN Q6HRS PRN PO MILD PAIN / TEMP Last administered on 04/30/18at 21:14; Start 04/30/18 at 20:45; Stop 05/01/18 at 11:54; Status DC Insulin Glargine (Lantus) 35 units DAILYWBKFT SQ Last administered on at 09:44; Start 05/02/18 at 08:00 Insulin Human Lispro (HumaLOG) 0-7 UNITS TIDWMEALS SQ Last administered on 05/01 08:56; Start 05/01/18 at 12:00; Stop 05/01/18 at 12:24; Status DC Meropenem 1 gm/ Sodium Chloride 100 ml @ 200 mls/hr Q12HR IV Last administered on 05/07/18at 20:24; Start 05/01/18 at 18:00 Lactobacillus Rhamnosus (Culturelle) 1 cap BID PO Last administered on 20:21; Start 05/01/18 at 21:00 Sodium Chloride 1,000 ml @ 100 mls/hr Q10H IV Last administered on 05/07/18at 20:22; Start 05/01/18 at 11:45 Insulin Human Lispro (HumaLOG) 15 units 1X ONCE SQ Last administered on 14:56; Start 05/01/18 at 12:30; Stop 05/01/18 at 12:31; Status DC Insulin Human Lispro (HumaLOG) 0-9 UNITS TIDWMEALS SQ ; Start 05/01/18 at 17:00 ; Stop 05/02/18 at 08:50; Status DC Metoprolol Tartrate (Lopressor Vial) 5 mg 1X ONCE IVP Last administered on at 16:21; Start 05/01/18 at 16:15; Stop 05/01/18 at 16:18; Status DC Insulin Human Lispro (HumaLOG) 20 units 1X ONCE SQ Last administered on at 16:58; Start 05/01/18 at 17:00; Stop 05/01/18 at 17:01; Status DC Insulin Human Lispro (HumaLOG) 0-9 UNITS TIDWMEALS SQ Last administered on 05/06at 12:39; Start 05/02/18 at 12:00 Dextrose (Dextrose 50%-Water Syringe) 12.5 gm PRN Q15MIN PRN IV SEE COMMENTS; Start 05/02/18 at 09:00 Tramadol HCl (Ultram) 50 mg PRN Q6HRS PRN PO MODERATE PAIN Last administered on 05/07/18at 20:21; Start 05/02/18 at 09:00 Zolpidem Tartrate (Ambien) 5 mg PRN QHS PRN PO INSOMNIA; Start 05/02/18 at 09: 00 Amlodipine Besylate (Norvasc) 10 mg DAILY PO Last administered on 05/07/18at 09: 14; Start 05/02/18 at 09:00 Atorvastatin Calcium (Lipitor) 20 mg HS PO Last administered on 05/07/18at 20:21 ; Start 05/02/18 at 21:00 Carvedilol (Coreg) 12.5 mg BIDWMEALS PO Last administered on 05/07/18at 17:54; Start 05/02/18 at 09:00 Insulin Glargine (Lantus) 25 units QHS SQ Last administered on 05/02/18at 21:27 ; Start 05/02/18 at 21:00; Stop 05/03/18 at 10:51; Status DC Insulin Human Lispro (HumaLOG) 8 units TIDWMEALS SQ Last administered on at 09:52; Start 05/02/18 at 12:00; Stop 05/03/18 at 10:51; Status DC Pregabalin (Lyrica) 75 mg TID PO Last administered on 05/07/18 20:20; Start at 09:00 Non-Formulary Medication (Dulaglutide (Trulicity)) 1.5 mg WEEKLY SQ ; Start at 09:00; Stop 05/04/18 at 07:35; Status DC Ondansetron HCl (Zofran Odt) 4 mg PRN Q8HRS PRN PO NAUSEA/VOMITING; Start 05/02 at 09:00 Labetalol HCl (Normodyne Iv Push) 10 mg PRN Q2HR PRN IVP HYPERTENSION, SEE COMMENTS; Start 05/02/18 at 09:00 Dicyclomine HCl (Bentyl) 10 mg TID PO Last administered on 05/07/18 20:21; Start 05/02/18 at 14:00 Dicyclomine HCl (Bentyl) 10 mg 1X ONCE PO Last administered on 05/02/18at 12:48 ; Start 05/02/18 at 11:30; Stop 05/02/18 at 11:31; Status DC Calcium Carbonate/ Glycine (Tums) 500 mg PRN AFTMEALHC PRN PO INDIGESTION; Start 05/02/18 at 11:30 Loperamide HCl (Imodium) 2 mg PRN Q15MIN PRN PO DIARRHEA Last administered on at 21:14; Start 05/02/18 at 11:30; Stop 05/04/18 at 08:20; Status DC Acetaminophen (Tylenol) 500 mg PRN Q6HRS PRN PO MILD PAIN / TEMP Last administered on 05/06/18at 20:46; Start 05/03/18 at 09:00 Simethicone (Gas-X) 80 mg PRN AFTMEALHC PRN PO GAS / BLOATING Last administered on 05/08/18at 06:31; Start 05/03/18 at 09:45 Insulin Glargine (Lantus) 35 units QHS SQ Last administered on 05/07/18at 21:56 ; Start 05/03/18 at 21:00 Insulin Human Lispro (HumaLOG) 12 units TIDWMEALS SQ Last administered on at 17:53; Start 05/03/18 at 12:00 Psyllium Hydrophilic Mucilloid (Metamucil Fiber Packet) 1 pkt DAILY PO Last administered on 05/07/18at 09:13; Start 05/05/18 at 11:30 Iohexol (Omnipaque 240 Mg/ml) 30 ml 1X ONCE PO Last administered on 05/06/18at 11:15; Start 05/06/18 at 11:15; Stop 05/06/18 at 11:16; Status DC Info (CONTRAST GIVEN -- Rx MONITORING) 1 each PRN DAILY PRN MC SEE COMMENTS; Start 05/06/18 at 11:30; Stop 05/08/18 at 11:29 Lidocaine/Sodium Bicarbonate (Buffered Lidocaine 1%) 3 ml STK-MED ONCE .ROUTE ; Start 05/07/18 at 13:13; Stop 05/07/18 at 13:14; Status DC Lidocaine/Sodium Bicarbonate (Buffered Lidocaine 1%) 3 ml 1X ONCE INJ Last administered on 05/07/18at 14:00; Start 05/07/18 at 13:15; Stop 05/07/18 at 13:16 ; Status DC Lidocaine/Sodium Bicarbonate (Buffered Lidocaine 1%) 6 ml 1X ONCE INJ ; Start 05/07/18 at 14:00; Stop 05/07/18 at 14:01; Status DC Active Scripts Active Humalog (Insulin Lispro) 100 Unit/1 Ml Insuln.pen 8 Units SQ TIDWMEALS 14 Days Lantus Solostar (Insulin Glargine,Hum.rec.anlog) 100 Unit/1 Ml Insuln.pen 25 Units SQ QHS 14 Days Tramadol Hcl 50 Mg Tablet 50 Mg PO PRN Q6HRS PRN Amlodipine Besylate 10 Mg Tablet 10 Mg PO DAILY 30 Days Carvedilol (Carvedilol) 12.5 Mg Tablet 12.5 Mg PO BIDWMEALS 30 Days Zofran (Ondansetron Hcl) 4 Mg Tablet 1 Tab PO PRN Q8HRS PRN Reported Losartan-Hctz 50-12.5 Mg Tab (Losartan/Hydrochlorothiazide) 1 Each Tablet 1 Each PO DAILY Lyrica (Pregabalin) 75 Mg Capsule 75 Mg PO TID Atorvastatin Calcium 20 Mg Tablet 20 Mg PO HS Amlodipine Besylate 10 Mg Tablet 20 Mg PO BID Trulicity (Dulaglutide) 1.5 Mg/0.5 Ml Pen.injctr 1.5 Mg SQ WEEKLY Metformin Hcl 1,000 Mg Tablet 1,000 Mg PO BIDWMEALS Vitals/I & O Vital Sign - Last 24 Hours 05/07/18 05/07/18 05/07/18 05/07/18 08:00 09:14 09:14 11:03 Temp 98.5 98.5 Pulse 95 95 89 Resp 18 B/P (MAP) 161/76 161/76 125/70 (88) Pulse Ox 97 O2 Delivery Room Air Room Air 05/07/18 05/07/18 05/07/18 05/07/18 15:16 17:54 19:20 20:00 Temp 98.2 99.3 98.2 99.3 Pulse 82 82 84 Resp 18 18 B/P (MAP) 129/71 (90) 129/71 147/68 (94) Pulse Ox 97 96 O2 Delivery Room Air Room Air Room Air 05/07/18 05/07/18 05/07/18 05/07/18 20:21 21:21 21:46 22:16 O2 Delivery Room Air Room Air Room Air Room Air 05/07/18 05/08/18 23:20 03:20 Temp 99.3 99.5 99.3 99.5 Pulse 79 83 Resp 18 18 B/P (MAP) 146/71 (96) 154/72 (99) Pulse Ox 96 95 O2 Delivery Room Air Room Air Intake and Output 05/07/18 05/07/18 05/08/18 15:00 23:00 07:00 Intake Total 1100 ml 720 ml 750 ml Balance 1100 ml 720 ml 750 ml KENJI NOWAK MD May 08, 2018 07:43
--- NOTE | 2018-05-08 08:56 | PDOC ---
Infectious Disease Note Subjective Subjective Feeling better Fever better + BM Less bloated Less R CVA tenderness Vital Sign Vital Signs Vital Signs Date Time Temp Pulse Resp B/P (MAP) Pulse Ox O2 Delivery O2 Flow Rate FiO2 05/08/18 07:00 99.0 82 18 140/81 (100) 96 Room Air 99.0 Physical Exam PHYSICAL EXAM GENERAL: In chair, alert, NAD HEENT: Oral cavity, pharynx clear. NECK: Supple. LUNGS: Clear bilaterally. No wheezing. HEART: S1, S2. ABDOMEN: Soft, obese. Bowel sounds present, nontender, Mild distended : mild R CVA tenderness EXTREMITIES: BLE 1+ edema. no cyanosis METAL HANGER: Alert and oriented x 3. Grossly nonfocal. SKIN: Warm, dry, no generalized rash. PICC RUE - clean Labs Lab Laboratory Tests Test 05/07/18 11:54 05/07/18 17:07 05/07/18 20:00 05/07/18 20:53 Glucose (Fingerstick) 145 mg/dL (70-99) 110 mg/dL (70-99) 175 mg/dL (70-99) Urine Collection Type Unknown Urine Color Yellow Urine Clarity Clear Urine pH 5.5 Urine Specific [place] 1.010 Urine Protein Negative mg/dL (NEG-TRACE) Urine Glucose (UA) Negative mg/dL (NEG) Urine Ketones (Stick) Negative mg/dL (NEG) Urine Blood Small (NEG) Urine Nitrite Negative (NEG) Urine Bilirubin Negative (NEG) Urine Urobilinogen Dipstick 0.2 mg/dL (0.2 mg/dL) Urine Leukocyte Esterase Trace (NEG) Urine RBC 0 /HPF (0-2) Urine WBC 11-20 /HPF (0-4) Urine Squamous Epithelial Cells Few /LPF Urine Bacteria 0 /HPF (0-FEW) Urine Mucus Mod /LPF Test 05/08/18 05:30 05/08/18 07:20 Sodium Level 135 mmol/L (136-145) Potassium Level 4.0 mmol/L (3.5-5.1) Chloride Level 101 mmol/L (98-107) Carbon Dioxide Level 27 mmol/L (21-32) Anion Gap 7 (6-14) Blood Urea Nitrogen 22 mg/dL (8-26) Creatinine 1.6 mg/dL (0.7-1.3) Estimated GFR (Cockcroft-Gault) 46.6 BUN/Creatinine Ratio 14 (6-20) Glucose Level 151 mg/dL (70-99) Calcium Level 8.1 mg/dL (8.5-10.1) Total Bilirubin 0.5 mg/dL (0.2-1.0) Aspartate Amino Transf (AST/SGOT) 16 U/L (15-37) Alanine Aminotransferase (ALT/SGPT) 14 U/L (16-63) Alkaline Phosphatase 73 U/L (46-116) Total Protein 6.5 g/dL (6.4-8.2) Albumin 1.9 g/dL (3.4-5.0) Albumin/Globulin Ratio 0.4 (1.0-1.7) Glucose (Fingerstick) 163 mg/dL (70-99) Micro CT 05/06 IMPRESSION: 1. Mild streaky perinephric edema, right greater than left, has worsened slightly compatible with nonspecific inflammation or infection. 2. Mild diffuse bladder wall thickening raising the possibility of cystitis. 3. Mild anasarca.Blood 04/30 BLOOD CULTURE LC Final Final report BLD CULT RESULT 1 Final Escherichia coli Multi-Drug Resistant Organism Susceptibility profile is consistent with a probable ESBL. Recovered from aerobic and anaerobic bottles. ANTIMICROBIAL SUSCEPTIBILITY Final Comment S = Susceptible; I = Intermediate; R = Resistant P = Positive; N = Negative MICS are expressed in micrograms per mL Antibiotic RSLT#1 RSLT#2 RSLT#3 RSLT#4 Amoxicillin/Clavulanic Acid I =16 Ampicillin R>=32 Cefazolin R>=64 Cefepime R =16 Ceftriaxone R>=64 Cefuroxime R>=64 Ciprofloxacin R>=4 Ertapenem S<=0.12 Gentamicin R>=16 Imipenem S<=0.25 Levofloxacin R>=8 Meropenem S<=0.25 Nitrofurantoin S<=16 Piperacillin/Tazobactam S<=4 Tetracycline R>=16 Tobramycin R>=16 Trimethoprim/Sulfa R>=320 Microbiology 04/30/18 Blood Culture - Preliminary, Resulted 04/30/18 Blood Culture Result 1 (HAZEL) - Preliminary, Resulted 04/30/18 Urine Culture - Final, Complete 04/30/18 Urine Culture Result 1 (HAZEL) - Final, Complete Objective Assessment MDR Ecoli sepsis, POA 04/30 probable ESBL on appropriate abx Fever - persist c/w pyelo Leukocytosis - stablizing UTI - POA Probable Pyleonephritis Fever - curve is improving Abd distension - C-diff is neg Nausea, vomiting - better. History of Escherichia coli sepsis with urinary tract infection in December 2017 with multidrug resistance. Acute kidney injury - better Diabetes mellitus with hyperosmolar hyperglycemia. Thrombocytopenia - better. Hyponatremia. Lactic acidosis in the setting of increased creatinine. Diarrhea, c. diff neg 04/30. Plan Plan of Care Cont Merrem Cont Probiotics Monitor labs in am if WBC cont to increase may need additional imaging WBC scan if improved can d/c home with Invanz cont supportive care Rx in chart D/w nursing TIP ZAPATA MD May 08, 2018 08:56
[2018-05-08] MEDS: CARVEDILOL 12.5 MG TABLET. PO SCH (09:11)
[2018-05-08] MEDS: DICYCLOMINE HCL 10 MG CAPSULE PO SCH ×2 (09:11→14:13)
[2018-05-08] MEDS: MEROPENEM 1 GM in IV NORMAL SALINE 100ML 100 ML IV SCH (09:11)
[2018-05-08] MEDS: LACTOBACILLUS RHAMNOSUS GG 1 CAPSULE. PO SCH (09:12)
[2018-05-08] MEDS: amLODIPine BESYLATE 10 MG TABLET PO SCH (09:12)
[2018-05-08] MEDS: PREGABALIN 75 MG CAPSULE PO SCH ×2 (09:12→14:13)
[2018-05-08] MEDS: PSYLLIUM HUSK (SUGAR FREE) 1 PKT PACKET PO SCH (09:12)
[2018-05-08] MEDS: IV NORMAL SALINE 1000ML BAG 1,000 ML IV SCH (09:18)
[2018-05-08] MEDS: INSULIN GLARGINE 300 UNITS/3 ML INSULN.PEN. SQ SCH (09:28)
[2018-05-08] MEDS: INSULIN LISPRO 300 UNITS/3 ML INSULN.PEN. SQ SCH ×4 (09:29→12:54)
[2018-05-08 09:42] LABS: BASO % 0 % (0-3); EOS # 0.2 x10^3/uL (0.0-0.7); EOS % 1 % (0-3); HEMATOCRIT 30.4 % (39.0-53.0); HEMOGLOBIN 10.1 g/dL (13.0-17.5); LYMPH # 1.5 x10^3/uL (1.0-4.8); LYMPH % 13 % (24-48); MEAN CORPUSCULAR HEMOGLOBIN 27 pg (25-35); MEAN CORPUSCULAR HGB CONC 33 g/dL (31-37); MEAN CORPUSCULAR VOLUME 81 fL (79-100); MONO # 0.8 x10^3/uL (0.0-1.1); MONO % 7 % (0-9); NEUT # 8.8 x10^3uL (1.8-7.7); NEUT % 78 % (31-73); PLATELET COUNT 277 x10^3/uL (140-400); RED BLOOD COUNT 3.74 x10^6/uL (4.30-5.70); RED CELL DISTRIBUTION WIDTH 14.9 % (11.5-14.5); WHITE BLOOD COUNT 11.3 x10^3/uL (4.0-11.0)
[2018-05-08 11:00] VITALS: BP 111/71
--- NOTE | 2018-05-08 11:49 | PDOC ---
GRETA MCDANIEL FARM OPERATOR 05/08/18 1149: SUBJECTIVE Subjective Pt doing ok, no complaints OBJECTIVE Objective Physical Exam: General appearance: Alert and Oriented Head: Normocephalic, without obvious abnormality Eyes: conjunctivae/corneas clear. PERRL, EOM's intact. Fundi benign Back: negative, no CVA pain bilaterally Lungs:Regular respirations, non labored breathing Abdomen: soft, non-tender.Obese, distended Pelvic:circ phallus, WNL Vital Signs Vital Signs Date Time Temp Pulse Resp B/P (MAP) Pulse Ox O2 Delivery O2 Flow Rate FiO2 05/08/18 11:00 99.4 80 18 111/71 (84) 98 Room Air 99.4 05/08/18 09:12 82 140/81 05/08/18 09:11 82 140/81 05/08/18 07:00 99.0 82 18 140/81 (100) 96 Room Air 99.0 05/08/18 03:20 99.5 83 18 154/72 (99) 95 Room Air 99.5 05/07/18 23:20 99.3 79 18 146/71 (96) 96 Room Air 99.3 05/07/18 22:16 Room Air 05/07/18 21:46 Room Air 05/07/18 21:21 Room Air 05/07/18 20:21 Room Air 05/07/18 20:00 Room Air 05/07/18 19:20 99.3 84 18 147/68 (94) 96 Room Air 99.3 05/07/18 17:54 82 129/71 05/07/18 15:16 98.2 82 18 129/71 (90) 97 Room Air 98.2 I & O Intake and Output 05/08/18 07:00 Intake Total 2570 ml Balance 2570 ml Intake Oral 2570 ml # Voids 9 PHYSICAL EXAM Physical Exam Physical Exam: General appearance: Alert and Oriented Head: Normocephalic, without obvious abnormality Eyes: conjunctivae/corneas clear. PERRL, EOM's intact. Fundi benign Back: negative, no CVA pain bilaterally Lungs:Regular respirations, non labored breathing Abdomen: soft, non-tender.Obese, distended Pelvic:circ phallus, WNL ASSESSMENT/PLAN Assessment/Plan Pt again has blood on his UA. Recommend cystoscopy. He has a follow up appointment on 05/21/[address] Washington for cystoscopy at 0940 am. Pt given new patient paperwork and appointment card. All questions answered. Will follow peripherally over the weekend but please call with questions or changes in patient condition. COMMENT Lab Laboratory Tests Test 05/07/18 11:54 05/07/18 17:07 05/07/18 20:00 05/07/18 20:53 Glucose (Fingerstick) 145 mg/dL (70-99) 110 mg/dL (70-99) 175 mg/dL (70-99) Urine Collection Type Unknown Urine Color Yellow Urine Clarity Clear Urine pH 5.5 Urine Specific [place] 1.010 Urine Protein Negative mg/dL (NEG-TRACE) Urine Glucose (UA) Negative mg/dL (NEG) Urine Ketones (Stick) Negative mg/dL (NEG) Urine Blood Small (NEG) Urine Nitrite Negative (NEG) Urine Bilirubin Negative (NEG) Urine Urobilinogen Dipstick 0.2 mg/dL (0.2 mg/dL) Urine Leukocyte Esterase Trace (NEG) Urine RBC 0 /HPF (0-2) Urine WBC 11-20 /HPF (0-4) Urine Squamous Epithelial Cells Few /LPF Urine Bacteria 0 /HPF (0-FEW) Urine Mucus Mod /LPF Test 05/08/18 05:30 05/08/18 07:20 05/08/18 09:25 Sodium Level 135 mmol/L (136-145) Potassium Level 4.0 mmol/L (3.5-5.1) Chloride Level 101 mmol/L (98-107) Carbon Dioxide Level 27 mmol/L (21-32) Anion Gap 7 (6-14) Blood Urea Nitrogen 22 mg/dL (8-26) Creatinine 1.6 mg/dL (0.7-1.3) Estimated GFR (Cockcroft-Gault) 46.6 BUN/Creatinine Ratio 14 (6-20) Glucose Level 151 mg/dL (70-99) Calcium Level 8.1 mg/dL (8.5-10.1) Total Bilirubin 0.5 mg/dL (0.2-1.0) Aspartate Amino Transf (AST/SGOT) 16 U/L (15-37) Alanine Aminotransferase (ALT/SGPT) 14 U/L (16-63) Alkaline Phosphatase 73 U/L (46-116) Total Protein 6.5 g/dL (6.4-8.2) Albumin 1.9 g/dL (3.4-5.0) Albumin/Globulin Ratio 0.4 (1.0-1.7) Glucose (Fingerstick) 163 mg/dL (70-99) White Blood Count 11.3 x10^3/uL (4.0-11.0) Red Blood Count 3.74 x10^6/uL (4.30-5.70) Hemoglobin 10.1 g/dL (13.0-17.5) Hematocrit 30.4 % (39.0-53.0) Mean Corpuscular Volume 81 fL (79-100) Mean Corpuscular Hemoglobin 27 pg (25-35) Mean Corpuscular Hemoglobin Concent 33 g/dL (31-37) Red Cell Distribution Width 14.9 % (11.5-14.5) Platelet Count 277 x10^3/uL (140-400) Neutrophils (%) (Auto) 78 % (31-73) Lymphocytes (%) (Auto) 13 % (24-48) Monocytes (%) (Auto) 7 % (0-9) Eosinophils (%) (Auto) 1 % (0-3) Basophils (%) (Auto) 0 % (0-3) Neutrophils # (Auto) 8.8 x10^3uL (1.8-7.7) Lymphocytes # (Auto) 1.5 x10^3/uL (1.0-4.8) Monocytes # (Auto) 0.8 x10^3/uL (0.0-1.1) Eosinophils # (Auto) 0.2 x10^3/uL (0.0-0.7) Basophils # (Auto) 0.0 x10^3/uL (0.0-0.2) BELKIS WASHINGTON MD 05/08/18 1713: ASSESSMENT/PLAN Assessment/Plan Agree with assessment and plan. GRETA MCDANIEL APRN May 08, 2018 11:49 BELKIS WASHINGTON MD May 08, 2018 17:13
[2018-05-08] MEDS ORDERED: ERTA1VIA IJ (13:27)
--- NOTE | 2018-05-08 14:56 | PDOC ---
SUBJECTIVE ROS Stable, OBJECTIVE Vital Signs Vital Signs Date Time Temp Pulse Resp B/P (MAP) Pulse Ox O2 Delivery O2 Flow Rate FiO2 05/08/18 11:00 99.4 80 18 111/71 (84) 98 Room Air 99.4 I & 0 Intake and Output 05/08/18 06:59 Intake Total 2570 ml Balance 2570 ml Intake Oral 2570 ml # Voids 9 PHYSICAL EXAM Physical Exam GENERAL: NAD HEENT: OM moist NECK: Supple. LUNGS: Clear bilaterally. No wheezing. HEART: S1, S2. ABDOMEN: Soft, obese. : R CVA tenderness improved , No Amaro EXTREMITIES: BLE 1+ edema. 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 SKIN: no rash. DIAGNOSIS/ASSESSMENT Assessment & Plan YOEL - Improved,stable Due to Dehydration /ATN Losartan , HCTZ and Metformin Held CKD stage 3 - Baseline Cr 1.2 As per Pt was started on Losartan by PCP mid 2017 Hospitalized in Dec 2017- YOEL - post dc dose was decreased to 50 mg QD DM II HTN- Continue antihypertensives GNR sepsis-? UTI /?Pyelo on CT 04/30 Nausea, vomiting resolved Repeat Ct reviewed, Urology consulted COMMENT/RELEVANT DATA Meds Current Medications Medications (Trade) Dose Ordered Sig/Felisha Start Time Stop Time Status Last Admin Dose Admin Acetaminophen (Tylenol) 500 mg PRN Q6HRS PRN 05/03/18 09:00 05/06/18 20:46 500 MG Amlodipine Besylate (Norvasc) 10 mg DAILY 05/02/18 09:00 05/08/18 09:12 10 MG Atorvastatin Calcium (Lipitor) 20 mg HS 05/02/18 21:00 05/07/18 20:21 20 MG Calcium Carbonate/ Glycine (Tums) 500 mg PRN AFTMEALHC PRN 05/02/18 11:30 Carvedilol (Coreg) 12.5 mg BIDWMEALS 05/02/18 09:00 05/08/18 09:11 12.5 MG Dextrose (Dextrose 50%-Water Syringe) 12.5 gm PRN Q15MIN PRN 05/02/18 09:00 Dicyclomine HCl (Bentyl) 10 mg 1X ONCE 05/02/18 11:30 05/02/18 11:31 DC 05/02/18 12:48 10 MG Dobutamine HCl/ Dextrose 250 ml @ 0 mls/hr CONT PRN 04/30/18 15:15 05/02/18 08:49 DC Ertapenem 50 ml @ 100 mls/hr 1X STAT 04/30/18 09:34 04/30/18 10:03 DC 04/30/18 10:00 100 MLS/HR Fentanyl Citrate (Fentanyl 2ml Vial) 50 mcg PRN Q3HRS PRN 04/30/18 17:00 05/07/18 21:46 50 MCG Heparin Sodium (Porcine) (Heparin Sodium) 5,000 unit Q8HRS 04/30/18 22:00 05/03/18 10:51 DC 05/03/18 06:03 5,000 UNIT Ibuprofen (Motrin) 200 mg PRN Q6HRS PRN 04/30/18 20:45 05/01/18 11:54 DC 04/30/18 21:14 200 MG Info (CONTRAST GIVEN -- Rx MONITORING) 1 each PRN DAILY PRN 05/06/18 11:30 05/08/18 11:29 DC Insulin Glargine (Lantus) 35 units QHS 05/03/18 21:00 05/07/18 21:56 20 UNITS Insulin Human Lispro (HumaLOG) 12 units TIDWMEALS 05/03/18 12:00 05/08/18 12:54 12 UNITS Insulin Human Regular 150 ml @ 0 mls/hr 1X ONCE 04/30/18 12:00 04/30/18 12:01 DC 04/30/18 12:48 9.3 MLS/HR Insulin Human Regular (HumuLIN R VIAL) 10 unit 1X ONCE 04/30/18 10:30 04/30/18 10:31 DC 04/30/18 10:33 10 UNIT Iohexol (Omnipaque 240 Mg/ml) 30 ml 1X ONCE 05/06/18 11:15 05/06/18 11:16 DC 05/06/18 11:15 30 ML Labetalol HCl (Normodyne Iv Push) 10 mg PRN Q2HR PRN 05/02/18 09:00 Lactobacillus Rhamnosus (Culturelle) 1 cap BID 05/01/18 21:00 05/08/18 09:12 1 CAP Lidocaine/Sodium Bicarbonate (Buffered Lidocaine 1%) 6 ml 1X ONCE 05/07/18 14:00 05/07/18 14:01 DC Loperamide HCl (Imodium) 2 mg PRN Q15MIN PRN 05/02/18 11:30 05/04/18 08:20 DC 05/02/18 21:14 2 MG Meropenem 1 gm/ Sodium Chloride 100 ml @ 200 mls/hr Q12HR 05/01/18 18:00 05/08/18 09:11 200 MLS/HR Meropenem 500 mg/ Sodium Chloride 50 ml @ 100 mls/hr Q12HR 04/30/18 21:00 05/01/18 10:32 DC 05/01/18 08:58 100 MLS/HR Metoclopramide HCl (Reglan Vial) 10 mg 1X ONCE 04/30/18 12:00 04/30/18 12:01 DC 04/30/18 12:08 10 MG Metoprolol Tartrate (Lopressor Vial) 5 mg 1X ONCE 05/01/18 16:15 05/01/18 16:18 DC 05/01/18 16:21 5 MG Non-Formulary Medication (Dulaglutide (Trulicity)) 1.5 mg WEEKLY 05/02/18 09:00 05/04/18 07:35 DC Norepinephrine Bitartrate 250 ml @ 0 mls/hr CONT PRN 04/30/18 15:15 05/02/18 08:49 DC Ondansetron HCl (Zofran Odt) 4 mg PRN Q8HRS PRN 05/02/18 09:00 Ondansetron HCl (Zofran) 4 mg PRN Q6HRS PRN 04/30/18 19:30 05/02/18 05:17 4 MG Pregabalin (Lyrica) 75 mg TID 05/02/18 09:00 05/08/18 14:13 75 MG Psyllium Hydrophilic Mucilloid (Metamucil Fiber Packet) 1 pkt DAILY 05/05/18 11:30 05/08/18 09:12 1 PKT Simethicone (Gas-X) 80 mg PRN AFTMEALHC PRN 05/03/18 09:45 05/08/18 06:31 80 MG Sodium Chloride 1,000 ml @ 100 mls/hr Q10H 05/01/18 11:45 05/08/18 09:18 100 MLS/HR Tramadol HCl (Ultram) 50 mg PRN Q6HRS PRN 05/02/18 09:00 05/07/18 20:21 50 MG Zolpidem Tartrate (Ambien) 5 mg PRN QHS PRN 05/02/18 09:00 Lab Laboratory Tests Test 05/07/18 17:07 05/07/18 20:00 05/07/18 20:53 05/08/18 05:30 Glucose (Fingerstick) 110 mg/dL (70-99) 175 mg/dL (70-99) Urine Collection Type Unknown Urine Color Yellow Urine Clarity Clear Urine pH 5.5 Urine Specific [place] 1.010 Urine Protein Negative mg/dL (NEG-TRACE) Urine Glucose (UA) Negative mg/dL (NEG) Urine Ketones (Stick) Negative mg/dL (NEG) Urine Blood Small (NEG) Urine Nitrite Negative (NEG) Urine Bilirubin Negative (NEG) Urine Urobilinogen Dipstick 0.2 mg/dL (0.2 mg/dL) Urine Leukocyte Esterase Trace (NEG) Urine RBC 0 /HPF (0-2) Urine WBC 11-20 /HPF (0-4) Urine Squamous Epithelial Cells Few /LPF Urine Bacteria 0 /HPF (0-FEW) Urine Mucus Mod /LPF Sodium Level 135 mmol/L (136-145) Potassium Level 4.0 mmol/L (3.5-5.1) Chloride Level 101 mmol/L (98-107) Carbon Dioxide Level 27 mmol/L (21-32) Anion Gap 7 (6-14) Blood Urea Nitrogen 22 mg/dL (8-26) Creatinine 1.6 mg/dL (0.7-1.3) Estimated GFR (Cockcroft-Gault) 46.6 BUN/Creatinine Ratio 14 (6-20) Glucose Level 151 mg/dL (70-99) Calcium Level 8.1 mg/dL (8.5-10.1) Total Bilirubin 0.5 mg/dL (0.2-1.0) Aspartate Amino Transf (AST/SGOT) 16 U/L (15-37) Alanine Aminotransferase (ALT/SGPT) 14 U/L (16-63) Alkaline Phosphatase 73 U/L (46-116) Total Protein 6.5 g/dL (6.4-8.2) Albumin 1.9 g/dL (3.4-5.0) Albumin/Globulin Ratio 0.4 (1.0-1.7) Test 05/08/18 07:20 05/08/18 09:25 05/08/18 12:33 Glucose (Fingerstick) 163 mg/dL (70-99) 135 mg/dL (70-99) White Blood Count 11.3 x10^3/uL (4.0-11.0) Red Blood Count 3.74 x10^6/uL (4.30-5.70) Hemoglobin 10.1 g/dL (13.0-17.5) Hematocrit 30.4 % (39.0-53.0) Mean Corpuscular Volume 81 fL (79-100) Mean Corpuscular Hemoglobin 27 pg (25-35) Mean Corpuscular Hemoglobin Concent 33 g/dL (31-37) Red Cell Distribution Width 14.9 % (11.5-14.5) Platelet Count 277 x10^3/uL (140-400) Neutrophils (%) (Auto) 78 % (31-73) Lymphocytes (%) (Auto) 13 % (24-48) Monocytes (%) (Auto) 7 % (0-9) Eosinophils (%) (Auto) 1 % (0-3) Basophils (%) (Auto) 0 % (0-3) Neutrophils # (Auto) 8.8 x10^3uL (1.8-7.7) Lymphocytes # (Auto) 1.5 x10^3/uL (1.0-4.8) Monocytes # (Auto) 0.8 x10^3/uL (0.0-1.1) Eosinophils # (Auto) 0.2 x10^3/uL (0.0-0.7) Basophils # (Auto) 0.0 x10^3/uL (0.0-0.2) Results All relevant outside records, renal labs, imaging studies, telemetry/EKG's were reviewed. JERRY WEN MD May 08, 2018 14:55
--- NOTE | 2018-05-08 15:12 | NUR ---
DIMPLE following pt. DIMPLE phoned and faxed orders to [facility] outpatient. Pt is scheduled for 0830 tomorrow morning. DIMPLE left a voice mail with outpatient registration regarding pt. Pt agreeable with plan. Discussed with RN.
--- NOTE | 2018-05-08 17:45 | NUR ---
Patient discharged to home. Discharge instructions, medications, follow up appointments, PICC care instructions, and outpatient appointments discussed with patient. Patient verbalized understanding. IV discontinued. LYNNETTE PICC clean, dry, and intact. Patient will come to outpatient for IV antibiotics at 0830 tomorrow. Patient assisted out in wheelchair by staff at this time. Patients father here to pick him up.
--- NOTE | 2018-05-24 14:15 | PDOC3 ---
Discharge Summary Visit Information Date of Admission: May 28, 2008 Date of Discharge: May 08, 2018 Admitting Diagnosis: DKA Final Diagnosis Problems Medical Problems: (1) Dehydration Status: Acute (2) Hyperglycemia Status: Acute Brief Hospital Course Allergies Allergies Coded Allergies Type Severity Reaction Last Updated Verified I S O L A T I O N *CONTACT* Allergy Unknown 05/20/18 Yes acetaminophen Adverse Reaction Intermediate UPSET STOMACH, DOESN'T WANT TO TAKE 05/20/18 Yes lisinopril Adverse Reaction Intermediate CHEST PAIN, ACID REFLUX 05/20/18 Yes Brief Hospital Course 47-year-old male, with history of diabetes, poorly controlled; history of multidrug-resistant E. coli urosepsis in December 2017, presented to the ER with complaints of back pain, nausea, vomiting, not feeling well, weak, decreased p.o. intake, which he attributed first to flu- like illness, but as he continued to get worse, he presented to the ER. He also had a sense of urgency. He also had diarrhea. He was found to have hyperglycemia. White count was normal. Hyponatremia, YOEL, lactic acidosis in the setting of increased creatinine. UA showed pyuria. CT showed fat stranding in the right perinephric region and right paracolic gutter with facial thickening suggestive of acute inflammatory or infectious etiology such as pyelonephritis. C. diff was negative. Ethyl alcohol level was low. The patient was started on empiric meropenem after reviewed history of multidrug-resistant UTI in the past, renal dosing Transferred out of ICU 05/01/18 for DKA and sepsis Sugars were running high 300s-status post HON K in the ICU, Hemoglobin A1c 8 Better by mouth intake today, ate his whole lunch Creatinine better 1.9 from 3, fluids running 100 mL per hour per renal Still diarrhea - C. difficile negative. WBC down today finally. CT abdomen consistent with possible cystitis and pyelonephritis worse on right. Seen by urology -- follow up appointment on with Dr. Gonzalez for cystoscopy at 0940 am. Invanz 12 days per ID with f/u week of may 18. Blood cultures with e coli ESBL. He is still having a little abdominal pain, now right CVA tenderness. No SOB or CP Assessment: GNR sepsis, POA Neg urince cx Fevers History of Escherichia coli sepsis with urinary tract infection in December 2017 with multidrug resistance. Acute kidney injury Diabetes mellitus with hyperosmolar hyperglycemia s/p ICU - hgba1c 8 Thrombocytopenia, better/stable pseudohyponatremia Lactic acidosis in the setting of increased creatinine. Diarrhea, c. diff neg 04/30. Plan: follow ID recommendations CT abdomen. May need a tagged WBC scan in the future. I will d/w ID I have consulted urology after d/w ID as he has concerning CT findings no pT needs Hold lisinopril HCTZ and metformin because of creatinine elevation, down to 1.5 today Imodium, Lactobacillus-C. difficile negative - will add psyllium Sliding-scale insulin-hemoglobin A1c 8 in March 2018 Supportive meds Increased Lantus from 20-35 units daily at bedtime Increase mealtime NovoLog from 8-12 3 times a day follow BC - has left peripheral line HX of PICC with 1 week course abx for MDR e coli not too long ago, December 2017 , ID will order new PICC History of Escherichia coli sepsis with urinary tract infection in December 2017 with multidrug resistance. Acute kidney injury - better Questionable urinary tract infection. UC neg - ? pyelo on CT 04/30 Diarrhea, c. diff neg 04/30. Cont Merrem 1 q 12 (05/01 did receive Invanz times one 04/30) D/c Loperamide given abd distension and C-diff order. F/u distension Cont Probiotics Monitor labs in am cont supportive care Greater than 30 minutes spent on discharge including medication reconciliationo Discharge Information Condition at Discharge: Improved Follow Up: Weeks Disposition/Orders: D/C to Home w/ HH Scheduled Amlodipine Besylate (Amlodipine Besylate) 10 Mg Tablet, 10 MG PO DAILY for 30 Days, #30 Prescribed by: CARTER HOLLIS on 01/05/181048 Last Action: Continued on 05/02/18848 by CARTER HOLLIS Atorvastatin Calcium (Atorvastatin Calcium) 20 Mg Tablet, 20 MG PO HS for FOR CHOLESTEROL, #30 Ref 0 (Reported) Entered as Reported by: KATHERINE GUALLPA on 12/30/17 020 Last Action: Continued on 05/02/18848 by CARTER HOLLIS Carvedilol (Carvedilol ) 12.5 Mg Tablet, 12.5 MG PO BIDWMEALS for 30 Days, #60 Prescribed by: CARTER HOLLIS on 01/05/181048 Last Action: Continued on 05/02/18 0849 by CARTER HOLLIS Dulaglutide (Trulicity) 1.5 Mg/0.5 Ml Pen.injctr, 1.5 MG SQ WEEKLY, (Reported) Entered as Reported by: KATHERINE GUALLPA on 12/30/17200 Last Action: Converted on 05/02/18 0849 by CARTER HOLLIS Ertapenem Sodium (Invanz) 1 Gm Vial, 1 GM IJ DAILY for ESBL UTI for 12 Days, #12 Prescribed by: KENJI NOWAK MD on 05/08/18 1327 Insulin Glargine,Hum.rec.anlog (Lantus Solostar) 100 Unit/1 Ml Insuln.pen, 25 UNITS SQ QHS for 14 Days Prescribed by: CARTER HOLLIS on 01/05/18 104 Last Action: Continued on 05/02/18 0849 by CARTER HOLLIS Insulin Lispro (Humalog) 100 Unit/1 Ml Insuln.pen, 8 UNITS SQ TIDWMEALS for 14 Days Prescribed by: CARTER HOLLIS on 01/05/181048 Last Action: Continued on 05/02/18 0849 by CARTER HOLLIS Pregabalin (Lyrica) 75 Mg Capsule, 75 MG PO TID, (Reported) Entered as Reported by: KATHERINE GUALLPA on 12/30/17200 Last Action: Continued on 05/02/18 0849 by CARTER HOLLIS Scheduled PRN Ondansetron Hcl (Zofran) 4 Mg Tablet, 1 TAB PO PRN Q8HRS PRN for NAUSEA, #12 Prescribed by: MICHAEL MAYER D.O. on 02/07/172210 Last Action: Converted on 05/02/18 0849 by CARTER HOLLIS Tramadol Hcl (Tramadol Hcl) 50 Mg Tablet, 50 MG PO PRN Q6HRS PRN for MILD TO MODERATE PAIN, #30 Prescribed by: CARTER HOLLIS on 01/05/181048 Last Action: HELD on 05/02/18 0849 by KENJI JOYCE MD May 24, 2018 14:15
== END 2018-05-08 17:45 | disposition home or self-care (01) | DRG 871 ==
LOC: ER 09:02 → 2 NORTH 10:10 → 1 WEST ICU 12:42 → 6 SOUTH 05-01 15:23
PROVIDERS: ADMIT Family Medicine; ATTEND Family Medicine
PROC: 02HV33Z Insertion of Infusion Device into Superior Vena Cava, Percutaneous Approach (ICD-10-PCS; principal; 2018-05-07)
PROC: B548ZZA Ultrasonography of Superior Vena Cava, Guidance (ICD-10-PCS; 2018-05-07)
DX: A41.51 Sepsis due to Escherichia coli [E. coli] (principal); N17.0 Acute kidney failure with tubular necrosis; E11.10 Type 2 diabetes mellitus with ketoacidosis without coma; N12 Tubulo-interstitial nephritis, not specified as acute or chronic; E87.1 Hypo-osmolality and hyponatremia; E86.0 Dehydration; E11.22 Type 2 diabetes mellitus with diabetic chronic kidney disease; D69.6 Thrombocytopenia, unspecified; R19.7 Diarrhea, unspecified; N18.3 Chronic kidney disease, stage 3 (moderate); E11.621 Type 2 diabetes mellitus with foot ulcer; L97.509 Non-pressure chronic ulcer of other part of unspecified foot with unspecified severity; G43.909 Migraine, unspecified, not intractable, without status migrainosus; I12.9 Hypertensive chronic kidney disease with stage 1 through stage 4 chronic kidney disease, or unspecified chronic kidney disease; E11.319 Type 2 diabetes mellitus with unspecified diabetic retinopathy without macular edema; E11.42 Type 2 diabetes mellitus with diabetic polyneuropathy; E78.00 Pure hypercholesterolemia, unspecified; E78.5 Hyperlipidemia, unspecified; Z83.3 Family history of diabetes mellitus; Z87.440 Personal history of urinary (tract) infections; Z16.24 Resistance to multiple antibiotics; Z88.8 Allergy status to other drugs, medicaments and biological substances; Z91.041 Radiographic dye allergy status
CPT/HCPCS: 36415; 36569; 71045; 74176; 76705; 76937; 77001; 80053; 81001; 82962; 83036; 83605; 83690; 84145; 84484; 85007; 85025; 85384; 85610; 85651; 85730; 87040; 87086; 87186; 87205; 87493; 87641; 93005; 96365; 96367; 96375; 96376; C1751; C1892; G0480; J1335; J1644; J1815; J2185; J2405; J2765; J3010; J3490; J7030; Q9966; 99285-25

== ENCOUNTER 2018-09-21 12:04 | Emergency (ER) | payer OTHER ==
[~2018-09-21] VITALS: Ht 167.6 cm; Wt 92.1 kg
[~2018-09-21 12:04] MED LIST changes: +ERTA1VIA IJ
[2018-09-21 12:18] VITALS: BP 158/99
[2018-09-21] MEDS ORDERED: CYCL10TA2 PO (12:36)
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
== END 2018-09-21 12:43 | disposition home or self-care (01) ==
LOC: ER 12:04
DX: S06.9X9A Unspecified intracranial injury with loss of consciousness of unspecified duration, initial encounter (principal); M54.5 Low back pain; E78.00 Pure hypercholesterolemia, unspecified; I10 Essential (primary) hypertension; G43.909 Migraine, unspecified, not intractable, without status migrainosus; E11.40 Type 2 diabetes mellitus with diabetic neuropathy, unspecified; E11.319 Type 2 diabetes mellitus with unspecified diabetic retinopathy without macular edema; V40.5XXA Car driver injured in collision with pedestrian or animal in traffic accident, initial encounter; Z88.6 Allergy status to analgesic agent; Z88.8 Allergy status to other drugs, medicaments and biological substances; Z91.041 Radiographic dye allergy status; Y93.89 Activity, other specified; Y92.410 Unspecified street and highway as the place of occurrence of the external cause; Y99.8 Other external cause status
CPT/HCPCS: 99283